=== PATIENT | female | born 1950 | race African-American/Black ===

== ENCOUNTER 2018-04-02 20:18 | Observation (INO) | payer OTHER ==
--- NOTE | 2018-04-02 21:01 | RAD REPORT ---
EXAM DESCRIPTION: CT - Ct Stroke Brain Wo Cont - 04/02/2018 8:52 pm CLINICAL HISTORY: Left-sided numbness COMPARISON: 2012 TECHNIQUE: Computed axial tomography of the head was obtained. IV contrast was not requested. All CT scans are performed using dose optimization technique as appropriate and may include automated exposure control or mA/KV adjustment according to patient size. FINDINGS: An intracranial bleed is not seen . The ventricles are normal in caliber. No extra-axial fluid collection is noted. Fluid within the sinuses/ mastoids is not seen. IMPRESSION: No acute intracranial abnormality is seen. If patient's symptoms persist MRI of the bra in would be recommended. Exam was discussed with Gregg Jesus in the emergency room 8:50 p.m. April 02, 2018
--- NOTE | 2018-04-02 21:04 | RAD REPORT ---
EXAM DESCRIPTION: [facility] Single View04/02/2018 8:56 pm CLINICAL HISTORY: Chest pain COMPARISON: August 2016 FINDINGS: The lungs appear clear of acute infiltrate. The heart is normal size IMPRESSION: No acute abnormalities displayed
[2018-04-02] MEDS ORDERED: ASPIRIN 81 MG CHEWABLE TABLET ONE (22:14)
--- NOTE | 2018-04-02 22:43 | EDPHYS ---
Physician Documentation [facility] Name: Chiquis Hickman Age: 67 yrs Sex: Female : 1950 Arrival Date: 04/02/2018 Time: 20:21 Bed 3 Private MD: ED Physician Jose L Adame HPI: 04/02 21:46 This 67 yrs old Black Female presents to ER via Wheelchair with complaints of LEFT ARM kdr TINGLING. 21:46 The patient presents to the emergency department with weakness of the left upper kdr extremity, that is mild, that is moderate, left lower extremity, that is mild, paresthesias of the left lower extremity, left side of the face, that is mild. Onset: The symptoms/episode began/occurred gradually, at 06:30. Context: occurred at home, The patient awakes every morning at 05:30 and she noted at 06:30 that she had tingling and numbness on her left face. Then some time before lunch, she noted weakness on the left side. Code stroke was not called since the patient was well outside the window for any acute intervention.. Associated signs and symptoms: The patient has no apparent associated signs or symptoms. Severity of symptoms: At their worst the symptoms were mild. Patient's baseline: Neuro: alert and fully oriented, Motor: left-sided weakness, From prior stroke. Current symptoms: paralysis or paresis, of the left arm and left leg, that is mild. The patient has not experienced similar symptoms in the past, Has had a prior CVA with minimal residual s/s. The patient has not recently seen a physician. Historical: - Allergies: 20:38 steroids; fc - Home Meds: 20:38 metformin 500 mg oral Tb24 1 tab once daily [Active]; Jardiance 10 mg oral tab 1 tab fc once daily [Active]; losartan-hydrochlorothiazide 100-25 mg oral tab 1 tab once daily [Active]; diltiazem HCl 360 mg Oral cpER 1 cap once daily [Active]; atorvastatin 40 mg oral tab 1 tab nightly [Active]; aspirin 81 mg Oral chew 1 tab once daily [Active]; multivitamin oral tab daily [Active]; Tresiba FlexTouch U-100 100 unit/mL (3 mL) subcutaneous inpn 20 unit nightly [Active]; Trulicity 1.5 mg/0.5 mL subcutaneous pnij 0.5 mL every [Active]; - PMHx: 20:38 Diabetes - IDDM; Hypertension; Hyperlipidemia; left sided weakness; CVA; TIA; fc - PSHx: 20:38 fibroid tumor removed; Hysterectomy; fc - Immunization history:: Last tetanus immunization: up to date Flu vaccine is up to date. - Social history:: Smoking status: Patient/guardian denies using tobacco. - Ebola Screening: : Patient negative for fever greater than or equal to 101.5 degrees Fahrenheit, and additional compatible Ebola Virus Disease symptoms Patient denies exposure to infectious person Patient denies travel to an Ebola-affected area in the 21 days before illness onset. ROS: 21:46 Constitutional: Negative for fever, chills, and weight loss, Eyes: Negative for injury, kdr pain, redness, and discharge, Neck: Negative for injury, pain, and swelling, Cardiovascular: Negative for chest pain, palpitations, and edema, Respiratory: Negative for shortness of breath, cough, wheezing, and pleuritic chest pain, Abdomen/GI: Negative for abdominal pain, nausea, vomiting, diarrhea, and constipation, Back: Negative for injury and pain, : Negative for injury, bleeding, discharge, and swelling, MS/Extremity: Negative for injury and deformity, Skin: Negative for injury, rash, and discoloration, Psych: Negative for depression, anxiety, suicide ideation, homicidal ideation, and hallucinations, Allergy/Immunology: Negative for hives, rash, and allergies, Endocrine: Negative for neck swelling, polydipsia, polyuria, polyphagia, and marked weight changes, Hematologic/Lymphatic: Negative for swollen nodes, abnormal bleeding, and unusual bruising. 21:46 Neuro: Positive for gait disturbance, numbness, weakness. Exam: 21:46 Constitutional: This is a well developed, well nourished patient who is awake, alert, kdr and in no acute distress. Head/Face: Normocephalic, atraumatic - no facial asymetry noted Eyes: Pupils equal round and reactive to light, extra-ocular motions intact. Lids and lashes normal. Conjunctiva and sclera are non-icteric and not injected. Cornea within normal limits. Periorbital areas with no swelling, redness, or edema. Neck: Trachea midline, no thyromegaly or masses palpated, and no cervical lymphadenopathy. Supple, full range of motion without nuchal rigidity, or vertebral point tenderness. No Meningismus. Chest/axilla: Normal chest wall appearance and motion. Nontender with no deformity. No lesions are appreciated. Cardiovascular: Regular rate and rhythm with a normal S1 and S2. No gallops, murmurs, or rubs. Normal PMI, no JVD. No pulse deficits. Respiratory: Lungs have equal breath sounds bilaterally, clear to auscultation and percussion. No rales, rhonchi or wheezes noted. No increased work of breathing, no retractions or nasal flaring. Abdomen/GI: Soft, non-tender, with normal bowel sounds. No distension or tympany. No guarding or rebound. No evidence of tenderness throughout. Back: No spinal tenderness. No costovertebral tenderness. Full range of motion. Skin: Warm, dry with normal turgor. Normal color with no rashes, no lesions, and no evidence of cellulitis. MS/ Extremity: Pulses equal, no cyanosis. Neurovascular intact. Full, normal range of motion. Psych: Awake, alert, with orientation to person, place and time. Behavior, mood, and affect are within normal limits. 21:46 Neuro: Orientation: is normal, Mentation: is normal, Cerebellar function: dysmetria is noted on the left, the patient is unable to track right heel to left silva, the patient is unable to track left heel to right silva, unable to perform alternating rapid hand movements with left hand, Motor: Weak on left greater than right. Vital Signs: 20:20 BP 178 / 80; Pulse 70; Resp 18; Temp 98.3(O); Pulse Ox 100% on R/A; Weight 102.51 kg fc (R); Height 5 ft. 5 in. (165.10 cm) (R); Pain 0/10; 21:15 BP 143 / 53; Pulse 68; Resp 18; Pulse Ox 99% on R/A; ak1 21:59 BP 134 / 60; Pulse 61; Resp 18; Temp 98.2; Pulse Ox 100% on R/A; ak1 23:08 BP 156 / 66; Pulse 62; Resp 18; Temp 98.10; Pulse Ox 100% on R/A; ak1 04/03 00:54 Pulse 62; Resp 18; Pulse Ox 100% on R/A; ak1 01:14 BP 148 / 75; Pulse 62; Resp 16; Temp 98.1; Pulse Ox 99% on R/A; Pain 0/10; ak1 04/02 20:20 Body Mass Index 37.61 (102.51 kg, 165.10 cm) fc NIH Stroke Scale Scores: 04/02 21:46 NIHSS Score: 9 kdr MDM: 21:46 Data reviewed: vital signs, nurses notes. Counseling: I had a detailed discussion with kdr the patient and/or guardian regarding: the historical points, exam findings, and any diagnostic results supporting the discharge/admit diagnosis, lab results, radiology results. 22:42 Patient medically screened. kdr 04/02 20:32 Order name: Glucose, Ancillary Testing; Complete Time: 21:36 EDMS 04/02 20:33 Order name: Basic Metabolic Panel kdr 04/02 20:33 Order name: CBC with Diff kdr 04/02 20:33 Order name: Protime (+inr) [facility] 04/02 20:33 Order name: Ptt, Activated kdr 04/02 22:56 Order name: Urine Dipstick--Ancillary (enter results) ms 04/02 20:33 Order name: CT Stroke Brain w/o Contrast; Complete Time: 21:36 kdr 04/02 20:33 Order name: Stroke CXR 1 View; Complete Time: 21:36 kdr 04/02 20:33 Order name: EKG; Complete Time: 20:33 kdr 04/02 20:33 Order name: Accucheck; Complete Time: 20:41 kdr 04/02 20:33 Order name: Cardiac monitoring; Complete Time: 20:42 kdr 04/02 20:33 Order name: EKG - Nurse/Tech; Complete Time: 20:42 kdr 04/02 20:33 Order name: IV Saline Lock; Complete Time: 20:42 kdr 04/02 20:33 Order name: Labs collected and sent; Complete Time: 20:42 kdr 04/02 20:33 Order name: NPO; Complete Time: 20:42 kdr 04/02 20:33 Order name: O2 Per Protocol; Complete Time: 20:42 kdr 04/02 20:33 Order name: O2 Sat Monitoring; Complete Time: 20:43 kdr 04/02 20:33 Order name: Stroke Swallow Screen; Complete Time: 20:43 kdr Administered Medications: 22:10 Drug: Aspirin Chewable Tablet 324 mg Route: PO; ak1 22:10 Follow up: Response: No adverse reaction ak1 Point of Care Testing: Blood Glucose: 20:41 Blood Glucose: 120 mg/dL; ak1 Ranges: Critical Glucose Levels:Adult <50 mg/dl or >400 mg/dl <40 mg/dl or >180 mg/dl Disposition: 04/02/18 22:42 Hospitalization ordered by Kirsten Baltazar for Inpatient Admission. Preliminary diagnosis is Ischemic CVA. Left sided weakness. - Bed requested for Telemetry/MedSurg (Inpatient). - Status is Inpatient Admission. ak1 - Condition is Fair. - Problem is new. - Symptoms are unchanged. UTI on Admission? No NIH Stroke Scale - NIH Stroke Score Date: 04/02/2018 Time: 21:46 Total Score = 9 1a. Level of Consciousness (LOC) - 0(Alert) 1b. Level of Consciousness (LOC) (Year \T\ Age) - 0(Both) 1c. LOC Commands (Open \T\ Closes Eyes/Lot Porter) - 0(Both) 2. Best Gaze (Lateral Gaze Paresis) - 0(Normal) 3. Visual Field Loss - 0(No visual loss) 4. Facial Palsy - 0(Normal) 5a. Left Arm: Motor (10-second hold) - 2(Drift, some effort against gravity) 5b. Right Arm: Motor (10-second hold) - 0(No drift) 6a. Left Leg: Motor (5-second hold - always test supine) - 3(No effort against gravity) 6b. Right Leg: Motor (5-second hold - always test supine) - 2(Drift, some effort against gravity) 7. Limb Ataxia (finger/nose \T\ heel/silva - test with eyes open) - 2(Present in two limbs) 8. Sensory Loss (pinprick arms/legs/face) - 0(Normal) 9. Best Language: Aphasia (description/naming/reading) - 0(No aphasia) 10. Dysarthria (speech clarity - read or repeat words) - 0(Normal) 11. Extinction and Inattention (visual/tactile/auditory/spatial/personal) - 0(No abnormality) Initials: kdr Signatures: Dispatcher [employer] EDMS Radha Nevarez RN RN Jose L Adame MD MD kdr Chretien, Felicia, RN RN Jennifer Smith RN RN ak1 Corrections: (The following items were deleted from the chart) 23:25 22:42 Hospitalization Ordered by Kirsten Baltazar MD for Inpatient Admission. mw Preliminary diagnosis is Ischemic CVA. Left sided weakness. Bed requested for Telemetry/MedSurg (Inpatient). Status is Inpatient Admission. Condition is Fair. Problem is new. Symptoms are unchanged. UTI on Admission? No. kdr 04/03 01:38 04/02 23:25 04/02/2018 22:42 Hospitalization Ordered by Kirsten Baltazar MD for ak1 Inpatient Admission. Preliminary diagnosis is Ischemic CVA. Left sided weakness. Bed requested for Telemetry/MedSurg (Inpatient). Status is Inpatient Admission. Condition is Fair. Problem is new. Symptoms are unchanged. UTI on Admission? No. mw
--- NOTE | 2018-04-02 22:43 | ER ---
Nurse's Notes [facility] Name: Chiquis Hickman Age: 67 yrs Sex: Female : 1950 Arrival Date: 04/02/2018 Time: 20:21 Bed 3 Private MD: Diagnosis: Ischemic CVA. Left sided weakness Presentation: 04/02 20:20 Presenting complaint: Patient states: that she is having left sided (face, arm and leg) fc tingling. Also having tightness to left neck. All started at 0630 this am. Denies any shortness of breath, nausea or vomiting. Transition of care: patient was not received from another setting of care. Onset of symptoms was April 02, 2018 at 06:30. Risk Assessment: Do you want to hurt yourself or someone else? Patient reports no desire to harm self or others. Initial Sepsis Screen: Does the patient meet any 2 criteria? No. Patient's initial sepsis screen is negative. Does the patient have a suspected source of infection? No. Patient's initial sepsis screen is negative. Care prior to arrival: None. 20:20 Method Of Arrival: Wheelchair fc 20:20 Acuity: ROSALBA 2 fc Triage Assessment: 20:40 General: Appears in no apparent distress. Behavior is calm, cooperative. ak1 Historical: - Allergies: 20:38 steroids; fc - Home Meds: 20:38 metformin 500 mg oral Tb24 1 tab once daily [Active]; Jardiance 10 mg oral tab 1 tab fc once daily [Active]; losartan-hydrochlorothiazide 100-25 mg oral tab 1 tab once daily [Active]; diltiazem HCl 360 mg Oral cpER 1 cap once daily [Active]; atorvastatin 40 mg oral tab 1 tab nightly [Active]; aspirin 81 mg Oral chew 1 tab once daily [Active]; multivitamin oral tab daily [Active]; Tresiba FlexTouch U-100 100 unit/mL (3 mL) subcutaneous inpn 20 unit nightly [Active]; Trulicity 1.5 mg/0.5 mL subcutaneous pnij 0.5 mL every [Active]; - PMHx: 20:38 Diabetes - IDDM; Hypertension; Hyperlipidemia; left sided weakness; CVA; TIA; fc - PSHx: 20:38 fibroid tumor removed; Hysterectomy; fc - Immunization history:: Last tetanus immunization: up to date Flu vaccine is up to date. - Social history:: Smoking status: Patient/guardian denies using tobacco. - Ebola Screening: : Patient negative for fever greater than or equal to 101.5 degrees Fahrenheit, and additional compatible Ebola Virus Disease symptoms Patient denies exposure to infectious person Patient denies travel to an Ebola-affected area in the 21 days before illness onset. Screenin:20 Abuse screen: Denies threats or abuse. Nutritional screening: No deficits noted. fc Tuberculosis screening: No symptoms or risk factors identified. Fall Risk No fall in past 12 months (0 pts). Secondary diagnosis (15 points) TIA, CVA, No IV (0 pts). Ambulatory Aid- Crutches/Cane/Walker (15 pts). Gait- Impaired (20 pts.). Mental Status- Overestimates/Forgets Limitations (15 pts.). Total Carlos Fall Scale indicates High Risk Score (45 or more points). Fall prevention measures have been instituted. Side Rails Up X 2 Placed Close to Nursing Station Frequent Obs/Assessments Occuring Family Present and informed to notify staff if the need to leave the bedside As available patient and family educated on Fall Prevention Program and Strategies. Assessment: 20:37 General: Appears in no apparent distress. Pain: Complains of pain in NECK PAIN. ak1 20:38 Neuro: Level of Consciousness is awake, alert, obeys commands, Oriented to person, ak1 place, time, situation, Director Of Strategic [employer]iances are weak on left pt with hx previous stroke. Moves all extremities. weakness on left side from previous stroke. Speech is normal, Facial symmetry appears normal, Facial symmetry: tongue is midline, pt chewing gum in ER3. . Reports numbness left arm that is intermittent. Cardiovascular: No deficits noted. Respiratory: No deficits noted. GI: No signs and/or symptoms were reported involving the gastrointestinal system. : No signs and/or symptoms were reported regarding the genitourinary system. EENT: No signs and/or symptoms were reported regarding the EENT system. Derm: No signs and/or symptoms reported regarding the dermatologic system. Musculoskeletal: No signs and/or symptoms reported regarding the musculoskeletal system. 20:44 Reassessment: swallow screen completed, pt tolerated water well. ak1 21:15 Reassessment: Patient appears in no apparent distress at this time. No changes from ak1 previously documented assessment. Patient is alert, oriented x 3, equal unlabored respirations, skin warm/dry/pink. Patient states symptoms have improved. 21:57 Reassessment: Patient appears in no apparent distress at this time. No changes from ak1 previously documented assessment. Patient is alert, oriented x 3, equal unlabored respirations, skin warm/dry/pink. 23:08 Reassessment: Patient appears in no apparent distress at this time. No changes from ak1 previously documented assessment. Patient and/or family updated on plan of care and expected duration. Pain level reassessed. Patient is alert, oriented x 3, equal unlabored respirations, skin warm/dry/pink. Patient states symptoms have improved. 04/03 00:53 Reassessment: Patient appears in no apparent distress at this time. Patient is alert, ak1 oriented x 3, equal unlabored respirations, skin warm/dry/pink. pt and family informed of wait for CT before admission or transfer status can be determined. will continue to monitor. Vital Signs: 04/02 20:20 BP 178 / 80; Pulse 70; Resp 18; Temp 98.3(O); Pulse Ox 100% on R/A; Weight 102.51 kg fc (R); Height 5 ft. 5 in. (165.10 cm) (R); Pain 0/10; 21:15 BP 143 / 53; Pulse 68; Resp 18; Pulse Ox 99% on R/A; ak1 21:59 BP 134 / 60; Pulse 61; Resp 18; Temp 98.2; Pulse Ox 100% on R/A; ak1 23:08 BP 156 / 66; Pulse 62; Resp 18; Temp 98.10; Pulse Ox 100% on R/A; ak1 04/03 00:54 Pulse 62; Resp 18; Pulse Ox 100% on R/A; ak1 01:14 BP 148 / 75; Pulse 62; Resp 16; Temp 98.1; Pulse Ox 99% on R/A; Pain 0/10; ak1 04/02 20:20 Body Mass Index 37.61 (102.51 kg, 165.10 cm) fc NIH Stroke Scale Scores: 04/02 21:46 NIHSS Score: 9 kdr ED Course: 20:20 Arm band placed on Patient placed in an exam room, on a stretcher. 20:20 Patient has correct armband on for positive identification. Placed in gown. Bed in low fc position. Call light in reach. Side rails up X 1. appliance technician on. Pulse ox on. NIBP on. 20:20 No provider procedures requiring assistance completed. fc 20:21 Patient arrived in ED. ag3 20:24 Jose L Adame MD is Attending Physician. kdr 20:32 Triage completed. fc 20:37 Jennifer Smith, RN is Primary Nurse. ak1 20:[address] via stretcher. vm2 20:40 Initial lab(s) drawn, by me, sent to lab. EKG done, by ED staff, reviewed by Jose L Adame MD X-ray(s) taken. Inserted saline lock: 20 gauge in right antecubital area, using aseptic technique. Blood collected. 20:52 CT Stroke Brain w/o Contrast In Process Unspecified. EDMS 20:56 Stroke CXR 1 View In Process Unspecified. EDMS 21:57 Warm blanket given. jd3 22:40 Kirsten Baltazar MD is Hospitalizing Provider. kdr 04/03 00:[address] via stretcher. kw1 00:36 CT completed. Patient tolerated procedure well. Patient moved back from CT. kw1 01:15 Patient admitted, IV remains in place. ak1 Administered Medications: 04/02 22:10 Drug: Aspirin Chewable Tablet 324 mg Route: PO; ak1 22:10 Follow up: Response: No adverse reaction ak1 Point of Care Testing: Blood Glucose: 20:41 Blood Glucose: 120 mg/dL; ak1 Ranges: Outcome: 22:42 Decision to Hospitalize by Provider. kdr 04/03 00:53 Condition: stable ak1 01:15 Instructed on the need for admit. ak1 01:28 Admitted to Med/surg accompanied by tech, family with patient, via stretcher, room 408, ak1 with chart. 01:38 Patient left the ED. ak1 NIH Stroke Scale - NIH Stroke Score Date: 04/02/2018 Time: 21:46 Total Score = 9 1a. Level of Consciousness (LOC) - 0(Alert) 1b. Level of Consciousness (LOC) (Year \T\ Age) - 0(Both) 1c. LOC Commands (Open \T\ Closes Eyes/Transfer And Line Up Worker) - 0(Both) 2. Best Gaze (Lateral Gaze Paresis) - 0(Normal) 3. Visual Field Loss - 0(No visual loss) 4. Facial Palsy - 0(Normal) 5a. Left Arm: Motor (10-second hold) - 2(Drift, some effort against gravity) 5b. Right Arm: Motor (10-second hold) - 0(No drift) 6a. Left Leg: Motor (5-second hold - always test supine) - 3(No effort against gravity) 6b. Right Leg: Motor (5-second hold - always test supine) - 2(Drift, some effort against gravity) 7. Limb Ataxia (finger/nose \T\ heel/silva - test with eyes open) - 2(Present in two limbs) 8. Sensory Loss (pinprick arms/legs/face) - 0(Normal) 9. Best Language: Aphasia (description/naming/reading) - 0(No aphasia) 10. Dysarthria (speech clarity - read or repeat words) - 0(Normal) 11. Extinction and Inattention (visual/tactile/auditory/spatial/personal) - 0(No abnormality) Initials: kdr Signatures: Dispatcher [employer] EDJose L Wooten MD MD kdr Chretien, Felicia RN RN fc Jennifer Smith RN RN Nika Zapata2 Santana Barnett RN RN Anitra Bosch1 Glenny Desouza ag3 Corrections: (The following items were deleted from the chart) 04/02 20:33 20:20 Fall Risk None identified. fc fc
[2018-04-02 23:08] LABS: Urine Blood NEGATIVE (NEG); Urine Glucose 1+ (NEG); Urine Protein NEGATIVE (NEG)
[2018-04-02 23:23] LABS: Absolute Lymphocytes (CBC) 3.5 K/uL (0.7-4.9); Absolute Monocytes 0.6 K/uL (0.1-1.3); Absolute Neutrophil 4.5 K/uL (1.8-8.0); Basophils % 0.8 % (0-1.3); Eosinophils % 2.4 % (0-4.4); Hematocrit 39.7 % (36.0-45.0); Lymphocytes % 39.2 % (15.3-44.8); MCH 30.8 pg (27.0-35.0); MCV 90.7 fL (80-100); MPV 8.2 fL (7.6-11.3); RBC Red Blood Cell Count 4.37 M/uL (3.86-4.86)
[2018-04-02 23:38] LABS: Potassium 3.7 mmol/L (3.5-5.1)
[2018-04-02 23:47] LABS: Protime INR 0.92
[2018-04-03] MEDS ORDERED: MAGNESIUM HYDROXIDE 8% 30 ML PO PRN (00:51)
[2018-04-03] MEDS ORDERED: ONDANSETRON 4 MG/2 ML VIAL IV PRN (00:51)
[2018-04-03] MEDS ORDERED: ACETAMINOPHEN 500 MG TAB PO PRN (00:51)
[2018-04-03] MEDS ORDERED: NA CHLORIDE 0.9% 1,000 ML IV SCH (01:00)
[2018-04-03] MEDS: D5 0.9 NS 1,000 ML IV SCH ×2 (02:32→17:03)
--- NOTE | 2018-04-03 07:59 | RAD REPORT ---
EXAM DESCRIPTION: CT - Head angio - 04/03/2018 6:38 am CLINICAL HISTORY: CVA A preliminary report was provided at the time of the study and reviewed prior to final report. TECHNIQUE: Axial noncontrast 5 mm imaging of the head performed. During dynamic enhancement using no nionic IV contrast, axial 1 millimeter thick images of the head were obtained. Sagittal and axial rec onstruction images were generated and reviewed. All CT scans are performed using dose optimization technique as appropriate and may include automated exposure control or mA/KV adjustment according to patient size. COMPARISON: CT head April 02 FINDINGS: No aneurysm or vascular malformation identified. Major venous sinuses are patent. No stenosis, named branch occlusion, vasculitis or other significant vascular finding identifiable. IMPRESSION: Negative CT angio head examination.
[2018-04-03] MEDS: CLOPIDOGREL 75 MG TABLET PO SCH (09:00)
[2018-04-03] MEDS: ENOXAPARIN 40 MG/0.4 ML SQ SCH (09:00)
[2018-04-03] MEDS ORDERED: POTASSIUM CL SA 10 MEQ TAB PO ONE (09:00)
[2018-04-03] MEDS ORDERED: ASPIRIN EC 81 MG TAB PO SCH (09:00)
--- NOTE | 2018-04-03 12:26 | EKG ---
Test Date: 2018-04-02 Test Time: 20:42:41 Hide Worker: TONI MEASUREMENT RESULTS: Intervals: Rate: 64 CA: 180 QRSD: 88 QT: 420 QTc: 433 [place]: P: 41 CA: 180 QRS: -7 T: 19 INTERPRETIVE STATEMENTS: Normal sinus rhythm Moderate voltage criteria for LVH, may be normal variant Borderline ECG Compared to ECG 08/23/2016 07:32:29 No significant changes Electronically Signed On 04-03-18 12:25:39 CDT by Rebel Smyth
[2018-04-03] MEDS ORDERED: ENOXAPARIN 40 MG/0.4 ML SQ SCH (17:00)
--- NOTE | 2018-04-03 18:56 | P.HP ---
Certification for Inpatient Patient admitted to: Inpatient With expected LOS: >2 Midnights Patient will require the following post-hospital care: Rehabilitation Practitioner: I am a practitioner with admitting privileges, knowledge of patient current condition, hospital course, and medical plan of care. Services: Services provided to patient in accordance with Admission requirements found in Title 42 Section 412.3 of the Code of Federal Regulations Patient History Date of Service: 04/02/18 Reason for admission: left-sided weakness History of Present Illness: Patient is a 67-year-old female who came into the hospital with left-sided weakness. Her symptoms started 24 hr prior to arrival. Her symptoms were not improving so she came to the emergency room for further evaluation. Patient has had a prior stroke about 10 years ago. Her symptoms have pretty much resolved since that time. She has not been taking good care of herself however. Her blood pressure has been elevated. In the emergency room she had a CT scan and labs performed. CT scan was negative for an acute infarct. We will schedule her for an MRI along with an echocardiogram and carotid Doppler. Neurologic consult as well. We did speak to the ER physician and they were arranging for tele Neuro. Since patient was outside the window of tPA we decided that she would be able to be managed care with medical management and Neurology input as needed. Allergies Steroids Allergy (Mild, Uncoded 04/03/18 02:32) Unknown Home Medications: Aspirin [Mk Chewable Aspirin] 1 tab PO DAILY 08/23/16 Empagliflozin [Jardiance] 10 mg PO DAILY 08/23/16 Insulin Degludec [Tresiba Flextouch U-100] 20 unit SQ BEDTIME 08/23/16 Metformin HCl [Glucophage*] 500 mg PO DAILY 08/23/16 Multivit-Min/FA/Lycopen/Lutein [Centrum Silver Tablet] 1 tab PO DAILY 08/23/16 Simvastatin 40 mg PO DAILY 08/23/16 dilTIAZem HCl [Diltiazem 24Hr Cd] 360 mg PO DAILY 08/23/16 Dulaglutide [Trulicity] 0.75 mg SQ EVERY 7TH DAY 04/03/18 Losartan/Hydrochlorothiazide [Losartan-Hctz 100-25 mg Tab] 1 tab PO DAILY - Past Medical/Surgical History Has patient received pneumonia vaccine in the past: Yes Diabetic: Yes -: HTN -: IDDM -: high cholesterol -: CVA (10 years ago) -: fibroid tumor removed -: hysterectomy -: hernia repair - Family History Father Medical History: Hypertension, Diabetes Mother Medical History: Hypertension, Diabetes - Social History Smoking Status: Never smoker Alcohol use: No CD- Drugs: No Caffeine use: Yes Place of Residence: Home Review of Systems 10-point ROS is otherwise unremarkable Physical Examination - Vital Signs Temperature: 98.0 F Blood Pressure: 139/66 Pulse: 76 Respirations: 18 Pulse Ox (%): 97 - Physical Exam General: Alert, In no apparent distress, Oriented x3 HEENT: Atraumatic, PERRLA, Mucous membr. moist/pink, EOMI, Sclerae nonicteric Neck: Supple, 2+ carotid pulse no bruit, No LAD, Without JVD or thyroid abnormality Respiratory: Clear to auscultation bilaterally, Normal air movement Cardiovascular: Regular rate/rhythm, Normal S1 S2 Gastrointestinal: Normal bowel sounds, Soft and benign, Non-distended, No tenderness Musculoskeletal: No clubbing, No swelling, No tenderness Integumentary: No rashes Neurological: Normal gait, Normal speech, Normal tone, Sensation intact, Cranial nerves 3-12 intact, Normal affect, Other (no pronator drift), Abnormal strength (left sided weakness 4/5) Lymphatics: No axilla or inguinal lymphadenopathy - Studies Laboratory Data (last 24 hrs) 04/02/18 23:11: PT 10.9, INR 0.92, APTT 29.8 04/02/18 23:11: WBC 8.9, Hgb 13.5, Hct 39.7, Plt Count 228 04/02/18 23:11: Sodium 140, Potassium 3.7, BUN 22 H, Creatinine 1.00, Glucose 89 Assessment & Plan - Problems (Diagnosis) (1) Acute CVA (cerebrovascular accident) Current Visit: Yes Status: Acute (2) Weakness of left side of body Current Visit: Yes Status: Acute (3) Diabetes mellitus Onset Date: 08/25/16 Current Visit: No Status: Chronic Qualifiers: Diabetes mellitus type: type 2 (4) HTN (hypertension) Onset Date: 08/25/16 Current Visit: No Status: Chronic Qualifiers: - Plan 1. MRI of the brain 2. Echocardiogram and carotid Doppler 3. Anti-platelet therapy and statin therapy 4. Neurology consultation as needed 5. Physical therapy/occupational therapy/speech therapy evaluation 6. Modified barium swallow study 7. DVT prophylaxis Discharge Plan: Home Plan to discharge in: Greater than 2 days - Advance Directives Does patient have a Living Will: No Does patient have a Durable POA for Healthcare: No - Code Status/Comfort Care Code Status Assessed: Yes Code Status: Full Code Critical Care: No Time Spent Managing PTS Care (In Minutes): 50
[2018-04-03] MEDS: ATORVASTATIN 20 MG TAB PO SCH (20:44)
[2018-04-04 06:29] LABS: Absolute Lymphocytes (CBC) 2.6 K/uL (0.7-4.9); Absolute Monocytes 0.5 K/uL (0.1-1.3); Absolute Neutrophil 2.7 K/uL (1.8-8.0); Basophils % 0.4 % (0-1.3); Eosinophils % 2.7 % (0-4.4); Hematocrit 37.9 % (36.0-45.0); Lymphocytes % 43.3 % (15.3-44.8); MCH 31.3 pg (27.0-35.0); MCV 90.5 fL (80-100); Monocytes % 8.7 % (3.3-12.3); RBC Red Blood Cell Count 4.19 M/uL (3.86-4.86)
[2018-04-04 07:26] LABS: Albumin 2.8 g/dL (3.4-5.0); Bilirubin Total 0.4 mg/dL (0.2-1.0); Magnesium 1.9 mg/dL (1.8-2.4); Phosphorus 2.8 mg/dL (2.5-4.9); Potassium 3.8 mmol/L (3.5-5.1); Protein, Total 7.4 g/dL (6.4-8.2)
[2018-04-04] MEDS ORDERED: HOME MED 1 EA UNK (Losartan/Hydrochlorothiazide [Losartan-Hctz 100-25 Mg Tab] 1 TAB) PO SCH (09:00)
[2018-04-04] MEDS: ENOXAPARIN 40 MG/0.4 ML SQ SCH (09:00)
[2018-04-04] MEDS ORDERED: HOME MED 1 EA UNK (Simvastatin [Simvastatin] 40 MG) PO SCH (09:00)
[2018-04-04] MEDS ORDERED: DILTIAZEM HCL 360 MG PO SCH (09:00)
[2018-04-04] MEDS: CLOPIDOGREL 75 MG TABLET PO SCH (09:00)
[2018-04-04] MEDS: HOME MED 1 EA UNK (Empagliflozin [Jardiance] 10 MG) PO SCH (09:00)
[2018-04-04] MEDS: ASPIRIN 81 MG CHEWABLE TABLET PO SCH (09:03)
[2018-04-04] MEDS: DILTIAZEM HCL 180 MG SR CAP PO SCH (09:03)
[2018-04-04] MEDS: LOSARTAN/HCTZ 50-12.5 PO SCH (09:04)
[2018-04-04] MEDS ORDERED: POTASSIUM CL SA 10 MEQ TAB PO ONE (11:28)
--- NOTE | 2018-04-04 14:29 | P.PN ---
Subjective Date of Service: 04/04/18 Chief Complaint: left-sided weakness Subjective: Tolerating diet, Ambulating, Improving, Working w/ PT, Doing well Review of Systems 10-point ROS is otherwise unremarkable Physical Examination - Vital Signs Temperature: 97.8 F Blood Pressure: 144/79 Pulse: 78 Respirations: 16 Pulse Ox (%): 99 - Physical Exam General: Alert, In no apparent distress HEENT: Atraumatic, PERRLA, EOMI Neck: Supple, JVD not distended Respiratory: Clear to auscultation bilaterally, Normal air movement Cardiovascular: Regular rate/rhythm, Normal S1 S2 Gastrointestinal: Normal bowel sounds, No tenderness Musculoskeletal: No tenderness Integumentary: No rashes Neurological: Normal speech, Normal tone, Normal affect Lymphatics: No axilla or inguinal lymphadenopathy - Studies Medications List Reviewed: Yes Assessment And Plan - Current Problems (Diagnosis) (1) Weakness of left side of body Current Visit: Yes Status: Acute Plan: Weakness of left side of body. Improving today -Head CT negative -MRI pending today -ECHO pending -Carotid Doppler negative for now -neurology Consulted. 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
[2018-04-04] MEDS: ATORVASTATIN 20 MG TAB PO SCH (20:30)
[2018-04-04] MEDS ORDERED: INSULIN DEGLUDEC SQ SCH (21:00)
[2018-04-05 06:31] VITALS: BMI 25.4
[2018-04-05 06:37] LABS: Potassium 3.9 mmol/L (3.5-5.1)
[2018-04-05 06:43] LABS: Absolute Lymphocytes (CBC) 2.1 K/uL (0.7-4.9); Absolute Monocytes 0.5 K/uL (0.1-1.3); Absolute Neutrophil 3.2 K/uL (1.8-8.0); Basophils % 0.7 % (0-1.3); Eosinophils % 3.4 % (0-4.4); Hematocrit 39.3 % (36.0-45.0); Lymphocytes % 35.3 % (15.3-44.8); MCH 30.8 pg (27.0-35.0); MCV 92.1 fL (80-100); MPV 7.8 fL (7.6-11.3); Monocytes % 8.3 % (3.3-12.3); RBC Red Blood Cell Count 4.27 M/uL (3.86-4.86)
[2018-04-05] MEDS ORDERED: POTASSIUM CL SA 10 MEQ TAB PO ONE (06:54)
[2018-04-05] MEDS ORDERED: LORazepam 2 MG/ML VIAL IV ONE (07:14)
[2018-04-05] MEDS: HOME MED 1 EA UNK (Empagliflozin [Jardiance] 10 MG) PO SCH (09:00)
[2018-04-05] MEDS ORDERED: POTASSIUM CL SA 10 MEQ TAB PO SCH (09:00)
[2018-04-05] MEDS: ENOXAPARIN 40 MG/0.4 ML SQ SCH (09:00)
[2018-04-05] MEDS: CLOPIDOGREL 75 MG TABLET PO SCH ×2 (09:00→09:04)
[2018-04-05] MEDS: LOSARTAN/HCTZ 50-12.5 PO SCH (09:03)
[2018-04-05] MEDS: ASPIRIN 81 MG CHEWABLE TABLET PO SCH (09:04)
[2018-04-05] MEDS: DILTIAZEM HCL 180 MG SR CAP PO SCH (09:05)
--- NOTE | 2018-04-05 09:54 | RAD REPORT ---
EXAM DESCRIPTION: MRI - Brain W/Wo Cont - 04/05/2018 9:13 am CLINICAL HISTORY: CVA/CONFUSION Drowsiness COMPARISON: MRA Head Wo Cont dated 04/05/2018; MRA Neck W/Wo Cont dated 04/05/2018; Head angio dated 04/02/2018; Ct Stroke Brain Wo Cont dated 04/02/2018 TECHNIQUE: Multi-sequence, multiplanar MR imaging of the brain was performed with contrast. FINDINGS: No intracranial hemorrhage, hydrocephalus, extra-axial fluid collection or acute infarctio n.Mild small area of T2 and FLAIR hyperintensity in the periventricular region is present compatible chronic microvascular ischemic changes. No edema or shift of midline structures. No intracranial mass . DWI is negative for acute CVA. The midline structures are normally formed. Partially empty sella configuration noted.Mastoid air tim ls and paranasal sinuses are clear. Post-contrast images show no abnormal enhancement to suggest tumor or infection. IMPRESSION: Negative for acute CVA or other acute intracranial abnormality. No pathologic post-contrast enhancement suspected.
--- NOTE | 2018-04-05 09:57 | RAD REPORT ---
EXAM DESCRIPTION: MRI - MRA Head Wo Cont - 04/05/2018 9:22 am CLINICAL HISTORY: CVA/confusion CVA COMPARISON: Head angio dated 04/02/2018 FINDINGS: 3D noncontrast [id number] MR angiography of the [place] was performed. No aneurysm, flow-limiting stenosis or vascular malformation is seen. Forward flow seen in codominant vertebral arteries. Normal variant origin of left posterior communicating artery noted. The visualized dural venous sinuses appear patent. IMPRESSION: No significant flow abnormality of the [place] is identified.
--- NOTE | 2018-04-05 10:02 | RAD REPORT ---
EXAM DESCRIPTION: MRI - MRA Neck W/Wo Cont - 04/05/2018 9:18 am CLINICAL HISTORY: CVA/CONFUSION Drowsiness COMPARISON: No comparisons FINDINGS: Contrast enhance 2D [id number] MR angiography of the neck vessels was performed. No significant carotid stenosis is seen involving either carotid system. Antegrade flow seen in both vertebral arteries. IMPRESSION: No significant carotid stenosis is identified.
[2018-04-05 11:28] VITALS: O2SAT 97
--- NOTE | 2018-04-05 11:55 | P.DS ---
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 Her symptoms started 24 hr prior to arrival. Her symptoms were not improving so she came to the emergency room for further evaluation. Patient has had a prior stroke about 10 years ago. Her symptoms have pretty much resolved since that time. She has not been taking good care of herself however. Her blood pressure has been elevated. In the emergency room she had a CT scan and labs performed. CT scan was negative for an acute infarct. We will schedule her for an MRI along with an echocardiogram and carotid Doppler. Neurologic consult as well. We did speak to the ER physician and they were arranging for tele Neuro. Since patient was outside the window of tPA we decided that she would be able to be managed care with medical management and Neurology input as needed. Hospital Course: Overall during the hospital stay patient remained stable Patient was initially admitted to the hospital for left-sided weakness along with other neurological deficits. Which resolved by the time patient was brought to the ER. Acute CVA versus TIA of was of concern and thus patient was admitted to the hospital for 24 hr observation and to get MRI of the head. Patient was started on aspirin Plavix statin here in the hospital along with Lovenox. Patient had complete resolution of her weakness and had no further complaints to offer in 48 hr of admission. Patient had an MRI of the head done here in the hospital along with MRA as well. Both of which were within normal limits with no signs of acute ischemia. Patient most likely had TIA and thus was discharged home and was asked to continue taking her aspirin and statin for stroke prevention in the future. Patient demonstrated understanding and thus was discharged home under stable condition. Vital Signs/Physical Exam: Temp Pulse Resp BP Pulse Ox 97.6 F 70 18 141/73 H 97 04/05/18 08:00 04/05/18 09:05 04/05/18 04:00 04/05/18 09:05 04/05/18 08:00 General: Alert, In no apparent distress HEENT: Atraumatic, PERRLA, EOMI Neck: Supple, JVD not distended Respiratory: Clear to auscultation bilaterally, Normal air movement Cardiovascular: Regular rate/rhythm, Normal S1 S2 Gastrointestinal: Normal bowel sounds, No tenderness Musculoskeletal: No tenderness Integumentary: No rashes Neurological: Normal speech, Normal tone, Normal affect Lymphatics: No axilla or inguinal lymphadenopathy Laboratory Data at Discharge: WBC 6.1 K/uL (4.3-10.9) 04/05/18 06:10 Hgb 13.2 g/dL (12.0-15.0) 04/05/18 06:10 Hct 39.3 % (36.0-45.0) 04/05/18 06:10 Plt Count 214 K/uL (152-406) 04/05/18 06:10 PT 10.9 SECONDS (9.5-12.5) 04/02/18 23:11 INR 0.92 04/02/18 23:11 APTT 29.8 SECONDS (24.3-36.9) 04/02/18 23:11 Sodium 141 mmol/L (136-145) 04/05/18 06:10 Potassium 3.9 mmol/L (3.5-5.1) 04/05/18 06:10 BUN 15 mg/dL (7-18) 04/05/18 06:10 Creatinine 0.80 mg/dL (0.55-1.3) 04/05/18 06:10 Glucose 106 mg/dL (74-106) 04/05/18 06:10 Phosphorus 2.8 mg/dL (2.5-4.9) 04/04/18 06:08 Magnesium 1.9 mg/dL (1.8-2.4) 04/04/18 06:08 Total Bilirubin 0.4 mg/dL (0.2-1.0) 04/04/18 06:08 AST 38 U/L (15-37) H 04/04/18 06:08 ALT 44 U/L (12-78) 04/04/18 06:08 Alkaline Phosphatase 96 U/L (45-117) 04/04/18 06:08 Triglycerides 75 mg/dL (<150) 04/04/18 06:08 Cholesterol 118 mg/dL (<200) 04/04/18 06:08 HDL Cholesterol 65 mg/dL (40-60) H 04/04/18 06:08 Cholesterol/HDL Ratio 1.82 04/04/18 06:08 Home Medications: Aspirin [Mk Chewable Aspirin] 1 tab PO DAILY 08/23/16 Empagliflozin [Jardiance] 10 mg PO DAILY 08/23/16 Insulin Degludec [Tresiba Flextouch U-100] 20 unit SQ BEDTIME 08/23/16 Metformin HCl [Glucophage*] 500 mg PO DAILY 08/23/16 Multivit-Min/FA/Lycopen/Lutein [Centrum Silver Tablet] 1 tab PO DAILY 08/23/16 Simvastatin 40 mg PO DAILY 08/23/16 dilTIAZem HCl [Diltiazem 24Hr Cd] 360 mg PO DAILY 08/23/16 Dulaglutide [Trulicity] 0.75 mg SQ EVERY 7TH DAY 04/03/18 Losartan/Hydrochlorothiazide [Losartan-Hctz 100-25 mg Tab] 1 tab PO DAILY Patient Discharge Instructions: Please f.u with PCP and Neurology in 1 to 2 week post discharge. No new medication. Your MRI, MRA and Neck MRA were negative Diet: Regular Activity: Ad nabil Followup: Toñito De La Rosa MD [ASSOCIATE-ACTIVE - CAN ADMIT] - 1 Week
[2018-04-05 13:05] VITALS: BP 121/67; TEMP 98.3
[2018-04-10] MEDS ORDERED: HOME MED 1 EA UNK (Dulaglutide [Trulicity] 0.75 MG) SQ SCH (09:00)
== END 2018-04-05 13:00 | disposition home or self-care (01) ==
LOC: ER 20:18 → ERHOLD 23:16 → INTOOBSV 23:16 → 4TH 04-03 01:29
PROVIDERS: ADMIT Hospitalist; ATTEND Hospitalist
DX: R53.1 Weakness (principal); E11.9 Type 2 diabetes mellitus without complications; I10 Essential (primary) hypertension; Z79.82 Long term (current) use of aspirin; Z86.73 Personal history of transient ischemic attack (TIA), and cerebral infarction without residual deficits
CPT/HCPCS: 36415 ×3; 70450; 70496; 70544; 70549; 70553; 71045; 80048 ×2; 80053; 80061; 81003; 82962 ×11; 83735; 84100; 85025 ×3; 85610; 85730; 93005; 97163; 99285; A9577; G0378 ×2; Q9967; J1650; J7030

== ENCOUNTER 2018-11-12 10:53 | Emergency (ER) | payer OTHER ==
--- OUTSIDE RECORDS SUMMARY | 2018-11-12 10:57 | XMS REPORT | Continuity of Care Document ---
:1950 Author Organization Interface Problems Problem Status Onset Classification Date Comments Source Date Reported CVA Active 01/05/[address] LF #[id number](CVA) Active 01/05/[address] APHASIA,ACUTE Active 01/05/[address] TIA Resolved 06/08/19 Problem 01/08/[address] TIA Resolved 06/08/19 Problem 07/15/[address] Stroke Resolved Problem 01/08/2017 [facility] HTN - Resolved Problem 01/08/2017 [facility] Hyperlipidemia Resolved Problem 01/08/2017 [facility] IDDM - Resolved Problem 01/08/2017 [facility] diabetes [facility]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 Fibroids Resolved Problem 01/08/2017 [facility] HTN - Resolved Problem 07/15/2012 [facility] IDDM - Resolved Problem 07/15/2012 [facility]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 APHASIA Active [facility] CVA Active [facility] Medications Medication Details Route Status Patient Ordering Order Source Instructions Provider Date Ativan 1 mg, 0.5 mL, Inactive 01/05[facility] Route: IVP, 2017 Medical Drug form: Center INJ, ONCE, Dosing Weight 105.17, kg, PRN Anxiety, Start date: 01/05/17 11:31:00 CDTNotes: (Same as: Ativan) Ativan 2 mg, Route: Inactive 01/05[facility] IVP, Drug 2017 Medical form: INJ, Center ONCE, Dosing Weight 105.17, kg, PRN Anxiety, Start date: 01/05/17 11:30:00 CDT Insulin Glargine 10 unit, 0.1 Inactive 01/05[facility] mL, Route: 2017 Medical SUB-Q, Drug Center form: SOLN, Daily, Dosing Weight 122.33, kg, Start date: 01/05/17 9:00:00 CDT, Duration: 30 day, Stop date: 02/03/17 9:00:00 CDTNotes: Same as: Lantus) Do not hold insulin without contacting prescriber WASTE: F/P - Black; E - [facility] Trash [facility] Cardizem CD 180 mg, 1 Inactive [place] cap, Route: 2017 Medical PO, Drug Center form: ERCAP, Daily, Dosing Weight 122.33, kg, Start date: 01/05/17 9:00:00 CDT, Duration: 30 day, Stop date: 02/03/17 9:00:00 CDTNotes: (Same as:Cardizem CD) Before meals. DO NOT CRUSH. aspirin 81 mg 81 mg, 1 tab, Inactive [facility] tablet, enteric Route: PO, 2017 Medical coated Drug form: [place] ECTAB, Daily, Dosing Weight 122.33, kg, Start date: 01/05/17 9:00:00 CDT, Duration: 30 day, Stop date: 02/03/17 9:00:00 CDTNotes: Do not crush or chew. (Same As: Ecotrin) Plavix 75 mg, 1 tab, Inactive [facility] Route: PO, 2016 Medical Drug form: Center TAB, Daily, Dosing Weight 122.33, kg, Start date: 01/05/17 9:00:00 CDT, Duration: 30 day, Stop date: 02/03/17 9:00:00 CDTNotes: (Same As: Plavix) Tresiba 20 unit, Active [place] FlexTouch SUB-Q, 2017 Medical Bedtime, 0 Center Refill(s) Hydrochlorothiaz 1 tab, PO, Active [facility] carlos 25 MG / Daily, 0 2017 Medical valsartan 320 MG Refill(s) Center Oral Tablet [Diovan HCT 320/25] 0.5 ML 50 mg, SUB-Q, Active [facility] albiglutide 100 QThu, 0 2017 Medical MG/ML Prefilled Refill(s) Center Syringe [Tanzeum] simvastatin 40 40 mg=1 tab, Active [facility] mg oral tablet PO, Bedtime, 2017 Medical # 30 tab, 5 Center Refill(s) atorvastatin 40 mg, 1 tab, No Longer [place] Route: PO, Active 2016 Medical Drug form: Center TAB, Bedtime, Dosing Weight 122.33, kg, Start date: 01/04/17 21:00:00 CDT, Duration: 30 day, Stop date: 02/02/17 21:00:00 CDTNotes: (Same as: Lipitor) Docusate 100 mg, 1 No Longer [place] cap, Route: Active 2016 [facility] PO, Drug Center form: CAP, BID, Dosing Weight 122.33, kg, Start date: 01/04/17 17:00:00 CDT, Duration: 30 day, Stop date: 02/03/17 9:00:00 CDTNotes: (Same as: Colace) (Do Not Crush) Insulin regular 10 unit, 0.1 No Longer [place] mL, Route: Active 2016 Medical SUB-Q, Drug Center form: SOLN, TID-Before Meals, Dosing Weight 122.33, kg, PRN Blood Glucose Results, Start date: 01/04/17 16:07:00 CDT, Duration: 30 day, Stop date: 02/03/17 16:06:00 CDTNotes: (Same as: Humulin R) Roll in palms of hands gently; Do not shake vigorously. "single patient use only" (Restricted to patients requiring a dose > 60 units) WASTE: F/P - Black; E - [facility] Trash [facility] Stable for 28 days at room temperature Expires in days from _Date Glucagon 1 mg, Route: No Longer [place] IM, Drug Active 2016 Medical form: [place] PDR/INJ, PRN, Dosing Weight 122.33, kg, PRN Blood Glucose Results, Start date: 01/04/17 16:07:00 CDT, Duration: 30 day, Stop date: 02/03/17 16:06:00 CDT Dextrose 50% 25 gm, 50 mL, No Longer [place] Syringe Route: IVP, Active 2016 Medical Drug Form: [place] INJ, Dosing Weight 122.33, kg, PRN, PRN Blood Glucose Results, Start date: 01/04/17 16:07:00 CDT, Duration: 30 day, Stop date: 02/03/17 16:06:00 CDT Acetaminophen 650 mg, 2 No Longer [place] tab, Route: Active 2016 Medical PO, Drug Center form: TAB, Q4H, Dosing Weight 122.33, kg, PRN Pain 1-3/Temp > 100.4 F, Start date: 01/04/17 16:02:00 CDT, Duration: 30 day, Stop date: 02/03/17 16:01:00 CDTNotes: Do not exceed 4 gm/day. (Same as: Tylenol) Ondansetron 4 mg, 2 mL, No Longer [place] Route: IVP, Active 2016 Medical Drug form: Center INJ, Q6H, Dosing Weight 122.33, kg, PRN Nausea & Vomiting, Start date: 01/04/17 16:02:00 CDT, Duration: 30 day, Stop date: 02/03/17 16:01:00 CDTNotes: (Same as: Zofran) MEDICATION WASTE Product Size: 4 mg Product Wasted: 0 mg Aspirin 325 mg, 1 Inactive [place] tab, Route: 2016 Medical PO, Drug Center form: TAB, ONCE, Dosing Weight 122.33, kg, Priority: STAT, Start date: 01/04/17 15:15:00 CDT, Stop date: 01/04/17 15:15:00 CDTNotes: Take with food. iodixanol 100 mL, Inactive [place] Route: IVP, 2016 Medical Drug Form: Center SOLN, kg, ONCALL, STAT, Start date: 01/04/17 13:34:00 CDT, Duration: 1 doses or times, Dose=2.2ml/kg , Max dimg=280sf -- "To be infused by Radiology Staff ONLY" Saline Flush 10 mL, Route: No Longer [place] 0.9% IVP, Drug Active 2016 Medical Form: INJ, Center kg, PRN, PRN Line Flush, Start date: 06/08/16 13:21:00 UNARMED SECURITY OFFICER, Duration: 30 day, Stop date: 07/08/16 13:20:00 CSTNotes: Same as: BD Posiflush Sterile Lantus 40 unit, 0.4 SUB-Q No Longer [facility] mL, Route: Active 2012 Medical SUB-Q, Drug Center form: INJ, QAM, Dosing Weight 122.33, kg, Start date: 07/13/12 9:00:00, Duration: 30 day, Stop date: 08/11/12 9:00:00 atorvastatin 80 80 mg, 1 tab, PO Active [facility] mg oral tablet PO, QPM, 2012 Medical tab, 1, 1, Center Substitution Allowed, TAB Lantus 38 unit, 0.38 SUB-Q No Longer [place] [facility] mL, Route: Active 2012 Medical SUB-Q, Drug Center form: INJ, QPM, Dosing Weight 122.33, kg, Start date: 07/12/12 18:00:00, Duration: 30 day, Stop date: 08/11/12 17:00:00 atorvastatin 80 mg, 1 tab, PO No Longer [facility] Route: PO, Active 2012 Medical Drug form: Center TAB, QPM, Dosing Weight 122.33, kg, Start date: 07/12/12 17:00:00, Duration: 30 day, Stop date: 08/10/12 17:00:00 heparin 5000 7,500 unit, SUB-Q No Longer [facility] units/mL 1.5 mL, Active 2012 Medical injectable Route: SUB-Q, Center solution Drug form: INJ, Q8H, Dosing Weight 122.33, kg, Start date: 07/12/12 16:00:00, Duration: 30 day, Stop date: 08/11/12 8:00:00 valsartan 160 mg, 1 PO No Longer [place] [facility] tab, Route: Active 2012 Medical PO, Drug Center form: TAB, Daily, Dosing Weight 122.33, kg, Start date: 07/12/12 13:00:00, Duration: 30 day, Stop date: 08/11/12 9:00:00 diltiazem 180 mg, 1 PO No Longer [place] [facility] cap, Route: Active 2012 Medical PO, Drug Center form: ERCAP, Daily, Dosing Weight 122.33, kg, Start date: 07/12/12 13:00:00, Duration: 30 day, Stop date: 08/11/12 9:00:00 hydrochlorothiaz 12.5 mg, 1 PO No Longer [place] [facility] carlos cap, Route: Active 2012 Medical PO, Drug Center form: CAP, Daily, Dosing Weight 122.33, kg, Start date: 07/12/12 13:00:00, Duration: 30 day, Stop date: 08/11/12 9:00:00 aspirin 325 mg, 1 PO No Longer [place] [facility] tab, Route: Active 2012 Medical PO, Drug Center form: ECTAB, Daily, Dosing Weight 122.33, kg, Priority: NOW, Start date: 07/12/12 10:13:00, Duration: 30 day, Stop date: 08/11/12 9:00:00 pneumococcal 0.5 ml, IM No Longer SYSTEM [facility] 23-valent Route: IM, Active 2012 Medical vaccine Drug Form: Center INJ, Daily, Start date: 07/12/12 9:00:00, Duration: 1 doses or times, Stop date: 07/12/12 9:00:00 pantoprazole 40 mg, Route: IVP No Longer [facility] IVP, Drug Active 2012 Medical form: INJ, Center Daily, Dosing Weight 113.636, kg, Start date: 07/12/12 9:00:00, Duration: 30 day, Stop date: 08/10/12 9:00:00 Saline Flush 5 ml, Route: IVP No Longer [facility] 0.9% IVP, Drug Active 2012 Medical Form: INJ, Center Dosing Weight 113.636, kg, Q12H, Start date: 07/11/12 21:00:00, Duration: 30 day, Stop date: 08/10/12 9:00:00 docusate 100 mg, 1 PO No Longer [facility] cap, Route: Active 2012 Medical PO, Drug Center form: CAP, Q12H, Dosing Weight 113.636, kg, Start date: 07/11/12 21:00:00, Duration: 30 day, Stop date: 08/10/12 9:00:00 insulin regular 7 unit, 0.07 SUB-Q No Longer [facility] human mL, Route: Active 2012 Medical recombinant 100 SUB-Q, Drug Center units/mL form: SOLN, injectable PRN, Dosing solution Weight 122.33, kg, PRN Abnormal Lab Result, Start date: 07/11/12 20:51:00, Duration: 30 day, Stop date: 08/10/12 20:50:00 Dextrose 50% 12.5 gm, 25 IVP No Longer [facility] Syringe mL, Route: Active 2012 Medical IVP, Drug Center Form: INJ, Dosing Weight 122.33, kg, PRN, PRN Abnormal Lab Result, Start date: 07/11/12 20:51:00, Duration: 30 day, Stop date: 08/10/12 20:50:00 Ativan 2 mg, 1 mL, IVP No Longer [facility] Route: IVP, Active 2012 Medical Drug form: Center INJ, ONCE, Dosing Weight 122.33, kg, PRN Anxiety, Priority: STAT, Start date: 07/11/12 19:59:00 Lantus Solostar 38 unit, SUB-Q Active [facility] Pen 100 units/mL SUB-Q, 2012 Medical subcutaneous Bedtime, 10 Center solution ml, Substitution Allowed, SOLN Diovan HCT 12.5 1 tab, PO, PO Active [facility] mg-320 mg oral Daily, 2012 Medical tablet tab, Center Substitution Allowed, Maintenance, TAB glipiZIDE 10 mg 10 mg, 1 tab, PO Active [facility] oral tablet PO, Daily, 30 2012 Medical tab, Center Substitution Allowed Plavix 75 mg 75 mg, 1 tab, PO Active [facility] oral tablet PO, Daily, 30 2012 Medical tab, Center Substitution Allowed, TAB simvastatin 40 40 mg, 1 tab, PO No Longer [facility] mg oral tablet PO, Bedtime, Active 2012 Medical 30 tab, Center Substitution Allowed, Maintenance aspirin 81 mg 81 mg, 1 tab, PO Active [facility] tablet, enteric PO, Daily, 0 2012 Medical coated tab, Center Substitution Allowed, ECTAB Cardizem CD 180 180 mg, 1 PO Active [facility] mg/24 hours oral cap, PO, 2012 Medical capsule, Daily, 30 Center extended release cap, Substitution Allowed Lantus Solostar 40 unit, SUB-Q Active [facility] Pen 100 units/mL SUB-Q, Before 2012 Medical subcutaneous Breakfast, 10 Center solution ml, Substitution Allowed, SOLN niCARdipine 40 40 mg, 200 IV No Longer [facility] mg in NS 200 ml mL, Rate: Active 2012 Medical IV 40 mg Start at [place] 5mg/hr., Dosing Weight 113.636, kg, Route: IV, Total Volume: 200, Titrate to maintain SBP 140-180mmHg., Duration: 30 day, Stop date: 08/10/12 16:15:00, Replace Every: 24 hr Saline Flush 5 ml, Route: IVP No Longer [facility] 0.9% IVP, Drug Active 2012 Medical Form: INJ, [place] Dosing Weight 113.636, kg, PRN, PRN Line Flush, Start date: 07/11/12 16:11:00, Duration: 30 day, Stop date: 08/10/12 16:10:00 acetaminophen 650 mg, 2 PO No Longer [facility] tab, Route: Active 2012 Medical PO, Drug Center form: TAB, Q4H, Dosing Weight 113.636, kg, PRN Pain/Fever, Start date: 07/11/12 16:11:00, Duration: 30 day, Stop date: 08/10/12 16:10:00 labetalol 10 mg, 2 mL, IVP No Longer [facility] Route: IVP, Active 2012 Medical Drug form: [place] INJ, Q10Min, Dosing Weight 113.636, kg, PRN Hypertension, Start date: 07/11/12 16:11:00, Duration: 30 day, Stop date: 08/10/12 16:10:00, For SBP > 180mmHg and/or DBP > 105mmHg Omnipaque 125 mL, IVP No Longer [facility] 350mg/ml Route: IVP, Active 2012 Medical Drug Form: [place] SOLN, Dosing Weight 113.636, kg, ONCALL, STAT, Start date: 07/11/12 13:41:00, Duration: 1 doses or times, Stop date: 07/11/12 20:00:00, Dose=2.2ml/kg , Max [id number] -- "To be infused by Radiology Staff ONLY"Dose=2.2 ml/kg, Max [id number] -- "To be infused by Radiology Staff ONLY" labetalol 20 mg, Route: IVP No Longer [facility] 07/11/ [facility] IVP, Drug Active 2012 Medical form: INJ, Center ONCE, Dosing Weight 113.636, kg, Priority: STAT, Start date: 07/11/12 12:35:00, Stop date: 07/11/12 12:35:00 Allergies, Adverse Reactions, Alerts Substance Category Reaction Severity Reaction Status Date Comments Source type Reported NKFA drug Allergy Active [facility]<spears Assertion Propensity Active Pt states [facility] p>1</sup> to adverse that Medical reactions steroids Center to drug make her blood sugar go out of control Immunizations Immunization Date Site Status Last Updated Comments Source Given pneumococcal Right completed [facility] 23-valent vaccine 3 deltoid [facility] pneumococcal completed [facility] 23-valent vaccine 3 Medical Center Results Order Name Results Value Reference Date Interpretation Comments Source Range Brain w/wo Brain w/wo EXAM: MRI BRAIN WITH AND WITHOUT CONTRAST 01/05 - [facility] contrast contrast MRI /2016 - [facility] MRI This report was dictated by a Geriatric Social Worker/Fellow. I have personally reviewed the images as Center well as the Resident's interpretation and agree with the findings. DATE: 01/05/2017 at 1547 Read by: Denilson [facility] MD Resident: Denilson [facility] MD Dictated Date/time: 01/05/17 16:55 Electronically Signed by: Aruna Forde MD 01/05/17 18:27 FINAL REPORT INDICATION: 66-year-old female with left-sided weakness, rule out acute infarct. ADDITIONAL INFORMATION: None COMPARISON: CT brain, CTA brain and neck/perfusion dated 01/04/2017 TECHNIQUE: Multiplanar, multisequence MRI of the brain with and without intravenous contrast. IV contrast: 20 mL [facility] FINDINGS: No restricted diffusion. Global volume loss with few scattered nonspecific subcortical/periventricular white matter T2/FLAIR hyperintensities, presumably secondary to small vessel disease. No intracrani al hemorrhage, mass effect or midline shift. No extra-axial fluid collections. Major intracranial flow voids are preserved. Ventricles and basilar cisterns are patent. Empty sella. No abnormal intracra nial or leptomeningeal enhancement. Intraocular lens replacement is noted bilaterally. Opacification of some mastoid are cells IMPRESSION: 1. No acute intracranial abnormality. 2. Global volume loss and chronic microvascular ischemic changes. HEMATOLOGY RBC 4.23 M/CMM 4.20 - 01/05 5.40 /2016 [facility] HEMATOLOGY Hgb 12.5 g/dL 12.0 - 01/05 16.0 [facility] HEMATOLOGY Hct 36.9 % 36.0 - 01/05 48.0 [facility] HEMATOLOGY MCHC 34.0 g/dL 32.0 - 01/05 [place] 36.0 [facility] HEMATOLOGY WBC 7.9 K/CMM 3.7 - 10.4 01/05 [facility] HEMATOLOGY MPV 7.9 fL 7.4 - 10.4 01/05 [facility] HEMATOLOGY RDW 15.4 % 11.5 - 01/05 14. [facility] HEMATOLOGY MCV 87.3 fL 80.0 - 01/05 98.0 [facility] HEMATOLOGY MCH 29.7 pg 27.0 - 01/05 31.0 [facility] HEMATOLOGY Platelet 194 K/CMM 133 - 450 01/05 [facility] HEMATOLOGY Monocytes # 0.6 K/CMM 0.0 - 0.8 01/05 [facility] HEMATOLOGY Eosinophils # 0.3 K/CMM 0.0 - 0.5 01/05 [facility] HEMATOLOGY Basophils 0.5 % 0.0 - 1.0 01/05 [facility] HEMATOLOGY Lymphocytes # 2.8 K/CMM 1.0 - 5.5 01/05 [facility] HEMATOLOGY Segs-Bands # 4.2 K/CMM 1.5 - 8.1 01/05 [facility] HEMATOLOGY Eosinophils 3.5 % 0.0 - 4.0 01/05 [facility] HEMATOLOGY Segs 53.3 % 45.0 - 01/05 75.0 [facility] HEMATOLOGY Monocytes 7.7 % 2.0 - 12.0 01/05 [facility] HEMATOLOGY Lymphocytes 35.0 % 20.0 - 01/05 [place] 40.0 [facility] LIPIDS LDL 30 mg/dL <=99 mg/dL 01/05 [facility] (Calculated) [facility] LIPIDS HDL 76 mg/dL >=61 mg/dL 01/05 [facility] LIPIDS Chol 125 mg/dL <=199 01/05 [facility] mg/dL [facility] LIPIDS Trig 93 mg/dL <=149 01/05 [facility] mg/dL [facility] LIPIDS VLDL 19 01/05 [facility] LIPIDS CHD Risk 1.64 3.90 - 01/05 [facility] 5.80 [facility] URINE AND UA WBC 0-2 /HPF None Seen 01/04 [facility] /HPF /2016 [facility] URINE AND UA Sq Epi Occasional Few /LPF 01/04 [facility] STOOL /LPF /2016 [facility] URINE AND UA Ketones Negative Negative 01/04 [facility] *NA* [place] (01/04/17 2:36 PM) URINE AND UA Bili Negative Negative 01/04 [facility] Medical *NA* [place] (01/04/17 2:36 PM) URINE AND UA Glucose >=1000 Negative 01/04 [facility] mg/dL mg/dL [facility] URINE AND UA 0.2 EU/dL 0.1 - 1.0 01/04 [facility] Urobilinogen /2016 [facility] URINE AND UA Blood Negative Negative 01/04 [facility] (01/04/17 2:36 PM) [place] URINE AND UA Bacteria None Seen None Seen 01/04 [facility] (01/04/17 2:36 PM) [place] URINE AND UA RBC None Seen 0 - 2 01/04 [facility] (01/04/17 2:36 PM) [place] URINE AND UA Mucus None Seen None Seen 01/04 [facility] STOOL [facility] (01/04/17 2:36 PM) [place] URINE AND UA Leuk Est Negative Negative 01/04 [facility] (01/04/17 2:36 PM) [place] URINE AND UA Nitrite Negative Negative 01/04 [facility] (01/04/17 2:36 PM) [place] URINE AND UA pH 6.5 5.0 - 8.0 01/04 [facility] URINE AND UA Protein Negative Negative 01/04 [facility] STOOL [facility] (01/04/17 2:36 PM) [place] URINE AND UA Color Yellow Yellow 01/04 [facility] Medical *NA* [place] (01/04/17 2:36 PM) URINE AND UA Turbidity Clear Clear 01/04 [facility] (01/04/17 2:36 PM) [place] URINE AND UA Spec Grav 1.018 <=1.030 01/04 [facility] CARDIAC CK MB Index 0.4 0.0 - 2.5 01/04 [facility] CARDIAC Total CK 140 unit/L 12 - 191 01/04 [facility] CARDIAC Troponin-I null 0.00 - 01/04 [facility] ENZYMES 0.40 [facility] CARDIAC CK MB 0.6 ng/mL 0.5 - 3.6 01/04 [facility] CHEM PANEL eGFR 67 01/04 Result Comment: The eGFR is calculated using the CKD-EPI formula. In most young, healthy individuals the eGFR will be >90 mL/ min/1.73m2. The eGFR declines with age. An eGFR of 60-89 may be normal in [facility] mL/min/1.7 some populations, particularly the elderly, for whom the CKD-EPI formula has not been extensively validated. Use of the eGFR is not recommended in the following populations: [address] Individuals with unstable creatinine concentrations, including patients and those with serious co-morbid conditions. Patients with extremes in muscle mass or diet. The data above are obtained from the National Kidney Disease Education Program (NKDEP) which additionally recommends that when the eGFR is used in patients with extremes of body mass index for purposes of drug dosing, the eGFR should be multiplied by the estimated BMI. CHEM PANEL Potassium Lvl 3.8 meq/L 3.5 - 5.1 01/04 [facility] CHEM PANEL CO2 27 meq/L 24 - 32 01/04 [facility] CHEM PANEL Chloride Lvl 103 meq/L 95 - 109 01/04 [facility] CHEM PANEL Sodium Lvl 138 meq/L 135 - 145 01/04 [facility] CHEM PANEL Creatinine 1.01 mg/dL 0.50 - 01/04 [facility] Lvl 1.40 [facility] CHEM PANEL Calcium Lvl 9.4 mg/dL 8.5 - 10.5 01/04 [facility] CHEM PANEL AGAP 11.8 meq/L 10.0 - 01/04 20.0 [facility] CHEM PANEL Glucose Lvl 93 mg/dL 70 - 99 01/04 [facility] CHEM PANEL BUN 20 mg/dL 7 - 22 01/04 [facility] HEMATOLOGY Lymphocytes 36.2 % 20.0 - 01/04 40.0 [facility] HEMATOLOGY Segs 54.9 % 45.0 - 01/04 [place] 75.0 [facility] HEMATOLOGY Monocytes 6.6 % 2.0 - 12.0 01/04 [facility] HEMATOLOGY Lymphocytes # 4.5 K/CMM 1.0 - 5.5 01/04 [facility] HEMATOLOGY Monocytes # 0.8 K/CMM 0.0 - 0.8 01/04 [facility] HEMATOLOGY Eosinophils # 0.2 K/CMM 0.0 - 0.5 01/04 [facility] HEMATOLOGY Basophils # 0.1 K/CMM 0.0 - 0.2 01/04 [facility] HEMATOLOGY Eosinophils 1.7 % 0.0 - 4.0 01/04 [facility] HEMATOLOGY Segs-Bands # 6.8 K/CMM 1.5 - 8.1 01/04 [facility] HEMATOLOGY Basophils 0.6 % 0.0 - 1.0 01/04 [facility] HEMATOLOGY WBC 12.4 K/CMM 3.7 - 10.4 01/04 [facility] HEMATOLOGY RBC 4.76 M/CMM 4.20 - 01/04 5.40 [facility] HEMATOLOGY RDW 15.8 % 11.5 - 01/04 14.5 [facility] HEMATOLOGY MCH 28.2 pg 27.0 - 01/04 31.0 [facility] HEMATOLOGY Hgb 13.4 g/dL 12.0 - 01/04 16.0 [facility] HEMATOLOGY MCV 86.5 fL 80.0 - 01/04 98.0 [facility] HEMATOLOGY Hct 41.2 % 36.0 - 01/04 48.0 [facility] HEMATOLOGY MCHC 32.6 g/dL 32.0 - 01/04 [place] 36.0 [facility] HEMATOLOGY MPV 7.8 fL 7.4 - 10.4 01/04 [facility] HEMATOLOGY Platelet 227 K/CMM 133 - 450 01/04 [place] [facility] HEMATOLOGY INR 0.88 0.85 - 01/04 [facility] 1.17 [facility] HEMATOLOGY PT 12.1 s 12.0 - 01/04 [facility] 14.7 [facility] HEMATOLOGY PTT 25.9 s 22.9 - 01/04 [facility] 35.8 [facility] CHEM PANEL POC 1.0 mg/dL 0.5 - 1.4 01/04 [facility] Creatinine [facility] CHEM PANEL eGFR 67 01/04 Result Comment: The eGFR is calculated using the CKD-EPI formula. In most young, healthy individuals the eGFR will be >90 mL/ min/1.73m2. The eGFR declines with age. An eGFR of 60-89 may be normal in [facility] mL/min/1. some populations, particularly the elderly, for whom the CKD-EPI formula has not been extensively validated. Use of the eGFR is not recommended in the following populations: [address] Individuals with unstable creatinine concentrations, including patients and those with serious co-morbid conditions. Patients with extremes in muscle mass or diet. The data above are obtained from the National Kidney Disease Education Program (NKDEP) which additionally recommends that when the eGFR is used in patients with extremes of body mass index for purposes of drug dosing, the eGFR should be multiplied by the estimated BMI. Chest 1view Chest 1view EXAM: XR CHEST 1 VIEW 01/04 - [facility] DX DX - [facility] DATE: 01/04/2017 2:44 PM CDT Read by: Pedro Ledesma MD Dictated Date/time: 01/04/17 14:56 Electronically Signed by: Pedro Ledesma MD 01/04/17 14:56 FINAL REPORT INDICATION: - weakness COMPARISON: None TECHNIQUE: AP chest FINDINGS: Lines and tubes: None. Lungs and pleura: No pulmonary or pleural based abnormality is identified. Heart and mediastinum: The heart size is normal for technique. The mediastinal contours are normal. There is tortuous aorta. Bones: No acute bony abnormality is identified. Chronic healed posterior right 6th rib fracture is present. IMPRESSION: No acute radiographic abnormality. Brain/Neck Brain/Neck EXAM: CTA BRAIN 01/04 - [facility] Stroke Stroke - Medical perfusion perfusion CTA EXAM: CTA NECK Center CTA EXAM: CT PERFUSION BRAIN Read by: Bryan Gupta MD Dictated Date/time: 01/04/17 14:00 Electronically Signed by: Bryan Gupta MD 01/04/17 14:09 FINAL REPORT DATE: 01/04/2017 1:35 PM CDT INDICATION: 66 years old Female patient with history of WEAKNESS. COMPARISON: CT Scan of the head performed at the same time. TECHNIQUE: - Dynamic CT perfusion images on a limited area of the brain parenchyma are performed during bolus injection of iodinated contrast material. Color maps of relative cerebral blood flow, relative cerebral blood volume, time to peak, and mean transit time are created on an independent workstation and are submitted along with the source image data. -Rapid acquisition spiral CT images of the brain and neck were obtained between the aortic arch and the cranial vertex during intravenous infusion of iodinated contrast for the purposes of CT angiograph y. 3-D CT angiographic images are created using MIP technique at the acquisition workstation. The source images are also presented for interpretation. FINDINGS: CT ANGIOGRAM OF THE NECK: AORTIC ARCH: Left sided aortic arch. Great vessels originate from the aortic arch in the standard configuration. Origins of the great vessels appear patent without hemodynamically significant stenosis. CERVICAL CAROTID ARTERIES: RIGHT: Common carotid artery has a normal course without hemodynamically significant stenosis. Common carotid artery bifurcates at level of C2-C3. There are minimal atherosclerotic plaques without hemodynamically significant stenosis at the carotid bifurcation/carotid bulb. Remaining cervical internal carotid artery has a normal course and contour without hemodynamically significant stenosis. There is no definite evidence of vascular injury or aneurysm. LEFT: Common carotid artery has a normal course without hemodynamically significant stenosis. Common carotid artery bifurcates at level of C2-C3. There are minimal atherosclerotic plaques without hemodynamically significant stenosis at the carotid bifurcation/carotid bulb. Remaining cervical internal carotid artery has a normal course and contour without hemodynamically significant stenosis. There is no definite evidence of vascular injury or aneurysm. CERVICAL VERTEBRAL ARTERIES: Codominant vertebral arteries. RIGHT: Originates from right subclavian artery.. No hemodynamically significant stenosis at origin. It enters the vertebral foramina at level of C6. It has a normal caliber without hemodynamically significant stenosis. LEFT: Originates from left subclavian artery.. No hemodynamically significant stenosis at origin. It enters the vertebral foramina at level of C6. It has a normal caliber without hemodynamically significant stenosis. CT ANGIOGRAM OF THE HEAD: ANTERIOR CIRCULATION: Right Internal Carotid Artery: There are mild calcified atherosclerotic plaques within cavernous and supraclinoid segments of internal carotid artery. No hemodynamically significant stenosis is present. Left Internal Carotid Artery: There are mild calcified atherosclerotic plaques within cavernous and supraclinoid segments of internal carotid artery. No hemodynamically significant stenosis is present. Anterior Cerebral Arteries: Anterior cerebral arteries appear widely patent without hemodynamically significant stenosis. Middle Cerebral Arteries: Middle cerebral arteries appear widely patent without hemodynamically significant stenosis. POSTERIOR CIRCULATION/VERTEBROBASILAR SYSTEM: Codominant vertebral arteries. Intracranial vertebral arteries (V4 segments ) appear widely patent without hemodynamically significant stenosis. Questionable fenestration in the proximal segment otherwise Basilar artery appears widely patent without hemodynamically significant stenosis. 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 Visualized posterior cerebral arteries appear widely patent without hemodynamically significant stenosis. VENOUS SYSTEM: Visualized dural venous sinuses are patent. CT PERFUSION: There is no regional abnormality in cerebral blood flow, cerebral blood volume, or transit time in the imaged areas of the brain to suggest active oligemia or infarction. EXTRAVASCULAR FINDINGS: Visualized lung apices are clear. Thyroid gland appears unremarkable. No definite mass lesion is seen within neck. Airway is widely patent. Vertebral alignment of the cervical spine is anatomic. Multilevel mild to moderate degenerative changes within cervical spine, most pronounced at C5-C6. Please refer to detailed report of the CT scan of the head for non- vascular intracranial findings IMPRESSION: 1. No definite evidence of flow-limiting stenosis, major branch occlusion, vascular injury or aneurysm is identified. 2. No definite perfusion abnormality to suggest acute ischemia/infarct. All quantitative and qualitative assessments of carotid bifurcation and proximal internal carotid artery stenosis in the neck are are made referencing the distal internal carotid artery as per standard NASCET criteria. Brain wo Brain wo EXAM: CT HEAD WITHOUT CONTRAST 01/04 [facility] contrast CT contrast CT /2017 - Medical This report was dictated by a Geriatric Social Worker/Fellow. I have personally reviewed the images as Center well as the Resident's interpretation and agree with the findings. DATE: 01/04/2017 1:24 PM CDT Read by: Marli Chung MD Resident: Marli Chung MD Dictated Date/time: 01/04/17 13:35 Electronically Signed by: Bryan Gupta MD 01/04/17 13:43 FINAL REPORT INDICATION: 66 years old Female patient with history of Weakness. TECHNIQUE: Multiple axial images were obtained through the head from vertex to the skull base. Axial bone algorithm reconstruction images are provided. COMPARISON: None. FINDINGS: No definite evidence of cerebral edema, mass effect, midline shift is seen. There is no intracranial hemorrhage. Ventricles are normal in size and configuration. No pathological extra- axial fluid collection is seen. Basal cisterns are well preserved. There is no evidence of downward herniation. Calvarium is intact. Visualized paranasal sinuses are clear. Mastoid air cells are well aerated. Visualized orbits appear grossly unremarkable. IMPRESSION: 1. No acute cortical infarct or intracranial hemorrhage. 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 BEDSIDE Comment1 Notify 07/13 NA [facility] GLUCOSE RN/ /2012 [facility] TESTING [place] BEDSIDE Gluc POC 260 mg/dL 70 - 99 07/13 CA 1Interpretive [facility] GLUCOSE [facility] Data: [facility] Center Upper Reportable Limit: 200 mg/dL. BEDSIDE Gluc POC 103 mg/dL 70 - 99 07/13 CA 2Interpretive [facility] GLUCOSE [facility] Data: [facility] Center Upper Reportable Limit: 200 mg/dL. BEDSIDE Comment1 Notify 07/13 NA [facility] GLUCOSE RN/ /2012 [facility] Center BEDSIDE Comment1 Notify 07/13 [facility] GLUCOSE RN/ /2012 [facility] Center BEDSIDE Gluc POC 331 mg/dL 70 - 99 07/13 HI 3Interpretive [facility] GLUCOSE [facility] Data: [facility] Center Upper Reportable Limit: 200 mg/dL. CHEMISTRY AGAP 13.0 meq/L 10.0 - 07/12 Normal [facility] 20.0 [facility] CHEMISTRY B/C Ratio 17 6 - 25 07/12 Normal [facility] CHEMISTRY Globulin 4.5 g/dL 2.0 - 4.0 07/12 HI [facility] CHEMISTRY A/G Ratio 0.6 0.7 - 1.6 07/12 LOW [facility] CHEMISTRY eGFR 79 02/ NA 4Result Comment: The eGFR is calculated using the CKD-EPI formula. In most young, healthy individuals the eGFR will be > 90 mL/min/1.73m2. The eGFR declines with age. An eGFR of 60-89 may be normal in [facility] mL/min/1.7 /2012 some populations, particularly the elderly, for whom the CKD-EPI formula has not been extensively validated. Use of the eGFR is not recommended in the following populations: [place] [address] [facility] Individuals with unstable creatinine concentrations, including patients and those with serious co-morbid conditions. Patients with extremes in muscle mass or diet. The data above are obtained from the National Kidney Disease Education Program (NKDEP) which additionally recommends that when the eGFR is used in patients with extremes of body mass index for purposes of drug dosing, the eGFR should be multiplied by the estimated BMI. CHEMISTRY Albumin Lvl 2.8 g/dL 3.5 - 5.0 02/ LOW [facility] CHEMISTRY ALT 71 unit/L 0 - 65 07/12 HI [facility] CHEMISTRY Glucose Lvl 197 mg/dL 70 - 99 07/12 HI 5Interpretive Data: Adult reference range values reflect the clinical guidelines of the [place] [employer]. [facility] CHEMISTRY Alk Phos 111 unit/L 39 - 136 07/12 Normal [facility] CHEMISTRY Sodium Lvl 142 meq/L 135 - 145 07/12 Normal [facility] CHEMISTRY BUN 15 mg/dL 7 - 22 07/12 Normal [facility] CHEMISTRY Creatinine 0.9 mg/dL 0.5 - 1.4 07/[address] [facility] CHEMISTRY Potassium Lvl 4.0 meq/L 3.5 - 5.1 07/12 Normal [facility]2012 [facility] CHEMISTRY Chloride Lvl 106 meq/L 95 - 109 07/12 Normal [facility]2012 [facility] CHEMISTRY Calcium Lvl 8.5 mg/dL 8.5 - 10.5 07/12 Normal [facility] CHEMISTRY Bili Total 0.4 mg/dL 0.2 - 1.3 07/12 Normal [facility] CHEMISTRY CO2 27 meq/L 24 - 32 07/12 Normal [facility]2012 [facility] CHEMISTRY AST 54 unit/L 0 - 37 07/12 HI [facility] CHEMISTRY Total Protein 7.3 g/dL 6.4 - 8.4 07/12 Normal [facility]2012 [facility] CHEMISTRY Hgb A1C 10.5 % / NA 6Interpretive Data: HbA1C% eAG( mg/dL) Interpretation 6.0 126 Very good control [facility] 6.5 140 Very good control Center 7.0 154 Good Control 7.5 169 Good Control 8.0 183 Marginal Control, take action to lower 8.5 197 Marginal Control, take action to lower 9.0 212 Poor Control, take action to lower 9.5 226 Poor Control, take action to lower 10.0 240 Poor Control, take action to lower CHEMISTRY LDL 95 mg/dL 0 - 129 07/12 Normal [facility] CHEMISTRY Chol 180 mg/dL 120 - 200 07/12 Normal [facility] CHEMISTRY Trig 128 mg/dL 0 - 200 07/12 Normal [facility] CHEMISTRY HDL 59 mg/dL >=35 07/12 Normal [facility] CHEMISTRY CHD Risk 3.05 3.90 - 02 LOW [facility] 5.80 /2012 [facility] CHEMISTRY Bili Direct 0.1 mg/dL 0.0 - 0.3 07/12 Normal [facility] HEMATOLOGY WBC 7.6 K/CMM 3.7 - 10.4 07/12 Normal [facility] HEMATOLOGY MCH 31.2 pg 27.0 - 07/12 HI [facility] 31.0 [facility] HEMATOLOGY MCV 93.2 fL 81.0 - 02 [facility] 99.0 /2012 [facility] HEMATOLOGY RBC 3.97 M/CMM 4.20 - 02 LOW [facility] 5.40 /2012 [facility] HEMATOLOGY RDW 13.7 % 11.5 - 02/ [facility] 14.5 /2012 [facility] HEMATOLOGY MPV 8.2 fL 7.4 - 10.4 07/12 [facility] HEMATOLOGY Hct 37.0 % 36.0 - 02 Normal [facility] 48.0 [facility] HEMATOLOGY Hgb 12.4 g/dL 12.0 - 02 Normal [facility] 16.0 [facility] HEMATOLOGY Platelet 203 K/CMM 133 - 450 07/12 Normal [facility] HEMATOLOGY MCHC 33.4 g/dL 32.0 - 02 Normal [facility] 36.0 [facility] HEMATOLOGY Basophils 0.6 % 0.0 - 1.0 07/12 [facility] HEMATOLOGY Monocytes # 0.6 K/CMM 0.0 - 0.8 07/12 Normal [facility] HEMATOLOGY Lymphocytes # 2.9 K/CMM 1.0 - 5.5 02/04 Normal [facility] HEMATOLOGY Eosinophils # 0.2 K/CMM 0.0 - 0.5 07/12 Normal [facility] HEMATOLOGY Segs-Bands # 3.9 K/CMM 1.5 - 8.1 07/12 Normal [facility] HEMATOLOGY Lymphocytes 37.7 % 20.0 - 02/ Normal [facility] 40.0 /2012 [facility] HEMATOLOGY Segs 51.1 % 45.0 - 02/ Normal [facility] 75.0 /2012 [facility] HEMATOLOGY Eosinophils 2.8 % 0.0 - 4.0 07/12 Normal [facility] HEMATOLOGY Monocytes 7.8 % 2.0 - 12.0 07/12 Normal [facility] HEMATOLOGY PTT 30.1 s 22.9 - 07/12 Normal 9Interpretive [facility] 35.8 Data: Heparin [facility] Range: 57 - 92 Seconds HEMATOLOGY PT 13.4 s 12.0 - 07/12 Normal [facility] 14.7 [facility] HEMATOLOGY INR 1.00 0.85 - 07/12 Normal 8Interpretive Data: RECOMMENDED RANGES FOR PROTIME INR: [facility] 06.24 2.0-3.0 for most medical and surgical thromboembolic states. Medical 2.5-3.5 for artificial heart valves and recurrent embolism. [place] INR SHOULD BE USED ONLY FOR PATIENTS ON STABLE ANTICOAGULANT THERAPY. CHEMISTRY UDS Note See Note 7 07/11 NA 7Interpretive Data: Drugs reported as positive have not been confirmed by a second method and should be used for medical purposes only. To order Medical *NA* confirmation, contact laboratory. [place] (07/11/2012 15:14:00) note: Below are cut-off concentrations for all urine drugs of abuse performed in the laboratory. Some drugs listed in the table may not be included in this panel. Description Cut-off concentration Amphetamine 1000 ng/mL Barbiturates 200 ng/mL Benzodiazepines 300 ng/mL Cocaine metabolites 300 ng/mL Opiates 300 ng/mL Phencyclidine 25 ng/mL Propoxyphene 300 ng/mL Marijuana metabolites 50 ng/mL Methadone 300 ng/mL Urine alcohol 20 mg/dL CHEMISTRY U Benzodia Negative Negative 07/11 [facility] Medical *NA* Center (07/11/2012 15:14:00) CHEMISTRY U Cannab Scr Negative Negative 07/11 NA Medical *NA* Center (07/11/2012 15:14:00) CHEMISTRY U Cocaine Scr Negative Negative 07/11 [facility] *NA* Center (07/11/2012 15:14:00) CHEMISTRY U Phencyc Scr Negative Negative 07/11 [facility] *NA* Center (07/11/2012 15:14:00) CHEMISTRY U Opiate Scr Negative Negative 07/11 [facility] *NA* Center (07/11/2012 15:14:00) CHEMISTRY U Mary Scr Negative Negative 07/11 [facility] *NA* Center (07/11/2012 15:14:00) CHEMISTRY U Amph Scr Negative Negative 07/11 [facility] *NA* Center (07/11/2012 15:14:00) URINALYSIS UA Protein 30 mg/dL Negative 07/11 [facility] (07/11/2012 15:14:00) URINALYSIS UA Glucose Negative mg/dL Negative 07/11 [facility] *NA* Center (07/11/2012 15:14:00) URINALYSIS UA Ketones Negative mg/dL Negative 07/11 [facility] *NA* [place] (07/11/2012 15:14:00) URINALYSIS UA Bili Negative Negative 07/11 [facility] *NA* Center (07/11/2012 15:14:00) URINALYSIS UA pH 7.5 5.0 - 8.0 07/11 Normal [facility] URINALYSIS UA Spec Grav 1.040 <=1.030 07/11 HI [facility] URINALYSIS UA Color Yellow Yellow 07/11 NA [facility] *NA* Center (07/11/2012 15:14:00) URINALYSIS UA Turbidity Clear Clear 07/11 Normal [facility] (07/11/2012 15:14:00) Center URINALYSIS UA WBC 1 /HPF 0 - 5 07/11 Normal [facility] URINALYSIS UA RBC 4 /HPF 0 - 2 07/11 HI [facility] URINALYSIS UA Mucus Few /LPF None Seen 07/11 NA Medical *NA* Center (07/11/2012 15:14:00) URINALYSIS UA Leuk Est Negative Negative 07/11 Normal [facility] (07/11/2012 15:14:00) Center URINALYSIS UA Sq Epi Moderate /LPF Few 07/11 ABN [facility] *ABN* Center (07/11/2012 15:14:00) URINALYSIS UA Blood Small Negative 07/11 ABN [facility] *ABN* Center (07/11/2012 15:14:00) URINALYSIS UA Nitrite Negative Negative 07/11 Normal [facility] (07/11/2012 15:14:00) Center URINALYSIS UA <=1.0 0.1 - 1.0 07/11 NA [facility] Urobilinogen mg/dL [facility]
*NA*< Center br/>(07/11 15:14:00) <sup> </sup> Vital Signs Vital Sign Value Date Comments Source Heart Rate 56 01/05/2017 [facility] Temperature Oral (F) 97.1 F 01/05/2017 [facility] Respitory Rate 18 01/05/2017 [facility] Systolic (mm Hg) 140 01/05/2017 [facility] Diastolic (mm Hg) 72 01/05/2017 [facility] Systolic (mm Hg) 136 01/05/2017 [facility] Diastolic (mm Hg) 76 01/05/2017 [facility] Respitory Rate 18 01/05/2017 [facility] Heart Rate 75 01/05/2017 [facility] Temperature Oral (F) 98.0 F 01/05/2017 [facility] Systolic (mm Hg) 135 01/05/2017 [facility] Diastolic (mm Hg) 79 01/05/2017 [facility] Heart Rate 52 01/05/2017 [facility] Respitory Rate 18 01/05/2017 [facility] Temperature Oral (F) 96.8 F 01/05/2017 [facility] BMI Calculated 38.58 01/04/2017 [facility] Height 165.1 cm 01/04/2017 [facility] Weight 105.17 01/04/2017 [facility] Respitory Rate 18 07/13/2012 [facility] Diastolic (mm Hg) 56 07/13/2012 [facility] Systolic (mm Hg) 129 07/13/2012 [facility] Temperature Oral (F) 98.6 F 07/13/2012 [facility] Heart Rate 62 07/13/2012 [facility] Diastolic (mm Hg) 68 07/13/2012 [facility] Systolic (mm Hg) 132 07/13/2012 [facility] Respitory Rate 18 07/13/2012 [facility] Temperature Oral (F) 98.5 F 07/13/2012 [facility] Heart Rate 67 07/13/2012 [facility] Respitory Rate 20 07/13/2012 [facility] Systolic (mm Hg) 121 07/13/2012 [facility] Diastolic (mm Hg) 63 07/13/2012 [facility] Temperature Oral (F) 97.8 F 07/13/2012 [facility] Heart Rate 55 07/13/2012 [facility] Height 165.10 cm 07/11/2012 [facility] Weight 122.330 07/11/2012 [facility] Weight 113.636 07/11/2012 [facility] Height 165.10 cm 07/11/2012 [facility] Encounters Location Location Encounter Encounter Reason Attending ADM DC Status Source Details Type Number For Provider Date Date Visit [facility] Inpatient [id number] KAYLA NEVILLE 07/11 07/13 Active [facility] /2012 [facility] Observation [id number] Pierre 01/04 01/06 [facility] Jorge Wright /2016 [facility] Procedures Procedure Code Date Perfomer Comments Source Cataract surgery [id number] [facility] Hernia repair [id number] [facility] Hysterectomy<sup>1< [id number] d/t fibroid [facility] /sup> [facility] Hysterectomy [id number] 1d/t fibroid [facility] <sup>1</sup> [facility]
--- OUTSIDE RECORDS SUMMARY | 2018-11-12 10:59 | XMS REPORT ---
:1950 Author Organization [employer] Care Team Providers Name Role Phone Chung, Na Provider Role Unavailable Allergies, Adverse Reactions, Alerts Substance Reaction Event Type N.K.D.A. 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 Assessment Type 2 diabetes mellitus without E11.9 Active complications Assessment Osteopenia of neck of left femur M85.852 Active Assessment History of TIA (transient ischemic Z86.73 Active attack) Assessment High cholesterol E78.00 Active Assessment HTN (hypertension) I10 Active Problem Stroke I63.9 Active Problem HTN (hypertension) I10 Active Problem Diabetes E11.9 Active Problem High cholesterol E78.00 Active Problem Type 2 diabetes mellitus without E11.9 Active complications Problem History of TIA (transient ischemic Z86.73 Active attack) Problem group home current use of insulin Z79.4 Active Medications Medication Code Code Instructions Start End Status Dosage System Date Date Metformin HCl [facility] 25564674393 500 MG Orally Active 1 tablet Once a day with a meal Jardiance [facility] 35630013296 10 MG Orally Active 1 tablet Once a day Diltiazem HCl [facility] 79370001509 180 MG Orally Active 1 capsule on ER Twice a day an empty stomach in the morning Aspir-81 [facility] [id number] 81 MG Orally Active 1 tablet Once a day Trulicity [facility] [id number] 1.5mg/0.5ml SQ Active 1 injection once a week Tresiba [facility] 31270314329 100 UNIT/ML Active 12 units as FlexTouch Subcutaneous directed Atorvastatin ND 48346132503 40 MG Orally Active 1 tablet Calcium Once a day Losartan [facility] 24986082592 100-25 MG Active 1 tablet Potassium-HCTZ Orally Once a day Results No Known Results Summary Purpose [employer] Submission
--- OUTSIDE RECORDS SUMMARY | 2018-11-12 10:59 | XMS REPORT ---
:1950 Author Organization [employer] Care Team Providers Name Role Phone Chung, Na Provider Role Unavailable Allergies, Adverse Reactions, Alerts Substance Reaction Event Type N.K.D.A. Info Not Available Non Drug Allergy Problems Problem Type Condition Code Onset Dates Condition Status Assessment residential current use of insulin Z79.4 Active Assessment Type 2 diabetes mellitus without E11.9 Active complications Problem Stroke I63.9 Active Problem HTN (hypertension) I10 Active Problem Diabetes E11.9 Active Problem High cholesterol E78.00 Active Problem Type 2 diabetes mellitus without E11.9 Active complications Problem History of TIA (transient ischemic Z86.73 Active attack) Problem residential current use of insulin Z79.4 Active Assessment Screening for colon cancer Z12.11 Active Assessment Blood tests for routine general Z00.00 Active physical examination Assessment Screening for malignant neoplasm of Z12.31 Active breast Assessment History of TIA (transient ischemic Z86.73 Active attack) Assessment Encounter for hepatitis C screening Z11.59 Active test for low risk patient Assessment High cholesterol E78.00 Active Assessment Screening for osteoporosis Z13.820 Active Assessment HTN (hypertension) I10 Active Medications Medication Code Code Instructions Start End Status Dosage System Date Date [facility] 12504743577 100 UNIT/ML Active 12 units as FlexTouch Subcutaneous directed Atorvastatin [facility] 06925562268 40 MG Orally Active 1 tablet Calcium Once a day Losartan [facility] 36514188251 100-25 MG Active 1 tablet Potassium-HCTZ Orally Once a day Jardiance [facility] 10695301456 10 MG Orally Active 1 tablet Once a day Trulicity [facility] 91383696015 1.5mg/0.5ml SQ Active 1 injection once a week Aspir-81 [facility] 91364624498 81 MG Orally Active 1 tablet Once a day Diltiazem HCl [facility] 69988233857 180 MG Orally Active 1 capsule on ER Twice a day an empty stomach in the morning Metformin HCl [facility] 81515670397 500 MG Orally Active 1 tablet Once a day with a meal Results No Known Results Summary Purpose [employer] Submission
--- OUTSIDE RECORDS SUMMARY | 2018-11-12 10:59 | XMS REPORT | CCD ---
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 TIA 06/08/2002 Resolved Medications Medication Instructions Start Date End Date Status labetalol 20 mg, Route: IVP, 07/11/2012 07/11/2012 Completed Drug form: INJ, ONCE, Dosing Weight 113.636, kg, Priority: STAT, Start date: 07/11/12 12:35:00, Stop date: 07/11/12 12:35:00 aspirin 325 mg, 1 tab, Route: 07/12/2012 07/13/2012 Discontinued PO, Drug form: ECTAB, Daily, Dosing Weight 122.33, kg, Priority: NOW, Start date: 07/12/12 10:13:00, Duration: 30 day, Stop date: 08/11/12 9:00:00 valsartan 160 mg, 1 tab, Route: 07/12/2012 07/13/2012 Discontinued PO, Drug form: TAB, Daily, Dosing Weight 122.33, kg, Start date: 07/12/12 13:00:00, Duration: 30 day, Stop date: 08/11/12 9:00:00 Lantus 38 unit, 0.38 mL, 07/12/2012 07/13/2012 Discontinued Route: SUB-Q, Drug form: INJ, QPM, Dosing Weight 122.33, kg, Start date: 07/12/12 18:00:00, Duration: 30 day, Stop date: 08/11/12 17:00:00 insulin regular human 7 unit, 0.07 mL, 07/11/2012 07/13/2012 Discontinued recombinant 100 units/mL Route: SUB-Q, Drug injectable solution form: SOLN, PRN, Dosing Weight 122.33, kg, PRN Abnormal Lab Result, Start date: 07/11/12 20:51:00, Duration: 30 day, Stop date: 08/10/12 20:50:00 insulin regular human 5 unit, 0.05 mL, 07/11/2012 07/13/2012 Discontinued recombinant 100 units/mL Route: SUB-Q, Drug injectable solution form: SOLN, PRN, Dosing Weight 122.33, kg, PRN Abnormal Lab Result, Start date: 07/11/12 20:51:00, Duration: 30 day, Stop date: 08/10/12 20:50:00 Dextrose 50% Syringe 12.5 gm, 25 mL, 07/11/2012 07/13/2012 Discontinued Route: IVP, Drug Form: INJ, Dosing Weight 122.33, kg, PRN, PRN Abnormal Lab Result, Start date: 07/11/12 20:51:00, Duration: 30 day, Stop date: 08/10/12 20:50:00 insulin regular human 3 unit, 0.03 mL, 07/11/2012 07/13/2012 Discontinued recombinant 100 units/mL Route: SUB-Q, Drug injectable solution form: SOLN, PRN, Dosing Weight 122.33, kg, PRN Abnormal Lab Result, Start date: 07/11/12 20:51:00, Duration: 30 day, Stop date: 08/10/12 20:50:00 Dextrose 50% Syringe 6.25 gm, 12.5 mL, 07/11/2012 07/13/2012 Discontinued Route: IVP, Drug Form: INJ, Dosing Weight 122.33, kg, PRN, PRN Abnormal Lab Result, Start date: 07/11/12 20:51:00, Duration: 30 day, Stop date: 08/10/12 20:50:00 Dextrose 50% Syringe 25 gm, 50 mL, Route: 07/11/2012 07/13/2012 Discontinued IVP, Drug Form: INJ, Dosing Weight 122.33, kg, PRN, PRN Abnormal Lab Result, Start date: 07/11/12 20:51:00, Duration: 30 day, Stop date: 08/10/12 20:50:00 pneumococcal 23-valent 0.5 ml, Route: IM, 07/12/2012 07/12/2012 Completed vaccine Drug Form: INJ, Daily, Start date: 07/12/12 9:00:00, Duration: 1 doses or times, Stop date: 07/12/12 9:00:00 diltiazem 180 mg, 1 cap, Route: 07/12/2012 07/13/2012 Discontinued PO, Drug form: ERCAP, Daily, Dosing Weight 122.33, kg, Start date: 07/12/12 13:00:00, Duration: 30 day, Stop date: 08/11/12 9:00:00 Omnipaque 350mg/ml 125 mL, Route: IVP, Drug Form: SOLN, Dosing Weight 113.636 , kg, ONCALL, STAT, Start date: 07/11/12 13:41:00, Duration: 1 doses or times, Stop date: 07/11/12 20:00:00, Dose=2.2ml/kg, Max [id number] -- "To be infused by Radiology Staff ONLY" 07/11/2012 07/11/2012 Completed Dose=2.2ml/kg, Max [id number] -- "To be infused by Radiology Staff ONLY" atorvastatin 80 mg, 1 tab, Route: 07/12/2012 07/13/2012 Discontinued PO, Drug form: TAB, QPM, Dosing Weight 122.33, kg, Start date: 07/12/12 17:00:00, Duration: 30 day, Stop date: 08/10/12 17:00:00 Lantus 40 unit, 0.4 mL, 07/13/2012 07/13/2012 Discontinued Route: SUB-Q, Drug form: INJ, QAM, Dosing Weight 122.33, kg, Start date: 07/13/12 9:00:00, Duration: 30 day, Stop date: 08/11/12 9:00:00 pneumococcal 23-valent 0.5 ml, Route: IM, 07/12/2012 07/12/2012 Completed vaccine Drug Form: INJ, Start date: 07/12/12 9:00:00, Stop date: 07/12/12 9:00:00 Ativan 2 mg, 1 mL, Route: 07/11/2012 07/13/2012 Discontinued IVP, Drug form: INJ, ONCE, Dosing Weight 122.33, kg, PRN Anxiety, Priority: STAT, Start date: 07/11/12 19:59:00 hydrochlorothiazide 12.5 mg, 1 cap, 07/12/2012 07/13/2012 Discontinued Route: PO, Drug form: CAP, Daily, Dosing Weight 122.33, kg, Start date: 07/12/12 13:00:00, Duration: 30 day, Stop date: 08/11/12 9:00:00 Lantus Solostar Pen 100 38 unit, SUB-Q, 07/11/2012 Ordered units/mL subcutaneous Bedtime, 10 ml, solution Substitution Allowed, SOLN Diovan HCT 12.5 mg-320 mg 1 tab, PO, Daily, 30 07/11/2012 Ordered oral tablet tab, Substitution Allowed, Maintenance, TAB glipiZIDE 10 mg oral tablet 10 mg, 1 tab, PO, 07/11/2012 Ordered Daily, 30 tab, Substitution Allowed Plavix 75 mg oral tablet 75 mg, 1 tab, PO, 07/11/2012 Ordered Daily, 30 tab, Substitution Allowed, TAB atorvastatin 80 mg oral 80 mg, 1 tab, PO, 07/13/2012 Ordered tablet QPM, 30 tab, 1, 1, Substitution Allowed, TAB simvastatin 40 mg oral tablet 40 mg, 1 tab, PO, 07/11/2012 07/13/2012 Discontinued Bedtime, 30 tab, Substitution Allowed, Maintenance aspirin 81 mg tablet, enteric 81 mg, 1 tab, PO, 07/11/2012 Ordered coated Daily, 0 tab, Substitution Allowed, ECTAB Cardizem CD 180 mg/24 hours 180 mg, 1 cap, PO, 07/11/2012 Ordered oral capsule, extended Daily, 30 cap, release Substitution Allowed Lantus Solostar Pen 100 40 unit, SUB-Q, 07/11/2012 Ordered units/mL subcutaneous Before Breakfast, 10 solution ml, Substitution Allowed, SOLN Saline Flush 0.9% 5 ml, Route: IVP, 07/11/2012 07/13/2012 Discontinued Drug Form: INJ, Dosing Weight 113.636, kg, PRN, PRN Line Flush, Start date: 07/11/12 16:11:00, Duration: 30 day, Stop date: 08/10/12 16:10:00 Saline Flush 0.9% 5 ml, Route: IVP, 07/11/2012 07/13/2012 Discontinued Drug Form: INJ, Dosing Weight 113.636, kg, Q12H, Start date: 07/11/12 21:00:00, Duration: 30 day, Stop date: 08/10/12 9:00:00 docusate 100 mg, 1 cap, Route: 07/11/2012 07/13/2012 Discontinued PO, Drug form: CAP, Q12H, Dosing Weight 113.636, kg, Start date: 07/11/12 21:00:00, Duration: 30 day, Stop date: 08/10/12 9:00:00 pantoprazole 40 mg, Route: IVP, 07/12/2012 07/13/2012 Discontinued Drug form: INJ, Daily, Dosing Weight 113.636, kg, Start date: 07/12/12 9:00:00, Duration: 30 day, Stop date: 08/10/12 9:00:00 acetaminophen 650 mg, 2 tab, Route: 07/11/2012 07/13/2012 Discontinued PO, Drug form: TAB, Q4H, Dosing Weight 113.636, kg, PRN Pain/Fever, Start date: 07/11/12 16:11:00, Duration: 30 day, Stop date: 08/10/12 16:10:00 labetalol 10 mg, 2 mL, Route: 07/11/2012 07/13/2012 Discontinued IVP, Drug form: INJ, Q10Min, Dosing Weight 113.636, kg, PRN Hypertension, Start date: 07/11/12 16:11:00, Duration: 30 day, Stop date: 08/10/12 16:10:00, For SBP > 180mmHg and/or DBP > 105mmHg niCARdipine 40 mg in NS 200 40 mg, 200 mL, Rate: 07/11/2012 07/11/2012 Discontinued ml IV 40 mg Start at 5mg/hr., Dosing Weight 113.636, kg, Route: IV, Total Volume: 200, Titrate to maintain SBP 140-180mmHg., Duration: 30 day, Stop date: 08/10/12 16:15:00, Replace Every: 24 hr heparin 5000 units/mL 7,500 unit, 1.5 mL, 07/12/2012 07/13/2012 Discontinued injectable solution Route: SUB-Q, Drug form: INJ, Q8H, Dosing Weight 122.33, kg, Start date: 07/12/12 16:00:00, Duration: 30 day, Stop date: 08/11/12 8:00:00 Immunizations Vaccine Date Status pneumococcal 23-valent vaccine 07/12/2012 Auth (Verified) Vital Signs Most recent to oldest 1 2 3 [Reference Range]: Height 165.10 cm 165.10 cm (07/11/2012 14:15:00) (07/11/2012 12:13:00) Temperature Oral 98.6 DegF 98.5 DegF 97.8 DegF [96.4-99.1 DegF] (07/13/2012 11:43:00) (07/13/2012 07:48:00) (07/13/2012 04: 33:00) Systolic Blood Pressure 129 mmHg 132 mmHg 121 mmHg [90-140 mmHg] (07/13/2012 11:43:00) (07/13/2012 07:48:00) (07/13/2012 04:33: 00) Diastolic Blood Pressure 56 mmHg 68 mmHg 63 mmHg [60-90 mmHg] *LOW* (07/13/2012 07:48:00) (07/13/2012 04:33:00) (07/13/2012 11:43:00) Respiratory Rate [14-20 18 BRMIN 18 BRMIN 20 BRMIN BRMIN] (07/13/2012 11:43:00) (07/13/2012 07:48:00) (07/13/2012 04:33:00) Peripheral Pulse Rate 62 bpm 67 bpm 55 bpm [60-100 bpm] (07/13/2012 11:43:00) (07/13/2012 07:48:00) *LOW* (07/13/2012 04:33:00) Weight 122.330 kg 113.636 kg (07/11/2012 14:15:00) (07/11/2012 12:13:00) Results BEDSIDE GLUCOSE TESTING Most recent to oldest 1 2 3 [Reference Range]: Gluc POC Lifscn [70-99 260 mg/dL 1 103 mg/dL 2 331 mg/dL 3 mg/dL] *HI* *HI* *HI* (07/13/2012 11:55:00) (07/13/2012 06:03:00) (07/12/2012 21:24:00) Comment1 Notify RN/MD Notify RN/MD Notify RN/MD *NA* *NA* *NA* (07/13/2012 11:55:00) (07/13/2012 06:03:00) (07/12/2012 21:24:00) 1Interpretive Data: Upper Reportable Limit: 200 mg/dL.2Interpretive Data: Upper Reportable Limit: 200 mg/dL.3Interpretive Data: Upper Reportable Limit: 200 mg/dL.URINALYSIS Most recent to oldest [Reference Range]: 1 2 3 UA Turbidity [Clear] Clear (07/11/2012 15:14:00) UA Color [Yellow] Yellow *NA* (07/11/2012 15:14:00) UA pH [5.0-8.0] 7.5 (07/11/2012 15:14:00) UA Spec Grav [<=1.030] 1.040 *HI* (07/11/2012 15:14:00) UA Glucose [Negative mg/dL] Negative mg/dL *NA* (07/11/2012 15:14:00) UA Blood [Negative] Small *ABN* (07/11/2012 15:14:00) UA Ketones [Negative mg/dL] Negative mg/dL *NA* (07/11/2012 15:14:00) UA Protein [Negative mg/dL] 30 mg/dL *ABN* (07/11/2012 15:14:00) UA Urobilinogen [0.1-1.0 mg/dL] <=1.0 mg/dL *NA* (07/11/2012 15:14:00) UA Bili [Negative] Negative *NA* (07/11/2012 15:14:00) UA Leuk Est [Negative] Negative (07/11/2012 15:14:00) UA Nitrite [Negative] Negative (07/11/2012 15:14:00) UA WBC [0-5 /HPF] 1 /HPF (07/11/2012 15:14:00) UA RBC [0-2 /HPF] 4 /HPF *HI* (07/11/2012 15:14:00) UA Sq Epi [Few /LPF] Moderate /LPF *ABN* (07/11/2012 15:14:00) UA Mucus [None Seen /LPF] Few /LPF *NA* (07/11/2012 15:14:00) CHEMISTRY Most recent to oldest [Reference Range]: 1 2 3 Sodium Lvl [135-145 mEq/L] 142 mEq/L (07/12/2012:19:00) Potassium Lvl [3.5-5.1 mEq/L] 4.0 mEq/L (07/12/2012:19:00) Chloride Lvl [95-109 mEq/L] 106 mEq/L (07/12/2012:19:00) CO2 [24-32 mEq/L] 27 mEq/L (07/12/2012:19:00) AGAP [10.0-20.0 mEq/L] 13.0 mEq/L (07/12/2012:19:00) Creatinine Lvl [0.5-1.4 mg/dL] 0.9 mg/dL (07/12/2012:19:00) eGFR 79 mL/min/1.73m2 4 *NA* (07/12/2012:19:00) BUN [7-22 mg/dL] 15 mg/dL (07/12/2012:19:00) B/C Ratio [6-25] 17 (07/12/2012:19:00) Glucose Lvl [70-99 mg/dL] 197 mg/dL 5 *HI* (07/12/2012:19:00) Total Protein [6.4-8.4 g/dL] 7.3 g/dL (07/12/2012:19:00) Albumin Lvl [3.5-5.0 g/dL] 2.8 g/dL *LOW* (07/12/2012:19:00) Globulin [2.0-4.0 g/dL] 4.5 g/dL *HI* (07/12/2012:19:00) A/G Ratio [0.7-1.6] 0.6 *LOW* (07/12/2012:19:00) Calcium Lvl [8.5-10.5 mg/dL] 8.5 mg/dL (07/12/2012:19:00) ALT [0-65 unit/L] 71 unit/L *HI* (07/12/2012:19:00) AST [0-37 unit/L] 54 unit/L *HI* (07/12/2012:19:00) Alk Phos [39-136 unit/L] 111 unit/L (07/12/2012:19:00) Bili Total [0.2-1.3 mg/dL] 0.4 mg/dL (07/12/2012:19:00) Bili Direct [0.0-0.3 mg/dL] 0.1 mg/dL (07/12/2012:19:00) CHD Risk [3.90-5.80] 3.05 *LOW* (07/12/2012:19:00) Chol [120-200 mg/dL] 180 mg/dL (07/12/2012:19:00) Trig [0-200 mg/dL] 128 mg/dL (07/12/2012:19:00) HDL [>=35 mg/dL] 59 mg/dL (07/12/2012:19:00) LDL [0-129 mg/dL] 95 mg/dL (07/12/2012:19:00) Hgb A1C 10.5 % 6 *NA* (07/12/2012:19:00) U Amph Scr [Negative] Negative *NA* (07/11/2012 15:14:00) U Mary Scr [Negative] Negative *NA* (07/11/2012 15:14:00) U Benzodia Scr [Negative] Negative *NA* (07/11/2012 15:14:00) U Cocaine Scr [Negative] Negative *NA* (07/11/2012 15:14:00) U Opiate Scr [Negative] Negative *NA* (07/11/2012 15:14:00) U Phencyc Scr [Negative] Negative *NA* (07/11/2012 15:14:00) U Cannab Scr [Negative] Negative *NA* (07/11/2012 15:14:00) UDS Note See Note 7 *NA* (07/11/2012 15:14:00) 4Result Comment: The eGFR is calculated using the CKD-EPI formula. In most young , healthy individualsthe eGFR will be >90 mL/min/1.73m2. The eGFR declines with age. An eGFR of 60-89 may be normal in some populations, particularly the elderly, for whom the CKD-EPI formula has not been extensively validated. Use of the eGFR is not recommended in the following populations: Individuals with unstable creatinine concentrations, including patients and those with serious co-morbid conditions. Patients with extremes in muscle mass or diet. The data above are obtained from the National Kidney Disease Education Program ( NKDEP) which additionally recommends that when the eGFR is used in patients with extremes of body mass index for purposesof drug dosing, the eGFR should be multiplied by the estimated BMI.5Interpretive Data: Adult reference range values reflect the clinical guidelines of the [place] [employer].6Interpretive Data: HbA1C% eAG(mg/dL ) Interpretation 6.0 126 Very good control 6.5 140 Very good control 7.0 154 Good Control 7.5 169 Good Control 8.0 183 Marginal Control, take action to lower 8.5 197 Marginal Control, take action to lower 9.0 212 Poor Control, take action to lower 9.5 226 Poor Control, take action to lower 10.0 240 Poor Control, take action to pygus4Ujaihizxabbj Data: Drugs reported as positive have not been confirmed by a second method and should be used for medical purposes only. To order confirmation, contact laboratory. note: Below are cut-off concentrations for all urine drugs of abuse performed in the laboratory. Some drugs listed in the table may not be included in this panel. Description Cut-off concentration Amphetamine 1000 ng/mL Barbiturates 200 ng/mL Benzodiazepines 300 ng/mL Cocaine metabolites 300 ng/mL Opiates 300 ng/mL Phencyclidine 25 ng/mL Propoxyphene 300 ng/mL Marijuana metabolites 50 ng/mL Methadone 300 ng/mL Urine alcohol 20 mg/dLHEMATOLOGY Most recent to oldest [Reference Range]: 1 2 3 WBC [3.7-10.4 K/CMM] 7.6 K/CMM (07/12/2012 01:19:00) RBC [4.20-5.40 M/CMM] 3.97 M/CMM *LOW* (07/12/2012:19:00) Hgb [12.0-16.0 g/dL] 12.4 g/dL (07/12/2012:19:00) Hct [36.0-48.0 %] 37.0 % (07/12/2012:19:) MCV [81.0-99.0 fL] 93.2 fL (07/12/2012:19:00) MCH [27.0-31.0 pg] 31.2 pg *HI* (07/12/2012::) MCHC [32.0-36.0 g/dL] 33.4 g/dL (07/12/2012:19:00) RDW [11.5-14.5 %] 13.7 % (07/12/2012:19:) Platelet [133-450 K/CMM] 203 K/CMM (07/12/2012:19:) MPV [7.4-10.4 fL] 8.2 fL (07/12/2012:19:00) Segs [45.0-75.0 %] 51.1 % (07/12/2012:19:) Lymphocytes [20.0-40.0 %] 37.7 % (07/12/2012:19:00) Monocytes [2.0-12.0 %] 7.8 % (07/12/2012:19:) Eosinophils [0.0-4.0 %] 2.8 % (07/12/2012:19:00) Basophils [0.0-1.0 %] 0.6 % (07/12/2012:19:00) Segs-Bands # [1.5-8.1 K/CMM] 3.9 K/CMM (07/12/2012:19:00) Lymphocytes # [1.0-5.5 K/CMM] 2.9 K/CMM (07/12/2012:19:00) Monocytes # [0.0-0.8 K/CMM] 0.6 K/CMM (07/12/2012:19:00) Eosinophils # [0.0-0.5 K/CMM] 0.2 K/CMM (07/12/2012:19:00) PT [12.0-14.7 seconds] 13.4 seconds (07/12/2012:19:00) INR [0.85-1.17] 1.00 8 (07/12/2012:19:00) PTT [22.9-35.8 seconds] 30.1 seconds 9 (07/12/2012:19:00) 8Interpretive Data: RECOMMENDED RANGES FOR PROTIME INR: 2.0-3.0 for most medical and surgical thromboembolic states. 2.5-3.5 for artificial heart valves and recurrent embolism. INR SHOULD BE USED ONLY FOR PATIENTS ON STABLE ANTICOAGULANT THERAPY.9Interpretive Data: Heparin Therapeutic Range: 57 - 92 Seconds Procedures Procedures Date Related Diagnosis Hysterectomy 1 1d/t fibroid tumor
[2018-11-12] MEDS ORDERED: LORazepam 2 MG/ML VIAL ONE (12:19)
[2018-11-12 12:20] LABS: Absolute Lymphocytes (CBC) 4.2 K/uL (0.7-4.9); Absolute Monocytes 0.8 K/uL (0.1-1.3); Absolute Neutrophil 4.2 K/uL (1.8-8.0); Basophils % 0.5 % (0-1.3); Hematocrit 44.9 % (36.0-45.0); Lymphocytes % 44.6 % (15.3-44.8); MPV 8.3 fL (7.6-11.3); Monocytes % 8.5 % (3.3-12.3); RBC Red Blood Cell Count 4.87 M/uL (3.86-4.86)
--- NOTE | 2018-11-12 12:21 | RAD REPORT ---
EXAM DESCRIPTION: CT - Ct Stroke Brain Wo Cont - 11/12/2018 12:11 pm CLINICAL HISTORY: WEAKNESS Headache, CVA symptomology COMPARISON: Head angio dated 04/02/2018; Ct Stroke Brain Wo Cont dated 04/02/2018 TECHNIQUE: All CT scans are performed using dose optimization technique as appropriate and may inclu de automated exposure control or mA/KV adjustment according to patient size. FINDINGS: No intracranial hemorrhage, hydrocephalus or extra-axial fluid collection.No areas of brai n edema or evidence of midline shift. The paranasal sinuses and mastoids are clear. The calvarium is intact. IMPRESSION: No acute intracranial abnormality. The findings were discussed with Dr. Ramos on 11/12/2018 at 12:15 p.m. by telephone.
--- NOTE | 2018-11-12 12:25 | RAD REPORT ---
EXAM DESCRIPTION: [facility] Single View11/12/2018 12:16 pm CLINICAL HISTORY: Hypertension and weakness COMPARISON: March 2018 FINDINGS: The lungs appear clear of acute infiltrate. The heart is normal size IMPRESSION: No acute abnormalities displayed
[2018-11-12 12:40] LABS: Potassium 3.6 mmol/L (3.5-5.1)
--- NOTE | 2018-11-12 12:51 | RAD REPORT ---
EXAM DESCRIPTION: MRI - Brain Wo Cont - 11/12/2018 12:36 pm CLINICAL HISTORY: Headache COMPARISON: March 2018 TECHNIQUE: Axial, sagittal, and coronal magnetic images of the brain were obtained. Contrast was not requested FINDINGS: Mild signal within periventricular and deep white matter probably secondary to ischemic ch anges secondary to small vessel disease Diffusion-weighted/ADC mapping does not reveal evidence of acute infarction. The ventricles are normal caliber. An extra-axial fluid collection is not present The sinuses and mastoids are clear. Empty sella turcica is again demonstrated IMPRESSION: No acute abnormality is displayed
[2018-11-12 13:13] LABS: Protime INR 0.97
[2018-11-12 13:36] LABS: Urine Blood TRACE (NEG); Urine Glucose 2+ (NEG); Urine Protein NEGATIVE (NEG); Urine Specific Gravity 1.015 (1.005-1.030)
[2018-11-12 14:39] LABS: Urine Bacteria <20 /HPF (<20); Urine Culture Reflex Order REFLEXED; Urine Mucus 1+ /HPF (NONE SEEN); Urine RBC <5 /HPF (NONE SEEN)
--- NOTE | 2018-11-12 14:48 | ER ---
Nurse's Notes [facility] Name: Chiquis Hickman Age: 67 yrs Sex: Female : 1950 Arrival Date: 11/12/2018 Time: 10:55 Bed 8 Private MD: Diagnosis: Headache;Weakness Presentation: 11/12 11:13 Presenting complaint: Patient states: Pt reports when she woke up this morning at 0500 ss she had a L sided headache and generalized weakness. Transition of care: patient was not received from another setting of care. Onset of symptoms is unknown. Risk Assessment: Do you want to hurt yourself or someone else? Patient reports no desire to harm self or others. Initial Sepsis Screen: Does the patient meet any 2 criteria? No. Patient's initial sepsis screen is negative. Does the patient have a suspected source of infection? No. Patient's initial sepsis screen is negative. Care prior to arrival: None. 11:13 Method Of Arrival: Wheelchair ss 11:13 Acuity: ROSALBA 3 ss Triage Assessment: 11:32 Pain: Pain Pain began this morning Also complains of no other associated symptoms. tw2 11:52 Headache History: The patient has had previous headaches and this one is similar to tw2 previous episodes. General: Appears in no apparent distress. Behavior is calm, cooperative, appropriate for age. Neuro: Level of Consciousness is awake, alert, obeys commands, Oriented to person, place, time, situation. Historical: - Allergies: 11:16 steroids; ss - Home Meds: 11:32 aspirin 81 mg Oral chew 1 tab once daily [Active]; diltiazem HCl 360 mg Oral cpER 1 cap tw2 once daily [Active]; metformin 500 mg Oral Tb24 1 tab once daily [Active]; losartan-hydrochlorothiazide 100-25 mg Oral tab 1 tab once daily [Active]; Jardiance 10 mg Oral tab 1 tab once daily [Active]; Tresiba FlexTouch U-100 100 unit/mL (3 mL) subcutaneous inpn 20 unit nightly [Active]; atorvastatin 40 mg Oral tab 1 tab nightly [Active]; multivitamin Oral tab daily [Active]; Trulicity 1.5 mg/0.5 mL subcutaneous pnij 0.5 mL Every [Active]; - PMHx: 11:16 CVA; Diabetes - IDDM; Hypertension; Hyperlipidemia; LEFT SIDED WEAKNESS; TIA; ss - PSHx: 11:16 fibroid tumor removed; Hysterectomy; ss - Immunization history:: Adult Immunizations unknown. - Social history:: Smoking status: Patient/guardian denies using tobacco. - Ebola Screening: : Patient denies exposure to infectious person Patient denies travel to an Ebola-affected area in the 21 days before illness onset. Screenin:31 Abuse screen: Denies threats or abuse. Nutritional screening: No deficits noted. tw2 Tuberculosis screening: No symptoms or risk factors identified. Fall Risk Secondary diagnosis (15 points) impaired mobility. 11:45 Patient has been NPO before screening. The patient is alert, able to follow commands. tw2 The patient does not exhibit slurred or garbled speech The patient is not exhibiting difficulty speaking. The patient does not exhibit difficulty understanding words. The patient is able to swallow own secretions with no drooling or need for suction. Patient tolerated one teaspoon of water. No drooling, immediate coughing, gurgling, or clearing of the throat was noted. The patient tolerated 90mL of water. No drooling, immediate coughing, gurgling, or clearing of the throat was noted. The patient passed the bedside swallow screening. Oral medications may be given as ordered. Contact Physician for further diet orders. Provider notified of bedside swallow screening results: Adam Gaytan NP. Assessment: 11:52 Pain: Complains of pain in Headache. Neuro: Reports headache. Cardiovascular: Heart tw2 tones S1 S2 Patient's skin is warm and dry. Respiratory: Airway is patent Respiratory effort is even, unlabored, Respiratory pattern is regular, symmetrical, Breath sounds are clear bilaterally. GI: No signs and/or symptoms were reported involving the gastrointestinal system. Abdomen is round non-distended, obese, Bowel sounds present X 4 quads. : No signs and/or symptoms were reported regarding the genitourinary system. EENT: No signs and/or symptoms were reported regarding the EENT system. Derm: No signs and/or symptoms reported regarding the dermatologic system. Musculoskeletal: Range of motion: intact in all extremities, Reports weakness in left arm family reports this is not new. 13:32 Reassessment: Patient appears in no apparent distress at this time. No changes from tw2 previously documented assessment. Patient and/or family updated on plan of care and expected duration. Pain level reassessed. Patient is alert, oriented x 3, equal unlabored respirations, skin warm/dry/pink. 15:15 Reassessment: PT D/C HOME VIA W/C WITH FAMILY, DX WITH HEADACHE. bp Vital Signs: 11:12 BP 127 / 66; Pulse 67; Resp 16; Temp 98.3(O); Pulse Ox 98% ; Weight 97.07 kg; Height 5 ss ft. 3 in. (160.02 cm); Pain 5/10; 13:32 BP 113 / 54; Pulse 76; Resp 17; Pulse Ox 99% on R/A; tw2 14:30 BP 108 / 54; Pulse 60; Resp 14; Pulse Ox 100% ; bp 15:14 BP 119 / 54; Pulse 62; Resp 17; Temp 98.5; Pulse Ox 100% ; bp 11:12 Body Mass Index 37.91 (97.07 kg, 160.02 cm) ED Course: 10:55 Patient arrived in ED. mr 11:12 Arm band placed on right wrist. ss 11:16 Triage completed. ss 11:20 Bed in low position. Call light in reach. Adult w/ patient. athletic monitor on. Pulse tw2 ox on. NIBP on. 11:24 Adam Gaytan NP is PHCP. pm1 11:24 Jb Ramos MD is Attending Physician. pm1 11:31 Marah Cavazos RN is Primary Nurse. tw2 11:35 EKG done, by biometrics technician. reviewed by Adam Gaytan NP. at1 11:52 Missed attempt(s): 22 gauge in right antecubital area. Bleeding controlled, band aid tw2 applied, catheter tip intact. 12:07 Initial lab(s) drawn, by nv, sent to lab. Inserted saline lock: 22 gauge in left jb1 antecubital area, using aseptic technique. Blood collected. 12:12 CT Stroke Brain w/o Contrast In Process Unspecified. EDMS 12:13 X-ray completed. Portable x-ray completed in exam room. Patient tolerated procedure ml well. 12:15 Stroke CXR 1 View In Process Unspecified. EDMS 12:15 MRI completed. Patient tolerated well. Patient moved to MRI via stretcher. ka 12:35 Patient moved back from MRI. ka 12:36 MRI - Brain Wo Cont In Process Unspecified. EDMS 13:29 Urine collected: clean catch specimen, cloudy, terrell colored. jb1 15:15 No provider procedures requiring assistance completed. IV discontinued, intact, bp bleeding controlled, No redness/swelling at site. Pressure dressing applied. Administered Medications: 12:07 Drug: Ativan 0.5 mg Route: IVP; Site: left antecubital; tw2 13:45 Follow up: Response: No adverse reaction tw2 Point of Care Testing: Blood Glucose: 12:07 Blood Glucose: 77 mg/dL; jb1 Ranges: Outcome: 14:45 Discharge ordered by MD. pm1 15:16 Discharged to home via wheelchair, with family. bp 15:16 Condition: stable 15:16 Discharge instructions given to patient, Instructed on discharge instructions, follow up and referral plans. Demonstrated understanding of instructions, follow-up care. 15:19 Patient left the ED. tw2 Signatures: Dispatcher [employer] EDMS HensonChino lee jb1 Sim, Chiquis mr Sebastian, Ana Tessa Ornelas, RN RN Jennifer Evans, survey field technician EKG Tat1 Tatiana Ariza Patrick, [employer] T[employer]CH [employer] PAINTER pm1 Marah Cavazos RN RN tw2 Sonny Rodriguez RN RN bp
--- NOTE | 2018-11-12 14:49 | EDPHYS ---
Physician Documentation [facility] Name: Chiquis Hickman Age: 67 yrs Sex: Female : 1950 Arrival Date: 11/12/2018 Time: 10:55 Bed 8 Private MD: ED Physician Jb Ramos HPI: 11/12 11:52 This 67 yrs old Black Female presents to ER via Wheelchair with complaints of Headache, pm1 bilateral leg weakness. 11:52 The patient complains of pain to the forehead. The patient describes the headache as pm1 aching. Onset: The symptoms/episode began/occurred this morning, at 05:00. Associated signs and symptoms: Pertinent positives: weakness to both legs, Pertinent negatives: fever, nausea, neck stiffness, rash, sinus congestion, sinus tenderness, vomiting. Severity of symptoms: in the emergency department the pain has resolved. Headache History: The patient has had previous headaches and this one is similar to previous episodes. The symptoms are alleviated by nothing. the symptoms are aggravated by nothing. The patient has not experienced similar symptoms in the past. The patient has not recently seen a physician. patient woke up this AM with a headache and bilateral leg weakness. Patient with a history of CVA with residual left sided weakness. Patient's headache resolved prior to arrival. Historical: - Allergies: 11:16 steroids; ss - Home Meds: 11:32 aspirin 81 mg Oral chew 1 tab once daily [Active]; diltiazem HCl 360 mg Oral cpER 1 cap tw2 once daily [Active]; metformin 500 mg Oral Tb24 1 tab once daily [Active]; losartan-hydrochlorothiazide 100-25 mg Oral tab 1 tab once daily [Active]; Jardiance 10 mg Oral tab 1 tab once daily [Active]; Tresiba FlexTouch U-100 100 unit/mL (3 mL) subcutaneous inpn 20 unit nightly [Active]; atorvastatin 40 mg Oral tab 1 tab nightly [Active]; multivitamin Oral tab daily [Active]; Trulicity 1.5 mg/0.5 mL subcutaneous pnij 0.5 mL Every [Active]; - PMHx: 11:16 CVA; Diabetes - IDDM; Hypertension; Hyperlipidemia; LEFT SIDED WEAKNESS; TIA; ss - PSHx: 11:16 fibroid tumor removed; Hysterectomy; ss - Immunization history:: Adult Immunizations unknown. - Social history:: Smoking status: Patient/guardian denies using tobacco. - Ebola Screening: : Patient denies exposure to infectious person Patient denies travel to an Ebola-affected area in the 21 days before illness onset. ROS: 11:52 Constitutional: Negative for fever, chills, and weight loss, Eyes: Negative for injury, pm1 pain, redness, and discharge, ENT: Negative for injury, pain, and discharge, Neck: Negative for injury, pain, and swelling, Cardiovascular: Negative for chest pain, palpitations, and edema, Respiratory: Negative for shortness of breath, cough, wheezing, and pleuritic chest pain, Abdomen/GI: Negative for abdominal pain, nausea, vomiting, diarrhea, and constipation, Back: Negative for injury and pain, : Negative for injury, bleeding, discharge, and swelling, MS/Extremity: Negative for injury and deformity, Skin: Negative for injury, rash, and discoloration. 11:52 Neuro: Positive for headache, weakness, of the right leg and left leg, Negative for altered mental status, dizziness, numbness, tingling. Exam: 11:52 Constitutional: This is a well developed, well nourished patient who is awake, alert, pm1 and in no acute distress. Head/Face: Normocephalic, atraumatic. Eyes: Pupils equal round and reactive to light, extra-ocular motions intact. Lids and lashes normal. Conjunctiva and sclera are non-icteric and not injected. Cornea within normal limits. Periorbital areas with no swelling, redness, or edema. ENT: Nares patent. No nasal discharge, no septal abnormalities noted. Tympanic membranes are normal and external auditory canals are clear. Oropharynx with no redness, swelling, or masses, exudates, or evidence of obstruction, uvula midline. Mucous membranes moist. Neck: Trachea midline, no thyromegaly or masses palpated, and no cervical lymphadenopathy. Supple, full range of motion without nuchal rigidity, or vertebral point tenderness. No Meningismus. Chest/axilla: Normal chest wall appearance and motion. Nontender with no deformity. No lesions are appreciated. Cardiovascular: Regular rate and rhythm with a normal S1 and S2. No gallops, murmurs, or rubs. Normal PMI, no JVD. No pulse deficits. Respiratory: Lungs have equal breath sounds bilaterally, clear to auscultation and percussion. No rales, rhonchi or wheezes noted. No increased work of breathing, no retractions or nasal flaring. Abdomen/GI: Soft, non-tender, with normal bowel sounds. No distension or tympany. No guarding or rebound. No evidence of tenderness throughout. Back: No spinal tenderness. No costovertebral tenderness. Full range of motion. Skin: Warm, dry with normal turgor. Normal color with no rashes, no lesions, and no evidence of cellulitis. MS/ Extremity: Pulses equal, no cyanosis. Neurovascular intact. Full, normal range of motion. 11:52 Neuro: Orientation: is normal, Mentation: is normal, Cranial nerves: CN II- XII are normal as tested, Cerebellar function: right side normal. Patient unable to move left arm which is her baseline per patient and family in the room, Motor: Patient baseline 5/5 to right side. Patient's with left sided arm and leg weakness that is baseline per family in the room , Sensation: is normal, no obvious gross deficits. Vital Signs: 11:12 BP 127 / 66; Pulse 67; Resp 16; Temp 98.3(O); Pulse Ox 98% ; Weight 97.07 kg; Height 5 ss ft. 3 in. (160.02 cm); Pain 5/10; 13:32 BP 113 / 54; Pulse 76; Resp 17; Pulse Ox 99% on R/A; tw2 14:30 BP 108 / 54; Pulse 60; Resp 14; Pulse Ox 100% ; bp 15:14 BP 119 / 54; Pulse 62; Resp 17; Temp 98.5; Pulse Ox 100% ; bp 11:12 Body Mass Index 37.91 (97.07 kg, 160.02 cm) ss MDM: 11:26 Patient medically screened. pm1 13:52 Data reviewed: vital signs. Data interpreted: Pulse oximetry: on room air is 99 %. pm1 Interpretation: normal. 14:44 Counseling: I had a detailed discussion with the patient and/or guardian regarding: the pm1 historical points, exam findings, and any diagnostic results supporting the discharge/admit diagnosis, lab results, radiology results, the need for outpatient follow up, to return to the emergency department if symptoms worsen or persist or if there are any questions or concerns that arise at home. 14:55 ED course: Patient with negative CT head and MRI. Patient without any new focal pm1 deficits. Patient with mild dehydration on labs which likely explains the patient's symptoms. Offered IV fluids and patient said that she is hungry and would like to go home to eat. Encouraged rehydration by mouth. 11/12 11:42 Order name: Basic Metabolic Panel; Complete Time: 12:50 pm1 11/12 11:42 Order name: CBC with Diff; Complete Time: 12:50 pm11/12 11:42 Order name: Protime (+inr); Complete Time: 13:43 pm11/12 11:42 Order name: Ptt, Activated; Complete Time: 13:43 pm11/12 12:15 Order name: Urine Microscopic Only; Complete Time: 14:51 pm11/12 12:59 Order name: Troponin (emerg Dept Use Only); Complete Time: 13:43 pm11/12 11:42 Order name: CT Stroke Brain w/o Contrast; Complete Time: 12:50 pm11/12 11:42 Order name: Stroke CXR 1 View; Complete Time: 12:50 pm11/12 11:42 Order name: EKG; Complete Time: 11:45 pm11/12 11:42 Order name: Accucheck; Complete Time: 12:07 pm11/12 11:44 Order name: MRI - Brain Wo Cont; Complete Time: 12:53 pm11/12 13:25 Order name: Urine Dipstick--Ancillary (enter results); Complete Time: 13:43 11/12 14:59 Order name: Urine Culture [facility] 11/12 11:42 Order name: Cardiac monitoring; Complete Time: 11:43 pm11/12 11:42 Order name: EKG - Nurse/Tech; Complete Time: 11:44 pm11/12 11:42 Order name: IV Saline Lock; Complete Time: 12:07 pm11/12 11:42 Order name: Labs collected and sent; Complete Time: 12:07 pm11/12 11:42 Order name: NPO; Complete Time: 11:44 pm11/12 11:42 Order name: O2 Per Protocol; Complete Time: 11:44 pm11/12 11:42 Order name: O2 Sat Monitoring; Complete Time: 11:44 pm1 11/12 11:42 Order name: Stroke Swallow Screen; Complete Time: 11:44 pm1 11/12 12:15 Order name: Urine Dipstick-Ancillary (obtain specimen); Complete Time: 13:29 pm1 Administered Medications: 12:07 Drug: Ativan 0.5 mg Route: IVP; Site: left antecubital; tw2 13:45 Follow up: Response: No adverse reaction tw2 Point of Care Testing: Blood Glucose: 12: Blood Glucose: 77 mg/dL; jb1 Ranges: Critical Glucose Levels:Adult <50 mg/dl or >400 mg/dl <40 mg/dl or >180 mg/dl Disposition: 11/13 07:25 Co-signature as Attending Physician, Jb Ramos MD. rn Disposition: 11/12/18 14:45 Discharged to Home. Impression: Headache, Weakness. - Condition is Stable. - Discharge Instructions: General Headache Without Cause, Weakness. - Medication Reconciliation Form, Thank You Letter, Antibiotic Education, Prescription Opioid Use form. - Follow up: Emergency Department; When: As needed; Reason: Worsening of condition. Follow up: Private Physician; When: 2 - 3 days; Reason: Recheck today's complaints, Continuance of care, Re-evaluation by your physician. - Problem is new. - Symptoms have improved. Signatures: Dispatcher [employer] EDMS Jb Ramos MD MD rn Smirch, Shelby, RN RN ss Marinas, Patrick, [employer] GENERAL LABORER pm1 Marah Cavazos RN RN tw2 Corrections: (The following items were deleted from the chart) 11/12 14:46 14:45 11/12/2018 14:45 Discharged to Home. Impression: Headache. Condition is Stable. pm1 Forms are Medication Reconciliation Form, Thank You Letter, Antibiotic Education, Prescription Opioid Use. Follow up: Emergency Department; When: As needed; Reason: Worsening of condition. Follow up: Private Physician; When: 2 - 3 days; Reason: Recheck today's complaints, Continuance of care, Re-evaluation by your physician. Problem is new. Symptoms have improved. pm1 15:19 14:46 11/12/2018 14:45 Discharged to Home. Impression: Headache; Weakness. Condition is tw2 Stable. Discharge Instructions: General Headache Without Cause. Forms are Medication Reconciliation Form, Thank You Letter, Antibiotic Education, Prescription Opioid Use. Follow up: Emergency Department; When: As needed; Reason: Worsening of condition. Follow up: Private Physician; When: 2 - 3 days; Reason: Recheck today's complaints, Continuance of care, Re-evaluation by your physician. Problem is new. Symptoms have improved. pm1
[2018-11-12 16:00] VITALS: O2SAT 100
[2018-11-12 16:02] VITALS: BP 119/54; TEMP 98.5
--- NOTE | 2018-11-13 09:05 | EKG ---
Test Date: 2018-11-12 Test Time: 11:25:18 Mortgage Protection Specialist: NICOLE MEASUREMENT RESULTS: Intervals: Rate: 67 PA: 182 QRSD: 90 QT: 418 QTc: 441 [place]: P: 55 PA: 182 QRS: 17 T: 16 INTERPRETIVE STATEMENTS: Normal sinus rhythm ST abnormality, possible digitalis effect Abnormal ECG Compared to ECG 04/02/2018 20:42:41 ST (T wave) deviation now present Left ventricular hypertrophy no longer present Electronically Signed On 11-13-18 09:01:10 CDT by Rebel Smyth
== END 2018-11-12 15:19 | disposition home or self-care (01) ==
LOC: ER 10:53
DX: R51 Headache (principal); R53.1 Weakness; E11.9 Type 2 diabetes mellitus without complications; E78.5 Hyperlipidemia, unspecified; I10 Essential (primary) hypertension; Z79.82 Long term (current) use of aspirin; Z86.73 Personal history of transient ischemic attack (TIA), and cerebral infarction without residual deficits; Z79.4 Long term (current) use of insulin
CPT/HCPCS: 36415; 70450; 70551; 71045; 80048; 81003; 81015; 82962; 84484; 85025; 85610; 85730; 87086; 87088; 93005; 96374; 99285

== ENCOUNTER 2019-03-24 09:29 | Emergency (ER) | payer OTHER ==
--- NOTE | 2019-03-24 10:24 | RAD REPORT ---
EXAM DESCRIPTION: Rowena Martinez (2 Views)03/24/2019 10:10 am CLINICAL HISTORY: Cough COMPARISON: November 2018 FINDINGS: The lungs appear clear of acute infiltrate. The heart is normal size IMPRESSION: No acute abnormalities displayed
--- NOTE | 2019-03-24 10:56 | ER ---
Nurse's Notes [facility] Name: Chiquis Hickman Age: 68 yrs Sex: Female : 1950 Arrival Date: 03/24/2019 Time: 09:31 Bed 8 Private MD: Doris Chung Diagnosis: Acute upper respiratory infection, unspecified Presentation: 03/24 09:41 Presenting complaint: Patient states: Thursday started with body aches, stuffy nose, iw runny nose, chest congestion, headache, chills, dry cough. Transition of care: patient was not received from another setting of care. Onset of symptoms was March 20, 2019. Risk Assessment: Do you want to hurt yourself or someone else? Patient reports no desire to harm self or others. Initial Sepsis Screen: Does the patient meet any 2 criteria? No. Patient's initial sepsis screen is negative. Does the patient have a suspected source of infection? No. Patient's initial sepsis screen is negative. Care prior to arrival: None. 09:41 Method Of Arrival: Ambulatory iw 09:41 Acuity: ROSALBA 3 iw Historical: - Allergies: 09:44 steroids; iw - Home Meds: 09:44 aspirin 81 mg Oral chew 1 tab once daily [Active]; atorvastatin 40 mg Oral tab 1 tab iw nightly [Active]; diltiazem HCl 360 mg Oral cpER 1 cap once daily [Active]; Jardiance 10 mg Oral tab 1 tab once daily [Active]; losartan-hydrochlorothiazide 100-25 mg Oral tab 1 tab once daily [Active]; metformin 500 mg Oral Tb24 1 tab once daily [Active]; multivitamin Oral tab daily [Active]; Trulicity 1.5 mg/0.5 mL subcutaneous pnij 0.5 mL Every [Active]; - PMHx: 09:44 CVA; Diabetes - IDDM; Hyperlipidemia; Hypertension; LEFT SIDED WEAKNESS; TIA; iw - PSHx: :44 fibroid tumor removed; Hysterectomy; iw - Immunization history:: Adult Immunizations up to date. - Social history:: Smoking status: Patient/guardian denies using tobacco. - Ebola Screening: : Patient negative for fever greater than or equal to 101.5 degrees Fahrenheit, and additional compatible Ebola Virus Disease symptoms Patient denies exposure to infectious person Patient denies travel to an Ebola-affected area in the 21 days before illness onset No symptoms or risks identified at this time. Screenin:50 Abuse screen: Denies threats or abuse. Nutritional screening: No deficits noted. aa5 Tuberculosis screening: No symptoms or risk factors identified. Fall Risk None identified. Assessment: 09:50 General: Appears comfortable, Behavior is calm, cooperative. Pain: Denies pain. Neuro: aa5 Level of Consciousness is awake, alert, obeys commands, Oriented to person, place, time, situation. Cardiovascular: Heart tones S1 S2 present Rhythm is regular. Respiratory: Reports cough that is dry, and chest congestion Airway is patent Respiratory effort is even, unlabored, Respiratory pattern is regular, symmetrical, Breath sounds are clear bilaterally. GI: Reports decreased appetite, reports last meal was yesterday at 1700. Patient currently denies nausea, vomiting. : No signs and/or symptoms were reported regarding the genitourinary system. EENT: Reports nasal discharge that is watery. Derm: Skin is dry, Skin is normal, Skin temperature is warm. Musculoskeletal: Range of motion: intact in all extremities. 11:15 Neuro: Level of Consciousness is awake, alert, obeys commands, Oriented to person, aa5 place, time, situation. Respiratory: Airway is patent Respiratory effort is even, unlabored, Respiratory pattern is regular, symmetrical. Derm: Skin is dry, Skin is normal, Skin temperature is warm. Vital Signs: 09:44 BP 129 / 85; Pulse 95; Resp 18; Temp 99.6; Pulse Ox 98% on R/A; Weight 92.99 kg; Height iw 5 ft. 3 in. (160.02 cm); Pain 0/10; 10:55 BP 136 / 84; Pulse 88; Resp 16 S; Temp 99.5(O); Pulse Ox 100% ; aa5 09:44 Body Mass Index 36.31 (92.99 kg, 160.02 cm) iw ED Course: 09:31 Patient arrived in ED. rg4 09:31 Doris Chung MD is Private Physician. rg4 09:42 Triage completed. iw 09:43 Elina Story, CARIE is Primary Nurse. aa5 09:44 Arm band placed on. iw 09:47 [facility]C [facility]. kb 09:47 Sal Cristobal MD is Attending Physician. kb 09:50 Patient has correct armband on for positive identification. Placed in gown. Bed in low aa5 position. Call light in reach. Side rails up X2. Pulse ox on. NIBP on. 10:00 Flu and/or RSV swab sent to lab. 3 10:05 Flu Sent. 3 10:09 Chest Pa And Lat (2 Views) XRAY In Process Unspecified. EDMS 11:15 No provider procedures requiring assistance completed. Patient did not have IV access aa5 during this emergency room visit. Administered Medications: No medications were administered Outcome: 10:56 Discharge ordered by . kb 11:15 Discharged to home ambulatory, with family. aa5 11:15 Condition: stable 11:15 Discharge instructions given to patient, Instructed on discharge instructions, follow up and referral plans. Demonstrated understanding of instructions, follow-up care. 11:17 Patient left the ED. aa5 Signatures: Dispatcher [employer] EDCT Mikala Trejo, [employer] MEMBERSHIP CORRESPONDENT-Chloe Ang RN RN iw Calderon, Audri, RN RN [email or web address] Lia Chinchilla 4 Jayashree Escamilla [facility]
--- NOTE | 2019-03-24 10:57 | EDPHYS ---
Physician Documentation [facility] Name: Chiquis Hickman Age: 68 yrs Sex: Female : 1950 Arrival Date: 03/24/2019 Time: 09:31 Bed 8 Private MD: Doris Chung ED Physician Sal Cristobal HPI: 03/24 10:55 This 68 yrs old Black Female presents to ER via Ambulatory with complaints of Runny kb Nose, Chest Congestion, Body Aches. 10:55 The patient or guardian reports cough, that is intermittent, described as mild, with no kb sputum, flu symptoms, myalgias. Onset: The symptoms/episode began/occurred 4 day(s) ago. Severity of symptoms: At their worst the symptoms were mild, moderate, in the emergency department the symptoms are unchanged. Modifying factors: The symptoms are alleviated by nothing, the symptoms are aggravated by nothing. Associated signs and symptoms: Pertinent positives: fever, sore throat, Pertinent negatives: chest pain, diarrhea, ear ache, nausea, sore throat, vomiting. The patient has not experienced similar symptoms in the past. The patient has not recently seen a physician. Pt reports she has had cold symptoms for 4 days and just wanted to make sure it was just a cold and not something more serious. Historical: - Allergies: :44 steroids; iw - Home Meds: :44 aspirin 81 mg Oral chew 1 tab once daily [Active]; atorvastatin 40 mg Oral tab 1 tab iw nightly [Active]; diltiazem HCl 360 mg Oral cpER 1 cap once daily [Active]; Jardiance 10 mg Oral tab 1 tab once daily [Active]; losartan-hydrochlorothiazide 100-25 mg Oral tab 1 tab once daily [Active]; metformin 500 mg Oral Tb24 1 tab once daily [Active]; multivitamin Oral tab daily [Active]; Trulicity 1.5 mg/0.5 mL subcutaneous pnij 0.5 mL Every [Active]; - PMHx: :44 CVA; Diabetes - IDDM; Hyperlipidemia; Hypertension; LEFT SIDED WEAKNESS; TIA; iw - PSHx: 09:44 fibroid tumor removed; Hysterectomy; iw - Immunization history:: Adult Immunizations up to date. - Social history:: Smoking status: Patient/guardian denies using tobacco. - Ebola Screening: : Patient negative for fever greater than or equal to 101.5 degrees Fahrenheit, and additional compatible Ebola Virus Disease symptoms Patient denies exposure to infectious person Patient denies travel to an Ebola-affected area in the 21 days before illness onset No symptoms or risks identified at this time. ROS: 10:53 Neck: Negative for injury, pain, and swelling, Cardiovascular: Negative for chest pain, kb palpitations, and edema, Abdomen/GI: Negative for abdominal pain, nausea, vomiting, diarrhea, and constipation, Back: Negative for injury and pain, MS/Extremity: Negative for injury and deformity, Skin: Negative for injury, rash, and discoloration, Neuro: Negative for headache, weakness, numbness, tingling, and seizure. 10:53 Constitutional: Positive for body aches, chills, malaise. 10:53 ENT: Positive for rhinorrhea, sinus congestion. 10:53 Respiratory: Positive for cough, Negative for dyspnea on exertion, hemoptysis, orthopnea, pleurisy, shortness of breath, sputum production, wheezing. Exam: 10:54 Constitutional: This is a well developed, well nourished patient who is awake, alert, kb and in no acute distress. Head/Face: Normocephalic, atraumatic. ENT: Nares patent. No nasal discharge, no septal abnormalities noted. Tympanic membranes are normal and external auditory canals are clear. Oropharynx with no redness, swelling, or masses, exudates, or evidence of obstruction, uvula midline. Mucous membranes moist. Neck: Trachea midline, no thyromegaly or masses palpated, and no cervical lymphadenopathy. Supple, full range of motion without nuchal rigidity, or vertebral point tenderness. No Meningismus. Chest/axilla: Normal chest wall appearance and motion. Nontender with no deformity. No lesions are appreciated. Cardiovascular: Regular rate and rhythm with a normal S1 and S2. No gallops, murmurs, or rubs. Normal PMI, no JVD. No pulse deficits. Respiratory: Lungs have equal breath sounds bilaterally, clear to auscultation and percussion. No rales, rhonchi or wheezes noted. No increased work of breathing, no retractions or nasal flaring. Abdomen/GI: Soft, non-tender, with normal bowel sounds. No distension or tympany. No guarding or rebound. No evidence of tenderness throughout. Skin: Warm, dry with normal turgor. Normal color with no rashes, no lesions, and no evidence of cellulitis. MS/ Extremity: Pulses equal, no cyanosis. Neurovascular intact. Full, normal range of motion. Neuro: Awake and alert, GCS 15, oriented to person, place, time, and situation. Cranial nerves II-XII grossly intact. Motor strength 5/5 in all extremities. Sensory grossly intact. Cerebellar exam normal. Normal gait. Vital Signs: 09:44 BP 129 / 85; Pulse 95; Resp 18; Temp 99.6; Pulse Ox 98% on R/A; Weight 92.99 kg; Height iw 5 ft. 3 in. (160.02 cm); Pain 0/10; 10:55 BP 136 / 84; Pulse 88; Resp 16 S; Temp 99.5(O); Pulse Ox 100% ; aa5 09:44 Body Mass Index 36.31 (92.99 kg, 160.02 cm) iw MDM: 09:47 Patient medically screened. kb 10:52 Data reviewed: vital signs, nurses notes. Data interpreted: Pulse oximetry: on room air kb is 98 %. Interpretation: normal. Counseling: I had a detailed discussion with the patient and/or guardian regarding: the historical points, exam findings, and any diagnostic results supporting the discharge/admit diagnosis, lab results, radiology results, the need for outpatient follow up, a family practitioner, to return to the emergency department if symptoms worsen or persist or if there are any questions or concerns that arise at home. 03/24 09:47 Order name: Flu; Complete Time: 10:25 kb 03/24 09:47 Order name: Chest Pa And Lat (2 Views) XRAY; Complete Time: 10:29 kb Administered Medications: No medications were administered Disposition: 03/24/19 10:56 Discharged to Home. Impression: Acute upper respiratory infection, unspecified. - Condition is Stable. - Discharge Instructions: Upper Respiratory Infection, Adult, [id number], Viral Respiratory Infection, Qqzr-[id number]. - Medication Reconciliation Form, Thank You Letter, Antibiotic Education, Prescription Opioid Use form. - Follow up: Emergency Department; When: As needed; Reason: Worsening of condition. Follow up: Private Physician; When: 2 - 3 days; Reason: Recheck today's complaints, Continuance of care, Re-evaluation by your physician. Addendum: 03/25/2019 15:29 Co-signature as Attending Physician, Sal Cristobal MD. g s Signatures: Dispatcher [employer] Mikala Stephen, PASCUAL-C [employer] OFFICER-Chloe Ang, RN RN iw Elina Story RN RN aa5 Sal Cristobal MD MD Corrections: (The following items were deleted from the chart) 03/24 11:17 10:56 03/24/2019 10:56 Discharged to Home. Impression: Acute upper respiratory aa5 infection, unspecified. Condition is Stable. Forms are Medication Reconciliation Form, Thank You Letter, Antibiotic Education, Prescription Opioid Use. Follow up: Emergency Department; When: As needed; Reason: Worsening of condition. Follow up: Private Physician; When: 2 - 3 days; Reason: Recheck today's complaints, Continuance of care, Re-evaluation by your physician. kb
[2019-03-24 11:24] VITALS: BP 136/84; TEMP 99.5; O2SAT 100
== END 2019-03-24 11:17 | disposition home or self-care (01) ==
LOC: ER 09:29
DX: J06.9 Acute upper respiratory infection, unspecified (principal); I10 Essential (primary) hypertension; E11.9 Type 2 diabetes mellitus without complications; E78.5 Hyperlipidemia, unspecified; Z79.4 Long term (current) use of insulin; Z79.82 Long term (current) use of aspirin; Z88.8 Allergy status to other drugs, medicaments and biological substances
CPT/HCPCS: 71046; 87804; 99283

== ENCOUNTER 2019-05-17 08:20 | Day surgery (SDC) | payer OTHER ==
[2019-05-16 12:07] LABS: Absolute Lymphocytes (CBC) 2.9 K/uL (0.7-4.9); Basophils % 0.6 % (0-1.3); Hematocrit 38.6 % (36.0-45.0); Lymphocytes % 38.1 % (15.3-44.8); MPV 8.6 fL (7.6-11.3); RBC Red Blood Cell Count 4.23 M/uL (3.86-4.86)
[2019-05-16 12:34] LABS: Protime INR 0.97
[~2019-05-17 08:20] MED LIST: FENTANYL CITR 100 MCG/2 ML ONE; LIDOCAINE 2% MPF 5 ML VIAL ONE; MIDAZOLAM HCL 2 MG/2 ML INJ ONE; propofoL 200 MG/20 ML VIAL IV ONE
--- OUTSIDE RECORDS SUMMARY | 2019-05-17 08:29 | XMS REPORT ---
:1950 Author Organization [employer] Care Team Providers Name Role Phone Chung, Na Provider Role Unavailable Allergies, Adverse Reactions, Alerts Substance Reaction Event Type N.K.D.A. 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 Assessment [...] TIA (transient ischemic Z86.73 Active attack) Problem care home current use of insulin Z79.4 Active Medications Medication Code Code Instructions Start End Status Dosage System Date Date Metformin HCl [facility] 99895812068 500 MG Orally Active 1 tablet Once a day with a meal Jardiance [facility] 73979734667 10 MG Orally Active 1 tablet Once a day Diltiazem HCl [facility] 85510774831 180 MG Orally Active 1 capsule on ER Twice a day an empty stomach in the morning Aspir-81 [facility] 00751973837 81 MG Orally Active 1 tablet Once a day Trulicity [facility] 47042140606 1.5mg/0.5ml SQ Active 1 injection once a week Tresiba [facility] 76836057336 100 UNIT/ML Active 12 units as FlexTouch Subcutaneous directed Atorvastatin ND 63114513755 40 MG Orally Active 1 tablet Calcium Once a day Losartan [facility] 07134936754 100-25 MG Active 1 tablet Potassium-HCTZ Orally Once a day Results No Known Results Summary Purpose [employer]ClinicalWorks Submission
--- OUTSIDE RECORDS SUMMARY | 2019-05-17 08:29 | XMS REPORT ---
:1950 Author Organization [employer] Care Team Providers Name Role Phone Chung, Na Provider Role Unavailable Allergies, Adverse Reactions, Alerts Substance Reaction Event Type N.K.D.A. 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 Medications Medication Code Code Instructions Start End Status Dosage System Date Date Metformin HCl [facility] 14617678308 500 MG Orally Active 1 tablet Once a day with a meal Aspir-81 [facility] 79457893250 81 MG Orally Active 1 tablet Once a day Diltiazem HCl [facility] 51104515919 180 MG Orally Active 1 capsule on ER Twice a day an empty stomach in the morning Jardiance [facility] 64848537472 10 MG Orally Active 1 tablet Once a day Atorvastatin [facility] 75960110283 40 MG Orally Active 1 tablet Calcium Once a day Trulicity [facility] 98166361326 1.5mg/0.5ml SQ Active 1 injection once a week Losartan [facility] 92328625825 100-25 MG Active 1 tablet Potassium-HCTZ Orally Once a day Results No Known Results Summary Purpose eClinicalWorks Submission
--- OUTSIDE RECORDS SUMMARY | 2019-05-17 08:29 | XMS REPORT ---
:1950 Author Organization [employer] Care Team Providers Name Role Phone Chung, Na Provider Role Unavailable Allergies, Adverse Reactions, Alerts Substance Reaction Event Type N.K.D.A. 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.9 Active complications Problem History of TIA (transient ischemic Z86.73 Active attack) Problem [facility] current use of insulin Z79.4 Active Assessment Onychomycosis of right great toe B35.1 Active Assessment Callus of foot L84 Active Assessment History of TIA (transient ischemic Z86.73 Active attack) Assessment High cholesterol E78.00 Active Assessment Osteopenia of neck of left femur M85.852 Active Assessment HTN (hypertension) I10 Active Medications Medication Code Code Instructions Start End Status Dosage System Date Date Atorvastatin [facility] 87740115551 40 MG Orally Active 1 tablet Calcium Once a day Losartan [facility] 69801493918 100-25 MG Active 1 tablet Potassium-HCTZ Orally Once a day Tresiba [facility] 88781980654 100 UNIT/ML Inactive 12 units as FlexTouch Subcutaneous directed Jardiance [facility] 52780676401 10 MG Orally Active 1 tablet Once a day Diltiazem HCl ND 22322900595 180 MG Orally Active 1 capsule ER Twice a day on an empty stomach in the morning Trulicity [facility] 77452000820 1.5mg/0.5ml SQ Active 1 injection once a week Aspir-81 [facility] 01445050191 81 MG Orally Active 1 tablet Once a day Metformin HCl ND 62561424242 500 MG Orally Active 1 tablet Once a day with a meal Results No Known Results Summary Purpose eClinicalWorks Submission
--- OUTSIDE RECORDS SUMMARY | 2019-05-17 08:29 | XMS REPORT ---
:1950 Author Organization [employer] Care Team Providers Name Role Phone Chung, Na Provider Role Unavailable Allergies, Adverse Reactions, Alerts Substance Reaction Event Type N.K.D.A. 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 Problem History of TIA (transient ischemic Z86.73 Active attack) Problem detention current use of insulin Z79.4 Active Assessment [...] Start End Status Dosage System Date Date [facility] 63450260718 100 UNIT/ML Active 12 units as FlexTouch Subcutaneous directed Atorvastatin [facility] 74734282952 40 MG Orally Active 1 tablet Calcium Once a day Losartan [facility] 96977381314 100-25 MG Active 1 tablet Potassium-HCTZ Orally Once a day Jardiance [facility] 13316051780 10 MG Orally Active 1 tablet Once a day Trulicity [facility] 32961203970 1.5mg/0.5ml SQ Active 1 injection once a week Aspir-81 [facility] 75066951302 81 MG Orally Active 1 tablet Once a day Diltiazem HCl [facility] 31545140410 180 MG Orally Active 1 capsule on ER Twice a day an empty stomach in the morning Metformin HCl [facility] 78054955811 500 MG Orally Active 1 tablet Once a day with a meal Results No Known Results Summary Purpose eClinicalWorks Submission
--- OUTSIDE RECORDS SUMMARY | 2019-05-17 08:29 | XMS REPORT ---
:1950 Author Organization [employer] Care Team Providers Name Role Phone Chung, Na Provider Role Unavailable Allergies, Adverse Reactions, Alerts Substance Reaction Event Type N.K.D.A. 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 Problem History of TIA (transient ischemic Z86.73 Active attack) 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 Medications Medication Code Code Instructions Start End Status Dosage System Date Date Diltiazem HCl [facility] 35480689863 180 MG Orally Active 1 capsule ER Twice a day on an empty stomach in the morning Atorvastatin [facility] 26529497031 40 MG Orally Active 1 tablet Calcium Once a day Trulicity [facility] 17103117546 1.5mg/0.5ml SQ Active 1 injection once a week Jardiance [facility] 62151564502 10 MG Orally Active 1 tablet Once a day Aspir-81 [facility] 78344406375 81 MG Orally Active 1 tablet Once a day Losartan [facility] 16609601572 100-25 MG Active 1 tablet Potassium-HCTZ Orally Once a day Metformin HCl ND 08718416045 500 MG Orally Active 1 tablet Once a day with a meal Tresiba [facility] 86587753383 100 UNIT/ML Inactive 12 units as FlexTouch Subcutaneous directed Results No Known Results Summary Purpose eClinicalWorks Submission
[2019-05-17] MEDS ORDERED: NA CHLORIDE 0.9% 1,000 ML ONE (09:00)
[2019-05-17] MEDS ORDERED: CEFAZOLIN/SWI 1gm 1 GM/10 ML SYR ONE (09:00)
[2019-05-17] MEDS ORDERED: dexAMETHasone 4 MG/ML VIAL ONE (09:01)
[2019-05-17] MEDS ORDERED: LIDOCAINE 1% 20 ML MDV ONE (09:02)
[2019-05-17] MEDS ORDERED: BUPIVACAINE 0.5% PF 10 ML VIAL ONE (09:02)
[2019-05-17 11:12] VITALS: BP 138/64; TEMP 97.9; O2SAT 99
== END 2019-05-17 11:55 | disposition home or self-care (01) ==
LOC: OR 08:20
PROVIDERS: ATTEND Podiatrist Foot Surgery
PROC: 0QBR0ZZ Excision of Left Toe Phalanx, Open Approach (ICD-10-PCS; 2019-05-17)
PROC: 0SRQ0JZ Replacement of Left Toe Phalangeal Joint with Synthetic Substitute, Open Approach (ICD-10-PCS; principal; 2019-05-17 09:30)
DX: M20.42 Other hammer toe(s) (acquired), left foot (principal); I10 Essential (primary) hypertension; E11.9 Type 2 diabetes mellitus without complications; Z88.8 Allergy status to other drugs, medicaments and biological substances
CPT/HCPCS: 28285; 85025; 36415; 85610; 82947; 85730; 28153; J2704; J2250; J3010; J0690; J7030

== ENCOUNTER 2020-06-27 08:27 | Emergency (ER) | payer OTHER ==
--- OUTSIDE RECORDS SUMMARY | 2020-06-27 08:51 | XMS REPORT | Continuity of Care Document ---
:1950 Author Organization [facility] [employer] Care Team Providers Name Role Phone [facility] Information [employer] Unavailable Un available Problems Problem Status Onset Classification Date Comments Sourc e Date Reported CVA Active 01/05/[address] Center LF #[id number](CVA) Active 01/05/20 [place]on as [address] [place] [id number] APHASIA,ACUTE LEFT Active 01/05/20 [facility] SIDED WEAKNESS [address] [place] [id number] al Center TIA Resolved 06/08/19 Problem 07/15/[address] Transient ischemic Resolved 06/08/19 Problem 01/08/2017 [facility] attack (disorder) 03 Nd dical Center HTN - Hypertension Resolved Problem 07/15/2012 [facility] IDDM - Resolved Problem 07/15/2012 [facility] 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 CVA Active [facility] APHASIA Active [facility] Medications Medication Details Route Status Patient Ordering Order Source Instructions Provider Date Ativan Notes: (Same Inactive 01/05[facility] as: Ativan) 2017 [facility] Ativan 2 mg, Route: Inactive 01/05[facility] IVP, Drug 2017 Medical form: INJ, Center ONCE, Dosing Weight 105.17, kg, PRN Anxiety, Start date: 01/05/17 11:30:00 CDT Insulin Glargine Notes: Same Inactive 01/05[facility] as: Lantus) 2017 Medical Do not hold Center insulin without contacting prescriber WASTE: F/P - Black; E - Municipal Trash Bin Cardizem CD Notes: (Same Inactive [place]on as as:Cardizem 2017 Medical CD) Before Center meals. DO NOT CRUSH. aspirin 81 mg Notes: Do not Inactive [place] tablet, enteric crush or 2017 Medical coated chew. (Same Center As: Ecotrin) Plavix Notes: (Same Inactive [place] As: Plavix) 2017 [facility] Tresiba 20 unit, Active [place] FlexTouch SUB-Q, 2017 Medical Bedtime, 0 Center Refill(s) Hydrochlorothiaz 1 tab, PO, Active [place] carlos 25 MG / Daily, 0 2016 Medical valsartan 320 MG Refill(s) Cente r Oral Tablet [Diovan HCT 320/25] 0.5 ML 50 mg, SUB-Q, Active [place] albiglutide 100 QThu, 0 2016 Medical MG/ML Prefilled Refill(s) [place] Syringe [Tanzeu] simvastatin 40 40 mg = 1 [place] mg oral tablet tab, PO, 2016 Medical Bedtime, # 30 Center tab, 5 Refill(s) atorvastatin Notes: (Same No Longer [place] as: Lipitor) Active 2016 [facility] Docusate Notes: (Same No Longer [facility] as: Colace) Active 2016 Medical (Do Not Center Crush) Insulin regular 60 units) No Longer [facility] WASTE: F/P - Active 2016 [facility] Black; E - Center Municipal Trash Bin Stable for 28 days at room temperature Expires in days from _Date Glucagon 1 mg, Route: No Longer [place] IM, Drug Active 2016 Medical form: [place] PDR/INJ, PRN, Dosing Weight 122.33, kg, PRN Blood Glucose Results, Start date: 01/04/17 16:07:00 CDT, Duration: 30 day, Stop date: 02/03/17 16:06:00 CDT Dextrose 50% 25 gm, 50 mL, No Longer [place] Syringe Route: IVP, Active 2016 Medical Drug Form: [place] INJ, Dosing Weight 122.33, kg, PRN, PRN Blood Glucose Results, Start date: 01/04/17 16:07:00 CDT, Duration: 30 day, Stop date: 02/03/17 16:06:00 CDT Acetaminophen Notes: Do not No Longer [facility] exceed 4 Active 2016 Medical gm/day. Center (Same as: Tylenol) Ondansetron Notes: (Same [place] Longer [place] as: Zofran) Active 2016 Medical Center MEDICATION WASTE Product Size: 4 mg Product Wasted: 0 mg Aspirin Notes: Take Inactive [facility] with food. 2017 [facility] iodixanol 100 mL, Inactive [facility] Route: IVP, 2016 Medical Drug Form: Center SOLN, kg, ONCALL, STAT, Start date: 01/04/17 13:34:00 CDT, Duration: 1 doses or times, Dose = 2.2ml/kg, Max dose = 100ml -- "To be infused by Radiology Staff ONLY" Saline Flush Notes: Same No Longer [place] 0.9% as: BD Active 2016 [facility] Posiflush [place] Sterile Lantus 40 unit, 0.4 SUB-Q No Longer [place] [facility] mL, Route: Active 2012 Medical SUB-Q, Drug Center form: INJ, QAM, Dosing Weight 122.33, kg, Start date: 07/13/12 9:00:00, Duration: 30 day, Stop date: 08/11/12 9:00:00 atorvastatin 80 80 mg, 1 tab, PO Active [place] [facility] mg oral tablet PO, QPM, 2012 Medic al tab, 1, 1, Center Substitution Allowed, TAB Lantus 38 unit, 0.38 SUB-Q No Longer [place] [facility] mL, Route: Active 2012 Medical SUB-Q, Drug Center form: INJ, QPM, Dosing Weight 122.33, kg, Start date: 07/12/12 18:00:00, Duration: 30 day, Stop date: 08/11/12 17:00:00 atorvastatin 80 mg, 1 tab, PO No Longer [place] [facility] Route: PO, Active 2012 Medical Drug form: Center TAB, QPM, Dosing Weight 122.33, kg, Start date: 07/12/12 17:00:00, Duration: 30 day, Stop date: 08/10/12 17:00:00 heparin 5000 7,500 unit, SUB-Q No Longer [place] units/mL 1.5 mL, Active 2012 Medical injectable Route: SUB-Q, Center solution Drug form: INJ, Q8H, Dosing Weight 122.33, kg, Start date: 07/12/12 16:00:00, Duration: 30 day, Stop date: 08/11/12 8:00:00 valsartan 160 mg, 1 PO No Longer [place] tab, Route: Active 2012 Medical PO, Drug Center form: TAB, Daily, Dosing Weight 122.33, kg, Start date: 07/12/12 13:00:00, Duration: 30 day, Stop date: 08/11/12 9:00:00 diltiazem 180 mg, 1 PO No Longer [place] cap, Route: Active 2012 Medical PO, Drug Center form: ERCAP, Daily, Dosing Weight 122.33, kg, Start date: 07/12/12 13:00:00, Duration: 30 day, Stop date: 08/11/12 9:00:00 hydrochlorothiaz 12.5 mg, 1 PO No Longer [place] [facility] carlos cap, Route: Active 2012 Medical PO, Drug Center form: CAP, Daily, Dosing Weight 122.33, kg, Start date: 07/12/12 13:00:00, Duration: 30 day, Stop date: 08/11/12 9:00:00 aspirin 325 mg, 1 PO No Longer [place] tab, Route: Active 2012 Medical PO, Drug Center form: ECTAB, Daily, Dosing Weight 122.33, kg, Priority: NOW, Start date: 07/12/12 10:13:00, Duration: 30 day, Stop date: 08/11/12 9:00:00 pneumococcal 0.5 ml, IM No Longer SYSTEM [place] 23-valent Route: IM, Active 2012 Medical vaccine Drug Form: Center INJ, Daily, Start date: 07/12/12 9:00:00, Duration: 1 doses or times, Stop date: 07/12/12 9:00:00 pantoprazole 40 mg, Route: IVP No Longer Arthur [facility] IVP, Drug Active 2012 Medical form: INJ, Center Daily, Dosing Weight 113.636, kg, Start date: 07/12/12 9:00:00, Duration: 30 day, Stop date: 08/10/12 9:00:00 Saline Flush 5 ml, Route: IVP No Longer [place] 0.9% IVP, Drug Active 2012 Medical Form: INJ, Center Dosing Weight 113.636, kg, Q12H, Start date: 07/11/12 21:00:00, Duration: 30 day, Stop date: 08/10/12 9:00:00 docusate 100 mg, 1 PO No Longer Arthur [facility] cap, Route: Active 2012 Medical PO, Drug Center form: CAP, Q12H, Dosing Weight 113.636, kg, Start date: 07/11/12 21:00:00, Duration: 30 day, Stop date: 08/10/12 9:00:00 insulin regular 7 unit, 0.07 SUB-Q No Longer Arthur 07/12/ [facility] human mL, Route: Active 2012 Medical recombinant 100 SUB-Q, Drug Cent er units/mL form: SOLN, injectable PRN, Dosing solution Weight 122.33, kg, PRN Abnormal Lab Result, Start date: 07/11/12 20:51:00, Duration: 30 day, Stop date: 08/10/12 20:50:00 Dextrose 50% 12.5 gm, 25 IVP No Longer [place] Syringe mL, Route: Active 2012 Medical IVP, Drug Center Form: INJ, Dosing Weight 122.33, kg, PRN, PRN Abnormal Lab Result, Start date: 07/11/12 20:51:00, Duration: 30 day, Stop date: 08/10/12 20:50:00 Ativan 2 mg, 1 mL, IVP No Longer Arthur [facility] Route: IVP, Active 2012 Medical Drug form: Center INJ, ONCE, Dosing Weight 122.33, kg, PRN Anxiety, Priority: STAT, Start date: 07/11/12 19:59:00 Lantus Solostar 38 unit, SUB-Q Active [place] Pen 100 units/mL SUB-Q, 2013 Medical subcutaneous Bedtime, 10 Center solution ml, Substitution Allowed, TIN [place] HCT 12.5 1 tab, PO, PO Active [place] mg-320 mg oral Daily, 30 2012 Medical tablet tab, Center Substitution Allowed, Maintenance, TAB glipiZIDE 10 mg 10 mg, 1 tab, PO Active [place] oral tablet PO, Daily, 30 2012 Medica l tab, Center Substitution Allowed Plavix 75 mg 75 mg, 1 tab, PO Active [place] oral tablet PO, Daily, 30 2012 Medica l tab, Center Substitution Allowed, TAB simvastatin 40 40 mg, 1 tab, PO No Longer 07/11/ H [place] mg oral tablet PO, Bedtime, Active 2012 Medi adrian 30 tab, Center Substitution Allowed, Maintenance aspirin 81 mg 81 mg, 1 tab, PO Active [place] tablet, enteric PO, Daily, 0 2012 Med ical coated tab, Center Substitution Allowed, ECTAB Cardizem CD 180 180 mg, 1 PO Active [place]on as mg/24 hours oral cap, PO, 2012 Medica l capsule, Daily, 30 Center extended release cap, Substitution Allowed Lantus Solostar 40 unit, SUB-Q [place] Pen 100 units/mL SUB-Q, Before 2012 M edical subcutaneous Breakfast, 10 Cente r solution ml, Substitution Allowed, SOLN niCARdipine 40 40 mg, 200 IV No Longer [place] mg in NS 200 ml mL, Rate: Active 2012 Medica l IV 40 mg Start at [place] 5mg/hr., Dosing Weight 113.636, kg, Route: IV, Total Volume: 200, Titrate to maintain SBP 140-180mmHg., Duration: 30 day, Stop date: 08/10/12 16:15:00, Replace Every: 24 hr Saline Flush 5 ml, Route: IVP No Longer [place] 0.9% IVP, Drug Active 2012 Medical Form: INJ, Center Dosing Weight 113.636, kg, PRN, PRN Line Flush, Start date: 07/11/12 16:11:00, Duration: 30 day, Stop date: 08/10/12 16:10:00 acetaminophen 650 mg, 2 PO No Longer Arthur [place] as tab, Route: Active 2012 Medical PO, Drug Center form: TAB, Q4H, Dosing Weight 113.636, kg, PRN Pain/Fever, Start date: 07/11/12 16:11:00, Duration: 30 day, Stop date: 08/10/12 16:10:00 labetalol 10 mg, 2 mL, IVP No Longer Arthur Kirk s Route: IVP, Active 2012 Medical Drug form: Center INJ, Q10Min, Dosing Weight 113.636, kg, PRN Hypertension, Start date: 07/11/12 16:11:00, Duration: 30 day, Stop date: 08/10/12 16:10:00, For SBP > 180mmHg and/or DBP > 105mmHg Omnipaque 125 mL, IVP No Longer Homar [place] 350mg/ml Route: IVP, Active 2012 Medical Drug Form: Center SOLN, Dosing Weight 113.636, kg, ONCALL, STAT, Start date: 07/11/12 13:41:00, Duration: 1 doses or times, Stop date: 07/11/12 20:00:00, Dose = 2.2ml/kg, Max dose = 150ml -- "To be infused by Radiology Staff ONLY"Dose = 2.2ml/kg, Max dose = 150ml -- "To be infused by Radiology Staff ONLY" labetalol 20 mg, Route: IVP No Longer Karamchandani [place] IVP, Drug Active 2012 Medical form: INJ, Center ONCE, Dosing Weight 113.636, kg, Priority: STAT, Start date: 07/11/12 12:35:00, Stop date: 07/11/12 12:35:00 Allergies, Adverse Reactions, Alerts Substance Category Reaction Severity Reaction Status Date Comments S ource type Reported NKFA Assertion Drug Active [facility] as allergy Medical Center Steroids<spears Assertion Propensity Active Pt stat es Elizabeth p>1</sup> to adverse that Med ical reactions steroids Cente r to drug make her blood sugar go out of control Immunizations Immunization Date Site Status Last Updated Comments Sour ce Given pneumococcal completed [facility] Kirk [facility] 23-valent vaccine 3 Me dical Center pneumococcal Right completed [place] a s 23-valent vaccine 3 deltoid [facility] Results Order Name Results Value Reference Date Interpretation Comments Marija rce Range HEMATOLOGY RBC 4.23 4.20 - 01/05 [place] 5.40 /2016 [facility] HEMATOLOGY Hgb 12.5 12.0 - 01/[address] [place] [address] [facility] HEMATOLOGY Hct 36.9 36.0 - 01/[address] [facility] HEMATOLOGY MCHC 34.0 32.0 - 01/[address] [place] [address] [facility] HEMATOLOGY WBC 7.9 3.7 - 10.4 01/05 [facility] HEMATOLOGY MPV 7.9 7.4 - 10.4 01/05 [facility] HEMATOLOGY RDW 15.4 11.5 - 01/[address] [facility] HEMATOLOGY MCV 87.3 80.0 - 01/[address] [facility] HEMATOLOGY MCH 29.7 27.0 - 01/[address] [facility] HEMATOLOGY Platelet 194 133 - 450 01/05 [facility] HEMATOLOGY Monocytes # 0.6 0.0 - 0.8 01/05 [facility] HEMATOLOGY Eosinophils # 0.3 0.0 - 0.5 01/05 [facility] HEMATOLOGY Basophils 0.5 0.0 - 1.0 01/05 [facility] HEMATOLOGY Lymphocytes # 2.8 1.0 - 5.5 01/05 [facility] HEMATOLOGY Segs-Bands # 4.2 1.5 - 8.1 01/05 [facility] HEMATOLOGY Eosinophils 3.5 0.0 - 4.0 01/05 [facility] HEMATOLOGY Segs 53.3 45.0 - 01/[address] [place] [address] [facility] HEMATOLOGY Monocytes 7.7 2.0 - 12.0 01/05 [facility] HEMATOLOGY Lymphocytes 35.0 20.0 - 01/[address] [place] [address] [facility] LIPIDS LDL 30 <=99 mg/dL 01/05 [facility] (Calculated) [facility] LIPIDS HDL 76 >=61 mg/dL 01/05 [facility] LIPIDS Chol 125 <=199 01/05 [facility] mg/dL /2016 [facility] LIPIDS Trig 93 <=149 01/05 [facility] mg/dL /2016 [facility] LIPIDS VLDL 19 01/05 [place] /2016 [facility] LIPIDS CHD Risk 1.64 3.90 - 01/05 [facility] [address] [facility] URINE AND UA WBC 0-2 /HPF None Seen 01/04 [place] STOOL /HPF /2016 [facility] URINE AND UA Sq Epi Occasional Few /LPF 01/04 [facility] STOOL /LPF /2016 [facility] URINE AND UA Ketones Negative Negative 01/04 [facility] STOOL *NA* /2016 [facility] (01/04/17 2:36 PM) [place] URINE AND UA Bili Negative Negative 01/04 [facility] *NA* /2016 [facility] (01/04/17 2:36 PM) [place] URINE AND UA Glucose >=1000 Negative 01/04 [facility] STOOL mg/dL mg/dL [facility] URINE AND UA 0.2 0.1 - 1.0 01/04 [facility] Urobilinogen /2016 [facility] URINE AND UA Blood Negative Negative 01/04 [facility] STOOL (01/04/17 2:36 PM) /2016 Medica l [place] URINE AND UA Bacteria None Seen None Seen 01/04 [place] as STOOL (01/04/17 2:36 PM) /2016 Medica [facility] URINE AND UA RBC None Seen 0 - 2 01/04 [facility] STOOL (01/04/17 2:36 PM) Medica [facility] URINE AND UA Mucus None Seen None Seen 01/04 [facility] STOOL (01/04/17 2:36 PM) Medica l [place] URINE AND UA Leuk Est Negative Negative 01/04 [facility] STOOL (01/04/17 2:36 PM) Medica l [place] URINE AND UA Nitrite Negative Negative 01/04 [facility] STOOL (01/04/17 2:36 PM) /2016 Medica l [place] URINE AND UA pH 6.5 5.0 - 8.0 01/04 [facility] STOOL /2016 Medical [place] URINE AND UA Protein Negative Negative 01/04 [facility] STOOL (01/04/17 2:36 PM) /2016 Medica l [place] URINE AND UA Color Yellow Yellow 01/04 [facility] STOOL *NA* /2016 Medical (01/04/17 2:36 PM) Center URINE AND UA Turbidity Clear Clear 01/04 [facility] STOOL (01/04/17 2:36 PM) /2016 [facility] URINE AND UA Spec Grav 1.018 <=1.030 01/04 [facility] STOOL /2016 [facility] CARDIAC CK MB Index 0.4 0.0 - 2.5 01/04 [facility] [address] [facility] CARDIAC Total CK 140 12 - 191 01/04 [facility] [address] [facility] CARDIAC Troponin-I <0.02 0.00 - 01/04 [facility] [address] [facility] CARDIAC CK MB 0.6 0.5 - 3.6 01/04 [facility] [address] [facility] CHEM PANEL eGFR 67 01/04 [facility] Comment: The Medical eGFR is Center calculated using the CKD-EPI formula. In most young, healthy individuals the eGFR will be >90 mL/min/1.73m2 . The eGFR declines with age. An eGFR of 60-89 may be normal in some populations, particularly the elderly, for whom the CKD-EPI formula has not been extensively validated. Use of the eGFR is not recommended in the following populations:< br/>
[place] viduals with unstable creatinine concentration s, including patients and those with serious co-morbid conditions.<b r/>
Patie nts with extremes in muscle mass or diet.

The data above are obtained from the National Kidney Disease Education Program (NKDEP) which additionally recommends that when the eGFR is used in patients with extremes of body mass index for purposes of drug dosing, the eGFR should be multiplied by the estimated BMI. CHEM PANEL Potassium Lvl 3.8 3.5 - 5.1 01/[address] [place] [facility] CHEM PANEL CO2 27 24 - 32 01/04 [facility] CHEM PANEL Chloride Lvl 103 95 - 109 01/[address] [facility] CHEM PANEL Sodium Lvl 138 135 - 145 01/04 [facility] CHEM PANEL Creatinine 1.01 0.50 - 01/04 [place] [address] [facility] CHEM PANEL Calcium Lvl 9.4 8.5 - 10.5 01/[address] [facility] CHEM PANEL AGAP 11.8 10.0 - 01/[address] [place] [address] [facility] CHEM PANEL Glucose Lvl 93 70 - 99 01/04 [facility] CHEM PANEL BUN 20 7 - 22 01/04 [facility] HEMATOLOGY Lymphocytes 36.2 20.0 - 01/[address] [facility] HEMATOLOGY Segs 54.9 45.0 - 01/[address] [facility] HEMATOLOGY Monocytes 6.6 2.0 - 12.0 01/04 [facility] HEMATOLOGY Lymphocytes # 4.5 1.0 - 5.5 01/04 [facility] HEMATOLOGY Monocytes # 0.8 0.0 - 0.8 01/04 [facility] HEMATOLOGY Eosinophils # 0.2 0.0 - 0.5 01/04 [facility] HEMATOLOGY Basophils # 0.1 0.0 - 0.2 01/04 [facility] HEMATOLOGY Eosinophils 1.7 0.0 - 4.0 01/04 [facility] HEMATOLOGY Segs-Bands # 6.8 1.5 - 8.1 01/04 [facility] HEMATOLOGY Basophils 0.6 0.0 - 1.0 01/04 [facility] HEMATOLOGY WBC 12.4 3.7 - 10.4 01/04 [facility] HEMATOLOGY RBC 4.76 4.20 - 01/[address] [facility] HEMATOLOGY RDW 15.8 11.5 - 01/[address] [facility] HEMATOLOGY MCH 28.2 27.0 - 01/[address] [facility] HEMATOLOGY Hgb 13.4 12.0 - 01/[address] [facility] HEMATOLOGY MCV 86.5 80.0 - 01/[address] [facility] HEMATOLOGY Hct 41.2 36.0 - 01/[address] [facility] HEMATOLOGY MCHC 32.6 32.0 - 01/[address] [facility] HEMATOLOGY MPV 7.8 7.4 - 10.4 01/04 [facility] HEMATOLOGY Platelet 227 133 - 450 01/04 [facility] HEMATOLOGY INR 0.88 0.85 - 01/[address] [place] [address] [facility] HEMATOLOGY PT 12.1 12.0 - 01/[address] [facility] HEMATOLOGY PTT 25.9 22.9 - 01/04 [facility] 35.8 /2017 [facility] CHEM PANEL POC 1.0 0.5 - 1.4 01/04 [facility] Creatinine /2017 [facility] CHEM PANEL eGFR 67 01/04 Result Comment: The Medical eGFR is Center calculated using the CKD-EPI formula. In most young, healthy individuals the eGFR will be >90 mL/min/1.73m2 . The eGFR declines with age. An eGFR of 60-89 may be normal in some populations, particularly the elderly, for whom the CKD-EPI formula has not been extensively validated. Use of the eGFR is not recommended in the following populations:< br/>
[place] viduals with unstable creatinine concentration s, including patients and those with serious co-morbid conditions.<b r/>
Patie nts with extremes in muscle mass or diet.

The data above are obtained from the National Kidney Disease Education Program (NKDEP) which additionally recommends that when the eGFR is used in patients with extremes of body mass index for purposes of drug dosing, the eGFR should be multiplied by the estimated BMI. BEDSIDE Comment1 Notify 02 NA [facility] GLUCOSE RN/ /2012 [facility] TESTING [place] BEDSIDE Gluc POC 260 70 - 99 07/13 [place] <sup>1</sup>I [facility]COSE [facility] TESTING Data: [place] Upper Reportable Limit: 200 mg/dL. BEDSIDE Gluc POC 103 70 - 99 07/13 [place] <sup>2</sup>I [facility] TEST[facility] Data: [place] Upper Reportable Limit: 200 mg/dL. BEDSIDE Comment1 Notify 02 NA [facility] GLUCOSE RN/ /2012 [facility] TESTING [place] BEDSIDE Comment1 Notify 07/13 NA [facility] GLUCOSE RN/ /2012 [facility] TESTING [place] BEDSIDE Gluc POC 331 70 - 99 07/13 [place] <sup>3</sup>I [facility] TEST[facility] Data: [place] Upper Reportable Limit: 200 mg/dL. CHEMISTRY AGAP 13.0 10.0 - 02/04 Normal [facility] 20.0 [facility] CHEMISTRY B/C Ratio 17 6 - 25 07/[address] [facility] CHEMISTRY Globulin 4.5 2.0 - 4.0 02/[address] [facility] CHEMISTRY A/G Ratio 0.6 0.7 - 1.6 07/[address] [facility] CHEMISTRY eGFR 79 07/12 NA <sup>4</sup>R esult Medical Comment: The Center eGFR is calculated using the CKD-EPI formula. In most young, healthy individuals the eGFR will be >90 mL/min/1.73m2 . The eGFR declines with age. An eGFR of 60-89 may be normal in some populations, particularly the elderly, for whom the CKD-EPI formula has not been extensively validated. Use of the eGFR is not recommended in the following populations:& lt;br/>
I ndividuals with unstable creatinine concentration s, including patients and those with serious co-morbid conditions.<b r/>
Patie nts with extremes in muscle mass or diet.

The data above are obtained from the National Kidney Disease Education Program (NKDEP) which additionally recommends that when the eGFR is used in patients with extremes of body mass index for purposes of drug dosing, the eGFR should be multiplied by the estimated BMI. CHEMISTRY Albumin Lvl 2.8 3.5 - 5.0 07/[address] [facility] CHEMISTRY ALT 71 0 - 65 07/12 [facility] CHEMISTRY Glucose Lvl 197 70 - 99 07/12 [place] <sup>5</sup>I T ex nterpretive Medical Data: [facility] Center reference range values reflect the clinical guidelines
of the [place] [employer]. CHEMISTRY Alk Phos 111 39 - 136 07/[address] [facility] CHEMISTRY Sodium Lvl 142 135 - 145 07/[address] [facility] CHEMISTRY BUN 15 7 - 22 07/[address] [facility] CHEMISTRY Creatinine 0.9 0.5 - 1.4 07/12 Normal [facility] CHEMISTRY Potassium Lvl 4.0 3.5 - 5.1 07/12 Normal [facility] CHEMISTRY Chloride Lvl 106 95 - 109 07/[address] [facility] CHEMISTRY Calcium Lvl 8.5 8.5 - 10.5 07/12 [address] [facility] CHEMISTRY Bili Total 0.4 0.2 - 1.[address] [facility] CHEMISTRY CO2 27 24 - [address] [facility] CHEMISTRY AST 54 0 - 37 [address] [facility] CHEMISTRY Total Protein 7.3 6.4 - 8.4 07/[address] [facility] CHEMISTRY Hgb A1C 10.5 07/12 NA <sup>6</sup>I nterpretive Medical Data: HbA1C% Center eAG(mg/dL) Interpretatio n
6.0 126 Very good control
6.5 140 Very good control
7.0 154 Good Control
7.5 169 Good Control
8.0 183 Marginal Control, take action to lower
8.5 197 Marginal Control, take action to lower
9.0 212 Poor Control, take action to lower
9.5 226 Poor Control, take action to lower
10. 0 240 Poor Control, take action to lower CHEMISTRY LDL 95 0 - [address] [facility] CHEMISTRY Chol 180 120 - 200 07/[address] [facility] CHEMISTRY Trig 128 0 - 200 07/[address] [facility] CHEMISTRY HDL 59 >=35 07/[address] [facility] CHEMISTRY CHD Risk 3.05 3.90 - 02 LOW [facility] 5.80 /2012 [facility] CHEMISTRY Bili Direct 0.1 0.0 - 0.3 07/[address] [facility] HEMATOLOGY WBC 7.6 3.7 - 10.4 07/[address] [facility] HEMATOLOGY MCH 31.2 27.0 - 02 [facility] [place] 31.0 /2012 [facility] HEMATOLOGY MCV 93.2 81.0 - 02 Normal [facility] 99.0 /2012 [facility] HEMATOLOGY RBC 3.97 4.20 - 02 LOW [facility] 5.40 /2012 [facility] HEMATOLOGY RDW 13.7 11.5 - 02 Normal [place] 14.5 /2012 [facility] HEMATOLOGY MPV 8.2 7.4 - 10.4 07/[address] [facility] HEMATOLOGY Hct 37.0 36.0 - 02 Normal [place] 48.0 /2012 [facility] HEMATOLOGY Hgb 12.4 12.0 - 02/04 Normal [place] 16.0 /2012 [facility] HEMATOLOGY Platelet 203 133 - [address] [facility] HEMATOLOGY MCHC 33.4 32.0 - 02/ Normal [place] 36.0 /2012 [facility] HEMATOLOGY Basophils 0.6 0.0 - 1.0 02/ Normal [facility] HEMATOLOGY Monocytes # 0.6 0.0 - 0.[address] [place] [facility] HEMATOLOGY Lymphocytes # 2.9 1.0 - 5.5 02 Normal [place]2012 [facility] HEMATOLOGY Eosinophils # 0.2 0.0 - 0.5 07/[address] [place] [facility] HEMATOLOGY Segs-Bands # 3.9 1.5 - 8.1 07/[address] [facility] HEMATOLOGY Lymphocytes 37.7 20.0 - 02/ Normal [place] 40.0 /2012 [facility] HEMATOLOGY Segs 51.1 45.0 - 02 Normal [place] 75.0 /2012 [facility] HEMATOLOGY Eosinophils 2.8 0.0 - 4.0 / [place] [facility] HEMATOLOGY Monocytes 7.8 2.0 - 12.0 / Normal [facility] HEMATOLOGY PTT 30.1 22.9 - 02 Normal <sup>9</sup>I [facility] s 35.8 /2012 nterpretive Medical Data: Heparin Center Therapeutic Range: 57 - 92 Seconds HEMATOLOGY PT 13.4 12.0 - 02 Normal [place] 14.7 /2012 [facility] HEMATOLOGY INR 1.00 0.85 - 02 Normal <sup>8</sup>I [facility] s 1.17 /2012 nterpretive Medical Data: Center RECOMMENDED RANGES FOR PROTIME INR:
2.0-3.0 for most medical and surgical thromboemboli c states.
2.5-3.5 for artificial heart valves and recurrent embolism.<br/ >
INR SHOULD BE USED ONLY FOR PATIENTS ON STABLE ANTICOAGULANT THERAPY. CHEMISTRY UDS Note See Note 7 07/11 NA <sup>7</sup>[place] *NA* /2012 nterpretive Medical (07/11/2012 15:14:00) Data: Drug s Center reported as positive have not been confirmed by a second
method and should be used for medical purposes only. To order
con firmation, contact laboratory.

n ote: Below are cut-off concentration s for all urine drugs of
abuse performed in the laboratory. Some drugs listed in the table
may not be included in this panel.
<b r/>Descriptio n Cut-off concentration
-------- ---
Amphe tamine 1000 ng/mL
Bar biturates 200 ng/mL
Jose F zodiazepines 300 ng/mL
Akilah jayda metabolites 300 ng/mL
Opi ates 300 ng/mL
Phe ncyclidine 25 ng/mL
Pro poxyphene 300 ng/mL
Mar ijuana metabolites 50 ng/mL
Met hadone 300 ng/mL
Uri ne alcohol 20 mg/dL CHEMISTRY U Benzodia Negative Negative 07/11 NA [place] Sc[facility] *NA Medical (07/11/2012 15:14:00) Ce nter CHEMISTRY U Cannab [place] Negative Negative 07[place] (07/11/2012 15:14:00) Ce nter CHEMISTRY U Cocaine Scr Negative Negative 07/11 NA [place] *NA* Medical (07/11/2012 15:14:00) Ce nter CHEMISTRY U Phencyc Scr Negative Negative 07/11 NA [place] *NA* Medical (07/11/2012 15:14:00) Ce nter CHEMISTRY U Opiate [place] Negative Negative 07[place] (07/11/2012 15:14:00) Ce nter CHEMISTRY U Mary Scr Negative Negative 07/11 NA [place] *NA Medical (07/11/2012 15:14:00) Ce nter CHEMISTRY U Amph Scr Negative Negative 07/11 NA Medical (07/11/2012 15:14:00) Ce nter URINALYSIS UA Protein 30 mg/dL Negative 07/11 ABN Medical (07/11/2012 15:14:00) Ce nter URINALYSIS UA Glucose Negative mg/dL Negative 07/11 NA Medical (07/11/2012 15:14:00) Ce nter URINALYSIS UA Ketones Negative mg/dL Negative 07/11 NA Medical (07/11/2012 15:14:00) Ce nter URINALYSIS UA Bili Negative Negative 07/11 NA Medical (07/11/2012 15:14:00) Ce nter URINALYSIS UA pH 7.5 5.0 - 8.0 07/[address] [facility] URINALYSIS UA Spec Grav 1.040 <=1.030 07/11 HI [facility] Center URINALYSIS UA Color Yellow Yellow 07/11 NA Medical (07/11/2012 15:14:00) Ce nter URINALYSIS UA Turbidity Clear Clear 07/11 Normal [facility] (07/11/2012 15:14:00) Nd dical Center URINALYSIS UA WBC 1 0 - 5 07/11 Normal [facility] Center URINALYSIS UA RBC 4 0 - 2 07/11 HI [facility] Center URINALYSIS UA Mucus Few /LPF None Seen 07/11 NA Medical (07/11/2012 15:14:00) Ce nter URINALYSIS UA Leuk Est Negative Negative 07[place]07/11/2012 15:14:00) Nd dical Center URINALYSIS UA Sq Epi Moderate /LPF Few 07/11 [place] * Medical (07/11/2012 15:14:00) Ce nter URINALYSIS UA Blood Small Negative 07/11 [facility]N Medical (07/11/2012 15:14:00) Ce nter URINALYSIS UA Nitrite Negative Negative 07/11 Normal [facility] (07/11/2012 15:14:00) Nd dical Center URINALYSIS UA 0.1 - 1.0 07/11 NA [facility] Urobilinogen /2013 Medical Center Pathology Reports No Data Provided for This Section Diagnostic Reports Report Value Date Source Brain w/wo contrast EXAM: MRI BRAIN WITH AND WITHOUT CONTRAST [facility] MRI DATE: 01/05/2017 at 1547 Center INDICATION: 66-year-old fema le with left-sided weakness, rule out acute infarct. ADDITIONAL INFORMATION: None COMPARISON: CT brain, CTA brain and neck/perfusi on dated 01/04/2017 TECHNIQUE: Multiplanar, mult isequence MRI of the brain with and without intravenous contrast. IV contrast: 20 mL Dotarem FINDINGS: No restricted diffusion. Cadence bal volume loss with few scattered nonspecific subcortical/periventricular white matter T2/FLAIR hyperintensities, presumably secondary to small vessel disease. No intracrani al hemorrhage, mass effect o r midline shift. No extra-axial fluid collections. Major intracranial flow voids are preserved. Ventricles and basilar cisterns are patent. Empty sella. No abnormal intracra nial or leptomeningeal enhan cement. Intraocular lens replacement is noted bilaterally. Opacification of some mastoid are cells IMPRESSION: 1. No acute intracranial abnormality. 2. Global volume loss and chronic microvascular ischemic changes. Chest 1view DX EXAM: XR CHEST 1 VIEW 01/04/2017 [facility] edical DATE: 01/04/2017 2:44 PM CDT Cent er INDICATION: - weakness COMPARISON: None TECHNIQUE: AP chest FINDINGS: Lines and tubes: None. Lungs and pleura: No pulmonary or pleural based abnormality is identified. Heart and mediastinum: The h eart size is normal for technique. The mediastinal contours are normal. There is tortuous aorta. Bones: No acute bony abnorma lity is identified. Chronic healed posterior right 6th rib fracture is present. IMPRESSION: No acute radiographic abnormality. Brain wo contrast CT EXAM: CT HEAD WITHOUT CONTRAST 01/04/2017 [facility] DATE: 01/04/2017 1:24 PM CDT Cent er INDICATION: 66 years old Female patient with his tory of Weakness. TECHNIQUE: Multiple axial im ages were obtained through the head from vertex to the skull base. Axial bone algorithm reconstruction images are provided. COMPARISON: None. FINDINGS: No definite evidence of cere bral edema, mass effect, midline shift is seen. There is no intracranial hemorrhage. Ventricles are normal in siz e and configuration. No pathological extra-axial fluid collection is seen. Basal cisterns are well pres erved. There is no evidence of downward herniation. Calvarium is intact. Visualized paranasal sinuses are clear. Mastoid air cells are well aerated. Visualized orbits appear grossly unremarkable. IMPRESSION: 1. No acute cortical infarct or intracranial he morrhage. ASPECTS 10 These findings are in agreem ent with previous preliminary report made by supervisor communications and signals resident advisor. Brain/Neck Stroke EXAM: CTA BRAIN 01/04/2017 [facility] perfusion CTA EXAM: CTA NECK Center EXAM: CT PERFUSION BRAIN DATE: 01/04/2017 1:35 PM CDT INDICATION: 66 years old Female patient with his tory of WEAKNESS. COMPARISON: CT Scan of the head performed at the same time. TECHNIQUE: - Dynamic CT perfusion image s on a limited area of the brain [...] of CT angiograph y. 3-D CT angiographic image s are created using MIP technique at the acquisition workstation. The source images are also presented for interpretation. FINDINGS: CT ANGIOGRAM OF THE NECK: AORTIC ARCH: Left sided aort ic arch. Great vessels originate from the aortic arch in the standard configuration. Origins of the great vessels appear patent without hemodynamically significant stenosis. CERVICAL CAROTID ARTERIES: RIGHT: Common carotid artery has a normal course without hemodynamically significant stenosis. Common carotid artery bifurcates at level of C2- C3. There are minimal atheroscle rotic plaques without hemodynamically significant stenosis at the carotid bifurcation/carotid bulb. Remaining cervical internal carotid artery has a normal course and contour without hemodynamically significant stenosis. There is no definite evidence of vascular injury or aneurysm. LEFT: Common carotid artery has a normal course without hemodynamically significant stenosis. Common carotid artery bifurcates at level of C2- C3. There are minimal atheroscle rotic plaques without hemodynamically significant stenosis at the carotid bifurcation/carotid bulb. Remaining cervical internal carotid artery has a normal course and contour without hemodynamically significant stenosis. There is no definite evidence of vascular injury or aneurysm. CERVICAL VERTEBRAL ARTERIES: Codominant vertebra l arteries. RIGHT: Originates from right subclavian artery.. No hemodynamically significant stenosis at origin. It enters the vertebral foramina at level of C6. It has a normal caliber without hemodynamically significant stenosis. LEFT: Originates from left s ubclavian artery.. No hemodynamically significant stenosis at origin. It enters the vertebral foramina at level of C6. It has a normal caliber without hemodynamically significant stenosis. CT ANGIOGRAM OF THE HEAD: ANTERIOR CIRCULATION: Right Internal Carotid Arter y: There are mild calcified atherosclerotic plaques within cavernous and supraclinoid segments of internal carotid artery. No hemodynamically significant stenosis is present. Left Internal Carotid Artery : There are mild calcified atherosclerotic plaques within cavernous and supraclinoid segments of internal carotid artery. No hemodynamically significant stenosis is present. Anterior Cerebral Arteries: Anterior cerebral arteries appear widely patent without hemodynamically significant stenosis. Middle Cerebral Arteries: Mi ddle cerebral arteries appear widely patent without hemodynamically significant stenosis. POSTERIOR CIRCULATION/VERTEBROBASILAR SYSTEM: Codominant vertebral arterie s. Intracranial vertebral arteries (V4 segments) appear widely patent without hemodynamically significant stenosis. Questionable fenestration in the proximal segment otherwise Basilar artery appears widely patent without hemodynamically significant stenosis. -type CLINICAL DOCUMENTATION CONSULTANT on the left. Visualized posterior cerebral arteries appear widely patent without hemodynamically significant stenosis. VENOUS SYSTEM: Visualized dural venous sinuses a re patent. CT PERFUSION: There is no regional abnorma lity in cerebral blood flow, cerebral blood volume, or transit time in the imaged areas of the brain to suggest active oligemia or infarction. EXTRAVASCULAR FINDINGS: Visualized lung apices are c lear. Thyroid gland appears unremarkable. No definite mass lesion is seen within neck. Airway is widely patent. Vertebral alignment of the c ervical spine is anatomic. Multilevel mild to moderate degenerative changes within cervical spine, most pronounced at C5-C6. Please refer to detailed rep ort of the CT scan of the head for non-vascular intracranial findings IMPRESSION: 1. No definite evidence of f low-limiting stenosis, major branch occlusion, vascular injury or aneurysm is identified. 2. No definite perfusion abnormality to suggest acute ischemia/infarct. All quantitative and qualita tive assessments of carotid bifurcation and proximal internal carotid artery stenosis in the neck are are made referencing the distal internal carotid artery as per standard NASCET criteria. Consultation Notes No Data Provided for This Section Discharge Summaries No Data Provided for This Section History and Physicals No Data Provided for This Section Vital Signs Vital Sign Value Date Comments Source [facility] 56 [facility] Temperature Oral (F) 97.1 F 01/05/2017 [facility] Respitory Rate 18 01/05/2017 [facility] adrian Center Systolic (mm Hg) 140 01/05/[address] [facility] dical Center Diastolic (mm Hg) 72 01/05/2017 [facility] edical Center Systolic (mm Hg) 136 01/05/[address] [facility] dical Center Diastolic (mm Hg) 76 01/05/2017 [facility] edical Center Respitory Rate 18 01/05/2017 [facility] Center Heart Rate 75 01/05/2017 [facility] Temperature Oral (F) 98.0 F 01/05/2017 [facility] Systolic (mm Hg) 135 01/05/[address] [facility] dical Center Diastolic (mm Hg) 79 01/05/2017 [facility] Heart Rate 52 01/05/2017 [facility] Respitory Rate 18 01/05/[address] [facility] [place] Center Temperature Oral (F) 96.8 F 01/05/2017 [facility] BMI Calculated 38.58 01/04/2017 [facility]rian Center Height 165.1 cm 01/04/2017 [facility] Weight 105.17 01/04/2017 [facility] Respitory Rate 18 07/13/2012 [facility]rian Center Diastolic (mm Hg) 56 07/13/2012 [facility] edical Center Systolic (mm Hg) 129 07/13/[address] [facility] dical Center Temperature Oral (F) 98.6 F 07/13/2012 [facility] Heart Rate 62 07/13/2012 [facility] Diastolic (mm Hg) 68 07/13/2012 [facility] edical Center Systolic (mm Hg) 132 07/13/[address] [facility] dical Center Respitory Rate 18 07/13/2012 [facility]rian Center Temperature Oral (F) 98.5 F 07/13/2012 [facility] Center Heart Rate 67 07/13/2012 [facility] Center Respitory Rate 20 07/13/2012 [facility] Medi adrian Center Systolic (mm Hg) 121 07/13/[address] [facility] dical [place] Diastolic (mm Hg) 63 [facility] [place] Temperature Oral (F) 97.8 F 07/13/2012 [facility] Heart Rate 55 07/13/2012 [facility] Height 165.10 cm 07/11/2012 [facility] Weight 122.330 07/11/2012 [facility] Weight 113.636 07/11/2012 [facility] Height 165.10 cm 07/11/2012 [facility] Encounters Location Location Encounter Encounter Reason Attending ADM DC Stat us Source Details Type Number For Provider Date Date Visit [facility] Inpatient [id number] [facility] [place] [facility] [id number] Pierre 01/04 01/06 [facility] Jorge Wright /2016 [facility] Procedures Procedure Code Date Perfomer Comments Source Hysterectomy [id number] 1d/t fibroid [facility] <sup>1</sup> [facility] Cataract surgery [id number] [facility] Hernia repair [id number] [facility] Hysterectomy<sup>1< [id number] d/t fibroid [facility] exas /sup> [facility] Assessment and Plan Assessment and Plan Date Source Extracted from:Title: History and Physical 01/06/2017 [facility] Author: Danii Johnson MD Date: 01/04/17 Assessment/Plan 66yo F with a PMH of HTN, HLD, T2DM, and hx of TIA several years ago who presented to the ED after being found unresponsive at [facility] earlier today with subsequent L sided weakness. Symptoms have considerable improved, but not completely resolved. Acute left-sided weakness - Stroke alert called in ED. Neuro fo cindy, no note yet, appreciate recommendations - Continue to monitor and perform neurochecks as unit permit s - Cont to ambulate with assistance Aphasia - Resolved, pt able to communicate throughout interview Diabetes - Pt on large doses of glargine bid a t home. She may have been hypoglycemic during unresponsive episode. No glucose check until EMS arrival. Reports taking all her medications this morning - Will hold off on basal insulin tonight . Start diabetic diet this evening with SSI and decrease dose of AM glargine to 10U Essential hypertension - BP controlled - Allow some permissive HTN in the setti ng of TIA. Will hold antihypertensives as pt already took AM meds - Resume in AM Hyperlipidemia - Pt not on statin per chart, will start atorva 40mg - Check AM lipid profile Leukocytosis - Likely reactive. Monitor - UA ok - No reported infectious symptoms TIA (transient ischemic attack) - Her symptoms are likely 2/2 TIA as her weakness is improving and she feels almost back to normal - CTA head/neck without signs of arteria l stenosis so will hold off on carotid U/S - Obtain TTE and monitor on tele - Continue ASA, Plavix at home doses and start statin for st roke prevention - Ambulate with assistance [facility] Hospitalist is primary. Please page [phone] with concerns. Prophylaxis Ambulate Disposition likely home once condition improves Extracted from:Title: Clinical Document Author: Gutierrez Bansal MD Date: 01/04/17 ACUTE ISCHEMIC STROKE TEMPLATE Stroke History and Physical Patient Name: [facility] Female (Chiquis Hickman) Chief Complaint: Left-sided weakness/numbness History of Present Illness: This is a 66 yr old female with PMH of H TN, DM2, HLD, TIA admitted to ED for code stroke after episode of non-reposnsiveness in [employer] late this AM. Per patient symptoms began 4 days ago with intermiitn et episodes of left sided sensory loss/n umbness (including face). Earlier this AM (approx 8am) she noted left sided weakness as well with porgoresion of sensory symptoms. At [facility] she fell to floor and was non-responsive. EMS called - on sce ne BP was in 130s and Glu 96. Per [facility] pt was non-responsive until she was transferd [facility] when she suddenly bagan to speak and move all 4 extremi ties as she didn't want to get on. In ED pt was initially averbal but began to speak fluently when explianed about tpa risks. NIHSS 6 for left sided weakness and sensory loss. Pt underwent CTH/CTA/ CTP which was negative for bleeding, com pleted ischemia, large vessel occlusion, of perfussion mismatch. On subsequnet re-eval in ED pt with markedly improved NIHSS - 0. Given unclear LKN time and impro ving exam - tpa differed. Pt denies seiz ure hx and is reportedly medically compliant on ASA/Plavix. Not on AC in spite of hx of BL DVT. Not on statin. Review of Systems: GEN: no fever, chills, weight loss, fatigue EYES: no blurred vision, double vision CARDIO: no chest pain, palpitations PULM: no shortness of breath, cough GI: no nausea, vomiting, diarrhea, no abd pain : no frequency, dysuria, hematuria NEURO: see HPI SKIN: no rash or lesion MSK: no pain, swelling, redness, heat in muscles, no limited ROM, weakness, or atrophy, no cramps LYMPH/IMMUNO: No lymph node enlargement/tenderness, no heat/ cold intolerance Past Medical History: TIA, HTN, DM2, BL DVT (not on AC) Past Surgical History: Henria repair Hysterectomy Family Medical History: F - HTN, DM M - HTN, DM Social History: Denies X3. Independent at baseline. Medications: aspirin 81 mg tablet, enteric coated, 81 mg, 1 tab, PO Daily Cardizem CD 180 mg/24 hours oral capsule , extended release, 180 mg, 1 cap, PO, Daily Diovan HCT 12.5 mg-320 mg oral tablet, 1 tab, PO, Daily glipiZIDE 10 mg oral tablet, 10 mg, 1 tab, PO, Daily Lantus Solostar Pen 100 units/mL s ubcutaneous solution, 38 unit, SUB-Q, Bedtime Lantus Solostar Pen 100 units/mL subcuta neous solution, 40 unit, SUB-Q, Before Breakfast Plavix 75 mg oral tablet, 75 mg, 1 tab, PO, Daily Allergies: NKDA Physical Exam: Vitals Tmp(F) Tmp(C) Ttype B P MAP Pulse RR SpO2 FIO2 ETCO2 01/04 15:45 98.4 36.89 oral 70 88 62 10 100 --- --- 01/04 15:30 ---- ---- ---- 1 88 70 16 100 --- --- 01/04 15:00 ---- ---- ---- 1 87 68 20 100 --- --- 01/04 14:30 ---- ---- ---- 1 87 72 17 100 --- --- 01/04 14:00 ---- ---- ---- 1 46/69 99 79 18 100 --- --- 24 Hr Tmax: 98.4F (36.89c) at 01/04 15:4 5 24 Hr Tmin: 98.0F (36.67c) at 01/04 13:28 36 Hr Tmax: 98.4F (36.89c) at 01/04 15:4 5 36 Hr Tmin: 98.0F (36.67c) at 01/04 13:28 Vital Signs are the last 5 in the past 4 8 hours. Weights are the last 5 in 60 days, plus initial. GENERAL: Awake, alert in NAD HEENT: - Normocephalic and atraumatic, dry mm, no LN++, no T hyromegally LUNGS - Clear to auscultation bilaterally with no wheezes CV - S1S2 RRR, no m/r/g, equal pulses bilaterally. ABDOMEN - Soft, nontender, nondistended with normoactive BS NEURO: Mental Status: AA&Ox3 Language: speech is . Naming, repe tition, fluency, and comprehension intact. Cranial Nerves: PERRL____mm/brisk. EOMI, visual barron full, no facial asymmetry, facial sensation intact, hearing intact, tongue/uvula/soft palate midline, normal sternocleidomastoid and trapezius musc le strength. No evidence of tongue atrophy or fibrillations Motor: Tone: is normal and bulk is normal Sensation- Intact to light touch bilaterally Coordination: FTN intact bilaterally, no ataxia in BLE. Gait- deferred MRS 0-Completely asymptomatic and back to baseline post-stroke 1-No significant post stroke disability and can perform usual duties with stroke symptoms 2-Slight disability-UNABLE to perform al l activities but does not need assistance 3-Moderate disability-requires help but walks WITHOUT assist ance 4-Needs assistance to walk and tend to bodily needs 5-Severe disability-bedridden, incontinent, needs constant a ttention 6- NIH Stroke Scale (NIHSS) 0 1a. Level of Consciousness; 0-alert 1-drowsy 2-stupor 3-co ma 0 1b. LOC Questions month and age; 0-both 1-one 2-neithe r 0 1c. LOC Commands open/close eyes, doctor chiropractic /release non-paretic hand; 0-both 1-one 2-neither 0 2. Best Gaze; 0-nl 1-partial 2-forced gaze 0 3. Visual Barron; 0-No visual loss. 1-Partial hemianop ia 2-Complete 3-Bilateral 0 4. Facial Palsy; 0-none 1-minor 2-partial 3-complete 0 5. Motor - R arm; 0-No drift 1-Drift 2 -Some antigravity 3-No antigravity 4- No movement 0 6. Motor - R leg; 0-No drift 1-Drift 2 -Some antigravity 3-No antigravity 4- No movement 2 7. Motor - L arm; 0-No drift 1-Drift 2 -Some antigravity 3-No antigravity 4- No movement 3 8. Motor - L leg; 0-No drift 1-Drift 2 -Some antigravity 3-No antigravity 4- No movement 0 9. Limb Ataxia; 0 absent 1 - 1limb 2 - 2 limbs 1 10. Sensory; 0-nl 1-partial loss 2-dense loss 0 11. Best Language; 0-nl 1-mild/mod 2-severe 3-mute 0 12. Dysarthria; 0-nl 1-mild/mod 2-severe x-unt estable 0 13. Extinction and Inattention (forme rly Neglect); 0-none 1-partial 2-complete 6 Total Labs: UA Neg Glucose Lvl 93 BUN 20 Creatinine Lvl 1.01 Sodium Lvl 138 Potassium Lvl 3.8 Chloride Lvl 103 CO2 27 AGAP 11.8 Calcium Lvl 9.4 eGFR 67 Total CK 140 Troponin-I <0.02 CK MB 0.6 CK MB Index 0.4 PT 12.1 INR 0.88 PTT 25.9 WBC 12.4 H RBC 4.76 Hgb 13.4 Hct 41.2 Platelet 227 EKG: Sinus on tele Imaging: CT Head: IMPRESSION: 1. No acute cortical infarct or intracranial hemorrhage. PECTS 10 CTA H&N/CTP: IMPRESSION: 1. No definite evidence of flow-limiting stenosis, major branch occlusion, vascular injury or aneurysm is identified. 2. No definite perfusion abnormality to suggest acute ischem ia/infarct. MRI: pending Echo: pending Assessment: This is a 66 yr old female with multiple cardio-vascular/stroke risk factors with TIA hx admited for code stroke to ED. Pt with unclear last known normal time as she has been having having sensory symto ms intermittitently for past 4-5 days an d motor symptoms since this AM around 8am. Symptoms worsenend till 11-12am when episdoe of LOC occured. After arrival to ED noted gradual improvemnt in exam . Cu rrently patient with NIHSS of 0. Given u nclear onset time and exam findings, as well as NL neuro-imaging - TPA was defered. Pt will complete stroke work-up under hospitalist care. Unclear if etiology is organic in nature. I Plan: Acute Ischemic Stroke TIA Acuity: Acute Current Suspected Etiology: TIA vs small vessel vs seizure v s functional Continue Evaluation: -Admit to: Hospitalist -Continue Aspirin/Plavix/Statin -Continue Statin -Blood pressure control, goal of SYS < 180 -MRI/ECHO/A1C/Lipid panel. -EEG routine -Hyperglycemia management per SSI to maintain glucose 140-18 0mg/dL. 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 seen and evaluated with Neurology senior resident Dr. Radha beckett in the ER. Agree with Dr. Bansal's history and exam as above. Upon repeat exam, patient's NIHSS was zero. Unclear time of onset and improving and inconsistent exam did not favor a diagnosis of acute stroke. Also, CTH and CTA/P also not suggestive of any obvious evolving stroke or large vessel occlusion. Hence no IV thrombolysis. Given h/o stroke and risk factors and po ssibility of a TIA can not be excluded, recommend secondary risk factory work up. Also recommend MRI brain to better visualize brain parenchym a. Presenting symptoms could represent recr udescence of old stroke symptoms in the setting of underlying metabolic or infectious processes. Management per medicine team as you are. Case was d/w attending physician Dr. Cervantes, who agrees wit h the plan. -- Armani Dia MD Vascular Neurology Fellow Addendum by Padmaja Ragsdale MD on 01/05/2017 1 6:26 STROKE FACULTY I have seen and examined the patient. Tomasz landers, I have discussed the case with and reviewed the resident's note and agree with the history, exam, assessment and plan. See note below for additi ons and/or exceptions and my findings. I have personally viewed the patient's radiographic studies and laboratory tests. Exam: Grossly intact Imaging: CT: No acute cortical infarct or intracranial hemorrhage CTA: 1. No definite evidence of flow-limiting stenosis, major branch occlusion, vascular injury or aneurysm is identified. 2. No definite perfusion abnormality to suggest acute ischem ia/infarct. MRI: Echo: 1) This study demonstrates normal left ventricular size and overall systolic function, and trace tricuspid regurgitation with no rmal estimated pulmonary artery systolic pressures. 2) When compared to a prior study done on 07/12/2012, there is no significant interval change. Labs: Trops: neg Coags: nl LDL: 30 HgbA1c: ASSESSMENT: 66 y/o AAF hx of DM/HTN/HLD/ TIA who presents with left hemiparesis s/p a syncopal spell. MRI pending to rule out stroke, though its felt less likely at this time RECOMMENDATIONs: - Continue home dose statin and aspirin - Can be discarged if MRI unremarkable Call with questions: [id number]/afterhours [id number] Plan of Care No Data Provided for This Section Social History Social History Date Source Social History TypeResponse 01/04/2017 [facility] Substance Abuse Use: None. Alcohol Never Smoking Status Never smoker; Previous treatment: None; Exposure to Tobacco Smoke None; Cigarette Smoking Last 365 Days No; Reg Smoking Cessation Counseling No Family History No Data Provided for This Section Advance Directives No Data Provided for This Section Functional Status No Data Provided for This Section
--- OUTSIDE RECORDS SUMMARY | 2020-06-27 08:52 | XMS REPORT | Continuity of Care Document ---
:1950 Author Organization [facility] t Address [address] [place] [address] Care Team Providers Name Role Phone Blade Attending Clinician Robin Wright Admitting Clinician Problems Condition Condition Condition Status Onset Resolution Last Treating Co mments Source Name Details Category Date Date Treatment Clinician Date Type 2 Type 2 Problem Active 2019-06 [facility] diabetes Diabetes 0-15 Family mellitus Mellitus 00:00: Practi c 00 e Benign Benign Problem Active 2019-06 [facility] essential Essential 0-15 Fami ly hypertensi Hypertensi 00:00: Pr actic on on e Bilateral Bilateral Problem Active Shayy richard glaucoma Glaucoma 3-04 Family 00:00: Practic 00 e Hypoglycem Hypoglycem Problem Active 2016-06 [facility] ia ia 0-18 Family 00:00: Practic 00 e Hyperlipid Hyperlipid Problem Active 2016-06 [facility] ill[facility] emia emia 0-18 Family 00:00: Practic 00 e Hyperprote Hyperprote Problem Active 2016-06 [facility] inemia inemia 0-18 Family 00:00: Practic 00 e Anxiety Anxiety Problem Active 2016-06 [facility] disorder Disorder 0-18 Family 00:00: Practic 00 e Essential Essential Problem Active 2016-06 Shayy richard hypertensi Hypertensi 0-18 Fa 00:00: Practic 00 e Cerebrovas Cerebrovas Problem Active 2016-06 V illage cular cular 0-18 Family disease Disease 00:00: Practic 00 e Peripheral Peripheral Problem Active 2016-06 [facility] vascular Vascular 0-18 Family disease Disease 00:00: Practic 00 e Body mass Body Mass Problem Active 2016-06 Shayy richard index 40+ Index 40+ 0-18 Fami ly - severely - Severely 00:00: Pr actic obese Obese 00 e Multiple Multiple Problem Active 2016-06 Jose ge complicati Complicati 0-18 Fa gaurang ons due to ons Due to 00:00: Pr actic type 2 Type 2 00 e diabetes Diabetes mellitus Mellitus Retinopath Retinopath Problem Active 2016-06 [facility] ill[facility] y due to y Due to 0-18 Family type 2 Type 2 00:00: Practic diabetes Diabetes 00 e mellitus Mellitus CVA Diagnosis Active 2017-01-04 Mem oria 01-04 15:59:00 l CVA 00:00: Jorge 00 Active 01/04/2017 [facility] LF Diagnosis Active 2017-01-04 Mem oria #[id number](CVA) 01-04 13:40:00 l LF 00:00: Jorge #[id number](CVA) 00 Active 01/04/2017 [facility] APHASIA,AC Diagnosis Active 2017-01-05 Memoria LONE PINE LEFT 01-04 18:52:00 l SIDED 00:00: Jorge WEAKNESS APHASIA,AC 00 LONE PINE LEFT SIDED WEAKNESS Active 01/04/2017 [facility] HTN - Problem Resolve 2012-07-15 Tong dulce Hypertensi d 13:51:43 l on HTN - Bitely Hypertensi on Resolved Problem 07/15/2012 [facility] IDDM - Problem Resolve 2012-07-15 Tong dulce 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 Resolved Problem 07/15/2012 [facility] Cerebrovas Problem Resolve 2017-01-08 Memoria cular d 02:23:28 l accident Bitely (disorder) Cerebrovas cular accident (disorder) Resolved Problem 01/08/2017 [facility] Hypertensi Problem Resolve 2017-01-08 Memoria ve d 02:23:28 l disorder, Jorge systemic Hypertensi arterial ve (disorder) disorder, systemic arterial (disorder) Resolved Problem 01/08/2017 [facility] Insulin-de Problem Resolve 2017-01-08 Memoria pendent d 02:23:28 l diabetes Bitely mellitus 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 (disorder)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 (disorder) Resolved Problem 01/08/2017 [facility] 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em oria leiomyoma d 02:23:28 l (disorder) Uterine Her shahid leiomyoma (disorder) Resolved Problem 01/08/2017 [facility] CVA Diagnosis Active 2012-07-19 Mem oria 21:51:00 l CVA Jorge Active [facility] APHASIA Diagnosis Active 2017-01-05 Me moria 18:52:00 l APHASIA Bitely Active [facility] History of Past Illness Condition Condition Condition Status Onset Resolution Last Treating Co mments Source Name Details Category Date Date Treatment Clinician Date Transient Problem Resolve 2017-01-08 2017-01-08 Memoria ischemic d 1- 02:23:28 02:23:28 l attack 00:00: Jorge (disorder) Transient 00 ischemic attack (disorder) Resolved 06/08/2002 Problem 01/08/2017 [facility] TIA Problem Resolve 2012-07-15 2012-07-15 Memoria d 1 13:51:43 13:51:43 l TIA 00:00: Bitely 00 Resolved 06/08/2002 Problem 07/15/2012 [facility] Allergies, Adverse Reactions, Alerts Allergy Allergy Status Severity Reaction(s) Onset Inactive Treating Comm ents Source Name Type Date Date Clinician NKFA NKFA Active Memarin l Jorge Steroids Steroids Active Memori a <sup>1</ <sup>1</ l sup> sup> Jorge Social History Social Habit Start Date Stop Date Quantity Comments Source Social History 2017-01-04 2017-01-04 Segun Kaela charles 22:04:12 22:04:12 Smoking Status Start Date Stop Date Source Never Smoker [facility] josie Medications Ordered Filled Start Stop Current Ordering Indication Dosage Frequency Signature Comments Components Source Medication Medication Date Date Medication? Clinician (SIG) Name Name Ativan No Notes: Memoria 01-05 (Same as: l 16:31: Ativan) Ativan No 2 mg, Memoria 01-05 Route: l 16:30: IVP, Drug form: INJ, ONCE, Dosing Weight 105.17, kg, PRN Anxiety, Start date: 01/05/17 11:30:00 CDT Insulin No Notes: Memoria Glargine 01-05 Same as: l 14:00: Lantus) Do not hold insulin without contacting prescriber WASTE: F/P - Black; E - Municipal Trash Bin [facility] [place] No Notes: Tong dulce 01-05 (Same l 14:00: as:Cardize 00 m ) Before meals. DO NOT CRUSH. aspirin 81 No Notes: Do Me moria mg tablet, 01-05 not crush l enteric 14:00: or chew. Johnny n coated 00 (Same As: Ecotrin) Plavix No Notes: Memoria 01-05 (Same As: l 14:00: Plavix) Tresiba Yes 20 unit, Memori a FlexTouch 01-05 SUB-Q, l 13:56: Bedtime, 0 Refill(s) Hydrochloro Yes 1 tab, PO, Memoria thiazide 25 01-05 Daily, 0 l MG / 13:56: Refill(s) Jorge valsartan 00 320 MG Oral Tablet [Diovan HCT 320/25] 0.5 ML Yes 50 mg, Memoria albiglutide 01-05 SUB-Q, l 100 MG/ML 13:56: QThu, 0 Radha nn Prefilled 00 Refill(s) Syringe [Tanzeum] simvastatin Yes 40 mg = 1 M emoria 40 mg oral 01-05 tab, PO, l tablet 02:16: Bedtime, # Radha nn 00 30 tab, 5 Refill(s) atorvastati No Notes: Tong dulce n 01-05 (Same as: l 02:00: Lipitor) Docusate No Notes: Memoria 01-04 (Same as: l 22:00: Colace) Jorge 00 (Do Not Crush) Insulin No 60 Memoria regular 7-30 units) l 21:07: WASTE: F/P Jorge 00 - Black; E - Municipal Trash Bin Stable for 28 days at room temperatur e Expires in days from ____Date Glucagon No 1 mg, Memoria 01-04 Route: IM, l 21:07: Drug form: Jorge 00 PDR/INJ, PRN, Dosing Weight 122.33, kg, PRN Blood Glucose Results, Start date: 01/04/17 16:07:00 CDT, Duration: 30 day, Stop date: 02/03/17 16:06:00 CDT Dextrose No 25 gm, 50 Tong dulce 50% Syringe 7-30 mL, Route: l 21:07: IVP, Drug Form: INJ, Dosing Weight 122.33, kg, PRN, PRN Blood Glucose Results, Start date: 01/04/17 16:07:00 CDT, Duration: 30 day, Stop date: 02/03/17 16:06:00 CDT Acetaminoph No Notes: Do M emoria en 01-04 not exceed l 21:02: 4 gm/day. (Same as: Tylenol) Ondansetron No Notes: Tong dulce 30 (Same as: l 21:02: Zofran) MEDICATION WASTE Product Size: 4 mg Product Wasted: 0 mg Aspirin No Notes: Memoria -30 Take with l 20:15: food. iodixanol No 100 mL, Memor ia 01-04 Route: l 18:34: IVP, Drug Form: SOLN, kg, ONCALL, STAT, Start date: 01/04/17 13:34:00 CDT, Duration: 1 doses or times, Dose = 2.2ml/kg, Max dose = 100ml -- "To be infused by Radiology Staff ONLY" Saline No Notes: Memoria Flush 0.9% 06-08 Same as: l 19:21: BD Posiflush Sterile Lantus No Lashay 40 unit, Mem oria 2-05 [place] 0.4 mL, l 15:00: [place] Route: SUB-Q, Drug form: INJ, QAM, Dosing Weight 122.33, kg, Start date: 07/13/12 9:00:00, Duration: 30 day, Stop date: 08/11/12 9:00:00 atorvastati Yes Lashay 80 mg, 1 Memoria n 80 mg 2-05 [place] tab, PO, l oral tablet 14:00: [place] QPM, 30 Bitely 03 tab, 1, 1, Substituti on Allowed, TAB Lantus 2012-0 No Lashay 38 unit, Mem oria 2-05 [place] 0.38 mL, l 00:00: [place] Route: Bitely 00 SUB-Q, Drug form: INJ, QPM, Dosing Weight 122.33, kg, Start date: 07/12/12 18:00:00, Duration: 30 day, Stop date: 08/11/12 17:00:00 atorvastati 2012-0 No Lashay 80 mg, 1 Memoria n 2-04 [place] tab, l 23:00: [place] Route: PO, Herm adolfo 00 Drug form: TAB, QPM, Dosing Weight 122.33, kg, Start date: 07/12/12 17:00:00, Duration: 30 day, Stop date: 08/10/12 17:00:00 heparin 2012-0 No Lashay 7,500 Memor ia 5000 2-04 [place] unit, 1.5 l units/mL 22:00: [place] mL, Route: Jorge injectable 00 SUB-Q, solution Drug form: INJ, Q8H, Dosing Weight 122.33, kg, Start date: 07/12/12 16:00:00, Duration: 30 day, Stop date: 08/11/12 8:00:00 valsartan 2013-0 No Lashay 160 mg, 1 Memoria 2-04 [place] tab, l 19:00: [place] Route: PO, Herm adolfo 00 Drug form: TAB, Daily, Dosing Weight 122.33, kg, Start date: 07/12/12 13:00:00, Duration: 30 day, Stop date: 08/11/12 9:00:00 diltiazem 2013-0 No Lashay 180 mg, 1 Memoria 2-04 [place] cap, l 19:00: [place] Route: PO, Herm adolfo 00 Drug form: ERCAP, Daily, Dosing Weight 122.33, kg, Start date: 07/12/12 13:00:00, Duration: 30 day, Stop date: 08/11/12 9:00:00 hydrochloro 2013-0 No Lashay 12.5 mg, 1 Memoria thiazide 2-04 Madios[place] cap, l 19:00: [place] Route: PO, Herm adolfo 00 Drug form: CAP, Daily, Dosing Weight 122.33, kg, Start date: 07/12/12 13:00:00, Duration: 30 day, Stop date: 08/11/12 9:00:00 aspirin 2012-0 No Lashay 325 mg, 1 M emoria 2-04 [place] tab, l 16:13: [place] Route: PO, Herm adolfo 00 Drug form: ECTAB, Daily, Dosing Weight 122.33, kg, Priority: NOW, Start date: 07/12/12 10:13:00, Duration: 30 day, Stop date: 08/11/12 9:00:00 pneumococca 0 No [facility] Route: IM, l vaccine 15:00: Drug Form: Herm adolfo 00 INJ, Daily, Start date: 07/12/12 9:00:00, Duration: 1 doses or times, Stop date: 07/12/12 9:00:00 pantoprazol No Bo Arthur 40 mg, Memoria e 2-04 Route: l 15:00: IVP, Drug Bitely 00 form: INJ, Daily, Dosing Weight 113.636, kg, Start date: 07/12/12 9:00:00, Duration: 30 day, Stop date: 08/10/12 9:00:00 Saline No Bo Arthur 5 ml, Tong dulce Flush 0.9% 204 Route: l 03:00: IVP, Drug Bitely 00 Form: INJ, Dosing Weight 113.636, kg, Q12H, Start date: 07/11/12 21:00:00, Duration: 30 day, Stop date: 08/10/12 9:00:00 docusate No Bo Arthur 100 mg, 1 Memoria 2-04 cap, l 03:00: Route: PO, Jorge 00 Drug form: CAP, Q12H, Dosing Weight 113.636, kg, Start date: 07/11/12 21:00:00, Duration: 30 day, Stop date: 08/10/12 9:00:00 insulin 2012-0 No Bo Gibson 7 unit, [facility] regular 2-04 0.07 mL, l human 02:51: Route: Bitely recombinant 00 SUB-Q, 100 Drug form: units/mL SOLN, PRN, injectable Dosing solution Weight 122.33, kg, PRN Abnormal Lab Result, Start date: 07/11/12 20:51:00, Duration: 30 day, Stop date: 08/10/12 20:50:00 Dextrose 2012- No Bo Arthur 12.5 gm, Memoria 50% Syringe 2-04 25 mL, l 02:51: Route: Jorge 00 IVP, Drug Form: INJ, Dosing Weight 122.33, kg, PRN, PRN Abnormal Lab Result, Start date: 07/11/12 20:51:00, Duration: 30 day, Stop date: 08/10/12 20:50:00 Ativan No Bo Arthur 2 mg, 1 Me moria 2-04 mL, Route: l 01:59: IVP, Drug form: INJ, ONCE, Dosing Weight 122.33, kg, PRN Anxiety, Priority: STAT, Start date: 07/11/12 19:59:00 Lantus Yes 38 unit, Memoria Solostar 2-03 SUB-Q, l Pen 100 23:21: Bedtime, Johnny sandoval units/mL 29 10 ml, subcutaneou Substituti s solution on Allowed, SOLN Diovan HCT Yes 1 tab, PO, M emoria 12.5 mg-320 2-03 Daily, 30 l mg oral 23:20: tab, Jorge tablet 07 Substituti on Allowed, Maintenanc e, TAB glipiZIDE Yes 10 mg, 1 Tong dulce 10 mg oral 2-03 tab, PO, l tablet 23:19: Daily, 30 Johnny n 54 tab, Substituti on Allowed Plavix 75 Yes 75 mg, 1 Tong dulce mg oral 2-03 tab, PO, l tablet 23:19: Daily, 30 Johnny n 39 tab, Substituti on Allowed, TAB simvastatin No 40 mg, 1 Me moria 40 mg oral 2-03 tab, PO, l tablet 23:19: Bedtime, Jorge 30 30 tab, Substituti on Allowed, Maintenanc e aspirin 81 Yes 81 mg, 1 Mem oria mg tablet, 2-03 tab, PO, l enteric 23:19: Daily, 0 Johnny n coated 10 tab, Substituti on Allowed, ECTAB Cardizem CD Yes 180 mg, 1 M emoria 180 mg/24 2-03 cap, PO, l hours oral 23:18: Daily, 30 He rmann capsule, 58 cap, extended Substituti release on Allowed Lantus Yes 40 unit, Memoria Solostar 2-03 SUB-Q, l Pen 100 23:18: Before Jorge units/mL 22 Breakfast, subcutaneou 10 ml, s solution Substituti on Allowed, SOLN niCARdipine No Bo Arthur 40 mg, 200 Memoria 40 mg in NS 2-03 mL, Rate: l 200 ml IV 22:16: Start at Herm adolfo 40 mg 00 5mg/hr., Dosing Weight 113.636, kg, Route: IV, Total Volume: 200, Titrate to maintain SBP 140-180mmH g., Duration: 30 day, Stop date: 08/10/12 16:15:00, Replace Every: 24 hr Saline No Bo Arthur 5 ml, Tong dulce Flush 0.9% 07-11 Route: l 22:11: IVP, Drug Form: INJ, Dosing Weight 113.636, kg, PRN, PRN Line Flush, Start date: 07/11/12 16:11:00, Duration: 30 day, Stop date: 08/10/12 16:10:00 acetaminoph No Bo Arthur 650 mg, 2 Memoria en -03 tab, l 22:11: Route: PO, Jorge 00 Drug form: TAB, Q4H, Dosing Weight 113.636, kg, PRN Pain/Fever , Start date: 07/11/12 16:11:00, Duration: 30 day, Stop date: 08/10/12 16:10:00 labetalol No Bo Arthur 10 mg, 2 Memoria 2-03 mL, Route: l 22:11: IVP, Drug form: INJ, Q10Min, Dosing Weight 113.636, kg, PRN Hypertensi on, Start date: 07/11/12 16:11:00, Duration: 30 day, Stop date: 08/10/12 16:10:00, For SBP > 180mmHg and/or DBP > 105mmHg Omnipaque No Meagan 125 mL, Mem oria 350mg/ml 07-11 [facility] Route: l 19:41: Homar IVP, Drug Radha nn 00 Form: SOLN, Dosing Weight 113.636, kg, ONCALL, STAT, Start date: 07/11/12 13:41:00, Duration: 1 doses or times, Stop date: 07/11/12 20:00:00, Dose = 2.2ml/kg, Max dose = 150ml -- "To be infused by Radiology Staff ONLY"Dose = 2.2ml/kg, Max dose = 150ml -- "To be infused by Radiology Staff ONLY" labetalol No Talib 20 mg, Memor ia 07-11 [facility] Route: l 18:35: Karamchand IVP, Drug He rm ani form: INJ, ONCE, Dosing Weight 113.636, kg, Priority: STAT, Start date: 07/11/12 12:35:00, Stop date: 07/11/12 12:35:00 Adult Adult No 1 Q1D Adult [facility] Aspirin Aspirin Aspirin Family Regimen 81 Regimen 81 Regimen 81 Practic mg mg mg e tablet,allen tablet,allen tablet,del yed release yed release ayed Take 1 Take 1 release tablet tablet Take 1 every day every day tablet by oral by oral every day route. route. by oral route. atorvastati atorvastati No 1 Q1D atorvastat [facility] n 40 mg n 40 mg in 40 mg Famil y tablet Take tablet Take tablet Practic 1 tablet 1 tablet Take 1 e every day every day tablet by oral by oral every day route. route. by oral route. diltiazem diltiazem No 1capsul Q1D diltiazem [facility] ER 180 mg ER 180 mg e(s) ER 180 mg Family capsule,24 capsule,24 capsule,24 Practic hr,extended hr,extended hr,extende e release release d release Take 1 Take 1 Take 1 capsule capsule capsule every day every day every day by oral by oral by oral route. route. route. Jardiance Jardiance No 1 Q1D Jardiance [facility] 10 mg 10 mg 10 mg Family tablet Take tablet Take tablet Practic 1 tablet 1 tablet Take 1 e every day every day tablet by oral by oral every day route. route. by oral route. metformin metformin No 1 Q1D metformin [facility] ER 500 mg ER 500 mg ER 500 mg Family 24 hr 24 hr 24 hr Practic tablet,exte tablet,exte tablet,ext e nded nded ended release release release Take 1 Take 1 Take 1 tablet tablet tablet every day every day every day by oral by oral by oral route. route. route. Multi Multi No Multi [place] Vitamin Vitamin Vitamin Family Practic e olmesartan olmesartan No 1 Q1D olmesartan [place] 40 40 40 Family mg-hydrochl mg-hydrochl mg-hydroch Practic orothiazide orothiazide lorothiazi e 25 mg 25 mg de 25 mg tablet Take tablet Take tablet 1 tablet 1 tablet Take 1 every day every day tablet by oral by oral every day route as route as by oral directed. directed. route as directed. Simbrinza 1 Simbrinza 1 No Simbrinza [place] %-0.2 % eye %-0.2 % eye 1 %-0.2 % Family drops,suspe drops,suspe eye P ractic nsion nsion drops,susp e INSTILL 1 INSTILL 1 ension DROP INTO DROP INTO INSTILL 1 AFFECTED AFFECTED DROP INTO EYE(S) BY EYE(S) BY AFFECTED OPHTHALMIC OPHTHALMIC EYE(S) BY ROUTE 3 ROUTE 3 OPHTHALMIC TIMES PER TIMES PER ROUTE 3 DAY DAY TIMES PER DAY timolol 0.5 timolol 0.5 No timolol [place] % eye drops % eye drops 0.5 % eye Family INSTILL 1 INSTILL 1 drops Prac tic DROP INTO DROP INTO INSTILL 1 e AFFECTED AFFECTED DROP INTO EYE(S) BY EYE(S) BY AFFECTED OPHTHALMIC OPHTHALMIC EYE(S) BY ROUTE 2 ROUTE 2 OPHTHALMIC TIMES PER TIMES PER ROUTE 2 DAY DAY TIMES PER DAY Trulicity Trulicity No 4.5mg Q1W Trulicity [facility] 4.5 mg/0.5 4.5 mg/0.5 4.5 mg/0.5 Family mL mL mL Practic subcutaneou subcutaneou subcutaneo e s pen s pen us pen injector injector injector Inject 4.5 Inject 4.5 Inject 4.5 mg every mg every mg every week by week by week by subcutaneou subcutaneou subcutaneo s route as s route as us route directed directed as for 90 for 90 directed days. days. for 90 days. Atorvastati Atorvastati Yes Na Chung [address] [facility] n Calcium n Calcium [facility] Losartan Losartan Yes Na Chung [address] [facility] Potassium-H Potassium-H L [facility]kes - [facility] Jardiance Jardiance Yes Na Chung [address] [facility] Trulicity Trulicity Yes Na Chung [address] injection [facility] Aspir-81 Aspir-81 Yes Na Chung [address] [facility] Diltiazem Diltiazem Yes Na Chung [address] [facility] HCl ER HCl ER on an [facility] stomach in l the Out[facility] morning ent Clinics Metformin Metformin Yes Na Chung [address] [facility] HCl HCl with a [facility] Immunizations Ordered Immunization Filled Immunization Date Status Commen ts Source Name Name pneumococcal pneumococcal 2020-03-08 Completed [facility] polysaccharide PPV23 polysaccharide PPV23 00:00:00 Practice influenza, influenza, 2020-03-[address] [facility] injectable, injectable, 00:00:00 Practice quadrivalent quadrivalent Vital Signs Vital Name Observation Time Observation Value Comments Source BP Diastolic 2020-04-05 00:00:00 76 mm[Hg] [facility] Height 2020-04-05 00:00:00 60 [in_i] [facility] BMI (Body Mass Index) 2020-04-05 00:00:00 38.2 kg/m2 [facility] BP Systolic 2020-04-05 00:00:00 138 mm[Hg] [facility] Body Weight 2020-04-05 00:00:00 195.6 [lb_av] [facility] Heart Rate 2017-01-05 20:07:00 Segun Patel Temperature Oral (F) 2017-01-05 20:07:00 97.1 F Segun Patel Respitory Rate 2017-01-05 20:07:00 Sara Gaffney Systolic (mm Hg) 2017-01-05 20:07:00 Tong Patel Diastolic (mm Hg) 2017-01-05 20:07:00 Mem juliane Patel Systolic (mm Hg) 2017-01-05 17:44:00 Tong rial Jorge Diastolic (mm Hg) 2017-01-05 17:44:00 Mem orial Bitely Respitory Rate 2017-01-05 17:44:00 Memori al [place] Heart Rate 2017-01-05 17:44:00 Memorial [place] Temperature Oral (F) 2017-01-05 17:44:00 98.0 F [facility] Jorge Systolic (mm Hg) 2017-01-05 12:03:00 Tong rial Bitely Diastolic (mm Hg) 2017-01-05 12:03:00 Mem orial Jorge Heart Rate 2017-01-05 12:03:00 Memorial [place] Respitory Rate 2017-01-05 12:03:00 Memori al Jorge Temperature Oral (F) 2017-01-05 12:03:00 96.8 F [facility] [place] BMI Calculated 2017-01-04 21:58:00 Memori al [place] Height 2017-01-04 21:58:00 165.1 cm [facility] [place] Weight 2017-01-04 21:58:00 [facility] Jorge Respitory Rate 2012-07-13 17:43:00 Memori al [place] Diastolic (mm Hg) 2012-07-13 17:43:00 Mem orial [place] Systolic (mm Hg) 2012-07-13 17:43:00 Tong rial Jorge Temperature Oral (F) 2012-07-13 17:43:00 98.6 F [facility] [place] Heart Rate 2012-07-13 17:43:00 [facility] Jorge Diastolic (mm Hg) 2012-07-13 13:48:00 Mem orial [place] Systolic (mm Hg) 2012-07-13 13:48:00 Tong rial Bitely Respitory Rate 2012-07-13 13:48:00 Memori al [place] Temperature Oral (F) 2012-07-13 13:48:00 98.5 F Memorial [place] Heart Rate 2012-07-13 13:48:00 Memorial Jorge Respitory Rate 2012-07-13 10:33:00 Memori al Jorge Systolic (mm Hg) 2012-07-13 10:33:00 Tong rial Jorge Diastolic (mm Hg) 2012-07-13 10:33:00 Mem orial Jorge Temperature Oral (F) 2012-07-13 10:33:00 97.8 F [facility] Jorge Heart Rate 2012-07-13 10:33:00 [facility] Jorge Height 2012-07-11 20:15:00 165.10 cm [facility] Jorge Weight 2012-07-11 20:15:00 [facility] Jorge Weight 2012-07-11 18:13:00 [facility] Jorge Height 2012-07-11 18:13:00 165.10 cm [facility] Jorge Procedures Procedure Date / Time Performed Performing Clinician [facility] e Hernia Repair 2016-10-06 00:00:00 [facility] Uterine Myomectomy [facility] Famil y Practice Hysterectomy (Total) [facility] shraddha Practice Hysterectomy [facility] Jorge <sup>1</sup> Cataract surgery [facility] Johnny n Hernia repair [facility] [place] Hysterectomy<sup>1</sup> Memoria l Jorge Plan of Care Planned Activity Planned Date Details Comments Source Diagnostic Test 2020-04-05 glucose, fingerstick, Shayy ramos Family Pending 00:00:00 blood [code = Practice glucose, fingerstick, blood] Diagnostic Test 2020-04-05 hemoglobin A1C, [facility] Tomasz teran Pending 00:00:00 fingerstick [code = Practice hemoglobin A1C, fingerstick] Future Appointment 2020-07-06 Riley Vito, [id number] [facility] 08:30:[address]; , [place] [address] Encounters Start End Encounter Admission Attending Care Care Encounter Source Date/Time Date/Time Type Type Clinicians Facility Department ID 2020-05-08 2020-05-08 Outpatient [facility] [id number] [facility] 2020-05-08 2020-05-08 Outpatient [facility] [id number] [facility] 2020-04-14 2020-04-14 Out[facility] [id number] [facility] 2020-04-11 2020-04-11 Outpatient [facility] [id number] [facility] 2020-04-11 2020-04-11 Outpatient [facility] [id number] [facility] 2020-04-05 2020-04-05 Riley [facility] [place] - [id number] V illage 00:00:00 00:00:00 [facility] Anuel Padron - Pracfroilan baxter MD: [id number] [email or web address] kenzie [facility], [facility] [address], [place] [address] , Ph. 2020-02-10 2020-02-10 [facility] [id number] 10:00:00 10:00:00 [place] [address] [facility] Clin[facility] 2020-02-10 2020-02-10 [facility] [id number] 10:00:00 10:00:00 [place] [employer] [facility] Out[facility] Clin[facility] 2019-12-19 2019-12-19 [facility] [id number] 11:12:00 11:12:00 [place] [employer] - [address] [facility] Out[facility] Clinics 2019-12-07 2019-12-07 [facility] [id number] [address] 09[facility]40:00 09:40:00 [place] [employer] [facility] Out[facility] Clinics 2019-11-02 2019-11-02 [facility] [id number] 19:23:00 19:23:00 [place] [employer] [facility] Out[facility] Clinics 2019-07-01 2019-07-01 [facility] [id number] 08:40:00 08:40:[address] - [address] [facility] Outpat[facility] Clinics 2019-03-31 2019-03-31 [facility] [id number] 11:00:00 11:00:00 [place] [employer]rid[employer] s - Drive [facility] Medicine l Medicine Outpati ent Clinics 2019-02-02 2019-02-02 [facility] [id number] [facility] [address] 09:20:00 09:20:00 t [place] [facility] 2018-12-30 2018-12-30 [facility] [id number] [address] 08:20:00 08:20:[address] [place] s - Drive [facility] 2018-09-29 2018-09-29 [facility] [id number] 08:40:00 08:40:00 t [place] [employer] - Drive [facility] 2018-05-26 2018-05-26 [facility] [id number] 09:30:00 09:30:[address] [facility] ent [facility] 2017-01-04 2017-01-05 Outpatient Jesus Murguia [facility] [id number] 13:23:00 20:55:00 67 Results Test Description Test Time Test Comments Results Result Comments Source HEMATOLOGY 2017-01-05 4.23 [facility] 08:59:00 HEMATOLOGY 2017-01-05 12.5 [facility] 08:59:00 HEMATOLOGY 2017-01-05 36.9 [facility] 08:59:00 HEMATOLOGY 2017-01-05 34.0 [facility] 08:59:00 HEMATOLOGY 2017-01-05 7.9 [facility] 08:59:00 HEMATOLOGY 2017-01-05 7.9 [facility] 08:59:00 HEMATOLOGY 2017-01-05 15.4 [facility] 08:59:00 HEMATOLOGY 2017-01-05 87.3 [facility] 08:59:00 HEMATOLOGY 2017-01-05 08:59:00 Test Item Value Reference Range Interpretation Comme nts MCH (test code = MCH) 29.7 pg 27.0-31.0 [facility] AspfrskZUZBKSIAIT0060-96-83 08:59:90925Jvkqctgd HermannHEMATOLOGY 2017-01-05 08:59:000.6[facility] WizdnwmJQRRUODPWK8141-33-53 08:59:000.3[facility] YebjavrZROVYBPOPG1827-34-54 08:59:000.5[facility] UbhwyxkRXLVOCFYGM0362-76-05 08:59:002.8[facility] XlfitigHMXRHGVLJU7023-59-46 08:59:004.2[facility] Bitely AEYBPSRYFR3374-19-48 08:59:003.5[facility] ZckhdpaKEBIODIRDW6047-32-94 08:59:00 53.3[facility] ZnyscqfYMDYWZYXTU0269-43-36 08:59:007.7[facility] HermannHEMATOLOGY 2017-01-05 08:59:0035.0[facility] PytbixdXVIPZZ0406-20-30 08:59:0030[facility] VwjbuhrHWWJBQ1820-18-01 08:59:0076[facility] OamdcyqMRYLCH8658-78-26 08:59:59486 [facility] QayyhjuCGBBUU2789-91-85 08:59:0093[facility] EatwejySQLAKR4207-64-07 08:59:0019[facility] UslliybXKCURM0923-14-27 08:59:001.64[facility]annURINE AND SRBDZ4689-48-19 19:36:00Negative *NA*(01/04/17 2:36 PM)[facility] AJPOZ2911-89-53 19:36:00Negative *NA*(01/04/17 2:36 PM)[facility] YUKCI8318-62-12 19:36:000.2[facility] RJAMY3631-26-34 19:36:00 Negative (01/04/17 2:36 PM)[facility] EJMIL6892-66-51 19:36:00None Seen (01/04/17 2:36 PM)[facility] KEUQL1326-73-94 19:36:00None Seen (01/04/17 2:36 PM)[facility] TNZAO5952-78-42 19:36:00None Seen (01/04/17 2:36 PM)[facility] XBNBR6157-03-13 19:36:00Negative (01/04/17 2:36 PM)[facility] CGATG3597-98-13 19:36:00Negative (01/04/17 2:36 PM)[facility] MWSAR7529-84-67 19:36:00 Test Item Value Reference Range Interpretation Comments UA pH (test code = UA pH) 6.5 1 5.0-8.0 [facility] NKXNX0636-51-13 19:36:00Negative (01/04/17 2:36 PM) [facility] WNVMO9331-05-65 19:36:00Yellow *NA*(01/04/17 2:36 PM) [facility] ENBAZ8170-22-18 19:36:00Clear (01/04/17 2:36 PM) [facility] VKLXL2003-48-72 19:36:00 Test Item Value Reference Range Interpretation Comments UA Spec Grav (test code = UA Spec 1.018 1 Grav) [facility] HermannCARDIAC RKDXEXR9731-98-38 18:26:000.4[facility] HermannCARDIAC ZTJSECM6184-18-08 18:26:60597Qzrckolb HermannCARDIAC XTDUBUU1061-44-64 18:26:00 <0.02[facility] HermannCARDIAC JIRABCZ1384-97-63 18:26:000.6[facility] Jorge CHEM CHSNO6080-42-38 18:26:0067[facility] HermannCHEM HNRBQ5338-76-81 18:26:003.8 [facility] HermannCHEM NICNP9313-45-90 18:26:0027[facility] HermannCHEM PANEL 2017-01-04 18:26:40965Xkfuhnor HermannCHEM ZQQTE5783-57-66 18:26:37105Vgjyhfou HermannCHEM HNGRK3441-86-68 18:26:001.01[facility] HermannCHEM LYYQZ6461-50-62 18:26:009.4[facility] HermannCHEM RWHKT2218-25-53 18:26:0011.8[facility] HermannCHEM BCBGW2541-32-39 18:26:0093[facility] HermannCHEM LULQO9835-53-56 18:26:0020 [facility] GgpatrcYTKPSDSPBY6193-12-98 18:26:0036.2[facility] HermannHEMATOLOGY 2017-01-04 18:26:0054.9[facility] MusjtpxWKWVRNRGON5088-76-16 18:26:006.6[facility] LpwtwmqLPDZPJPVRA4432-90-23 18:26:004.5[facility] DdfojtuTXJPGEBHUJ7188-71-75 18:26:000.8[facility] EulwgzuAUQAWXOIDV6618-79-18 18:26:000.2[facility] Jorge UNEVWYRVGO9314-70-15 18:26:000.1[facility] LtoesasPVMRDHXUQE7322-14-23 18:26:001.7 [facility] OvltzqwDGSOPQRKJI1248-37-09 18:26:006.8[facility] HermannHEMATOLOGY 2017-01-04 18:26:000.6[facility] RekbpklRUWCDXYOOW6314-03-79 18:26:0012.4[facility] IhnjhlhBWJBMOZCFR4206-16-94 18:26:004.76[facility] NbrlynzMWOMMBQPXD6200-90-37 18:26:0015.8[facility] ZksnnowFZOHMYVUOK3608-77-87 18:26:00 Test Item Value Reference Range Interpretation Comments MCH (test code = MCH) 28.2 pg 27.0-31.0 [facility] FagnrcfKHAMCJSOJI0830-35-09 18:26:0013.4[facility] HermannHEMATOLOGY 2017-01-04 18:26:0086.5[facility] PsufviuIEZFXYZIYD1474-78-31 18:26:0041.2[facility] PhjrjzfXXFZVRFIIN7000-64-26 18:26:0032.6[facility] PezqpsuRZURBKKVAN1444-93-11 18:26:007.8[facility] WowfargRVYSJTERQA0617-48-64 18:26:47211Xvygdaur Jorge YLSBIEAUYK8778-34-24 18:26:000.88[facility] SdylskoKSYCCZWYIY4958-97-86 18:26:00 Test Item Value Reference Range Interpretation Comments PT (test code = PT) 12.1 s 12.0-14.7 [facility] XsqmwdmJKLLFITIUU5561-47-46 18:26:00 Test Item Value Reference Range Interpretation Comments PTT (test code = PTT) 25.9 s 22.9-35.8 [facility] HermannCHEM PSLTG6791-86-43 18:23:001.0[facility] HermannCHEM PANEL 2017-01-04 18:23:0067[facility] HermannBEDSIDE GLUCOSE NXSIVUK9372-08-95 17:55:00 260[facility] HermannBEDSIDE GLUCOSE FUIEYRD8990-73-35 12:03:12945Gepkudni Jorge BEDSIDE GLUCOSE IQIMIGA2886-78-98 03:24:74433Tewupbze TvepwffYNTIUAMRJ1321-26-01 07:19:0013.0[facility] XffshfdOSZZMNNUF9644-69-82 07:19:0017[facility] DHQFTHAZZ9690-51-75 07:19:004.5[facility] AsuupnzOPJFVRQGM9188-96-05 07:19:000.6 [facility] NfxvzyeDNYTRRWCX6759-09-39 07:19:0079[facility] HermannCHEMISTRY 2012-07-12 07:19:002.8[facility] GnpxtneBRQGQPPKY6173-10-73 07:19:0071[facility] TupbfxiUOJFCXUGE5459-76-58 07:19:98927Ioaoadyy JidnwdgBLQGTMDPL2257-35-97 07:19:75868Fmkqmswm ArbmzprSYSKDZMFQ8312-20-08 07:19:28055Zbxdijja Bitely LSCJTTMUB5247-38-02 07:19:0015[facility] TwfekixPLSKACTKV8092-04-22 07:19:000.9 [facility] XdtvjlhUYEELEEVM6911-89-49 07:19:004.0[facility] HermannCHEMISTRY 2012-07-12 07:19:12921Euiynkfl UflopsbGGFWJFSUX9613-08-40 07:19:008.5[facility] TsuolcqGBFVOKYXO0655-84-54 07:19:000.4[facility] XpdpmmbEYDGWKKNC5678-78-80 07:19:0027[facility] JoecnrmDLEFYFEIY7326-20-49 07:19:0054[facility] OPCEZQVAU9171-68-60 07:19:007.3[facility] VsgylptYKNJQCRED4424-57-19 07:19:0010.5 [facility] BqfndttFHGJSVUMM3768-33-39 07:19:0095[facility] HermannCHEMISTRY 2012-07-12 07:19:50881Rimlhils ZaluwoyKNQHDXQAN5930-24-17 07:19:74225Ftjqovyi HezenceJUTUVUYSD2889-21-25 07:19:0059[facility] CbnlmhqKFVPNNPYS1984-66-37 07:19:003.05[facility] XzucjaxPYDAVELLP8743-49-93 07:19:000.1[facility] Jorge RPLOVKJPOP5894-42-07 07:19:007.6[facility] TdwkmilPNCISWIQLL4621-18-04 07:19:00 Test Item Value Reference Range Interpretation Comments MCH (test code = MCH) 31.2 pg 27.0-31.0 H [facility] MwgajntKQVZOMWUCZ6105-32-38 07:19:0093.2[facility] HermannHEMATOLOGY 2012-07-12 07:19:003.97[facility] AqkboqlQMFOSBLJWJ0414-15-58 07:19:0013.7[facility] YegpwbpGLOHUAHDIS7082-45-60 07:19:008.2[facility] KngercxYEADTFQNBC8708-88-36 07:19:0037.0[facility] ZpeyesaGLZCFCSZVS4852-24-85 07:19:0012.4[facility] Jorge BXWPTJKCBH0403-38-51 07:19:27928Yerjaxpm UhfyvtmDQQQSSUIUS6055-55-97 07:19:00 33.4[facility] NzqrsqaAHSWYHEGMO6860-12-81 07:19:000.6[facility] HermannHEMATOLOGY 2012-07-12 07:19:000.6[facility] MbbejfbVCTRRHUUTU8264-80-42 07:19:002.9[facility] NzahvktMWBTSZBAIR5392-99-99 07:19:000.2[facility] FretwvrJWDPUBQIKC0217-29-76 07:19:003.9[facility] EufzdowRRWMXCWAEN7377-87-70 07:19:0037.7[facility] Jorge LGANBSSWJL9013-29-99 07:19:0051.1[facility] SozawkhASHSXMBHRL9119-19-05 07:19:00 2.8[facility] ZdkpjzuKRBVLUIULO5442-20-40 07:19:007.8[facility] HermannHEMATOLOGY 2012-07-12 07:19:00 Test Item Value Reference Range Interpretation Comments PTT (test code = PTT) 30.1 s 22.9-35.8 N [facility] TaqlyvpTLRTWDILGP3108-52-23 07:19:00 Test Item Value Reference Range Interpretation Comments PT (test code = PT) 13.4 s 12.0-14.7 [facility]VNXIHHKV2286-77-50 07:19:001.00[facility] HermannCHEMISTRY 2012-07-11 21:14:00See Note 7*NA*(07/11/2012 15:14:00)[facility] HermannCHEMISTRY 2012-07-11 21:14:00Negative *NA*(07/11/2012 15:14:00)[facility] HermannCHEMISTRY 2012-07-11 21:14:00Negative *NA*(07/11/2012 15:14:00)[facility] HermannCHEMISTRY 2012-07-11 21:14:00Negative *NA*(07/11/2012 15:14:00)[facility] HermannCHEMISTRY 2012-07-11 21:14:00Negative *NA*(07/11/2012 15:14:00)[facility] HermannCHEMISTRY 2012-07-11 21:14:00Negative *NA*(07/11/2012 15:14:00)[facility] HermannCHEMISTRY 2012-07-11 21:14:00Negative *NA*(07/11/2012 15:14:00)[facility] HermannCHEMISTRY 2012-07-11 21:14:00Negative *NA*(07/11/2012 15:14:00)[facility] HermannURINALYSIS 2012-07-11 21:14:0030 mg/dL *ABN*(07/11/2012 15:14:00)[facility] HermannURINALYSIS 2012-07-11 21:14:00Negative mg/dL *NA*(07/11/2012 15:14:00)[facility] YJLSOFFPXB2759-25-63 21:14:00Negative mg/dL *NA*(07/11/2012 15:14:00)[facility] HinkglaZVMVDSYEJI1330-00-70 21:14:00Negative *NA*(07/11/2012 15:14:00)[facility] QtbqvxvCRPYSGMVAP4967-01-85 21:14:007.5[facility] QjxcgkpPHTCHZXQOR2452-16-42 21:14:001.040[facility] YlriaplVDUMSWTZTM4632-48-79 21:14:00Yellow *NA*(07/11/2012 15:14:00)[facility] HjiovlzTYCUMXKSCF8733-11-21 21:14:00Clear (07/11/2012 15:14:00)[facility] OwjtugcMCWMNNRWXM7097-81-52 21:14:001[facility] HGTMILRXTG1018-17-65 21:14:004[facility] SgzaoraKFHISHWJTW5153-86-35 21:14:00Few /LPF *NA*(07/11/2012 15:14:00)[facility] VvugtjqKMKKOWBRGV2029-33-50 21:14:00 Negative (07/11/2012 15:14:00)[facility] UcbvrwaVTCTCAJOWG4206-67-91 21:14:00 Moderate /LPF *ABN*(07/11/2012 15:14:00)[facility] ZusvunfMCYVJBZFHL4222-30-74 21:14:00Small *ABN*(07/11/2012 15:14:00)[facility] NxtsdyoZGNLQYETCT0645-40-87 21:14:00Negative (07/11/2012 15:14:00)[facility] Jorge
--- OUTSIDE RECORDS SUMMARY | 2020-06-27 08:52 | XMS REPORT ---
:1950 Author Organization [facility] Address [address] 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9 ; HTN (hypertensi on) I10 ; High choleste rol E78.00 ; Osteop enia of neck of left fe mur M85.852 ; Const ipation, unspecified constipation ty pe K59.00 ; Long t erm current use of insulin Z79.4 ; History of TIA (transient isch emic attack) Z86.73 ; BMI 32.0-32.9,adult Z68.32 and Screening f or osteoporosis Z1 3.820 IMMUNIZATIONS No Information SOCIAL HISTORY Tobacco Use: Social History Observation Description Date Details (start date - stop date) Never Smoker Sex Assigned At : Social History Observation Description Sex Assigned At Unknown PHQ9 Question Answer Notes Little interest or pleasure in doing things Not at all Feeling down, depressed, or hopeless Not at all Trouble falling or staying asleep or sleeping too much Not a t all Feeling tired or having little energy Not at all Poor appetite or overeating Not at all Feeling bad about yourself, or that you are a failure, or sarmiento ve let Not at all yourself or your family down Trouble concentrating on things, such as reading the newspap er or Not at all watching television Moving or speaking so slowly that other people could have no ticed; Not at all or the opposite, being so fidgety or restless that you have been moving around a lot more than usual Total Score 0 Thoughts that you would be better off or of hurting you rself in Not at all some way Tobacco Use/Smoking Question Answer Notes Are you a never smoker REASON FOR REFERRAL No Information VITAL SIGNS Height 65.00 in May, Weight 194.6 lbs May, Temperature 97.2 degrees Fahrenheit May, BMI 32.38 kg/m2 May, Oximetry 98 % May, Respiratory Rate 18 /min May, Blood pressure systolic 162 mm Hg May, Blood pressure diastolic 79 mm Hg May, MEDICATIONS Medication SIG (Take, Route, Notes Start Date End Date Status Frequency, Duration) Diltiazem HCl ER 180 MG 1 capsule on an empty Active stomach in the morning Orally Twice a day Trulicity 1.5mg/0.5ml 4.5 mg injection SQ once Active a week Jardiance 10 MG 1 tablet Orally Once a Active day Atorvastatin Calcium 40 MG 1 tablet Orally Once a Active day Losartan Potassium-HCTZ 1 tablet Orally Once a Active 100-25 MG day Metformin HCl 500 MG 1 tablet with a meal Active Orally Once a day Aspir-81 81 MG 1 tablet Orally Once a Active day PROCEDURES No Information RESULTS No Results REASON FOR VISIT 6 mth f/u LOBBY, constipation, DM2, neuropathy, htn, hld, need order for bone density and labs MEDICAL (GENERAL) HISTORY Type Description Date Medical History High cholesterol Medical History Stroke Medical History HTN (hypertension) Medical History Diabetes Surgical History hysterectomy Surgical History hernia break in intestine wall 2015 Surgical History bone spur pink left toe 05/2019 Goals Section No Information Health Concerns No Information MEDICAL EQUIPMENT No Information MENTAL STATUS No Information FUNCTIONAL STATUS No Information ASSESSMENTS Encounter Date Diagnosis Assessment Notes Treatment Notes Treatm ent Clinical Notes May, Type 2 diabetes A1C 6.1 well one box of mellitus without controlled will give 1.5 mg pens ( 2 complications samples of trulicity pens ) given (ICD-10 - E11.9) continue f/u with to [facility] sustainable agriculture specialist Dr.Timothy Stanley gibbs low carb 1800 ADA diet. Avoid sodas, juices and remember portion control. Take your medication as prescribed. Monitor your blood sugar at home as directed and keep a log to bring back with you to your next visit for review. Schedule your annual diabetic eye exam with your eye doctor to screen for diabetic retinopathy. Check your feet daily to make sure you have no open wounds. May, HTN (hypertension) -- Maintian a low (ICD-10 - I10) salt DASH diet, exercise, weight loss and decrease stress recommended. Keep BP log and will review next visit. If blood pressure consistently above 140/90 return to clinic for adjustment of meds - avoid phenylephrine and pseudoephedrine in otc sinus/cold meds containing these decongestants which work by vasoconstricting blood vessels to help decrease congestion however may cause your BP to rise. -- If you have a cold may take Coricidin brand of cold medicines safe for high blood pressure patients. May, High cholesterol low fat diet, (ICD-10 - E78.00) decrease fast food and fried foods. Increase fruit and vegetable intake. exercise as tolerated 30minutes per day at least 3 days a week. May take fish oil 1000mg twice daily to help increase good cholesterol (HDL). May, Osteopenia of neck As you age, your of left femur bones weaken and can (ICD-10 - M85.852) lead to injuries and fractures so keep your bones strong by doing weight bearing exercises in your daily routine like walkign , climbing stairs or lighting small weights 1-3 lbs. Also add yogurt, low fat milk, and cheese in moderation to diet as a source of calcium. Eating leafy green veggies are rich in vitamin K miri help stregnthen your bones. = bone density 2018 Osteopenia of neck of left femur due 08/2020May, Constipation, increase fiber rich unspecified foods such as constipation type brocolli, salad, (ICD-10 - K59.00) papaya etc, add sugar free metamucil in AM and consider adding probiotics for to improve healthy gut bacteria. --may try miralax otc as needed. May, senior living current know sx of use of insulin hypoglycemia and (ICD-10 - Z79.4) hyperglycemia May, History of TIA low fat diet (transient ischemic recognize symptoms attack) (ICD-10 - Z86.73) May, BMI 32.0-32.9,adult - lose weight by (ICD-10 - Z68.32) maintaining a low fat/cholesterol diet with increase in vegetables& fruits, avoiding sweets and processed snack foods and eating regular smaller portions rather than skipping meals. - incorporate 30-45 minutes of exercise such as brisk walking as tolerated daily beginning with a 15-20 minutes a day and patient may increase time of exercise as you get stronger. -Try to limit alcohol to no more than one drink a day - Recommend to try juicing/ eating salad for breakfast and lunch and regular meal at dinner. - To lose weight decrease daily caloric intake by 500 calories per day . - Advised to try raw vegetable/ fruit juicing or smoothies to include kale, spinach, celery, cucumber, green apples, carrots, beets, or fruits of choice along with adding sorin to soothe stomach and. May, Screening for due 08/3020 osteoporosis (ICD-10 - Z13.820) May, Other -- Medications reviewed and updated. -- Dietary and Lifestyle modifications discussed with patient regarding low fat low salt diet diet, exercise and weight management. -- Treatment options, risks and benefits, side effects reviewed in detail. Patient accepts risk. -- Advised on signs/symptoms to monitor and when to call clinic and/or visit the nearest ER. Patient verbalized understanding and agreed with plan. - time was spent counseling and coordinating care including but not limited to discussion of test results, diagnostic or treatment recommendations, prognosis, risks and benefits of management options, instructions, education, compliance and or risk reduction. continue to check feet regularly no fevers will -- Medications reviewed and updated. -- Dietary and Lifestyle modifications discussed with patient regarding low fat low salt diet diet, exercise and weight management. -- Treatment options, risks and benefits, side effects reviewed in detail. Patient accepts risk. -- Advised on signs/symptoms to monitor and when to call clinic and/or visit the nearest ER. Patient verbalized understanding and agreed with plan. -- Greater than 20 minutes was spent with patient during this encounter, of which >50% of the time was spent counseling and coordinating care including but not limited to discussion of test results, diagnostic or treatment recommendations, prognosis, risks and benefits of management options, instructions, education, compliance and or risk reduction. continue to check feet regularly no fevers will PLAN OF TREATMENT Medication Medication Name Sig Start Date Stop Date Diltiazem HCl ER 180 MG 1 capsule on an empty stomach in the morning Orally Twice a day Losartan Potassium-HCTZ 100-25 MG 1 tablet Orally Once a day Metformin HCl 500 MG 1 tablet with a meal Orally Once a day Atorvastatin Calcium 40 MG 1 tablet Orally Once a day Trulicity 1.5mg/0.5ml 4.5 mg injection SQ once a week Jardiance 10 MG 1 tablet Orally Once a day Aspir-81 81 MG 1 tablet Orally Once a day Treatment Notes Assessment Notes Clinical Notes Type 2 diabetes mellitus A1C 6.1 well controlled will one carisa x of 1.5mg pens ( without complications give samples of trulicity 2 pens ) giv en to continue f/u with endocrinology patient. sustainable agriculture specialist Dr.Timothy Padron.low carb 1800 ADA diet. Avoid sodas, juices and remember portion control. Take your medication as prescribed. Monitor your blood sugar at home as directed and keep a log to bring back with you to your next visit for review. Schedule your annual diabetic eye exam with your eye doctor to screen for diabetic retinopathy. Check your feet daily to make sure you have no open wounds. HTN (hypertension) -- Maintian a low salt DASH diet, exercise, weight loss and decrease stress recommended. Keep BP log and will review next visit. If blood pressure consistently above 140/90 return to clinic for adjustment of meds - avoid phenylephrine and pseudoephedrine in otc sinus/cold meds containing these decongestants which work by vasoconstricting blood vessels to help decrease congestion however may cause your BP to rise. -- If you have a cold may take Coricidin brand of cold medicines safe for high blood pressure patients. High cholesterol low fat diet, decrease fast food and fried foods. Increase fruit and vegetable intake. exercise as tolerated 30minutes per day at least 3 days a week. May take fish oil 1000mg twice daily to help increase good cholesterol (HDL). Osteopenia of neck of left As you age, your bones weaken femur and can lead to injuries and fractures so keep your bones strong by doing weight bearing exercises in your daily routine like walkign , climbing stairs or lighting small weights 1-3 lbs. Also add yogurt, low fat milk, and cheese in moderation to diet as a source of calcium. Eating leafy green veggies are rich in vitamin K miri help stregnthen your bones.= bone density 2018 Osteopenia of neck of left femur due 08/2020 Constipation, unspecified increase fiber rich foods such constipation type as brocolli, salad, papaya etc, add sugar free metamucil in AM and consider adding probiotics for to improve healthy gut bacteria.--may try miralax otc as needed. 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 sx of hypoglycemia and insulin hyperglycemia History of TIA (transient low fat diet recognize symptoms ischemic attack) BMI 32.0-32.9,adult - lose weight by maintaining a low fat/cholesterol diet with increase in vegetables& fruits, avoiding sweets and processed snack foods and eating regular smaller portions rather than skipping meals.- incorporate 30-45 minutes of exercise such as brisk walking as tolerated daily beginning with a 15-20 minutes a day and patient may increase time of exercise as you get stronger.-Try to limit alcohol to no more than one drink a day- Recommend to try juicing/ eating salad for breakfast and lunch and regular meal at dinner.- To lose weight decrease daily caloric intake by 500 calories per day.- Advised to try raw vegetable/ fruit juicing or smoothies to include kale, spinach, celery, cucumber, green apples, carrots, beets, or fruits of choice along with adding sorin to soothe stomach and. Screening for osteoporosis due 08/3020 Treatment Notes Test Name Order Date Lipid Panel w/ Chol/HDL Ratio 2020-05-09 Comp. Metabolic Panel (14) (CMP) 2020-05-09 Hemoglobin A1c 2020-05-09 Urinalysis, Complete 2020-05-09 CBC With Differential/Platelet 2020-05-09 Microalbumin/Creat Ratio, Random Ur 2020-05-09 DEXA, BONE DENSITY AXIAL SKELE 2020-05-09 Next Appt Details 6 Months Reason: Provider Name:Doris Toscanog, 2020-11-06 08:0 0:00 AM, [address], [place], [address], Insurance Providers Payer Name Payer Address Payer Insured Patient Coverage Cover age Phone Name Relationship to Start Date End Date Insured MEDICARE Attn Part B [id number] Vick,Mar self 2014 [employer] [address] [facility] [id number] FOR [phone] Vick,Mar self 2014 [facility] [address] [phone]
--- OUTSIDE RECORDS SUMMARY | 2020-06-27 08:52 | XMS REPORT ---
:1950 Author Organization [facility] Address [address] 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 Problem BMI Z68.32 Active 772798891 32.0-32.9,adult Problem Constipation, K59.00 Active 22934529 unspecified constipation type Problem History of TIA Z86.73 Active 397327690 (transient ischemic attack) Problem HTN I10 Active 29341343 (hypertension) Problem Stroke I63.9 Active 317638014 Problem Diabetes E11.9 Active 861061730 ALLERGIES No Known Allergies ENCOUNTERS from 1950 to 2020-04-16 Encounter Location Date Provider Diagnosis [facility] Family [address] [facility] [address], [place] [address] IMMUNIZATIONS No Information SOCIAL HISTORY Tobacco Use: [...] REASON FOR REFERRAL No Information VITAL SIGNS No information MEDICATIONS Medication SIG (Take, Route, Frequency, Start Date End Date Status Duration) Jardiance 10 MG 1 tablet Orally Once a day Active Losartan Potassium-HCTZ 100-25 1 tablet Orally Once a day Active MG Diltiazem HCl ER 180 MG 1 capsule on an empty Active stomach in the morning Orally Twice a day Metformin HCl 500 MG 1 tablet with a meal Orally Active Once a day Trulicity 1.5mg/0.5ml 1 injection SQ once a week Active Atorvastatin Calcium 40 MG 1 tablet Orally Once a day Active Aspir-81 81 MG 1 tablet Orally Once a day Active PROCEDURES No Information RESULTS No Results REASON FOR VISIT covid negative MEDICAL (GENERAL) HISTORY Type Description Date Medical History High cholesterol Medical History Stroke Medical History HTN (hypertension) Medical History Diabetes Surgical History hysterectomy Surgical History hernia break in intestine wall 2015 Surgical History bone spur pink left toe 05/2019 Goals Section No Information Health Concerns No Information MEDICAL EQUIPMENT No Information MENTAL STATUS No Information FUNCTIONAL STATUS No Information ASSESSMENTS No Information PLAN OF TREATMENT Next Appt Details Provider Name:Doris Chung, 2020-05-08 08:2 0:00 AM, [address], [address], [place], [address], Insurance Providers Payer Name Payer Address Payer Insured Patient Coverage Cover age Phone Name Relationship to Start Date End Date Insured FOR [phone] Kinga Hickman self 2014 [facility] [address] [address] MEDICARE Attn Part B [id number] VickMar self 2014 [employer] Claims [address] [facility] [address]
--- OUTSIDE RECORDS SUMMARY | 2020-06-27 08:52 | XMS REPORT ---
:1950 Author Organization [facility] Address [address] 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 Family [address] [facility] [address], [place] [address] IMMUNIZATIONS No Information SOCIAL HISTORY Tobacco Use: [...] Information RESULTS No Results REASON FOR VISIT COVID test- Negative (04/14) MEDICAL (GENERAL) HISTORY Type Description Date Medical [...] OF TREATMENT Next Appt Details Provider Name:Doris Toscanog, 2020-05-08 08:2 0:00 AM, [address], [address], [place], [address], Insurance Providers Payer Name Payer Address Payer Insured Patient Coverage Cover age Phone Name Relationship to Start Date End Date Insured MEDICARE Attn Part B [id number] Kinga Hickman self 2014 [employer] Claims [address] [place] [address] FOR [phone] Kinga Hickman self 2014 [facility] [address] [address]
--- OUTSIDE RECORDS SUMMARY | 2020-06-27 08:52 | XMS REPORT ---
:1950 Author Organization [facility] Address [address] 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 280246638 use of insulin Problem BMI Z68.32 Active 386433186 32.0-32.9,adult Problem Constipation, K59.00 Active 04319587 unspecified constipation type Problem History of TIA Z86.73 Active 411383278 (transient ischemic attack) Problem HTN I10 Active 85384952 (hypertension) Problem Stroke I63.9 Active 173137043 Problem Diabetes E11.9 Active 398455897 ALLERGIES No Known Allergies ENCOUNTERS from 1950 to 2020-05-09 Encounter Location Date Provider Diagnosis [facility] Family 208 [facility] [address], [place] [address] IMMUNIZATIONS No Information SOCIAL HISTORY Tobacco Use: [...] No information MEDICATIONS Medication SIG (Take, Route, Notes Start [...] Information RESULTS No Results REASON FOR VISIT Bone density test MEDICAL (GENERAL) HISTORY Type Description Date Medical [...] Information ASSESSMENTS No Information PLAN OF TREATMENT Medication Medication Name Sig [...] MG 1 tablet Orally Once a day Next Appt Details Provider Name:Doris Chung, 2020-11-06 08:0 0:00 AM, [address], [address], [place], [address], Insurance Providers Payer Name Payer Address Payer Insured Patient Coverage Cover age Phone Name Relationship to Start Date End Date Insured MEDICARE Attn Part B [id number] Kinga Hickman self 2014 [employer] Claims [address] [facility] [address] FOR [phone] Vick,Mar self 2014 [facility] [address] [address]
--- OUTSIDE RECORDS SUMMARY | 2020-06-27 08:52 | XMS REPORT | Encounter Summary ---
:1950 Author Care Team Providers Name Role Phone Dr. Riley Chicas Primary Care Provider [phone] Reason for Visit Hyperlipidemia; Multiple complications d ue to type 2 diabetes mellitus; Benign essential hypertension; Bilateral glauco ma; annual depression screening Instructions 1. Multiple complications due to type 2 diabetes mellitus glucose, fingerstick, bloo d hemoglobin A1C, fingerstic k Trulicity 4.5 mg/0.5 mL spears bcutaneous pen injector 2. Benign essential hypertension 3. Bilateral glaucoma 4. Hyperlipidemia high cholesterol: care ins tructions 5. Depression screening learning about depression 6. Morbid obesity learning about healthy nedra ght Discussion Note: None recorded. Plan of Care Reminders Provider Appointments Return to on or around [facility] Office 04/05/2020 MD [facility] Est Patient 07/06/2020 Angelica Us 8:30AM MD [facility] Lab Glucose, 04/05/2020 [facility] Fingerstick, Blood - Vito Hemoglobin 04/05/2020 [facility] a1C, Fingerstick - Vito Referral None recorded. Procedures None recorded. Surgeries None recorded. Imaging None recorded. Medications Name Start Date Adult Aspirin Regimen 81 mg tablet,delayed release Take 1 tablet every day by oral route. atorvastatin 40 mg tablet Take 1 tablet every day by oral route. diltiazem ER 180 mg capsule,24 hr,extended release Take 1 capsule every day by oral route. Jardiance 10 mg tablet Take 1 tablet every day by oral route. metformin ER 500 mg 24 hr tablet,extended release Take 1 tablet every day by oral route. Multi Vitamin olmesartan 40 mg-hydrochlorothiazide 25 mg tablet Take 1 tablet every day by oral route as directed. Simbrinza 1 %-0.2 % eye drops,suspension INSTILL 1 DROP INTO AFFECTED EYE(S) BY OPHTHALMIC ROU TE 3 TIMES PER DAY timolol 0.5 % eye drops INSTILL 1 DROP INTO AFFECTED EYE(S) BY OPHTHALMIC ROU TE 2 TIMES PER DAY Trulicity 4.5 mg/0.5 mL subcutaneous pen injector Inject 4.5 mg every week by subcutaneous route as dir ected for 90 days. Medications Administered None recorded. Vitals Height Weight BMI Blood Pressure 5 ft 195.6 lbs 38.2 kg/m2 138/76 mm[Hg] Results Lab Results Date Name Specimen Result Interpretation Description Value Range Status Address Hemoglobin a1C, Hemoglobin a1C 7.4 [facility] Fingerstick Fingerstick: Medical - Vito: [address] [facility] [address], [place] Glucose, Blood Glucose: 137 [facility] Fingerstick, mg/dl [facility] adrian - Blood [place]: [address] [facility] [address], [place] Allergies Code Code System Name Reaction Severity Status Onset NKDA Problems Name Status Onset Date Source Hypoglycemia Active 03/25/2017 Hyperlipidemia Active 03/25/2017 Hyperproteinemia Active 03/25/2017 Anxiety Disorder Active 03/25/2017 Essential Hypertension Active 03/25/2017 Cerebrovascular Disease Active 03/25/2017 Peripheral Vascular Disease Active 03/25/2017 Body Mass Index 40+ - Severely Obese Active 03/25/2017 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 2 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 Active 03/08 Bilateral Glaucoma Active 08/09/2018 Type 2 Diabetes Mellitus Active 03/22/2020 Benign Essential Hypertension Active 03/22/2020 Procedures Date Name Performed by 10/06/2016 Hernia Repair Information not avai lable Uterine Myomectomy Information not avai lable Hysterectomy (Total) Information not bryn ilable Vaccine List Vaccine Type influenza, injectable, quadrivalent 03/08/2020 pneumococcal polysaccharide PPV23 03/08/2020 Social History Tobacco Smoking Status Never Smoker Past Encounters Encounter Date Diagnosis Provider 04/05/2020 Multiple Complications Due to Riley German MD: Type 2 Diabetes Mellitus; [address] Benign Essential Hypertension; [place], [address], Bilateral Glaucoma; [place] [address], Hyperlipidemia; Depression Ph. [phone] Screening; Morbid Obesity History of Present Illness Diabetes F/U Reported By: Patient HPI: Review finger sticks: monito ring glucose 3 times per day. Labs: last A1C result: 7.4%. Context: seealec g eye doctor regularly. Associated Symptoms: no weight gain, no dizziness , no increased thirst, no increased urination, no blurred vision , no numbness of feet, weight loss (1 lbs) Notes: Diabetes Education: discusse d with pt about her a1c of 7.4. it's the same as december of 7.5. she adm its to being off track with food and exercise choices.<div>-pt is ready to get serious again about her habits. she is going to cut out the junk in her eating.</div><div>-pt will get back to more days o f walking to 3 - 4x/wk.</div><div>-pt had trouble in summer due to hea t with walking and was doing less.</div><div>
</div><d iv>30 minutes of diabetes education performed today</div> Note: The patient is here for follow up of DM2. Review of Systems Comprehensive General Adult ROS Reported By: Patient Constitutional: Constitutional: no fever, no night sweats Eyes: Eyes: no dry eyes, no vision change ENMT: Ears: no difficulty hearing, no ear pain. Mouth/Throat: no sore throat Cardiovascular: Cardiovascular: no chest humphrey n, no shortness of breath when walking, no palpitations Respiratory: Respiratory: no cough, no wh eezing, no shortness of breath Gastrointestinal: Gastrointestinal: no abdomin al pain, no nausea, no vomiting, no constipation, no diarrhea Musculoskeletal: Musculoskeletal: no muscle a ches, no muscle weakness, no arthralgias/joint pain, no b ack pain, swelling in the extremities Integumentary: Skin: no rashes Neurologic: Neurologic: no weakness, no dizziness, no headaches Psychiatric: Psych: no depression, no sle ep disturbances, no anxiety Endocrine: Endocrine: no fatigue Allergic/Immunologic: Allergy/Immunologic: no itch ing Physical Exam General Adult Exam (Female) Reported By: Patient Constitutional: General Appearance: healthy- appearing, well-nourished, well-developed. Level of Dis tress: NAD. Ambulation: ambulating normally Psychiatric: Mental Status: active and al ert Head: Head: normocephalic, atrauma tic Eyes: Pupils: PERRLA. Sclerae: non -icteric Lungs: Auscultation: breath sounds normal, good air movement, no wheezing, no rales/crackles Cardiovascular: Heart Auscultation: RRR, nor mal S1, normal S2; 1/6 Murmur Abdomen: Bowel Sounds: normal. Inspec tion and Palpation: soft, no tenderness Musculoskeletal:: Motor Strength and Tone: nor mal motor strength. Extremities: no cyanosis, no edema Neurologic: Gait and Station: normal gai t Skin: Inspection and palpation: no rash, no lesions
--- OUTSIDE RECORDS SUMMARY | 2020-06-27 08:52 | XMS REPORT ---
:1950 Author Organization [facility] Address [address] 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 753180715 use of insulin Problem BMI Z68.32 Active 694037903 32.0-32.9,adult Problem Constipation, K59.00 Active 59599330 unspecified constipation type Problem History of TIA Z86.73 Active 507795714 (transient ischemic attack) Problem HTN I10 Active 33249397 (hypertension) Problem Stroke I63.9 Active 013823653 Problem Diabetes E11.9 Active 815913721 ALLERGIES No Known Allergies ENCOUNTERS from 1950 to 2020-04-15 Encounter Location Date Provider Diagnosis [facility] [address] [facility] [place] [facility] Apr, Doris Nugent se exposure to 2019 Family Medicine [address] [place] [address] [place] [address] Z20.828 IMMUNIZATIONS No Information SOCIAL HISTORY Tobacco Use: [...] a day Active PROCEDURES No Information RESULTS Component Value Reference Range Novel Coronavirus (COVID-19), SUZANNE Reviewed date:04/14/2020 12:19:34 Interpretation: Negative Performing Lab:, [facility], [address] [place] [address] [address], [place], [place] [id number], Phone - [phone], Director - [facility] SARS-CoV-2, SUZANNE Not Detected Not Detected Inpatient Reviewed date:04/14/2020 12:19:35 Interpretation: Negative Performing Lab:, [facility], [address] [place] [address] [address], [place], [place] [id number], Phone - [phone], Director - [facility] Inpatient REASON FOR VISIT exposed to COVID [phone], Telephone Only Visit, NLV- close covid, diarrhea headache MEDICAL (GENERAL) HISTORY Type Description Date Medical History High cholesterol Medical History Stroke Medical History HTN (hypertension) Medical History Diabetes Surgical History hysterectomy Surgical History hernia break in intestine wall 2015 Surgical History bone spur pink left toe 05/2019 Goals Section No Information Health Concerns No Information MEDICAL EQUIPMENT No Information MENTAL STATUS No Information FUNCTIONAL STATUS No Information ASSESSMENTS Encounter Date Diagnosis Notes Apr, Close exposure to 2019 novel coronavirus (ICD-10 - Z20.828) PLAN OF TREATMENT Next Appt Details prn Reason: Provider Name:Doris Chung, 2020-05-08 08:2 0:00 AM, [address], [place], [address], Insurance Providers Payer Name Payer Address Payer Insured Patient Coverage Cover age Phone Name Relationship to Start Date End Date Insured MEDICARE Attn Part B [id number] Vick,Mar self 2014 [employer] Claims [address] [place] [address] FOR [phone] Vick,Mar self 2014 [facility] [address] [address]
--- NOTE | 2020-06-27 09:03 | RAD REPORT ---
EXAM DESCRIPTION: CT - Head Brain Wo Cont - 06/27/2020 8:56 am CLINICAL HISTORY: Numbness COMPARISON: 2019 TECHNIQUE: Computed axial tomography of the head was obtained. IV contrast was not requested. All CT scans are performed using dose optimization technique as appropriate and may include automated exposure control or mA/KV adjustment according to patient size. FINDINGS: An intracranial bleed is not seen . The ventricles are normal in caliber. No extra-axial fluid collection is noted. Empty sella turcica Fluid within the sinuses/ mastoids is not seen. IMPRESSION: No acute intracranial abnormality is seen. If patient's symptoms persist MRI of the bra in would be recommended.
[2020-06-27 09:43] LABS: Absolute Lymphocytes (CBC) 2.6 K/uL (0.7-4.9); Basophils % 0.5 % (0-1.3); Hematocrit 37.9 % (36.0-45.0); Lymphocytes % 29.1 % (15.3-44.8); MPV 8.5 fL (7.6-11.3); Potassium 3.5 mmol/L (3.5-5.1)
--- NOTE | 2020-06-27 09:55 | RAD REPORT ---
EXAM DESCRIPTION: RAD - Hand Right 3 View - 06/27/2020 9:20 am CLINICAL HISTORY: Right hand pain status post injury FINDINGS: No fracture or dislocation is seen involving the hand. The bones are osteoporotic. No additional significant bone or joint abnormality noted
--- NOTE | 2020-06-27 09:55 | RAD REPORT ---
EXAM DESCRIPTION: RAD - Wrist Right 3 View - 06/27/2020 9:20 am CLINICAL HISTORY: Wrist swelling FINDINGS: Small bony density within the dorsal aspect of the wrist may represent an avulsion fractur e from the triquetrum. Age is indeterminate. Osteoporosis. No additional significant bone or joint abnormality seen
--- NOTE | 2020-06-27 10:34 | EDPHYS ---
Physician Documentation [facility] Name: Chiquis Hickman Age: 69 yrs Sex: Female : 1950 Arrival Date: 06/27/2020 Time: 08:29 Bed Ultrasound Private MD: ED Physician Jb Ramos HPI: 06/27 09:05 This 69 yrs old Black Female presents to ER via Ambulatory with complaints of Hand rn Swelling, Numbness Of Arm. 09:05 The patient or guardian complains of swelling. The complaints affect the right hand. rn Onset: The symptoms/episode began/occurred 2 day(s) ago. Modifying factors: The symptoms are alleviated by nothing. the symptoms are aggravated by nothing. Severity of symptoms: At their worst the symptoms were moderate, in the emergency department the symptoms are unchanged. The patient has not experienced similar symptoms in the past. The patient has not recently seen a physician. Reports 2 days of right hand swelling, no known trauma, reports tends to fall asleep on couch, thinks hand wrist bent wrong, denies pain, reports 1st day was feeling cold, now feels warmer, no fever. NO fall. Reports tingling to left hand, 3rd/4th/5th digits, intermittent, since this AM. Denies weakness of left arm or leg. Hx of CVA with weakness left side, states feels different. Has been using left arm more due to problems with right hand recently. . Historical: - Allergies: 08:47 steroids; ss - PMHx: 08:47 CVA; Diabetes - IDDM; Hyperlipidemia; Hypertension; LEFT SIDED WEAKNESS; TIA; ss - PSHx: 08:47 fibroid tumor removed; Hysterectomy; ss - Immunization history:: Adult Immunizations up to date. - Social history:: Smoking status: Patient denies any tobacco usage or history of. - Family history:: not pertinent. - Hospitalizations: : No recent hospitalization is reported. ROS: 09:05 Constitutional: Negative for fever, chills, and weight loss, Eyes: Negative for injury, rn pain, redness, and discharge, Neck: Negative for injury, pain, and swelling, Cardiovascular: Negative for chest pain, palpitations Respiratory: Negative for shortness of breath, cough, wheezing, and pleuritic chest pain, Abdomen/GI: Negative for abdominal pain, nausea, vomiting, diarrhea, and constipation, MS/Extremity: + swelling right hand Skin: Negative for injury, rash, and discoloration, Neuro: Negative for headache, weakness, and seizure. Exam: 09:05 Constitutional: This is a well developed, well nourished patient who is awake, alert, rn and in no acute distress. Head/Face: Normocephalic, atraumatic. Cardiovascular: Regular rate and rhythm. No pulse deficits. Respiratory: No increased work of breathing, no retractions or nasal flaring. Skin: Warm, dry, no cyanosis. MS/ Extremity: Pulses equal, no cyanosis. Neurovascular intact. + right hand and wrist circumferential swelling without streaking/redness, no open wounds, no signs of trauma. Right hand/wrist held in passive flexion, with inability to dorsiflex right wrist. No focal tenderness or fluctuance. Neuro: Awake and alert, GCS 15, oriented to person, place, time, and situation. Cranial nerves II-XII grossly intact. Motor strength 5/5 in all extremities except right wrist/hand with wrist drop. Sensory grossly intact. Cerebellar exam normal. Normal gait. Vital Signs: 08:44 BP 112 / 78; Pulse 67; Resp 16; Pulse Ox 99% ; Pain 0/10; hb 10:30 BP 126 / 76; Pulse 68; Resp 15; Pulse Ox 99% on R/A; hb MDM: 08:34 Patient medically screened. rn 10:30 Differential diagnosis: wrist drop, DVT, trauma, radiculopathy, cellulitis. Data rn reviewed: vital signs, nurses notes, lab test result(s), radiologic studies, CT scan, plain films, ultrasound, and as a result, I will discharge patient. Counseling: I had a detailed discussion with the patient and/or guardian regarding: the historical points, exam findings, and any diagnostic results supporting the discharge/admit diagnosis, lab results, radiology results, the need for outpatient follow up, to return to the emergency department if symptoms worsen or persist or if there are any questions or concerns that arise at home. Special discussion: I discussed with the patient/guardian in detail that at this point there is no indication for admission to the hospital. It is understood, however, that if the symptoms persist or worsen the patient needs to return immediately for re-evaluation. ED course: CT head neg for acute abnormality, xrays without acute abnormality, most likely wrist drop 2/2 sleeping position a couple of days ago, will put on abx given unclear story and slight elevation in procal, normal WBC. U/S neg for dvt and arterial u/s neg as well. . 06/27 08:45 Order name: CBC with Diff; Complete Time: 10:22 rn 06/27 08:45 Order name: Basic Metabolic Panel; Complete Time: 10:22 rn 06/27 08:45 Order name: XRAY Wrist RIGHT 3 view; Complete Time: 10:22 rn 06/27 08:47 Order name: Procalcitonin; Complete Time: 10:29 rn 06/27 08:45 Order name: IV Start; Complete Time: 09:16 rn 06/27 08:46 Order name: XRAY Hand RIGHT 3 View; Complete Time: 10:22 rn 06/27 08:46 Order name: CT Head Brain wo Cont; Complete Time: 09:05 rn 06/27 09:15 Order name: Upper Ext Artery Uni Danny EDKY 06/27 09:16 Order name: UPPER EXTREMITY VENOUS UNILATE EDKY 06/27 10:30 Order name: Splint - Volar Wrist Splint; Complete Time: 10:46 rn Administered Medications: No medications were administered Disposition: 06/27/20 10:34 Discharged to Home. Impression: Wrist drop, right wrist, Paresthesia of skin. - Condition is Stable. - Discharge Instructions: Paresthesia, Radial Nerve Palsy, Wrist Splint. - Prescriptions for Clindamycin HCl 300 mg Oral Capsule - take 1 capsule by ORAL route every 6 hours for 10 days; 40 capsule. - Medication Reconciliation Form, Thank You Letter, Antibiotic Education, Prescription Opioid Use form. - Follow up: Private Physician; When: 2 - 3 days; Reason: Recheck today's complaints, Re-evaluation by your physician. - Problem is new. - Symptoms have improved. Signatures: Dispatcher [employer] EDKY Jb Ramos MD MD rn Smirch, Shelby, RN RN Doreen Mojica RN RN Corrections: (The following items were deleted from the chart) 08:52 08:46 Ankle Left 2 View+RAD.RAD.BRZ ordered. EDMS EDMS 09:15 08:46 Lower Extremity Artery Uni Ltd+US.RAD.BRZ ordered. EDMS EDMS 09:17 08:46 Extremity Venous Uni Ltd+US.RAD.BRZ ordered. EDMS EDMS 11:06 10:34 06/27/2020 10:34 Discharged to Home. Impression: Wrist drop, right wrist; hb Paresthesia of skin. Condition is Stable. Forms are Medication Reconciliation Form, Thank You Letter, Antibiotic Education, Prescription Opioid Use. Follow up: Private Physician; When: 2 - 3 days; Reason: Recheck today's complaints, Re-evaluation by your physician. Problem is new. Symptoms have improved. rn
--- NOTE | 2020-06-27 10:34 | ER ---
Nurse's Notes [facility] Name: Chiquis Hickman Age: 69 yrs Sex: Female : 1950 Arrival Date: 06/27/2020 Time: 08:29 Bed Ultrasound Private MD: Diagnosis: Wrist drop, right wrist;Paresthesia of skin Presentation: 06/27 08:43 Chief complaint: Patient states: R hand/ wrist swelling that began 2 days ago. No known ss injury and tingling to L third, fourth and fifth fingers that she noticed when she woke up this morning. Coronavirus screen: Client denies travel out of the [place] in the last 14 days. Ebola Screen: Patient denies exposure to infectious person. Patient denies travel to an Ebola-affected area in the 21 days before illness onset. Initial Sepsis Screen: Does the patient meet any 2 criteria? No. Patient's initial sepsis screen is negative. Does the patient have a suspected source of infection? No. Patient's initial sepsis screen is negative. Risk Assessment: Do you want to hurt yourself or someone else? Patient reports no desire to harm self or others. Onset of symptoms was June 25, 2020. 08:43 Method Of Arrival: Ambulatory ss 08:43 Acuity: ROSALBA 3 ss Historical: - Allergies: 08:47 steroids; ss - PMHx: 08:47 CVA; Diabetes - IDDM; Hyperlipidemia; Hypertension; LEFT SIDED WEAKNESS; TIA; ss - PSHx: 08:47 fibroid tumor removed; Hysterectomy; ss - Immunization history:: Adult Immunizations up to date. - Social history:: Smoking status: Patient denies any tobacco usage or history of. - Family history:: not pertinent. - Hospitalizations: : No recent hospitalization is reported. Screenin:32 Abuse screen: Denies threats or abuse. Denies injuries from another. Nutritional hb screening: No deficits noted. Tuberculosis screening: No symptoms or risk factors identified. Fall Risk None identified. Assessment: 08:32 General: Appears in no apparent distress. Behavior is calm, cooperative. Pain: Denies hb pain. Neuro: Level of Consciousness is awake, alert, obeys commands, Oriented to person, place, time, situation. Cardiovascular: Capillary refill < 3 seconds Patient's skin is warm and dry. Respiratory: Airway is patent Respiratory effort is even, unlabored, Respiratory pattern is regular, symmetrical. GI: No signs and/or symptoms were reported involving the gastrointestinal system. : No signs and/or symptoms were reported regarding the genitourinary system. EENT: No signs and/or symptoms were reported regarding the EENT system. Derm: Skin is pink, warm \T\ dry. Musculoskeletal: Reports right hand and wrist swelling, tingling in left hand. 09:30 Reassessment: Patient appears in no apparent distress at this time. No changes from hb previously documented assessment. Patient and/or family updated on plan of care and expected duration. Pain level reassessed. 10:30 Reassessment: Patient appears in no apparent distress at this time. No changes from hb previously documented assessment. Patient and/or family updated on plan of care and expected duration. Pain level reassessed. Vital Signs: 08:44 BP 112 / 78; Pulse 67; Resp 16; Pulse Ox 99% ; Pain 0/10; hb 10:30 BP 126 / 76; Pulse 68; Resp 15; Pulse Ox 99% on R/A; hb ED Course: 08:29 Patient arrived in ED. ds1 08:32 Patient has correct armband on for positive identification. Bed in low position. Call hb light in reach. Side rails up X 1. 08:34 Jb Ramos MD is Attending Physician. rn 08:46 Triage completed. ss 08:47 Arm band placed on right wrist. ss 08:53 Doreen Mojica, CARIE is Primary Nurse. hb 08:57 CT Head Brain wo Cont In Process Unspecified. EDMS 09:06 X-ray(s) taken. sv 09:12 Inserted saline lock: 20 gauge in right antecubital area, using aseptic technique. hb Blood collected. 09:20 XRAY Wrist RIGHT 3 view In Process Unspecified. EDMS 09:20 XRAY Hand RIGHT 3 View In Process Unspecified. EDMS 09:53 Upper Ext Artery Uni Danny In Process Unspecified. EDMS 09:53 UPPER EXTREMITY VENOUS UNILATE In Process Unspecified. EDMS 10:47 Velcro wrist splint applied to right wrist. dh3 10:53 No provider procedures requiring assistance completed. IV discontinued, intact, hb bleeding controlled, No redness/swelling at site. Administered Medications: No medications were administered Outcome: 10:34 Discharge ordered by . rn 10:53 Discharged to home ambulatory. hb 10:53 Condition: stable 10:53 Discharge instructions given to patient, Instructed on discharge instructions, follow up and referral plans. medication usage, Demonstrated understanding of instructions, follow-up care, medications, Prescriptions given X 1. 11:06 Patient left the ED. Signatures: Dispatcher [employer] EDMS Carmenza Olivas RN RN sv Sanford, Demi ds1 Jb Ramos MD MD rn Smirch, Shelby, RN RN ss Baxter, Heather, RN RN Andi, Jayashree 3
[2020-06-27 11:10] VITALS: O2SAT 99
[2020-06-27 11:11] VITALS: BP 126/76
--- NOTE | 2020-06-27 12:08 | RAD REPORT ---
EXAM DESCRIPTION: US - UPPER EXTREMITY VENOUS UNILATE - 06/27/2020 9:53 am CLINICAL HISTORY: Right upper extremity swelling COMPARISON: None. FINDINGS: The right internal jugular, subclavian, brachial, axillary, cephalic, basilic, radial and ulnar veins demonstrate phasic signal. The veins are generally compressible. Doppler demonstrates good flow IMPRESSION: No evidence of thrombus involving the right upper extremity
--- NOTE | 2020-06-27 12:08 | RAD REPORT ---
EXAM DESCRIPTION: US - Upper Ext Artery Uni Danny - 06/27/2020 9:53 am CLINICAL HISTORY: Right right arm swelling COMPARISON: None FINDINGS: The right common carotid, subclavian, axillary, brachial, radial and ulnar arteries are pa tent without significant stenosis. Waveforms are generally biphasic. IMPRESSION: No significant stenosis/occlusion arteries right upper extremity
== END 2020-06-27 11:06 | disposition home or self-care (01) ==
LOC: ER 08:27
DX: M21.331 Wrist drop, right wrist (principal)
CPT/HCPCS: 36415; 70450; 80048; 84145; 85025; 93931; 93971; 99284

== ENCOUNTER 2020-10-19 03:14 | Observation (INO) | payer OTHER ==
--- OUTSIDE RECORDS SUMMARY | 2020-10-19 03:19 | XMS REPORT | Continuity of Care Document ---
:1950 Author Organization [facility] t Address [address] [place] [address] Care Team Providers Name Role Phone Blade Attending Clinician Robin Wright Admitting Clinician Problems Condition Condition Condition Status Onset Resolution Last Treating Co mments Source Name Details Category Date Date Treatment Clinician Date Obesity Obesity Problem Active [place] 1-29 Family 00:00: Practic 00 e Foot Foot Problem Active [facility] callus Callus 1-29 Family 00:00: Practic 00 e Abnormal Abnormal Problem Active Garcia ge foot pulse Foot Pulse -29 Fa gaurang 00:00: Practic 00 e Type 2 Type 2 Problem Active 2019-06 [facility] diabetes Diabetes 0-15 Family mellitus Mellitus 00:00: Practi c 00 e Benign Benign Problem Active 2019-06 Village essential Essential 0-15 Fami ly hypertensi Hypertensi 00:00: Pr actic on e Bilateral Bilateral Problem Active Shayy richard glaucoma Glaucoma 3-04 Family 00:00: Practic 00 e Glaucoma Glaucoma Problem Active Garcia ge 3-04 Family 00:00: Practic 00 e Hypoglycem Hypoglycem Problem Active 2016-06 V illage ia ia 0-18 Family 00:00: Practic 00 e Hyperlipid Hyperlipid Problem Active 2016-06 [facility] emia emia 0-18 Family 00:00: Practic 00 e Hyperprote Hyperprote Problem Active 2016-06 [facility] inemia inemia 0-18 Family 00:00: Practic 00 e Anxiety Anxiety Problem Active 2016-06 [place] disorder Disorder 0-18 Family 00:00: Practic 00 e Essential Essential Problem Active 2016-06 Shayy richard hypertensi Hypertensi 0-18 Fa gaurang on on 00:00: Practic 00 e Cerebrovas Cerebrovas Problem [...] Practic diabetes Diabetes 00 e mellitus Mellitus Bisalbumin Bisalbumin Problem Active 2016-06 [facility] ill[facility] emia emia 0-18 Family 00:00: Practic 00 e Syncope Syncope Problem Active 2016-06 Village and and 0-18 Family collapse Collapse 00:00: Practi c 00 e Retinopath Retinopath Problem Active 2016-06 [facility] ill[facility] y due to y Due to 0-18 Family diabetes Diabetes 00:00: Practi c mellitus Mellitus 00 e General General Problem Active 2016-06 Village finding of Finding of 0-18 Priscila merlos observatio Observatio 00:00: Pr actic n of n of 00 e patient Patient SNOMED CT SNOMED CT Problem Active 2016-06 Shayy ramos Concept Concept 0-18 Family 00:00: Practic 00 e Finding by Finding by Problem Active 2016-06 [facility] illage site Site 0-18 Family 00:00: Practic 00 e Venous Venous Problem Active 2016-06 [facility] finding Finding 0-18 Family 00:00: Practic 00 e Finding of Finding of Problem Active 2016-06 [facility] ill[facility] urine Urine 0-18 Family substance Substance 00:00: Prac tic level Level 00 e Under Under Problem Active 2016-06 [place] immunized Immunized 0-18 Fami ly 00:00: Practic 00 e CVA Diagnosis Active 2017-01-04 Mem oria 01-04 15:59:00 l CVA 00:00: [place] 00 Active 01/04/2017 [facility] LF Diagnosis Active 2017-01-04 Mem oria #[id number](CVA) 01-04 13:40:00 l LF 00:00: Jorge #[id number](CVA) 00 Active 01/04/2017 [facility] APHASIA,AC Diagnosis Active 2017-01-05 Memoria BUSTER LEFT 01-04 18:52:00 l SIDED 00:00: Jorge WEAKNESS APHASIA,AC 00 BUSTER LEFT SIDED WEAKNESS Active 01/04/2017 [facility] Onychomyco Onychomyco Problem Active V illage sis sis Family Practic e Disorder 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 Due Fa gaurang to type 2 to Type 2 Prac tic diabetes Diabetes e mellitus Mellitus Hypertensi Hypertensi Problem Active V illage ve ve Family disorder Disorder Practi c e Eruption Eruption Problem Active Garcia ge Family Practic e Localized Localized Problem Active Shayy richard edema Edema Family Practic e Elevated Elevated Problem Active Garcia ge levels of Levels of Fami ly transamina Transamina Pr actic se & se & e lactic Lactic acid Acid dehydrogen Dehydrogen ase ase Finding of Finding of Problem Active V illage body mass Body Mass Fami ly index Index Practic e IDDM - Problem Resolve 2012-07-15 Tong dulce 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 - [place] 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 Resolved Problem 07/15/2012 [facility] Cerebrovas Problem Resolve 2017-01-08 Memoria cular d 02:23:28 l accident Jorge (disorder) Cerebrovas cular accident (disorder) Resolved Problem 01/08/2017 [facility] Insulin-de Problem Resolve 2017-01-08 Memoria pendent d 02:23:28 l diabetes Jorge mellitus 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 (disorder)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 (disorder) Resolved Problem 01/08/2017 [facility] 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em oria leiomyoma d 02:23:28 l (disorder) Uterine Her shahid leiomyoma (disorder) Resolved Problem 01/08/2017 [facility] CVA Diagnosis Active 2012-07-19 Mem oria 21:51:00 l CVA Jorge Active [facility] APHASIA Diagnosis Active 2017-01-05 Me moria 18:52:00 l APHASIA [place] Active [facility] HTN - Problem Resolve 2012-07-15 Tong dulce Hypertensi d 13:51:43 l on HTN - [place] Hypertensi on Resolved Problem 07/15/2012 [facility] Transient Problem Resolve 2017-01-08 2017-01-08 Memoria ischemic d 06-08 02:23:28 02:23:28 l attack 00:00: Jorge (disorder) Transient 00 ischemic attack (disorder) Resolved 06/08/2002 Problem 01/08/2017 [facility] TIA Problem Resolve 2012-07-15 2012-07-15 Memoria d 06-08 13:51:43 13:51:43 l TIA 00:00: [place] 00 Resolved 06/08/2002 Problem 07/15/2012 [facility] Allergies, Adverse Reactions, Alerts Allergy Allergy Status Severity Reaction(s) Onset Inactive Treating Comm ents Source Name Type Date Date Clinician NKFA NKFA Active Memoria l [place] Steroids Steroids Active Memori a <sup>1</ <sup>1</ l sup> sup> [place] Social History Social Habit Start Date Stop Date Quantity Comments Source Social History 2017-01-04 2017-01-04 [facility] Kaela siuadolfo 22:04:12 22:04:12 Smoking Status Start Date Stop Date Source Never Smoker [facility] Family [facility] Medications Ordered Filled Start Stop Current Ordering Indication Dosage Frequency Signature Comments Components Source Medication Medication Date Date Medication? Clinician (SIG) Name Name Ativan No Notes: Memoria 01-05 (Same as: l 16:31: Ativan) [place] 00 Ativan No 2 mg, Memoria 01-05 Route: l 16:30: IVP, Drug form: INJ, ONCE, Dosing Weight 105.17, kg, PRN Anxiety, Start date: 01/05/17 11:30:00 CDT Insulin No Notes: Memoria Glargine 01-05 Same as: l 14:00: Lantus) Do not hold insulin without contacting prescriber WASTE: F/P - Black; E - Municipal Trash [facility] No Notes: Tong dulce 01-05 (Same l 14:00: as:Cardize [place] 00 m CD) Before meals. DO NOT CRUSH. aspirin 81 No Notes: Do Me moria mg tablet, 01-05 not crush l enteric 14:00: or chew. Johnny n coated 00 (Same As: Ecotrin) Plavix No Notes: Memoria 7-31 (Same As: l 14:00: Plavix) [place] 00 Tresiba Yes 20 unit, Memori a FlexTouch - SUB-Q, l 13:56: Bedtime, 0 [place] 00 Refill(s) Hydrochloro Yes 1 tab, PO, Memoria thiazide 25 -31 Daily, 0 l MG / 13:56: Refill(s) [place] valsartan 00 320 MG Oral Tablet [Diovan [...] l 02:00: Lipitor) Docusate No Notes: Memoria 30 (Same as: l 22:00: Colace) (Do Not Crush) Insulin No 60 Memoria regular 7-30 units) l 21:07: WASTE: F/P - Black; E - Municipal Trash Bin Stable for 28 days at room temperatur e Expires in days from ____Date Glucagon No 1 mg, Memoria 730 Route: IM, l 21:07: Drug form: PDR/INJ, PRN, Dosing Weight 122.33, kg, PRN [...] 02/03/17 16:06:00 CDT Acetaminoph No Notes: Do Leslie milian en 01-04 not exceed l 21:02: 4 gm/day. (Same as: Tylenol) Ondansetron No Notes: Tong dulce 01-04 (Same as: l 21:02: Zofran) MEDICATION WASTE Product Size: 4 mg Product Wasted: 0 mg Aspirin No Notes: Memoria 01-04 Take with l 20:15: food. iodixanol No [...] l oral tablet 14:00: [place] QPM, 30 tab, 1, 1, Substituti on Allowed, TAB Lantus No Lashay 38 unit, Mem oria 2-05 [place] 0.38 mL, l 00:00: [place] Route: SUB-Q, Drug form: INJ, QPM, Dosing [...] 30 day, Stop date: 08/11/12 8:00:00 valsartan 2012-0 No Lashay 160 mg, 1 Memoria 2-04 [place] tab, l 19:00: [place] Route: PO, Herm adolfo 00 Drug form: TAB, Daily, Dosing Weight 122.33, kg, Start date: 07/12/12 13:00:00, Duration: 30 day, Stop date: 08/11/12 9:00:00 diltiazem 2012-0 No Lashay 180 mg, 1 Memoria 2-04 [place] cap, l 19:00: [place] Route: PO, Herm adolfo 00 Drug form: ERCAP, Daily, Dosing Weight 122.33, kg, Start date: 07/12/12 13:00:00, Duration: 30 day, Stop date: 08/11/12 9:00:00 hydrochloro 2012-0 No Lashay 12.5 mg, 1 Memoria thiazide 2-04 [place] cap, l 19:00: [place] Route: [...] 30 day, Stop date: 08/11/12 9:00:00 pneumococca 2012- No SYSTEM 0.5 ml, M emoria l 23-valent 2-04 SYSTEM Route: IM, l vaccine 15:00: Drug Form: Herm adolfo 00 INJ, Daily, Start date: 07/12/12 9:00:00, Duration: 1 doses or times, Stop date: 07/12/12 9:00:00 pantoprazol No Bo Arthur 40 mg, Memoria e 2-04 Route: l 15:00: IVP, Drug Jorge 00 form: INJ, Daily, Dosing Weight 113.636, kg, Start date: 07/12/12 9:00:00, Duration: 30 day, Stop date: 08/10/12 9:00:00 Saline No Bo Atrhur 5 ml, Tong dulce Flush 0.9% 204 Route: l 03:00: IVP, Drug [place] 00 Form: INJ, Dosing Weight 113.636, kg, Q12H, Start date: 07/11/12 21:00:00, Duration: 30 day, Stop date: 08/10/12 9:00:00 docusate No Bo Arthur 100 mg, 1 Memoria 2-04 cap, l 03:00: Route: PO, [place] 00 Drug form: CAP, Q12H, Dosing Weight 113.636, kg, Start date: 07/11/12 21:00:00, Duration: 30 day, Stop date: 08/10/12 9:00:00 insulin No Bo Arthur 7 [facility], [facility] 2-04 0.07 mL, l human 02:51: Route: [place] recombinant 00 SUB-Q, 100 Drug form: units/mL SOLN, PRN, injectable Dosing solution Weight 122.33, kg, PRN Abnormal Lab Result, Start date: 07/11/12 20:51:00, Duration: 30 day, Stop date: 08/10/12 20:50:00 Dextrose No Bo Arthur 12.5 gm, Memoria 50% Syringe 2-04 25 mL, l 02:51: Route: Jorge 00 IVP, Drug Form: INJ, Dosing Weight 122.33, kg, PRN, PRN Abnormal Lab Result, Start date: 07/11/12 20:51:00, Duration: 30 day, Stop date: 08/10/12 20:50:00 Ativan 2012- No Bo Arthur 2 mg, 1 Me moria 2-04 mL, Route: l 01:59: IVP, Drug form: INJ, ONCE, Dosing Weight 122.33, kg, PRN Anxiety, Priority: STAT, Start date: 07/11/12 19:59:00 Lantus 2012- Yes 38 unit, Memoria Solostar 03 SUB-Q, l Pen 100 23:21: Bedtime, Johnny [...] 2-03 tab, PO, l tablet 23:19: Bedtime, [place] 30 30 tab, Substituti on Allowed, Maintenanc [...] 2-03 SUB-Q, l Pen 100 23:18: Before [place] units/mL 22 Breakfast, subcutaneou 10 ml, s [...] 0.9% 07-11 Route: l 22:11: IVP, Drug Jorge 00 Form: INJ, Dosing Weight 113.636, kg, PRN, PRN Line Flush, Start date: 07/11/12 16:11:00, Duration: 30 day, Stop date: 08/10/12 16:10:00 acetaminoph No Bo Arthur 650 mg, 2 Memoria en -03 tab, l 22:11: Route: PO, [place] 00 Drug form: TAB, Q4H, Dosing Weight 113.636, kg, PRN Pain/Fever , Start date: 07/11/12 16:11:00, Duration: 30 day, Stop date: 08/10/12 16:10:00 labetalol No Bo Arthur 10 mg, 2 Memoria 2-03 mL, Route: l 22:11: IVP, Drug [place] form: INJ, Q10Min, Dosing Weight 113.636, kg, PRN Hypertensi on, Start date: 07/11/12 16:11:00, Duration: 30 day, Stop date: 08/10/12 16:10:00, For SBP > 180mmHg and/or DBP > 105mmHg Omnipaque No Meagan 125 mL, Mem oria 350mg/ml 07-11 No Route: l 19:41: Homar IVP, Drug Radha [...] Memor ia 07-11 Elvin Route: l 18:35: Jax HERMAN, Drug He rm ani form: INJ, ONCE, Dosing Weight 113.636, kg, Priority: STAT, Start date: 07/11/12 12:35:00, Stop date: 07/11/12 12:35:00 Atorvastati Atorvastati Yes Na Chung [address] [facility] Calcium n Calcium [facility] Losartan Losartan Yes Na Chnug [address] [facility] Potassium-H Potassium-H [facility] Jardiance Jardiance Yes Na Chung [address] [facility] Trulicity Trulicity Yes Na Chung [address] [facility] Aspir-81 Aspir-81 Yes Na Chung [address] [facility] Diltiazem Diltiazem Yes Na Chung [address] [facility] HCl ER HCl ER on an [facility] Metformin Metformin Yes Na Chung [address] HCl HCl with a [facility] atorvastati atorvastati No atorvastat [facility] n 40 mg n 40 mg in 40 mg Famil y tablet Take tablet Take tablet Practic 1 tablet 1 tablet Take 1 e every day every day tablet by oral by oral every day route in route in by oral the evening the evening route in for 90 for 90 the days. days. evening for 90 days. diltiazem [facility] ER 180 mg ER 180 mg Family capsule,24 capsule,24 capsule,24 Practic hr,extended hr,extended hr,extende e release release d release Take 1 Take 1 Take 1 capsule capsule capsule every day every day every day by oral by oral by oral route. route. route. Jardiance Jardiance No Jardiance [facility] 10 mg 10 mg 10 mg Family tablet Take tablet Take tablet Practic 1 tablet 1 tablet Take 1 e every day every day tablet by oral by oral every day route for route for by oral 90 days. 90 days. route for 90 days. metformin metformin No 1 BID metformin Village ER 500 mg ER 500 mg ER 500 mg Family 24 hr 24 hr 24 hr Practic tablet,exte tablet,exte tablet,ext e nded nded ended release release release Take 1 Take 1 Take 1 tablet tablet tablet twice a day twice a day twice a by oral by oral day by route for route for oral route 90 days. 90 days. for 90 days. Multi Multi No Multi [place] Vitamin Vitamin Vitamin Family Practic e olmesartan olmesartan No olmesartan [facility] 40 40 40 Family mg-hydrochl mg-hydrochl mg-hydroch Practic orothiazide orothiazide lorothiazi e 25 mg 25 mg de 25 mg tablet Take tablet Take tablet 1 tablet 1 tablet Take 1 every day every day tablet by oral by oral every day route as route as by oral directed. directed. route as directed. [facility] No [facility] 0.02 0.02 0.02 Family %-0.005 % %-0.005 % %-0.005 % Practic eye drops eye drops eye drops e Simbrinza 1 Simbrinza 1 No Simbrinza [place] [...] DAY TIMES PER DAY Trulicity Trulicity No Trulicity [facility] 4.5 mg/0.5 4.5 mg/0.5 4.5 mg/0.5 [...] 90 directed days. days. for 90 days. acetazolami acetazolami No acetazolam [facility] de ER 500 de ER 500 carlos ER 500 Family mg mg mg Practic capsule,ext capsule,ext capsule,ex e ended ended tended release release release TAKE 1 TAKE 1 TAKE 1 CAPSULE BY CAPSULE BY CAPSULE BY MOUTH TWICE MOUTH TWICE MOUTH DAILY DAILY TWICE DAILY Adult Adult No 1 Q1D Adult [facility] Aspirin Aspirin Aspirin Family Regimen 81 Regimen 81 Regimen 81 Practic mg mg mg e tablet,allen tablet,allen tablet,del yed release yed release ayed Take 1 Take 1 release tablet tablet Take 1 every day every day tablet by oral by oral every day route. route. by oral route. Immunizations Ordered Immunization Filled Immunization Date Status Commen ts Source Name Name pneumococcal pneumococcal 2020-03-08 Completed [facility] gaurang polysaccharide PPV23 polysaccharide PPV23 00:00:00 Practice influenza, influenza, 2020-03-08 [facility] injectable, injectable, 00:00:00 Practice quadrivalent quadrivalent Vital Signs Vital Name Observation Time Observation Value Comments Source BP Diastolic 2020-10-04 00:00:00 90 mm[Hg] [facility] Height 2020-10-04 00:00:00 60 [in_i] [facility] BMI (Body Mass Index) 2020-10-04 00:00:00 35.3 kg/m2 [facility] BP Systolic 2020-10-04 00:00:00 150 mm[Hg] [facility] Body Weight 2020-10-04 00:00:00 181 [lb_av] [facility] BP Diastolic 2020-07-06 00:00:00 72 mm[Hg] [facility] Height 2020-07-06 00:00:00 60 [in_i] [facility] BMI (Body Mass Index) 2020-07-06 00:00:00 38.6 kg/m2 [facility] BP Systolic 2020-07-06 00:00:00 151 mm[Hg] [facility] Body Weight 2020-07-06 00:00:00 197.8 [lb_av] [facility] BP Diastolic 2020-04-05 00:00:00 76 mm[Hg] [facility] Height 2020-04-05 00:00:00 60 [in_i] [facility] BMI (Body Mass Index) 2020-04-05 00:00:00 38.2 kg/m2 [facility] BP Systolic 2020-04-05 00:00:00 138 mm[Hg] [facility] Body Weight 2020-04-05 00:00:00 195.6 [lb_av] [facility] Heart Rate 2017-01-05 20:07:00 [facility] [place] Temperature Oral (F) 2017-01-05 20:07:00 97.1 F [facility] Respitory Rate 2017-01-05 20:07:00 Memori al [place] Systolic (mm Hg) 2017-01-05 20:07:00 Tong rial [place] Diastolic (mm Hg) 2017-01-05 20:07:00 Mem orial [place] Systolic (mm Hg) 2017-01-05 17:44:00 Tong rial Jorge Diastolic (mm Hg) 2017-01-05 17:44:00 Mem orial [place] Respitory Rate 2017-01-05 17:44:00 Memori al Jorge Heart Rate 2017-01-05 17:44:00 [facility] [place] Temperature Oral (F) 2017-01-05 17:44:00 98.0 F [facility] [place] Systolic (mm Hg) 2017-01-05 12:03:00 Tong rial [place] Diastolic (mm Hg) 2017-01-05 12:03:00 Mem orial [place] Heart Rate 2017-01-05 12:03:00 [facility] [place] Respitory Rate 2017-01-05 12:03:00 Memori al Jorge Temperature Oral (F) 2017-01-05 12:03:00 96.8 F [facility] [place] BMI Calculated 2017-01-04 21:58:00 Memori al [place] Height 2017-01-04 21:58:00 165.1 cm [facility] Weight 2017-01-04 21:58:00 [facility] [place] Respitory Rate 2012-07-13 17:43:00 Memori al Jorge Diastolic (mm Hg) 2012-07-13 17:43:00 Mem orial [place] Systolic (mm Hg) 2012-07-13 17:43:00 Tong rial Jorge Temperature Oral (F) 2012-07-13 17:43:00 98.6 F [facility] Heart Rate 2012-07-13 17:43:00 [facility] [place] Diastolic (mm Hg) 2012-07-13 13:48:00 Mem orial [place] Systolic (mm Hg) 2012-07-13 13:48:00 Tong rial [place] Respitory Rate 2012-07-13 13:48:00 Memori al Jorge Temperature Oral (F) 2012-07-13 13:48:00 98.5 F [facility] [place] Heart Rate 2012-07-13 13:48:00 [facility] [place] Respitory Rate 2012-07-13 10:33:00 Memori al [place] Systolic (mm Hg) 2012-07-13 10:33:00 Tong rial Jorge Diastolic (mm Hg) 2012-07-13 10:33:00 Mem orial [place] Temperature Oral (F) 2012-07-13 10:33:00 97.8 F [facility] [place] Heart Rate 2012-07-13 10:33:00 [facility] [place] Height 2012-07-11 20:15:00 165.10 cm [facility] Weight 2012-07-11 20:15:00 [facility] Weight 2012-07-11 18:13:00 [facility] [place] Height 2012-07-11 18:13:00 165.10 cm [facility] [place] Procedures Procedure Date / Time Performed Performing Clinician [facility] e Hernia Repair 2016-10-06 [facility] y Practice Hyste[facility] (Total) [facility] Hysterectomy [facility] [place] <sup>1</sup> Cataract surgery [facility] Johnny n Hernia repair [facility] [place] Hysterectomy<sup>1</sup> Dave Patel Plan of Care Planned Activity Planned Date Details Comments Source Diagnostic Test 2020-10-04 TSH, serum or plasma Vill age Family Pending 00:00:00 [code = TSH, serum or Practi ce plasma] Diagnostic Test 2020-10-04 T4, free, serum [code Shayy richard Family Pending 00:00:00 = T4, free, serum] Practice Diagnostic Test 2020-10-04 glucose, fingerstick, Shayy ramos Family Pending 00:00:00 blood [code = Practice glucose, fingerstick, blood] Diagnostic Test 2020-10-04 hemoglobin A1C, Village Tomasz teran Pending 00:00:00 fingerstick [code = Practice hemoglobin A1C, fingerstick] Diagnostic Test 2020-10-04 microalbumin/creatini Shayy richard Family Pending 00:00:00 ne, mass ratio, urine Practi ce [code = microalbumin/creatini ne, mass ratio, urine] Diagnostic Test 2020-10-04 lipid panel, serum Villag e Family Pending 00:00:00 [code = lipid panel, Practic e serum] Diagnostic Test 2020-10-04 CMP, serum or plasma Vill age Family Pending 00:00:00 [code = CMP, serum or Practi ce plasma] Diagnostic Test 2020-10-04 CBC w/ auto diff [facility] Pending 00:00:00 [code = CBC w/ auto Practice diff] Future Appointment 2021-01-03 Riley Padron, Valerie [facility] 00:00:[address]; Practice [address], [place] [address] Future Appointment 2020-12-31 Valerie Lynch [facility] 08:15:[address]; Practice [address], [place] [address] Encounters Start End Encounter Admission Attending Care Care Encounter Source Date/Time Date/Time Type Type Clinicians Facility Department ID 2020-10-04 2020-10-04 Riley [facility] [place] - [id number] V illage 00:00:00 00:00:00 Abeba [facility] Family PadronAnuel - Practi vee MD: [id number] VM_HOU_Shad kenzie [address], [place] [address] , Ph. 2020-09-27 2020-09-[address] [facility] [id number] [facility] 00:00:00 00:00:00 [facility] 2020-08-24 2020-08-[address] [facility] [id number] [facility] St 00[facility]00[facility] 2020-07-18 2020-07-18 Outpatient [facility] [id number] [facility] 2020-07-11 2020-07-11 Outpatient [facility] [id number] [facility] 2020-07-06 2020-07-06 Riley P [place] - [id number] V illage 00:00:00 00:00:00 [facility], [facility] - Practi c : [id number] VM_HOU_Shad e [address] [facility], [address], [place] [address] , Ph. 2020-07-03 2020-07-03 Outpatient [facility] [id number] [facility] 2020-06-26 2020-06-26 Outpatient [facility] [id number] [facility] 2020-05-08 2020-05-08 Outpatient [facility] [id number] [facility] 2020-05-08 2020-05-08 Outpatient [facility] [id number] [facility] 2020-04-14 2020-04-14 Outpatient [facility] [id number] [facility] 2020-04-11 2020-04-11 Outpatient [facility] [id number] [facility] 2020-04-11 2020-04-11 Outpatient [facility] [id number] [facility] 2020-04-05 2020-04-05 Riley VFP [place] - [id number] V illage 00:00:00 00:00:00 [facility] Anuel Padron - Philip baxter MD: [id number] VM_HOU_Dani kenzie [address] [address] , Ph. 2020-02-10 2020-02-10 [facility] [id number] 10:00:00 10:00:00 t [place] [employer] [facility] [facility] - [address] [facility] Medicine Medicine Outpati ent Clinics 2020-02-10 2020-02-10 [facility] [id number] 10:00:00 10:00:00 t [place] [employer] [facility] 2019-12-19 2019-12-19 [facility] [id number] 11:12:00 11:12:00 t [place] [employer] [facility] - Drive [facility] Medicine Medicine Outpati ent Clinics 2019-12-07 2019-12-07 [facility] [id number] 09:40:00 09:40:00 [place] [employer] [facility] - SpecifiedBy [facility] Medicine l Medicine Outpati ent Clinics 2019-11-02 2019-11-02 [facility] [id number] [facility] 19:23:00 19:23:00 t [place] 3Jam s - SpecifiedBy [facility] Medicine l Medicine Outpati ent Clinics 2019-07-01 2019-07-01 [facility] [id number] [facility] 08:40:00 08:40:00 t [place] [employer] LuKaminario s - Drive [facility] Medicine l Medicine Outpati ent Clinics 2019-03-31 2019-03-31 [facility] [id number] 11:00:00 11:00:00 t [place] 3Jam s - [facility]ifiedBy [facility] Clinics 2019-02-02 2019-02-02 [facility] [id number] [facility] 09:20:00 09:20:00 t [place] [employer] LuKaminario s - Drive [facility] l Medicine Outpati ent Clinics 2018-12-30 2018-12-30 [facility] [id number] [facility] 08:20:00 08:20:00 t [place] 3Jam s - Drive [facility] 2018-09-29 2018-09-29 [facility] [id number] [address] 08:40:00 08:40:00 t [place] 3Jam s - Drive [facility] 2018-05-26 2018-05-26 [facility] [id number] 09:30:00 09:30:00 t [place] 3Jam s - Drive [facility] 2017-01-04 2017-01-05 Outpatient Kerry Murguian [facility] [id number] 13:23:00 20:55:00 67 Results Test Description Test [...] code = MCH) 29.7 pg 27.0-31.0 [facility] HhyvsxkYVTJMXQNPE4252-99-66 08:59:30523Dfqijloz HermannHEMATOLOGY 2017-01-05 08:59:000.6[facility] DgmnxgkXUEGWVDGWK3719-83-38 08:59:000.3[facility] JhgphcaZYSMBTPWJV6645-29-62 08:59:000.5[facility] TaozipqUZSLFRTRWN8654-53-04 08:59:002.8[facility] WldzmuoCQMIMNBETQ9750-68-28 08:59:004.2[facility] [place] IQBCPNZPTU2368-65-71 08:59:003.5[facility] FvyzbdcMYLZEQXOMG9726-98-87 08:59:00 53.3[facility] ToqhyzrFXIGSIFXUT2406-97-31 08:59:007.7[facility] HermannHEMATOLOGY 2017-01-05 08:59:0035.0[facility] DummpmxINRRXZ7104-57-50 08:59:0030[facility] RozfemyTNKOIL0096-63-29 08:59:0076[facility] JiduibwTPAFBO5485-63-43 08:59:88105 [facility] MkkanlfLRREIZ8255-63-20 08:59:0093[facility] CzleymuBDTNIA0568-07-19 08:59:0019[facility] EkyxakoJXIWKR3749-74-11 08:59:001.64[facility]ann[facility] AND VRJIB2048-52-56 19:36:000.2[facility] QUVRL4622-24-56 19:36:00 Negative (01/04/17 2:36 PM)[facility] BSRIB8909-85-89 19:36:00None Seen (01/04/17 2:36 PM)[facility] OVKTD5340-78-96 19:36:00None Seen (01/04/17 2:36 PM)[facility] PYMUZ0098-64-03 19:36:00None Seen (01/04/17 2:36 PM)[facility] TGHLX5593-90-46 19:36:00Negative (01/04/17 2:36 PM)[facility] ATPAJ5759-66-57 19:36:00Negative (01/04/17 2:36 PM)[facility] UAPPN2425-18-69 19:36:00 Test Item Value Reference Range Interpretation Comments UA pH (test code = UA pH) 6.5 1 5.0-8.0 [facility] DSSRG1741-14-00 19:36:00Negative (01/04/17 2:36 PM) [facility] RMSBN5128-58-15 19:36:00Yellow *NA*(01/04/17 2:36 PM) [facility] EQGFP4995-60-75 19:36:00Clear (01/04/17 2:36 PM) [facility] XFBYT3029-60-35 19:36:00 Test Item Value Reference Range Interpretation Comments UA Spec Grav (test code = UA Spec 1.018 1 Grav) [facility] KRYXG6299-89-13 19:36:00Negative *NA*(01/04/17 2:36 PM) [facility] DHCCZ5964-37-31 19:36:00Negative *NA*(01/04/17 2:36 PM) [facility]annCARDIAC LHQQFSE7615-21-85 18:26:000.4[facility] HermannCARDIAC QYFMTZB8257-24-74 18:26:19808Xapjrzem HermannCARDIAC UQDTQQQ7807-98-29 18:26:00 <0.02[facility] HermannCARDIAC NPFKLHR2634-07-05 18:26:000.6[facility] CHEM MXOYN1570-18-38 18:26:0067[facility] HermannCHEM VPOIG4484-06-78 18:26:003.8 [facility] HermannCHEM DROQG0950-45-25 18:26:0027[facility] HermannCHEM PANEL 2017-01-04 18:26:89537Gfngkdjb HermannCHEM JFRDQ1777-71-05 18:26:75936Jddbisuf HermannCHEM YVPRN8752-44-69 18:26:001.01[facility] HermannCHEM GKCED1504-17-48 18:26:009.4[facility] HermannCHEM MIFZA9027-42-65 18:26:0011.8[facility] HermannCHEM OZSVZ7216-39-64 18:26:0093[facility] HermannCHEM TDYSJ0140-49-41 18:26:0020 [facility] KnlcgbpODJQMGQNPQ2299-82-41 18:26:0036.2[facility] HermannHEMATOLOGY 2017-01-04 18:26:0054.9[facility] GnlntswOVOXYPMYOZ5126-79-59 18:26:006.6[facility] DlvgdyvAURXAEMDDC1898-00-99 18:26:004.5[facility] VatggzrOOMASDILQH1553-80-47 18:26:000.8[facility] MccdfcqWADKPFSCMJ0913-33-64 18:26:000.2[facility] BKPLQTSWXZ9408-59-77 18:26:000.1[facility] YrueyypVZHTDFUAPY6841-79-03 18:26:001.7 [facility] DwbsatqUMEUVLPHFK5183-36-56 18:26:006.8[facility] HermannHEMATOLOGY 2017-01-04 18:26:000.6[facility] JnolltdDEKYARINGS7668-72-92 18:26:0012.4[facility] OchfvzvMSFQDQQKYI0997-92-61 18:26:004.76[facility] RhfhiorUXYXALAECL3307-75-39 18:26:0015.8[facility] AbqstgfSLERQWMIKD1134-33-12 18:26:00 Test Item Value Reference Range Interpretation Comments MCH (test code = MCH) 28.2 pg 27.0-31.0 [facility] YqdewwrMCTRWEXEKN5875-26-29 18:26:0013.4[facility] HermannHEMATOLOGY 2017-01-04 18:26:0086.5[facility] HojqazuSGSNPGLDAV4756-64-58 18:26:0041.2[facility] QwbwhurGSZBTBJDKG8250-32-80 18:26:0032.6[facility] SehenunOFYOMGLXPJ1064-84-87 18:26:007.8[facility] DwkucrhGKFNMCUGSI7384-46-63 18:26:18372Hnyyozdf Jorge RJKHPTMOSM7926-55-01 18:26:000.88[facility] LuprpizTXSHHPFVPH2329-54-39 18:26:00 Test Item Value Reference Range Interpretation Comments PT (test code = PT) 12.1 s 12.0-14.7 [facility] VjimliqWTIAFRMKUX5443-38-30 18:26:00 Test Item Value Reference Range Interpretation Comments PTT (test code = PTT) 25.9 s 22.9-35.8 [facility] HermannCHEM QTALU8922-71-54 18:23:001.0[facility] HermannCHEM PANEL 2017-01-04 18:23:0067[facility] HermannBEDSIDE GLUCOSE BPVRDAW1083-47-15 17:55:00 260[facility] HermannBEDSIDE GLUCOSE TGPMOTG6485-55-72 12:03:94184Hlffevfc [place] BEDSIDE GLUCOSE DQWPVGE9272-86-74 03:24:21200Fdsrxgni TsnuxuyYBWJCARHU1823-19-09 07:19:0013.0[facility] CyuaddwNDCJZQNQB1829-17-03 07:19:0017[facility] QIICCMRGS8891-32-77 07:19:004.5[facility] VycttviCKKMNXEMZ9288-73-14 07:19:000.6 [facility] XuuyhmmSVXGFTSNQ8834-04-47 07:19:0079[facility] HermannCHEMISTRY 2012-07-12 07:19:002.8[facility] BcfmuucQKULHNAFS0255-49-93 07:19:0071[facility] TkkhulwDXNIZSBYV3894-06-55 07:19:25976Fhmdcayi QuvthtaEHZPCDNAQ5789-52-28 07:19:53275Xcqwszao ZmurlgkXNJFKPIPU5540-80-21 07:19:77290Nytimqzi Jorge NURSUJRHE3539-56-08 07:19:0015[facility] QxtisijOPXWAYJXN5300-82-35 07:19:000.9 [facility] DegndwtUVQKOIDPS7734-50-44 07:19:004.0[facility] HermannCHEMISTRY 2012-07-12 07:19:45023Llmtpmow LognlvyALLXCFJCM8076-38-89 07:19:008.5[facility] HmvcslvSBAHFETTG3514-59-35 07:19:000.4[facility] HfqefqqGGCIHBOER3154-28-74 07:19:0027[facility] HpeybcvWILGPTMPL1556-98-25 07:19:0054[facility] WYRXAOLTF9606-94-05 07:19:007.3[facility] GdurbcwVWISIFGZJ8618-12-29 07:19:0010.5 [facility] XytkqyzUZZEYQCVQ5632-50-10 07:19:0095[facility] HermannCHEMISTRY 2012-07-12 07:19:71620Hzkllsoc DqejntnDQEGFUXSF2202-94-86 07:19:02159Zvpztydh WwxajrlMKHGPSKUU7079-55-18 07:19:0059[facility] ThagaemBSCQDFFYW7645-57-48 07:19:003.05[facility] YjjkrneZUGLNRKTF3793-72-24 07:19:000.1[facility] HEVGLRXJOW3040-16-34 07:19:007.6[facility] HfbnmgeWFQCGECNSU5249-31-96 07:19:00 Test Item Value Reference Range Interpretation Comments MCH (test code = MCH) 31.2 pg 27.0-31.0 H [facility] OnaahpyPULCNYUEJE2725-16-14 07:19:0093.2[facility] HermannHEMATOLOGY 2012-07-12 07:19:003.97[facility] GgobzneCGYFRRXPYE2651-65-66 07:19:0013.7[facility] IygnanuYZRPRKDGFO0055-20-08 07:19:008.2[facility] CrjvylxEKQKNGLHMN8968-88-45 07:19:0037.0[facility] NwxlkztQWNEYAXMQF9779-40-29 07:19:0012.4[facility] DNQTAHOBNS0878-41-05 07:19:12691Qrcdckea ObmffnvTUGLNTKYPL7881-87-48 07:19:00 33.4[facility] MvuaybsRMQZIBBUZY8011-71-82 07:19:000.6[facility] HermannHEMATOLOGY 2012-07-12 07:19:000.6[facility] YigvroaJNAWGDYVOP9059-47-84 07:19:002.9[facility] IcgjkljQUYHSDWDOF6258-11-68 07:19:000.2[facility] CjqfzbiQJRWJWTULY9168-37-87 07:19:003.9[facility] MjwhjbhFNNTJQUEHF7307-27-54 07:19:0037.7[facility] BOMDRLZVBD3975-92-12 07:19:0051.1[facility] ZnnzyyhSVXBHJWWDE6533-55-65 07:19:00 2.8[facility] UaznbvoOQCHMVBCMT0472-27-99 07:19:007.8[facility] HermannHEMATOLOGY 2012-07-12 07:19:00 Test Item Value Reference Range Interpretation Comments PTT (test code = PTT) 30.1 s 22.9-35.8 [facility]lnerkiCKIWCWDURH9026-21-62 07:19:00 Test Item Value Reference Range Interpretation Comments PT (test code = PT) 13.4 s 12.0-14.7 [facility] HospitalNncybnmEZPRHXRAEQ1046-97-42 07:19:001.00[facility] HermannCHEMISTRY 2012-07-11 21:14:00See Note 7*NA*(07/11/2012 15:14:00)[facility] HermannCHEMISTRY 2012-07-11 21:14:00Negative *NA*(07/11/2012 15:14:00)[facility] HermannCHEMISTRY 2012-07-11 21:14:00Negative *NA*(07/11/2012 15:14:00)[facility] HermannCHEMISTRY 2012-07-11 21:14:00Negative *NA*(07/11/2012 15:14:00)[facility] HermannCHEMISTRY 2012-07-11 21:14:00Negative *NA*(07/11/2012 15:14:00)[facility] HermannCHEMISTRY 2012-07-11 21:14:00Negative *NA*(07/11/2012 15:14:00)[facility] HermannCHEMISTRY 2012-07-11 21:14:00Negative *NA*(07/11/2012 15:14:00)[facility] HermannCHEMISTRY 2012-07-11 21:14:00Negative *NA*(07/11/2012 15:14:00)[facility] HermannURINALYSIS 2012-07-11 21:14:0030 mg/dL *ABN*(07/11/2012 15:14:00)[facility] HermannURINALYSIS 2012-07-11 21:14:00Negative mg/dL *NA*(07/11/2012 15:14:00)[facility] LNOCRSKWXY9582-30-39 21:14:00Negative mg/dL *NA*(07/11/2012 15:14:00)[facility] FfdkwtpNCDNUVFCMR6441-41-77 21:14:00Negative *NA*(07/11/2012 15:14:00)[facility] HospitalSuhjkymJSDDBDDVPQ7542-35-11 21:14:007.5[facility] ZhyhbsaXWIZMZEVNS1254-41-22 21:14:001.040[facility] PfutiwjABAGOCPDJL1620-47-57 21:14:00Yellow *NA*(07/11/2012 15:14:00)[facility] VbfyoltKOHVHBLRIE3742-32-70 21:14:00Clear (07/11/2012 15:14:00)[facility] WxioxqdDNYBVQWDUX8066-93-26 21:14:001[facility] NZQGQPOWHW9336-86-71 21:14:004[facility] BqrwxqfDVOUGIUJSA8698-55-05 21:14:00Few /LPF *NA*(07/11/2012 15:14:00)[facility] EqfgleiNOHGBYQRDJ9900-45-87 21:14:00 Negative (07/11/2012 15:14:00)[facility] HkopaxkTSUQGFQLEY3859-91-99 21:14:00 Moderate /LPF *ABN*(07/11/2012 15:14:00)[facility] CbondbzABVRYYYTAT8767-58-62 21:14:00Small *ABN*(07/11/2012 15:14:00)[facility] DqlkgwzYDQVOJSMZY9290-17-42 21:14:00Negative (07/11/2012 15:14:00)[facility] [place]
[2020-10-19 03:57] LABS: Absolute Lymphocytes (CBC) 1.3 K/uL (0.7-4.9); Basophils % 0.6 % (0-1.3); Hematocrit 44.4 % (36.0-45.0); Lymphocytes % 13.7 % (15.3-44.8); MPV 8.2 fL (7.6-11.3); RBC Red Blood Cell Count 4.81 M/uL (3.86-4.86)
[2020-10-19] MEDS ORDERED: ONDANSETRON 4 MG/2 ML VIAL ONE ×2 (03:59→13:05)
[2020-10-19 04:05] LABS: Albumin 3.9 g/dL (3.4-5.0); Bilirubin Direct 0.2 mg/dL (0-0.2); Bilirubin Total 0.7 mg/dL (0.2-1.0); Protein, Total 10.2 g/dL (6.4-8.2)
[2020-10-19 04:06] LABS: Potassium 3.9 mmol/L (3.5-5.1)
--- NOTE | 2020-10-19 05:17 | EDPHYS ---
Physician Documentation [facility] Name: Chiquis Hickman Age: 69 yrs Sex: Female : 1950 Arrival Date: 10/19/2020 Time: 03:17 Bed 7 Private MD: ED Physician Jb Ramos HPI: 10/19 04:01 This 69 yrs old Black Female presents to ER via Wheelchair with complaints of Abdominal rn Pain, nausea, vomiting. 04:01 The patient presents to the emergency department with nausea, vomiting, abdominal pain, rn of the epigastric area. Onset: The symptoms/episode began/occurred just prior to arrival. Possible causes: bad food exposure, frozen strawberries and potstickers. The symptoms are aggravated by nothing. The symptoms are alleviated by nothing. Associated signs and symptoms: Pertinent positives: abdominal pain, nausea, vomiting, Pertinent negatives: diarrhea, fever, GI bleeding. Severity of symptoms: At their worst the symptoms were moderate in the emergency department the symptoms have improved. It is unknown whether or not the patient has had similar symptoms in the past. The patient has not recently seen a physician. Historical: - Allergies: 03:30 steroids; jb4 - Home Meds: 03:30 diltiazem HCl 360 mg Oral cpER 1 cap once daily [Active]; aspirin 81 mg Oral chew 1 tab jb4 once daily [Active]; atorvastatin 40 mg Oral tab 1 tab nightly [Active]; Jardiance 10 mg Oral tab 1 tab once daily [Active]; losartan-hydrochlorothiazide 100-25 mg Oral tab 1 tab once daily [Active]; metformin 500 mg Oral Tb24 1 tab once daily [Active]; multivitamin Oral tab daily [Active]; Tresiba FlexTouch U-100 100 unit/mL (3 mL) subcutaneous inpn 20 unit nightly [Active]; Trulicity 1.5 mg/0.5 mL subcutaneous pnij 0.5 mL Every [Active]; - PMHx: 03:30 CVA; Diabetes - IDDM; Hyperlipidemia; Hypertension; LEFT SIDED WEAKNESS; TIA; jb4 - PSHx: 03:30 fibroid tumor removed; Hysterectomy; jb4 - Immunization history:: Adult Immunizations up to date. - Social history:: Smoking status: Patient/guardian denies using tobacco, Patient/guardian denies using alcohol, street drugs. - Family history:: not pertinent. - Hospitalizations: : No recent hospitalization is reported. ROS: 04:01 Constitutional: Negative for fever, chills, and weight loss, Eyes: Negative for injury, rn pain, redness, and discharge, Neck: Negative for injury, pain, and swelling, Cardiovascular: Negative for chest pain, palpitations, and edema, Respiratory: Negative for shortness of breath, cough, wheezing, and pleuritic chest pain, Abdomen/GI: Negative for diarrhea, and constipation, Back: Negative for injury and pain, : Negative for injury, bleeding, discharge, and swelling, MS/Extremity: Negative for injury and deformity, Skin: Negative for injury, rash, and discoloration, Neuro: Negative for headache, weakness, numbness, tingling, and seizure. Exam: 04:01 Constitutional: This is a well developed, well nourished patient who is awake, alert, rn and in no acute distress. Head/Face: Normocephalic, atraumatic. ENT: MMM Cardiovascular: Regular rate and rhythm. No pulse deficits. Respiratory: No increased work of breathing, no retractions or nasal flaring. Abdomen/GI: Soft, non-tender Skin: Warm, dry MS/ Extremity: Pulses equal, no cyanosis. Neuro: Awake and alert, GCS 15 Vital Signs: 03:26 BP 183 / 90; Pulse 83; Resp 16; Temp 98.3(O); Pulse Ox 98% on R/A; Weight 86.18 kg (R); jb4 Height 5 ft. 3 in. (160.02 cm) (R); Pain 5/10; 05:07 BP 164 / 81; Pulse 78; Resp 18; Pulse Ox 98% on R/A; ak2 06:00 BP 155 / 85; Pulse 88; Resp 16; Pulse Ox 100% on R/A; jb4 06:19 BP 155 / 85; Pulse 87; Resp 18; Temp 98.5; Pulse Ox 100% ; ak2 03:26 Body Mass Index 33.66 (86.18 kg, 160.02 cm) jb4 MDM: 03:19 Patient medically screened. rn 05:14 Differential diagnosis: Nonspecific abd pain, gastritis, cholecystitis, pancreatitis, rn viral gastroenteritis, gastroenteritis. Data reviewed: vital signs, nurses notes, lab test result(s), radiologic studies, CT scan, and as a result, I will admit patient. Counseling: I had a detailed discussion with the patient and/or guardian regarding: the historical points, exam findings, and any diagnostic results supporting the discharge/admit diagnosis, lab results, radiology results, the need for further work-up and treatment in the hospital. Response to treatment: the patient's symptoms have mildly improved after treatment, and as a result, I will admit patient. Admission orders: after a detailed discussion of the patient's condition and case, the admit orders are written by me. ED course: Pt still with RUQ and epigastric tenderness, ct shows cholelithiasis with gallbladder wall thickening, coul dbe early cholecystitis in this patient. Patient reports "stomach acting up" recently with pain while eating, and now vomiting tonight. Will give abx and admit to hospitalist service with Dr. Radha solitario. . 10/19 03:28 Order name: Basic Metabolic Panel 10/19 03:28 Order name: CBC with Diff rn 10/19 03:28 Order name: Hepatic Function 10/19 03:28 Order name: Lipase; Complete Time: 04:49 rn 10/19 03:29 Order name: Basic Metabolic Panel; Complete Time: 04:49 EDRI 10/19 03:29 Order name: CBC with Automated Diff; Complete Time: 04:01 EDRI 10/19 03:28 Order name: CT Abd/Pelvis - IV Contrast Only rn 10/19 03:29 Order name: Liver (Hepatic) Function; Complete Time: 04:49 EDRI 10/19 05:14 Order name: COVID-19 : Document "Date of Symptom Onset" if Symptomatic. mw2 10/19 06:20 Order name: SARS-COV-2 RT PCR EDRI 10/19 06:56 Order name: Glucose, Ancillary Testing EDRI 10/19 07:05 Order name: Urinalysis EDRI 10/19 03:28 Order name: IV Saline Lock; Complete Time: 05:44 rn 10/19 03:28 Order name: Labs collected and sent; Complete Time: 05:44 rn 10/19 05:16 Order name: NPO; Complete Time: 05:44 rn Administered Medications: 03:43 Drug: Zofran (Ondansetron) 4 mg Route: IVP; Site: right antecubital; ak2 04:15 Follow up: Response: No adverse reaction; Marked relief of symptoms jb4 03:43 Drug: NS 0.9% 1000 ml Route: IV; Rate: 1000 ml; Site: right antecubital; ak2 06:30 Follow up: Response: No adverse reaction; IV Status: Infusion converted to 100ml per jb4 hour per [facility] orders.; IV Intake: 700ml 05:24 Drug: Zosyn (piperacillin-tazobactam) 3.375 grams Route: IVPB; Infused Over: 60 mins; ak2 Site: right antecubital; 06:24 Follow up: Response: No adverse reaction; IV Status: Completed infusion jb4 Disposition: 10/19/20 05:16 Hospitalization ordered by Laurent Ramos for Observation. Preliminary diagnosis are Cholelithiasis, Cholecystitis, unspecified. - Bed requested for [facility] ER HOLD. - Status is Observation. jl7 - Condition is Stable. - Problem is new. - Symptoms have improved. Signatures: Dispatcher [employer] EDRI Jb Ramos MD MD rn Attema, Lee, FLOOR COVERING INSTALLER-C FLOOR COVERING INSTALLER-Cla1 Adeola Chinchilla RN RN Eron Marroquin RN RN jb4 John Daugherty RN RN jl7 Rene Escobar il2 Corrections: (The following items were deleted from the chart) 05:29 05:14 CORONAVIRUS ordered. [facility] EDRI 05:58 05:16 Hospitalization Ordered by Laurent Ramos MD for Observation. Preliminary cg diagnosis is Cholelithiasis; Cholecystitis, unspecified. Bed requested for Telemetry/MedSurg (observation). Status is Observation. Condition is Stable. Problem is new. Symptoms have improved. rn 12:48 05:58 10/19/2020 05:16 Hospitalization Ordered by Laurent Ramos MD for Observation. jl7 Preliminary diagnosis is Cholelithiasis; Cholecystitis, unspecified. Bed requested for [facility] ER HOLD. Status is Observation. Condition is Stable. Problem is new. Symptoms have improved.
--- NOTE | 2020-10-19 05:17 | ER ---
Nurse's Notes [facility] Name: Chiquis Hickman Age: 69 yrs Sex: Female : 1950 Arrival Date: 10/19/2020 Time: 03:17 Bed 7 Private MD: Diagnosis: Cholelithiasis;Cholecystitis, unspecified Presentation: 10/19 03:26 Chief complaint: Patient states: I am having abdominal pain and vomiting. I ate some jb4 strawberries that did not taste right and some pot stickers. Coronavirus screen: Client denies travel out of the [place] in the last 14 days. At this time, the client does not indicate any symptoms associated with coronavirus-19. Ebola Screen: No symptoms or risks identified at this time. Initial Sepsis Screen: Does the patient meet any 2 criteria? No. Patient's initial sepsis screen is negative. Does the patient have a suspected source of infection? No. Patient's initial sepsis screen is negative. Risk Assessment: Do you want to hurt yourself or someone else? Patient reports no desire to harm self or others. Onset of symptoms was October 19, 2020. Transition of care: patient was not received from another setting of care. 03:26 Method Of Arrival: Wheelchair jb4 03:26 Acuity: ROSALBA 3 jb4 Historical: - Allergies: 03:30 steroids; jb4 - Home Meds: 03:30 diltiazem HCl 360 mg Oral cpER 1 cap once daily [Active]; aspirin 81 mg Oral chew 1 tab jb4 once daily [Active]; atorvastatin 40 mg Oral tab 1 tab nightly [Active]; Jardiance 10 mg Oral tab 1 tab once daily [Active]; losartan-hydrochlorothiazide 100-25 mg Oral tab 1 tab once daily [Active]; metformin 500 mg Oral Tb24 1 tab once daily [Active]; multivitamin Oral tab daily [Active]; Tresiba FlexTouch U-100 100 unit/mL (3 mL) subcutaneous inpn 20 unit nightly [Active]; Trulicity 1.5 mg/0.5 mL subcutaneous pnij 0.5 mL Every [Active]; - PMHx: 03:30 CVA; Diabetes - IDDM; Hyperlipidemia; Hypertension; LEFT SIDED WEAKNESS; TIA; jb4 - PSHx: 03:30 fibroid tumor removed; Hysterectomy; jb4 - Immunization history:: Adult Immunizations up to date. - Social history:: Smoking status: Patient/guardian denies using tobacco, Patient/guardian denies using alcohol, street drugs. - Family history:: not pertinent. - Hospitalizations: : No recent hospitalization is reported. Screenin:18 Abuse screen: Denies threats or abuse. Denies injuries from another. Nutritional ak2 screening: No deficits noted. Tuberculosis screening: No symptoms or risk factors identified. Fall Risk None identified. Assessment: 03:30 General: Appears in no apparent distress. uncomfortable, Behavior is calm, cooperative, jb4 appropriate for age. Pain: Complains of pain in abdomen Pain does not radiate. Pain currently is 5 out of 10 on a pain scale. Neuro: Level of Consciousness is awake, alert, obeys commands, Oriented to person, place, time, situation. Cardiovascular: Patient's skin is warm and dry. Respiratory: Airway is patent Respiratory effort is even, unlabored, Respiratory pattern is regular, symmetrical. GI: Abdomen is round obese, Abd is soft and non tender X 4 quads. Reports lower abdominal pain, upper abdominal pain, nausea, vomiting. : No signs and/or symptoms were reported regarding the genitourinary system. EENT: No signs and/or symptoms were reported regarding the EENT system. Derm: Skin is intact, Skin is dry, Skin is normal. Musculoskeletal: Circulation, motion, and sensation intact. Range of motion: intact in all extremities. 04:30 Reassessment: Patient appears in no apparent distress at this time. Patient and/or jb4 family updated on plan of care and expected duration. Pain level reassessed. Patient is alert, oriented x 3, equal unlabored respirations, skin warm/dry/pink. 05:30 Reassessment: Patient appears in no apparent distress at this time. Patient and/or jb4 family updated on plan of care and expected duration. Pain level reassessed. Patient is alert, oriented x 3, equal unlabored respirations, skin warm/dry/pink. 06:17 Reassessment: Patient appears in no apparent distress at this time. Patient and/or jb4 family updated on plan of care and expected duration. Pain level reassessed. Patient is alert, oriented x 3, equal unlabored respirations, skin warm/dry/pink. Vital Signs: 03:26 BP 183 / 90; Pulse 83; Resp 16; Temp 98.3(O); Pulse Ox 98% on R/A; Weight 86.18 kg (R); jb4 Height 5 ft. 3 in. (160.02 cm) (R); Pain 5/10; 05:07 BP 164 / 81; Pulse 78; Resp 18; Pulse Ox 98% on R/A; ak2 06:00 BP 155 / 85; Pulse 88; Resp 16; Pulse Ox 100% on R/A; jb4 06:19 BP 155 / 85; Pulse 87; Resp 18; Temp 98.5; Pulse Ox 100% ; ak2 03:26 Body Mass Index 33.66 (86.18 kg, 160.02 cm) jb4 ED Course: 03:17 Patient arrived in ED. bp1 03:19 Jb Ramos MD is Attending Physician. rn 03:28 Triage completed. jb4 03:30 Arm band placed on. jb4 03:39 Rene Escobar is Primary Nurse. ak2 04:35 CT Abd/Pelvis - IV Contrast Only In Process Unspecified. EDMS 05:16 Laurent Ramos MD is Hospitalizing Provider. rn 06:18 No apparent distress. ak2 06:18 Patient has correct armband on for positive identification. ak2 06:18 No provider procedures requiring assistance completed. ak2 06:18 Inserted saline lock: 20 gauge ak2 06:30 Patient admitted, IV remains in place. jb4 Administered Medications: 03:43 Drug: Zofran (Ondansetron) 4 mg Route: IVP; Site: right antecubital; ak2 04:15 Follow up: Response: No adverse reaction; Marked relief of symptoms jb4 03:43 Drug: NS 0.9% 1000 ml Route: IV; Rate: 1000 ml; Site: right antecubital; ak2 06:30 Follow up: Response: No adverse reaction; IV Status: Infusion converted to 100ml per jb4 hour per [employer] orders.; IV Intake: 700ml 05:24 Drug: Zosyn (piperacillin-tazobactam) 3.375 grams Route: IVPB; Infused Over: 60 mins; ak2 Site: right antecubital; 06:24 Follow up: Response: No adverse reaction; IV Status: Completed infusion jb4 Intake: 06:30 IV: 700ml; Total: 700ml. jb4 Outcome: 05:16 Decision to Hospitalize by Provider. rn 06:18 Condition: good ak2 06:29 Admitted to ER Hold. Please see [facility] for further documentation. jb4 06:29 Condition: stable 06:29 Discharge instructions given to patient, Instructed on the need for admit, Demonstrated understanding of instructions. 12:48 Patient left the ED. jl7 Signatures: Dispatcher [employer] EDMS Jb Ramos MD MD rn Bryson, James, RN RN jb4 John Daugherty RN RN jl7 Sheridan Asencio Anthony ak2 Corrections: (The following items were deleted from the chart) 06:19 06:18 Patient did not have IV access during this emergency room visit. ak2 ak2 06:21 06:19 BP 162 / 81; Pulse 75bpm; Resp 18bpm; Pulse Ox 98%; Temp 98.5F; ak2 ak2 06:36 03:26 BP 183 / 90; Pulse 83bpm; Resp 16bpm; Pulse Ox 98% RA; Temp 98.3F Oral; 86.64 kg jb4 Reported; Height 5 ft. 3 in. Reported; BMI: 33.8; Pain 5/10; jb4
--- NOTE | 2020-10-19 05:29 | P.HP ---
Certification for Inpatient Patient admitted to: Observation With expected LOS: <2 Midnights Patient will require the following post-hospital care: None Practitioner: I am a practitioner with admitting privileges, knowledge of patient current condition, hospital course, and medical plan of care. Services: Services provided to patient in accordance with Admission requirements found in Title 42 Section 412.3 of the Code of Federal Regulations Patient History Date of Service: 10/19/20 Primary Care Provider: DR. aceves Reason for admission: Acute cholecystitis History of Present Illness: 69-year-old female with history of hypertension, diabetes mellitus type 2, CVA, hyperlipidemia presents emergency department for abdominal pain. Patient reports abdominal pain, nausea, vomiting over the course of the last evening, also admits to having intermittent right-sided abdominal pain over the course of the last 1 week. Patient was evaluated in the emergency department, labs only significant for mildly elevated glucose 200, CT abdomen pelvis demonstrates cholelithiasis with mild gallbladder wall thickening. On exam patient is tender in the right upper quadrant. ED provider wishes to admit patient under suspicion of acute cholecystitis. Allergies Steroids Allergy (Mild, Uncoded 05/16/19 11:12) Unknown Home Medications: Aspirin [Mk Chewable Aspirin] 1 tab PO DAILY 08/23/16 Empagliflozin [Jardiance] 10 mg PO DAILY 08/23/16 Metformin HCl [Glucophage*] 500 mg PO DAILY 08/23/16 Multivit-Min/FA/Lycopen/Lutein [Centrum Silver Tablet] 1 tab PO DAILY 08/23/16 Simvastatin 40 mg PO DAILY 08/23/16 dilTIAZem HCl [Diltiazem 24Hr ER (Cd)] 360 mg PO [id number] 08/23/16 Dulaglutide [Trulicity] 1.5 ml SQ EVERY 7TH DAY 04/03/18 Losartan/Hydrochlorothiazide [Losartan-Hctz 100-25 mg Tab] 1 tab PO [id number] 04/03/18 - Past Medical/Surgical History Diabetic: Yes -: HTN -: IDDM -: high cholesterol -: CVA (10 years ago) -: fibroid tumor removed -: hysterectomy -: hernia repair Psychosocial/ Personal History: Patient lives at home with her grandson - Family History Father -: Hypertension, Diabetes Mother -: Hypertension, Diabetes - Social History Smoking Status: Never smoker Alcohol use: No CD- Drugs: No Caffeine use: Yes Place of Residence: Home Review of Systems 10-point ROS is otherwise unremarkable Gastrointestinal: Nausea, Vomiting, Abdominal Pain Physical Examination - Physical Exam General: Alert, In no apparent distress HEENT: Atraumatic, PERRLA, Mucous membr. moist/pink, EOMI, Sclerae nonicteric Neck: Supple, 2+ carotid pulse no bruit, No LAD, Without JVD or thyroid abnormality Respiratory: Clear to auscultation bilaterally, Normal air movement Cardiovascular: Regular rate/rhythm, Normal S1 S2 Gastrointestinal: Normal bowel sounds, Tenderness (Mild right upper quadrant abdominal tenderness) Musculoskeletal: No tenderness Integumentary: No rashes Neurological: Normal speech, Normal strength at 5/5 x4 extr, Normal tone, Normal affect - Studies Laboratory Data (last 24 hrs) 10/19/20 03:40: WBC 9.40, Hgb 15.1 H, Hct 44.4, Plt Count 263 10/19/20 03:40: Sodium 138, Potassium 3.9, BUN 17, Creatinine 0.84, Glucose 200 H, Total Bilirubin 0.7, AST 33, ALT 34, Alkaline Phosphatase 111, Lipase 128 Assessment and Plan - Plan Assessment Right upper quadrant pain, nausea, vomiting secondary to suspected acute ch olecystitis Diabetes mellitus type 2 Hypertension, hyperlipidemia, history of CVA Plan Right upper quadrant pain, nausea, vomiting secondary to suspected acute cholecystitis: NPO, patient reports last oral intake was yesterday night. Continue IV antibiotics-Zosyn, general surgery consult in place. P.r.n. pain medications/anti emetics. DVT prophylaxis with SCDs at this time. Appreciate further input from general surgery. Diabetes mellitus type 2: Q.6h Accu-Chek while patient is NPO, sliding scale insulin therapy. Patient reports recently had A1c approximately 1 month ago, A1c was 7. Hypertension, hyperlipidemia, history of CVA: Stable, continue home medications. Discharge Plan: Home Plan to discharge in: 24 Hours - Advance Directives Does patient have a Living Will: No Does patient have a Durable POA for Healthcare: No - Code Status/Comfort Care Code Status Assessed: Yes (Full code) Critical Care: No Time Spent Managing Pts Care (In Minutes): 55
[2020-10-19] MEDS ORDERED: PIPER/TAZO/NS 3.375gm 3.375 GM/100 ML BAG ONE (05:38)
[2020-10-19] MEDS ORDERED: ONDANSETRON 4 MG/2 ML VIAL IV PRN (06:15)
[2020-10-19] MEDS ORDERED: MORPHINE 2 MG/ML SYR IV PRN ×2 (06:15→15:48)
[2020-10-19] MEDS: NA CHLORIDE 0.9% 1,000 ML IV SCH ×2 (06:15→16:15)
[2020-10-19 06:36] VITALS: BMI 33.6
[2020-10-19 07:03] LABS: Urine Appearance CLEAR (Clear); Urine Bilirubin NEGATIVE (Negataive); Urine Blood NEGATIVE (Negative); Urine Color YELLOW (Yellow); Urine Glucose 3+ (Negative); Urine Protein NEGATIVE (Negative); Urine Specific Gravity >=1.030 (1.005-1.030); Urine Urobilinogen 0.2 mg/dL (0.2-1.0)
[2020-10-19 07:05] LABS: Urine Microscopic Reflex NO UMIC
[2020-10-19] MEDS ORDERED: INSULIN -REGULAR HUMAN 50 UNIT/0.5 ML ML SQ SCH (07:30)
--- NOTE | 2020-10-19 09:16 | RAD REPORT ---
EXAM DESCRIPTION: CT Abdomen and Pelvis COMPARISON: None. CLINICAL HISTORY: [facility] MAIN NAUSEA / VOMITING TECHNIQUE: CT of the abdomen and pelvis was acquired with IV contrast material. Coronal and sagitt al reconstructions were obtained. Automated exposure control was utilized on this examination as a dose lowering technique. FINDINGS: Lung bases: Clear. Liver: Normal. Gallbladder and biliary: A few dependent gallstones are noted. Mild gallbladder wall thickening is pr esent. Unremarkable biliary tree. Pancreas: Normal. Spleen: Normal. Adrenal glands: Normal adrenal glands. Kidneys: Duplicated right kidney. There are a few small chronic cortical infarcts of the left kidney. Stomach and Small Bowel: The stomach and small bowel are normal. Urinary bladder: Normal. Prostate/Male Urogenital: Hysterectomy. Colon and Appendix: The colon is unremarkable. No evidence of appendicitis. Retroperitoneum and lymph nodes: Normal. Vascular: Mild atherosclerosis. Peritoneal cavity: No ascites or free air. Musculoskeletal and soft tissues: A ventral hernia mesh is in place. There are degenerative or inflam matory changes of the right sacroiliac joint. No aggressive bone lesions. No compression fracture. IMPRESSION: 1. Cholelithiasis with mild gallbladder wall thickening is nonspecific but may be seen w ith acute cholecystitis in the appropriate setting. 2. Duplicated right collecting system. Chronic cortical infarcts of the left kidney. 3. Degenerative or inflammatory changes of the right sacroiliac joint. Electronically signed by: John Pantoja MD 10/19/2020 5:00 AM CDT Due to temporary technical issues with the PACS/Fluency reporting system, reports are being signed by the in house radiologist without review as a courtesy to ensure prompt reporting. The interpreting r adiologist is fully responsible for the content of the report.
[2020-10-19] MEDS ORDERED: NA CHLORIDE 0.9% 1,000 ML ONE ×2 (10:35→14:08)
[2020-10-19] MEDS: INSULIN -REGULAR HUMAN 50 UNIT/0.5 ML ML SQ SCH ×2 (12:00→18:00)
[2020-10-19 13:04] VITALS: O2SAT 100
[2020-10-19] MEDS ORDERED: LIDOCAINE 1% MPF 5 ML VIAL ONE (13:05)
[2020-10-19] MEDS ORDERED: propofoL 200 MG/20 ML VIAL IV ONE (13:05)
[2020-10-19] MEDS ORDERED: FENTANYL CITR 100 MCG/2 ML ONE (13:05)
[2020-10-19] MEDS ORDERED: ROCURONIUM 50 MG/5 ML VIAL IV ONE (13:06)
[2020-10-19] MEDS: NA CHLORIDE 0.9% 1,000 ML ONE ×2 (13:55→14:05)
[2020-10-19] MEDS ORDERED: PIPER/TAZO/NS 3.375gm 3.375 GM/100 ML BAG IVPB SCH (14:00)
[2020-10-19] MEDS ORDERED: LABETALOL 20 MG/4ML SYRINGE IV ONE (14:12)
--- NOTE | 2020-10-19 14:57 | P.OP ---
Preoperative diagnosis: Acute cholecystitis with cholelithiasis Postoperative diagnosis: Gangrene of the gallbladder with cholelithiasis Primary procedure: Laparoscopic cholecystectomy in Secondary procedure: Attempt a cholangiogram Other procedure(s): Liver biopsy Anesthesia: General Estimated blood loss: Less than 50 cc Specimen: 1 gallbladder, 1 José-Cut liver biopsy Operative Technique: The patient brought the operating room placed supine on the table. After the induction of adequate general endotracheal anesthesia, there the abdomen was prepped with a DuraPrep solution, and she was draped in usual aseptic manner. Because of the patient's prior umbilical hernia repair with mesh , we came 4 fingers above the emboli kiss. An 11 blade is used to make a skin incision. The Visiport was used to enter the peritoneal cavity through the upper midline. A pneumoperitoneum was created to approximately 12 mm of mercury. With the patient placed in reverse Trendelenburg and rolled to the left. We could see the right upper quadrant. Of markedly inflamed and obviously partially gangrenous gallbladder was noted. An S3 needle was used to remove some of the contents. This was done by placing a 5 mm trocar in the upper midline, and 2 other 5s on the right lateral side. The gallbladder, now having wild reduced in size intention, was grasped at the fundus. Another was was placed down by Yecenia's pouch. Gentle dissection allowed us to expose the cystic duct at its junction with Yecenia's pouch. It was noted be short fact pain markedly scarred. Gentle dissection allowed us to come around this. A clip was placed between the gallbladder and the cystic duct. An opening was made into the cystic duct through which we attempted to place a cholangiocath. Due to the valves in that area were not able to do so and this portion of the procedure was abandoned. Clips were now placed on the distal portion of the cystic duct which was fully transected. Gentle dissection allowed us to expose the cystic artery. It was clipped and divided in the usual manner. The gallbladder was now laboriously dissected off of the liver bed. It having been detached was placed in the Endo- Catch and brought out through the end through the lower abdominal trocar site. Attention was now turned towards right lobe of the liver. A José-Cut needle liver biopsy was used to obtain and portion of liver. This was placed on a Telfa and sent for histopathology. At this point the abdomen is inspected to ensure adequate hemostasis. Irrigating fluid was aspirated from the peritoneal cavity. The lower abdominal trocar site was approximated using the Endo Close ran an and we could see the previous thumb the local hernia repair with a marked amount of soft small-bowel adhesions to that. We did not disturb these adhesions. At this point the pneumoperitoneum was collapsed, the suture tied, and geovanny applied to the skin. At the end of the procedure she was stable when sent to the recovery room. Needle sponge instrument count were correct. Complications: None Transferred to: Recovery Room Condition: Good
[2020-10-19] MEDS ORDERED: NEOSTIGMINE 1 MG/ML -5 ML ONE (15:08)
[2020-10-19] MEDS ORDERED: GLYCOPYRROLATE 0.2 MG/ML SYR ONE (15:08)
[2020-10-19] MEDS ORDERED: KETOROLAC 30 MG/ML INJ ONE (15:10)
[2020-10-19] MEDS: PIPER/TAZO/NS 3.375gm 3.375 GM/100 ML BAG IVPB SCH (17:28)
[2020-10-20] MEDS: PIPER/TAZO/NS 3.375gm 3.375 GM/100 ML BAG IVPB SCH ×2 (01:00→08:55)
[2020-10-20 05:27] LABS: Absolute Lymphocytes (CBC) 1.6 K/uL (0.7-4.9); Basophils % 0.6 % (0-1.3); Hematocrit 34.1 % (36.0-45.0); Lymphocytes % 18.8 % (15.3-44.8); RBC Red Blood Cell Count 3.73 M/uL (3.86-4.86)
[2020-10-20 05:56] LABS: Albumin 2.5 g/dL (3.4-5.0); Bilirubin Total 0.8 mg/dL (0.2-1.0); Potassium 3.3 mmol/L (3.5-5.1); Protein, Total 7.2 g/dL (6.4-8.2)
[2020-10-20] MEDS: INSULIN -REGULAR HUMAN 50 UNIT/0.5 ML ML SQ SCH (06:00)
[2020-10-20] MEDS ORDERED: POTASSIUM 25 MEQ EFFERV TAB PO ONE (07:40)
[2020-10-20 09:54] VITALS: TEMP 98.1
--- NOTE | 2020-10-20 10:52 | P.DS ---
Admission Date: 10/19/20 Discharge Date: 10/20/20 Primary Care Provider: DR. aceves Disposition: ROUTINE DISCHARGE Discharge Condition: GOOD Reason for Admission: Acute cholecystitis Consultations: General Surgery - Dr. Garcia Procedures: CT Abd/Pelvis (10/19): 1. Cholelithiasis with mild gallbladder wall thickening is nonspecific but may be seen with acute cholecystitis in the appropriate setting. 2. Duplicated right collecting system. Chronic cortical infarcts of the left kidney. 3. Degenerative or inflammatory changes of the right sacroiliac joint. Lap cholecystectomy (10/19) by Dr. Garcia Problem List RUQ pain, nausea, vomiting secondary to suspected acute cholecystitis Diabetes mellitus type 2 Hypertension, hyperlipidemia, history of CVA Brief History of Present Illness: 69-year-old female with history of hypertension, diabetes mellitus type 2, CVA, hyperlipidemia presents emergency department for abdominal pain. Patient reports abdominal pain, nausea, vomiting over the course of the last evening, also admits to having intermittent right-sided abdominal pain over the course of the last 1 week. Patient was evaluated in the emergency department, labs only significant for mildly elevated glucose 200, CT abdomen pelvis demonstrates cholelithiasis with mild gallbladder wall thickening. On exam patient is tender in the right upper quadrant. ED provider wishes to admit patient under suspicion of acute cholecystitis. Hospital Course: Patient was empirically treated with IV Zosyn. General Surgery was consulted and patient underwent lap cholecystectomy without complication. Postoperative course was uneventful. On day of discharge, she was tolerating a regular diet, ambulating well, voiding and passing flatus. She did not require pain medication post-operatively. She was discharged with 5 days of Augmentin. Follow up with Dr. Garcia this coming Thursday Vital Signs/Physical Exam: Physical Exam General: Alert, In no apparent distress HEENT: Normal conjunctiva, sclerae anicteric Respiratory: Clear to auscultation bilaterally, Normal air movement Cardiovascular: Regular rate/rhythm, Normal S1 S2 Gastrointestinal: Soft, nondistended, mild discomfort on palpation of RUQ, surgical dressings c/d/i Neurological: Normal speech, Normal strength at 5/5 x4 extr, Normal tone, Normal affect Temp Pulse Resp BP Pulse Ox 98.1 F 67 17 125/66 100 10/20/20 08:00 10/20/20 08:00 10/20/20 08:00 10/20/20 08:00 10/20/20 08:00 Laboratory Data at Discharge: WBC 8.80 K/uL (4.3-10.9) 10/20/20 05:02 Hgb 11.8 g/dL (12.0-15.0) L D 10/20/20 05:02 Hct 34.1 % (36.0-45.0) L D 10/20/20 05:02 Plt Count 208 K/uL (152-406) D 10/20/20 05:02 Sodium Cancelled 10/20/20 11:00 Potassium Cancelled 10/20/20 11:00 BUN Cancelled 10/20/20 11:00 Creatinine Cancelled 10/20/20 11:00 Glucose Cancelled 10/20/20 11:00 Total Bilirubin 0.8 mg/dL (0.2-1.0) 10/20/20 05:02 AST 60 U/L (15-37) H 10/20/20 05:02 ALT 50 U/L (12-78) 10/20/20 05:02 Alkaline Phosphatase 73 U/L (45-117) 10/20/20 05:02 Lipase 128 U/L (73-393) 10/19/20 03:40 Home Medications: Aspirin [Mk Chewable Aspirin] 1 tab PO DAILY 08/23/16 Empagliflozin [Jardiance] 10 mg PO DAILY 08/23/16 Metformin HCl [Glucophage*] 500 mg PO BID 08/23/16 Multivit-Min/FA/Lycopen/Lutein [Centrum Silver Tablet] 1 tab PO DAILY 08/23/16 Dulaglutide [Trulicity] 1.5 ml SQ EVERY 7TH DAY 04/03/18 Atorvastatin Calcium [Lipitor] 40 mg PO BEDTIME 10/19/20 Olmesartan/Hydrochlorothiazide [Olmesartan-Hctz 40-12.5 mg Tab] 1 each PO DAILY 10/19/20 Amoxicillin/Potassium Clav [Augmentin 875-125 Tablet] 1 tab PO BID 5 Days #10 ta blet 10/20/20 New Medications: Amoxicillin/Potassium Clav [Augmentin 875-125 Tablet] 1 tab PO BID 5 Days #10 tablet Physician Discharge Instructions: You were found to have acute cholecystitis and underwent laparoscopic cholecystectomy without complication. You are discharged with 5 more days of antibiotics. Follow up with your PCP in 3-5 days. Follow up with Dr. Garcia in ~1-2 weeks. call his office to schedule appointment Diet: ADA (bland/no fatty/fried foods) Activity: Ad nabil Followup: Eron Garcia MD [ACTIVE - CAN ADMIT] - 1-2 Weeks Doris Aceves DO [Primary Care Provider] - 10/24/20 (Call to make appointment for follow up in 3-5 days.) Time spent managing pt's care (in minutes): 35
[2020-10-20 12:38] VITALS: BP 122/68
== END 2020-10-20 13:35 | disposition home or self-care (01) ==
LOC: ER 03:14 → ERHOLD 05:39 → 2ND-WC 15:53
PROVIDERS: ADMIT Hospitalist; ATTEND Hospitalist
PROC: 0FB04ZX Excision of Liver, Percutaneous Endoscopic Approach, Diagnostic (ICD-10-PCS; 2020-10-19)
PROC: 0FT44ZZ Resection of Gallbladder, Percutaneous Endoscopic Approach (ICD-10-PCS; principal; 2020-10-19 11:45)
DX: K80.00 Calculus of gallbladder with acute cholecystitis without obstruction (principal); E11.9 Type 2 diabetes mellitus without complications; I10 Essential (primary) hypertension; E78.5 Hyperlipidemia, unspecified; Z86.73 Personal history of transient ischemic attack (TIA), and cerebral infarction without residual deficits; Z79.84 Long term (current) use of oral hypoglycemic drugs; E78.00 Pure hypercholesterolemia, unspecified; E66.9 Obesity, unspecified; K44.9 Diaphragmatic hernia without obstruction or gangrene; Z20.822 Contact with and (suspected) exposure to COVID-19; Z68.33 Body mass index [BMI] 33.0-33.9, adult
CPT/HCPCS: 96365; 96361; 85025 ×2; 80048; 36415 ×2; 88313; 82947 ×6; 80076; 88304; 88307; 81003; 83690; 80053; 74177; 96375; 99285; 47562; 47001; U0003; Q9967; J2704; J3010; J2543 ×3; J2710; J7030 ×3; J2405 ×2; G0378 ×3

== ENCOUNTER 2020-12-13 06:05 | Day surgery (SDC) | payer OTHER ==
[2020-12-13] MEDS ORDERED: KETOROLAC OPTHALMIC 5 ML BOT OPTH ONE ×3 (06:25→06:55)
[2020-12-13] MEDS ORDERED: MOXIFLOXACIN HCL 0.5% 3ML OPTH OPTH ONE ×4 (06:25→06:55)
[2020-12-13] MEDS ORDERED: KETOROLAC OPTHALMIC 5 ML BOT ONE (06:39)
[2020-12-13] MEDS ORDERED: NA CHLORIDE 0.9% 1,000 ML ONE (06:40)
[2020-12-13] MEDS ORDERED: LIDOCAINE 2% MPF 5 ML VIAL ONE (07:37)
[2020-12-13] MEDS ORDERED: propofoL 200 MG/20 ML VIAL IV ONE (07:37)
[2020-12-13] MEDS ORDERED: FENTANYL CITR 100 MCG/2 ML ONE (07:37)
[2020-12-13] MEDS ORDERED: dexAMETHasone 10 MG/ML VIAL ONE ×2 (07:37→09:05)
[2020-12-13] MEDS ORDERED: MIDAZOLAM HCL 2 MG/2 ML INJ ONE (07:37)
[2020-12-13] MEDS ORDERED: ONDANSETRON 4 MG/2 ML VIAL ONE (07:39)
[2020-12-13] MEDS ORDERED: KETOROLAC 30 MG/ML INJ ONE (09:31)
[2020-12-13 09:56] VITALS: O2SAT 99
[2020-12-13] MEDS ORDERED: LIDOCAINE 1% W/EPI 1:100,000 10 ML VIAL ONE (10:10)
[2020-12-13] MEDS ORDERED: TOBRADEX 0.3-0.1% OPTH OINTMENT ONE (10:10)
[2020-12-13] MEDS ORDERED: POVIDONE-IODINE 5% EYE DROPS ONE (10:10)
[2020-12-13 11:00] VITALS: BP 143/93; TEMP 97
--- NOTE | 2020-12-13 11:47 | OP ---
Date of Procedure: 12/13/2020 Surgeon: Ryder Gonsales MD Bell Staff: None. Preoperative Diagnosis: Neovascular glaucoma, severe stage, left eye. Postoperative Diagnosis: Neovascular glaucoma, severe stage, left eye. Procedure Performed: Insertion of Ahmed valve with scleral patch graft, left eye. Procedure In Detail: After being properly identified in preoperative holding, the patient was taken back to the operating room where a time-out was performed. The patient was then prepped and draped i n normal sterile fashion. Examination of the eye underneath the operating microscope was performed a nd revealed good conjunctiva in the superotemporal quadrant and therefore our preoperative planned pr ocedure of placing the Ahmed valve in this location was performed. A bridle suture of 5-0 silk was p laced in the inferior sclera superiorly and the globe was rotated downwards. The conjunctiva was inf lated with 1% lidocaine with 1% epinephrine in the superior and superotemporal quadrant and then usin g a pair of non-toothed forceps, the conjunctiva was incised at the limbus and the conjunctiva was di ssected. Hemostasis was achieved using light cautery and once an adequate area had been cleared in o rder for placement of the Ahmed valve, the Ahmed valve was opened and placed in this location and con firmed for sizing. A caliper was used to measure back and 8 mm was confirmed that the Ahmed valve co uld be placed as far back and that adequate dissections had been performed. The Ahmed valve was then removed and the pump was primed with BSS through a 30-gauge cannula through the tube. Once this had been done two 10-0 nylon sutures were preplaced through the eyelets at the anterior of the face plat e of the Ahmed valve, model FP7, serial number [id number] and with the sutures pre-placed, the Ahmed felecia ve was reposited in its location in the superotemporal quadrant. Each of these 10-0 nylon sutures wa s then passed through the sclera and then tied and anchored down in interrupted fashion. A caliper w as thereafter used to measure and confirm that the Ahmed valve set posterior enough and this measurem ent measured 7.5 mm from the limbus. The tube was then held over the cornea and trimmed using VeriShow tt scissors to an adequate length and a 1 mm blade was used to make the entry into the anterior chamb er with a noticeable gush of fluid. The tube was then inserted through this incision and a bevel had been created on this tube when cutting and when inserted approximately 2 to 3 mm of the tube was pre sent in the anterior chamber, well above non-dilated pupil. The 10-0 nylon suture was then used to a nchor the tube in place with 2 interrupted sutures and then the 7 x 7 mm scleral patch graft was open ed. This was then beveled and trimmed on the limbal side in order to decrease the chance of dellen a nd then anchored into place with 10-0 nylon sutures, 1 in each quadrant. Once this had been performe d, the conjunctiva was then draped back over the graft and the implant and secured into position with 9-0 Vicryl sutures. A total of 3 interrupted 9-0 Vicryl sutures were used for this purpose. Anteri or chamber was maintained throughout and the globe and the AC were soft on palpation and remained for med throughout. For this reason, my usual testing procedure of making an additional 1 mm incision an d then irrigating with BSS was not carried out, but the procedure was concluded at this point with go od placement and appearance of all parts of the case. The bridle suture was removed as was the lid s peculum and then the patient was patched over TobraDex ointment. She was taken to the postoperative holding area in stable condition having tolerated procedure well. There were no complications. Estimated Blood Loss: Less than 5 mL. Specimens: No specimens were sent. Drains And Implants: As noted above. Plan: She is to follow up with myself, Dr. Ryder Gonsales at the [facility] tomorrow deepak butcher. AURE/MANOLOL Voice ID: [id number] Report ID: [id number]
== END 2020-12-13 10:45 | disposition home or self-care (01) ==
LOC: OR 06:05
PROVIDERS: ATTEND Ophthalmology
PROC: 08133J4 Bypass Left Anterior Chamber to Sclera with Synthetic Substitute, Percutaneous Approach (ICD-10-PCS; principal; 2020-12-13 07:30)
DX: H40.89 Other specified glaucoma (principal)
CPT/HCPCS: 66180; 82947 ×2; J2704; J2250; J3010; J1100; J7030; J2405

== ENCOUNTER 2021-12-15 08:52 | Emergency (ER) | payer OTHER ==
[2021-12-15] MEDS ORDERED: ACETAMINOPHEN 325 MG TABLET ONE (09:29)
[2021-12-15] MEDS ORDERED: NA CHLORIDE 0.9% 500 ML ONE (09:30)
[2021-12-15 09:40] LABS: Absolute Lymphocytes (CBC) 1.7 K/uL (0.7-4.9); Hematocrit 39.1 % (36.0-45.0); Lymphocytes % 26.5 % (15.3-44.8); MCV 91.9 fL (80-100); RBC Red Blood Cell Count 4.26 M/uL (3.86-4.86)
[2021-12-15 10:01] LABS: Albumin 3.1 g/dL (3.4-5.0); Bilirubin Total 0.6 mg/dL (0.2-1.0); Potassium 3.8 mmol/L (3.5-5.1); Protein, Total 8.1 g/dL (6.4-8.2); Troponin High Sensitivity 5.8 pg/mL (<58.9)
--- NOTE | 2021-12-15 11:27 | ER ---
Nurse's Notes [facility] Name: Chiquis Hickman Age: 71 yrs Sex: Female : 1950 Arrival Date: 12/15/2021 Time: 08:55 Bed 14 Private MD: Doris Chung Diagnosis: COVID Presentation: 12/15 09:07 Chief complaint: Patient states: body aches , weakness, fatigue, fever yesterday , iw urinating more frequently, feels tingling sensation from neck down to left hand, symptoms started yesterday, denies vomiting or diarrhea. Coronavirus screen: Client presents with at least one sign or symptom that may indicate coronavirus-19. Ebola Screen: Patient negative for fever greater than or equal to 101.5 degrees Fahrenheit, and additional compatible Ebola Virus Disease symptoms Patient denies exposure to infectious person. Patient denies travel to an Ebola-affected area in the 21 days before illness onset. No symptoms or risks identified at this time. Initial Sepsis Screen: Does the patient meet any 2 criteria? No. Patient's initial sepsis screen is negative. Does the patient have a suspected source of infection? No. Patient's initial sepsis screen is negative. Risk Assessment: Do you want to hurt yourself or someone else? Patient reports no desire to harm self or others. Onset of symptoms was December 14, 2021. 09:07 Method Of Arrival: Wheelchair iw 09:07 Acuity: ROSALBA 3 iw Historical: - Allergies: 09:09 steroids; iw - PMHx: 09:09 CVA; Diabetes - IDDM; Hyperlipidemia; Hypertension; LEFT SIDED WEAKNESS; TIA; iw - Immunization history:: Adult Immunizations unknown. - Social history:: Smoking status: unknown. Screenin:17 Abuse screen: Denies threats or abuse. Nutritional screening: No deficits noted. vg1 Tuberculosis screening: No symptoms or risk factors identified. Fall Risk No fall in past 12 months (0 pts). No secondary diagnosis (0 pts). IV access (20 points). Ambulatory Aid- None/Bed Rest/Nurse Assist (0 pts). Gait- Normal/Bed Rest/Wheelchair (0 pts) Mental Status- Oriented to own ability (0 pts). Total Carlos Fall Scale indicates No Risk (0-24 pts). Assessment: :17 General: Appears in no apparent distress. uncomfortable, Behavior is calm, cooperative. vg1 Pain: Complains of pain in head Pain currently is 5 out of 10 on a pain scale. Pain began 1 day ago. Neuro: Level of Consciousness is awake, alert, obeys commands, Oriented to person, place, time, situation, Reports headache Denies dizziness. Cardiovascular: Patient's skin is warm and dry. Respiratory: Airway is patent Respiratory effort is even, unlabored. GI: Patient currently denies diarrhea, nausea, vomiting. : No signs and/or symptoms were reported regarding the genitourinary system. EENT: No signs and/or symptoms were reported regarding the EENT system. Derm: Skin is intact, Skin is pink, warm \T\ dry. Musculoskeletal: Circulation, motion, and sensation intact. 09:36 Reassessment: refused both tabs of Tylenol, stated only wanted to take 1 325 mg tab PO tp1 at this time. 10:29 Reassessment: Patient appears in no apparent distress at this time. resting with eyes tp1 closed. family member at bedside. 11:31 Reassessment: Patient appears in no apparent distress at this time. Patient and/or tp1 family updated on plan of care and expected duration. Pain level reassessed. stated pain 1/10 Patient states feeling better. Vital Signs: 09:07 BP 103 / 58; Pulse 72; Resp 18; Temp 97.5; Pulse Ox 100% on R/A; iw 11:36 BP 90 / 77; Pulse 61 RA; Resp 16; Pulse Ox 100% on R/A; tp1 ED Course: 08:55 Patient arrived in ED. as 08:55 Doris Chung MD is Private Physician. as 09:01 Edith Castro PA is PHCP. en 09:01 Jb Ramos MD is Attending Physician. en 09:09 Triage completed. iw 09:10 Arm band placed on. iw 09:13 Nika Chinchilla RN is Primary Nurse. vg1 09:17 Patient has correct armband on for positive identification. Bed in low position. Call vg1 light in reach. Side rails up X2. Adult w/ patient. Client placed on continuous cardiac and pulse oximetry monitoring. NIBP monitoring applied. 09:26 COVID swab sent to lab. Flu and/or RSV swab sent to lab. tm3 09:30 Initial lab(s) drawn, by me, sent to lab. Inserted saline lock: 20 gauge in left tp1 antecubital area, using aseptic technique. Blood collected. 11:27 Doris Chung MD is Referral Physician. en 12:12 No provider procedures requiring assistance completed. IV discontinued, intact, tp1 bleeding controlled, No redness/swelling at site. Pressure dressing applied. Administered Medications: : Drug: Tylenol 325 mg Route: PO; tp1 12:14 Follow up: Response: No adverse reaction; refused second half of medication tp1 09:36 Drug: NS 0.9% 500 ml Route: IV; Rate: bolus; Site: left antecubital; tp1 12:14 Follow up: Response: No adverse reaction; IV Status: Completed infusion; IV Intake: tp1 500ml Medication: 09:17 VIS not applicable for this client. vg1 Intake: 12:14 IV: 500ml; Total: 500ml. tp1 Outcome: :27 Discharge ordered by MD. en 12:12 Discharged to home via wheelchair. tp1 12:12 Condition: good 12:12 Discharge instructions given to patient, family, Instructed on discharge instructions, follow up and referral plans. Demonstrated understanding of instructions, follow-up care. 12:15 Patient left the ED. tp1 Signatures: Angel Jay tm3 Marisol Platt Irene, Nika Mahoney RN, RN RN vg1 Arielle Gracia tp1 Edith Castro PA PA en Corrections: (The following items were deleted from the chart) 09:35 09:34 Inserted saline lock: 20 gauge in left antecubital area, using aseptic technique. tp1 Blood collected. tp1 09:35 09:34 Initial lab(s) drawn, by va, sent to lab. tp1 tp1
--- NOTE | 2021-12-15 11:28 | EDPHYS ---
Physician Documentation [facility] Name: Chiquis Hickman Age: 71 yrs Sex: Female : 1950 Arrival Date: 12/15/2021 Time: 08:55 Bed 14 Private MD: Doris Chung ED Physician Jb Ramos HPI: 12/15 09:13 This 71 yrs old Black Female presents to ER via Wheelchair with complaints of Pain All en Over, Fever, Numbness. 09:13 71-year-old female with history of hypertension, remote history of CVA and diabetes en presents to the ED with generalized malaise, fatigue, fever T-max of 101 yesterday. She also reports associated body aches with nausea and decreased p.o. intake. She reports urinary frequency without dysuria or hematuria. Mild polydipsia. Glucose this morning 175. She denies cough, chest pain, shortness of breath, dyspnea on exertion. No diarrhea.. Historical: - Allergies: 09:09 steroids; iw - PMHx: 09:09 CVA; Diabetes - IDDM; Hyperlipidemia; Hypertension; LEFT SIDED WEAKNESS; TIA; iw - Immunization history:: Adult Immunizations unknown. - Social history:: Smoking status: unknown. ROS: 09:13 Constitutional: Fever T-max of 101 yesterday. Chills, body aches, malaise en 09:13 Eyes: Negative for discharge. 09:13 ENT: Negative for sinus congestion, sore throat. 09:13 Neck: Negative for pain with movement, pain at rest. 09:13 Cardiovascular: Negative for chest pain, edema, orthopnea, palpitations. 09:13 Respiratory: Negative for cough, dyspnea on exertion, shortness of breath, wheezing. 09:13 Abdomen/GI: Positive for nausea, Decreased p.o. intake., Negative for abdominal pain, vomiting, diarrhea, constipation. 09:13 Back: Negative for pain at rest. 09:13 : Positive for urinary frequency, Negative for hematuria, burning with urination, foul smelling urine. 09:13 Skin: Negative for rash. 09:13 Neuro: Positive for headache, Negative for altered mental status, dizziness, gait disturbance, numbness, tingling, weakness. 09:13 All other systems are negative. Exam: 09:13 Constitutional: This is a well developed, well nourished patient who is awake, alert, en and in no acute distress. 09:13 Constitutional: The patient appears in no acute distress, alert, awake. 09:13 Eyes: Pupils: equal, round, and reactive to light and accomodation, Extraocular movements: no acute changes, Conjunctiva: normal, no exudate, no injection. 09:13 ENT: TM's: are normal, Nose: is normal, Mouth: Lips: moist, dry, Oral mucosa: pink and intact, moist, Posterior pharynx: is normal, no erythema, no exudate, Airway: patent. 09:13 Cardiovascular: Rate: normal, Rhythm: regular, Pulses: no pulse deficits are appreciated, Heart sounds: normal, no rub, no gallop. 09:13 Respiratory: the patient does not display signs of respiratory distress. 09:13 Abdomen/GI: Inspection: abdomen appears normal, Bowel sounds: normal, Palpation: abdomen is soft and non-tender, in all quadrants. 09:13 Back: ROM is normal. 09:13 Skin: no rash present. 09:13 Neuro: Orientation: is normal, to person, place \\T\\ time. Mentation: appropriate for stated age, no acute changes. 09:13 Psych: Behavior/mood is pleasant, cooperative, Affect is calm. Vital Signs: 09:07 BP 103 / 58; Pulse 72; Resp 18; Temp 97.5; Pulse Ox 100% on R/A; iw 11:36 BP 90 / 77; Pulse 61 RA; Resp 16; Pulse Ox 100% on R/A; tp1 MDM: 09:03 Patient medically screened. en 09:13 Differential diagnosis: viral Infection, bacterial infection, uti, COVID, flu, en dehydration, hyperglycemia. Data reviewed: vital signs, nurses notes, lab test result(s), EKG. 09:52 Data reviewed: EKG at 0951 with NSR at 63bpm, normal axis, normal intervals, no STEMI, en LVH. 11:24 ED course: Pt COVID +. no stress. Does not meet admission criteria. She is not a good en candidate for [facility]. . 12/15 09:12 Order name: CBC with Diff; Complete Time: 09:49 en 12/15 09:12 Order name: CMP; Complete Time: 10:04 en 12/15 09:12 Order name: Troponin High Sensitivity; Complete Time: 10:04 en 12/15 09:12 Order name: COVID-19 SARS RT PCR (Document "Date of Onset" if Symptomatic) en 12/15 09:12 Order name: EKG - Nurse/Tech; Complete Time: 09:50 en 12/15 09:12 Order name: Saline Lock; Complete Time: 09:33 en 12/15 09:12 Order name: Influenza Screen (a \\T\\ B); Complete Time: 10:46 en Administered Medications: 09:27 Drug: Tylenol 325 mg Route: PO; tp1 12:14 Follow up: Response: No adverse reaction; refused second half of medication tp1 09:36 Drug: NS 0.9% 500 ml Route: IV; Rate: bolus; Site: left antecubital; tp1 12:14 Follow up: Response: No adverse reaction; IV Status: Completed infusion; IV Intake: tp1 500ml Disposition: 16:46 Co-signature as Attending Physician, Jb Ramos MD. rn Disposition Summary: 12/15/21 11:27 Discharge Ordered Location: Home en Problem: new en Symptoms: are unchanged en Condition: Stable en Diagnosis - COVID en Followup: en - With: Doris Chung MD - When: As needed - Reason: Discharge Instructions: - Discharge Summary Sheet en - COVID-19 en Forms: - Medication Reconciliation Form en - Thank You Letter en - Antibiotic Education en - Prescription Opioid Use en Signatures: Dispatcher [employer] Chloe Bonilla, Jb Young RN, MD MD rn Parker, Tiffany tp1 Edith Castro PA PA en
[2021-12-15 12:23] VITALS: TEMP 97.5; O2SAT 100
[2021-12-15 12:25] VITALS: BP 90/77
--- NOTE | 2021-12-16 13:48 | EKG ---
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
== END 2021-12-15 12:15 | disposition home or self-care (01) ==
LOC: ER 08:52
DX: U07.1 COVID-19 (principal); I10 Essential (primary) hypertension; E11.9 Type 2 diabetes mellitus without complications; Z86.73 Personal history of transient ischemic attack (TIA), and cerebral infarction without residual deficits; Z88.8 Allergy status to other drugs, medicaments and biological substances
CPT/HCPCS: 93005; 85025; 36415; 84484; 80053; 87804 ×2; U0003; J7040; 96360; 96361; 99283

== ENCOUNTER 2022-11-01 18:15 | Emergency (ER) | payer OTHER ==
--- OUTSIDE RECORDS SUMMARY | 2022-11-01 18:22 | XMS REPORT | Continuity of Care Document ---
:1950 Author Organization [facility] t Address [address] [place] [address] [address] [place] [address] Care Team Providers Name Role Phone Jalen Gupta Attending Clinician Unavailable Marcelle Mandel Attending Clinician Unavailable Doris Chung Attending Clinician Unavailable Vito_Charmaine Attending Clinician Unavailable Jesus Murguia Attending Clinician Vito_T Admitting Clinician Unavailable Pierre Wright Admitting Clinician Payers Payer Name Policy Type Policy Number Effective Date Expiration Date S jack MEDICARE B-[place]: [id number] 2014 NOVITAS 00:00:00 SOLUTIONS WPS - [id number] FOR LIFE (MEDICARE SUPPLEMENT) MEDICARE MB [id number] 2014 [facility] NOVITAS 00:00:00 - [facility] FOR C1 [id number] 2014 [facility] LIFE 00:00:00 - [facility] MEDICARE MB [id number] 2014 [facility] NOVITAS 00:00:00 - [facility] FOR C1 [id number] 2014 [facility] LIFE 00:00:00 - [facility] MEDICARE MB [id number] 2014 [facility] NOVITAS 00:00:00 - [facility] FOR C1 [id number] 2014 [facility] LIFE 00:00:00 - [facility] MEDICARE MB [id number] 2014 [facility] NOVITAS 00:00:00 - [facility] FOR C1 [id number] 2014 [facility] LIFE 00:00:00 - [facility] MEDICARE-PA [id number] 2014 (MEDICARE) 00:00:00 [facility] - [id number] HUMANA () Problems Condition Condition Condition Status Onset Resolution Last Treating Co mments Source Name Details Category Date Date Treatment Clinician Date Senile Senile Problem Active [facility] purpura Purpura 7-29 Family 00:00: Practic 00 e Abnormal Abnormal Problem Active Garcia ge liver Liver 4-25 Family function Function 00:00: Practi c 00 e Serum Serum Problem Active [facility] bicarbonat Bicarbonat 4-25 Fa gaurang e level e Level 00:00: Practic abnormal Abnormal 00 e AST/SGOT AST/SGOT Problem Active Garcia ge level Level 4-25 Family abnormal Abnormal 00:00: Practi c 00 e Morbid Morbid Problem Active [facility] obesity Obesity 4-19 Family 00:00: Practic 00 e Hyperglyce Hyperglyce Problem Active [facility] avni due to avni Due to 6-25 Fa gaurang type 2 Type 2 00:00: Practic diabetes Diabetes 00 e mellitus Mellitus Microalbum Microalbum Problem Active [facility] inuria inuria 4-30 Family 00:00: Practic 00 e Obesity Obesity Problem Active [place] 1-29 Family 00:00: Practic 00 e Foot Foot Problem Active [facility] callus Callus 1-29 Family 00:00: Practic 00 e Abnormal Abnormal Problem Active Garcia ge foot pulse Foot Pulse 1-29 Fa gaurang 00:00: Practic 00 e Type 2 Type 2 Problem Active 2019-06 [facility] diabetes Diabetes 0-15 Family mellitus Mellitus 00:00: Practi c 00 e Benign Benign Problem Active 2019-06 [facility] essential Essential 0-15 Fami ly hypertensi Hypertensi 00:00: Pr actic on on e Bilateral Bilateral Problem Active Shayy richard glaucoma Glaucoma 3-04 Family 00:00: Practic 00 e Glaucoma Glaucoma Problem Active Jose malik 3-04 Family 00:00: Practic 00 e Hypoglycem Hypoglycem Problem Active 2016-06 [facility] illage ia ia 0-18 Family 00:00: Practic 00 e Hyperlipid Hyperlipid Problem Active 2016-06 [facility] ill[facility] emia emia 0-18 Family 00:00: Practic e Hyperprote Hyperprote Problem Active 2016-06 [facility] inemia inemia 0-18 Family 00:00: Practic 00 e Anxiety Anxiety Problem Active 2016-06 [facility] disorder Disorder 0-18 Family 00:00: Practic 00 e Essential Essential Problem Active 2016-06 Shayy ramos hypertensi Hypertensi 0-18 Fa gaurang on on 00:00: Practic 00 e Cerebrovas Cerebrovas Problem Active 2016-06 [facility] ill[facility] cular cular 0-18 Family disease Disease 00:00: Practic 00 e Peripheral Peripheral Problem Active 2016-06 [facility] vascular Vascular 0-18 Family disease Disease 00:00: Practic 00 e Body mass Body Mass Problem Active 2016-06 Shayy ramos index 40+ Index 40+ 0-18 Fami ly - severely - Severely 00:00: Pr actic obese Obese 00 e Multiple Multiple Problem Active 2016-06 Jose malik complicati Complicati 0-18 Fa gaurang ons due [...] collapse Collapse 00:00: Practi c [address] SNOMED CT Problem Active 2016-06 Shayy ramos Concept Concept 0-18 Family 00:00: Practic 00 e Venous Venous Problem Active 2016-06 [place] finding Finding 0-18 Family 00:00: Practic 00 e Finding of Finding of Problem Active 2016-06 [facility] urine Urine 0-18 Family substance Substance 00:00: Prac tic level Level 00 e Under Under Problem Active 2016-06 [place] immunized Immunized 0-18 Fami ly 00:00: Practic 00 e Clinical Clinical Problem Active 2016-06 Garcia ge finding Finding 0-18 Family 00:00: Practic 00 e CVA CVA Diagnosis Active 2017-01-04 Mem oria Active 01-04 15:59:00 l 01/04/2017 00:00: Johnny sandoval [address] LF LF Diagnosis Active 2017-01-04 Mem oria #3667(CVA) #3667(CVA) 01-04 13:40:00 l Active 00:00: Jorge 01/04/2017 00 [facility] APHASIA,AC APHASIA,A Diagnosis Active 2017-01-05 Memoria [place] LEFT CUTE LEFT 01-04 18:52:00 l SIDED SIDED 00:00: Jorge WEAKNESS WEAKNESS 00 Active 01/04/2017 [facility] [id number] Primary Problem Comm on osteoarthr Spirit itis of - [facility] left knee [facility] High High Problem Common cholestero cholestero Sp verna l l - [facility] [id number] custodial Problem Com mon current [facility] use of - [facility] insulin [facility] [id number] History of Problem Co mmon TIA Spirit (transient - [facility] ischemic St attack) [facility] [id number] Constipati Problem Com mon on, [facility]if[id number] Type 2 Problem Common diabetes [id number] BMI Problem Common 32.0-32.9, [facility] adult - [facility] Stroke Stroke Problem [facility] - [facility] Diabetes Diabetes Problem Commo n mellitus DMII Spirit without without - [facility] complicati complicati [facility] on [facility] Onychomyco Onychomyco Problem Active V illage sis [...] e Elevated Elevated Problem Active Garcia ge level of Level of Family transamina Transamina Pr actic se and se and e lactic Lactic acid Acid dehydrogen Dehydrogen ase ase Finding of Finding of Problem Active [facility] ill[facility] body mass Body Mass Fami ly index Index Practic e IDDM - IDDM - Problem Resolve 2012-07-15 Mem oria Insulin-de Insulin-de d 13:51:43 l pendent pendent Jorge diabetes diabetes 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 Resolved Problem 07/15/2012 [facility] Insulin-de Insulin-d Problem Resolve 2017-01-08 Memoria pendent ependent d 02:23:28 l diabetes diabetes Johnny n 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 (disorder) (disorder) Resolved Problem 01/08/2017 [facility] Uterine 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 emoria leiomyoma leiomyoma d 02:23:28 l (disorder) (disorder) He rmann Resolved Problem 01/08/2017 [facility] CVA CVA Diagnosis Active 2012-07-19 Mem oria Active MH 21:51:00 l [facility] APHASIA APHASIA Diagnosis Active 2017-01-05 Memoria Active 18:52:00 l [facility] HTN - HTN - Problem Resolve 2012-07-15 Tong dulce Hypertensi Hypertensi d 13:51:43 l on on Dante Resolved Problem 07/15/2012 [facility] Transient Transient Problem Resolve 2017-01-08 2017-01-08 Memoria ischemic ischemic d 06-08 02:23:28 02:23:28 l attack attack 00:00: Jorge (disorder) (disorder) 00 Resolved 06/08/2002 Problem 01/08/2017 [facility] TIA TIA Problem Resolve 2012-07-15 2012-07-15 Memoria Resolved d - 13:51:43 13:51:43 l 06/08/2002 00:00: Johnny n Problem 00 07/15/2012 [facility] Allergies, Adverse Reactions, Alerts Allergy Allergy Status Severity Reaction(s) Onset Inactive Treating Comm ents Source Name Type Date Date Clinician NKFA NKFA Active Memoria l Jorge Steroids Steroids Active Memori a <sup>1</ <sup>1</ l sup> sup> Dante Social History Social Habit Start Date Stop Date Quantity Comments Source History of Tobacco [facility] - [facility] Sex Assigned At [facility] - [facility] Social History 2017-01-04 2017-01-04 Segun soto 22:04:12 22:04:12 Smoking Status Start Date Stop Date Source Never Smoker [facility] Medications Ordered Filled Start Stop Current Ordering Indication Dosage Frequency Signature Comments Components Source Medication Medication Date Date Medication? Clinician (SIG) Name Name furosemide furosemide No furosemide [place] 20 mg 20 mg 8-25 20 mg Family tablet TAKE tablet TAKE 00:00: tablet Practic 1 TABLET BY 1 TABLET BY 00 TAKE 1 e MOUTH ONCE MOUTH ONCE TABLET BY DAILY FOR 3 DAILY FOR 3 MOUTH ONCE DAYS DAYS DAILY FOR NEEDED FOR NEEDED FOR 3 DAYS SWELLING SWELLING NEEDED FOR SWELLING furosemide furosemide No furosemide [place] 20 mg 20 mg 8-25 20 mg Family tablet TAKE tablet TAKE 00:00: tablet Practic 1 TABLET BY 1 TABLET BY 00 TAKE 1 e MOUTH ONCE MOUTH ONCE TABLET BY DAILY FOR 3 DAILY FOR 3 MOUTH ONCE DAYS DAYS DAILY FOR NEEDED FOR NEEDED FOR 3 DAYS SWELLING SWELLING NEEDED FOR SWELLING furosemide furosemide No furosemide [place] 20 mg 20 mg 8-25 20 mg Family tablet TAKE tablet TAKE 00:00: tablet Practic 1 TABLET BY 1 TABLET BY 00 TAKE 1 e MOUTH ONCE MOUTH ONCE TABLET BY DAILY FOR 3 DAILY FOR 3 MOUTH ONCE DAYS DAYS DAILY FOR NEEDED FOR NEEDED FOR 3 DAYS SWELLING SWELLING NEEDED FOR SWELLING Losartan Losartan No 1{table QD Losartan Potassium Potassium 9-21 t} Potassium 25 MG 25 MG 00:00: 25 MG 00 Losartan Losartan No 1{table QD Losartan Potassium Potassium 9-21 t} Potassium 25 MG 25 MG 00:00: 25 MG 00 Losartan Losartan No 1{table QD Losartan Potassium Potassium 9-21 t} Potassium 25 MG 25 MG 00:00: 25 MG 00 Losartan Losartan No 1{table QD Losartan Potassium Potassium 9-21 t} Potassium 25 MG 25 MG 00:00: 25 MG 00 Olmesartan Olmesartan No 1{table QD Olmesartan Medoxomil 5 Medoxomil 5 9-08 t} Medoxomil MG MG 00:00: 5 MG 00 Olmesartan Olmesartan No 1{table QD Olmesartan Medoxomil 5 Medoxomil 5 9-08 t} Medoxomil MG MG 00:00: 5 MG 00 Furosemide Furosemide No 1{table Furosemide 20 MG 20 MG 12-24 t} 20 MG 00:00: 00 Furosemide Furosemide No 1{table Furosemide 20 MG 20 MG 12-24 t} 20 MG 00:00: 00 Furosemide Furosemide No 1{table Furosemide 20 MG 20 MG - t} 20 MG 00:00: 00 Ativan No Notes: Memoria 01-05 (Same as: l 16:31: Ativan) Ativan No 2 mg, Memoria 01-05 Route: l 16:30: IVP, Drug form: INJ, ONCE, Dosing Weight 105.17, kg, PRN Anxiety, Start date: 01/05/17 11:30:00 CDT Insulin No Notes: Memoria Glargine 01-05 Same as: l 14:00: Lantus) Do not hold insulin without contacting prescriber WASTE: F/P - Black; E - AddMyBest Trash Bin [facility] No Notes: Tong dulce 01-05 (Same l 14:00: as:Cardize Jorge 00 m CD) Before meals. DO NOT CRUSH. aspirin 81 No Notes: Do Me moria mg tablet, 01-05 not crush l enteric 14:00: or chew. Johnny n coated 00 (Same As: Ecotrin) Plavix No Notes: Memoria 01-05 (Same As: l 14:00: Plavix) Tresiba Yes 20 unit, Memori a FlexTouch 01-05 SUB-Q, l 13:56: Bedtime, 0 Jorge 00 Refill(s) Hydrochloro Yes 1 tab, PO, [...] Refill(s) atorvastati No Notes: Tong dulce n -31 (Same as: l 02:00: Lipitor) Docusate No Notes: Memoria 01-04 (Same as: l 22:00: Colace) (Do Not Crush) Insulin No 60 units) Tong dulce regular 01-04 WASTE: F/P l 21:07: - Black; E - AddMyBest Trash Bin Stable for 28 days at [...] 0.9% 06-08 Same as: l 19:21: BD Dante Posiflush Sterile Lantus No Lashay 40 unit, Mem oria 2-05 [place] 0.4 mL, l 15:00: [place] Route: Jorge 00 SUB-Q, Drug form: INJ, QAM, Dosing Weight 122.33, kg, Start date: 07/13/12 9:00:00, Duration: 30 day, Stop date: 08/11/12 9:00:00 atorvastati Yes Lashay 80 mg, 1 Memoria n 80 mg 2-05 [place] tab, PO, l oral tablet 14:00: [place] QPM, 30 tab, 1, 1, Substituti on Allowed, TAB Lantus No Lashay 38 unit, Mem oria 2-05 [place] 0.38 mL, l 00:00: [place] Route: Jorge SUB-Q, Drug form: INJ, QPM, Dosing Weight 122.33, kg, Start date: 07/12/12 18:00:00, Duration: 30 day, Stop date: 08/11/12 17:00:00 atorvastati No Lashay 80 mg, 1 Memoria n 2-04 [place] tab, l 23:00: [place] Route: PO, Herm adolfo Drug form: TAB, QPM, Dosing Weight 122.33, kg, Start date: 07/12/12 17:00:00, Duration: 30 day, Stop date: 08/10/12 17:00:00 heparin No Lashay 7,500 Memor ia 5000 2-04 [place] unit, 1.5 l units/mL 22:00: [place] mL, Route: Jorge injectable 00 SUB-Q, solution Drug form: INJ, Q8H, Dosing Weight 122.33, kg, Start date: 07/12/12 16:00:00, Duration: 30 day, Stop date: 08/11/12 8:00:00 valsartan No Lashay 160 mg, 1 Memoria 2-04 [place] tab, l 19:00: [place] Route: PO, Herm adolfo 00 Drug form: TAB, Daily, Dosing Weight 122.33, kg, Start date: 07/12/12 13:00:00, Duration: 30 day, Stop date: 08/11/12 9:00:00 diltiazem No Lashay 180 mg, 1 Memoria 2-04 [place] cap, l 19:00: [place] Route: PO, Herm adolfo 00 Drug form: ERCAP, Daily, Dosing Weight 122.33, kg, Start date: 07/12/12 13:00:00, Duration: 30 day, Stop date: 08/11/12 9:00:00 hydrochloro No Lashay 12.5 mg, 1 Memoria thiazide 2-04 [place] cap, l 19:00: [place] Route: PO, Herm adolfo 00 Drug form: CAP, Daily, Dosing Weight 122.33, kg, Start date: 07/12/12 13:00:00, Duration: 30 day, Stop date: 08/11/12 9:00:00 aspirin No Lashay 325 mg, 1 M emoria 2-04 [place] tab, l 16:13: [place] Route: PO, Herm adolfo 00 Drug form: ECTAB, Daily, Dosing Weight 122.33, kg, Priority: NOW, Start date: 07/12/12 10:13:00, Duration: 30 day, Stop date: 08/11/12 9:00:00 pneumococca No SYSTEM 0.5 ml, M emoria l 23-valent 04 SYSTEM Route: IM, l vaccine 15:00: Drug Form: Herm adolfo 00 INJ, Daily, Start date: 07/12/12 9:00:00, Duration: 1 doses or times, Stop date: 07/12/12 9:00:00 pantoprazol No Bo Arthur 40 mg, Memoria e 04 Route: l 15:00: IVP, Drug Jorge 00 form: INJ, Daily, Dosing Weight 113.636, kg, Start date: 07/12/12 9:00:00, Duration: 30 day, Stop date: 08/10/12 9:00:00 Saline No Bo Arthur 5 ml, Tong dulec Flush 0.9% 2-04 Route: l 03:00: IVP, Drug Form: INJ, Dosing Weight 113.636, kg, Q12H, Start date: 07/11/12 21:00:00, Duration: 30 day, Stop date: 08/10/12 9:00:00 docusate No Bo Arthur 100 mg, 1 Memoria 2-04 cap, l 03:00: Route: PO, Dante 00 Drug form: CAP, Q12H, Dosing Weight 113.636, kg, Start date: 07/11/12 21:00:00, Duration: 30 day, Stop date: 08/10/12 9:00:00 insulin No Bo Gibson 7 unit, M emoria regular 2-04 0.07 mL, l human 02:51: Route: Jorge recombinant 00 SUB-Q, 100 Drug form: units/mL SOLN, PRN, injectable Dosing solution Weight 122.33, kg, PRN Abnormal Lab Result, Start date: 07/11/12 20:51:00, Duration: 30 day, Stop date: 08/10/12 20:50:00 Dextrose No Ob Arthur 12.5 gm, Memoria 50% Syringe 2-04 [...] SUB-Q, l Pen 100 23:21: Bedtime, Johnny n units/mL 29 10 ml, subcutaneou Substituti s solution on Allowed, SOLN Diovan HCT Yes 1 tab, PO, M emoria 12.5 mg-320 2-03 Daily, 30 l mg oral 23:20: tab, Dante tablet 07 Substituti on Allowed, Maintenanc e, TAB glipiZIDE Yes 10 mg, 1 Tong dulce 10 mg oral 2-03 tab, PO, l tablet 23:19: Daily, 30 Johnny n 54 tab, Substituti on Allowed Plavix 75 Yes 75 mg, 1 Tong dulce mg oral 203 tab, PO, l tablet 23:19: Daily, 30 Johnny n 39 tab, Substituti on Allowed, TAB simvastatin No 40 mg, 1 Me moria 40 mg oral 2-03 tab, PO, l tablet 23:19: Bedtime, Dante 30 30 tab, Substituti on Allowed, Maintenanc [...] 2-03 SUB-Q, l Pen 100 23:18: Before Dante units/mL 22 Breakfast, subcutaneou 10 ml, s [...] Bo Arthur 650 mg, 2 Memoria en 03 tab, l 22:11: Route: PO, Dante 00 Drug form: TAB, Q4H, Dosing Weight 113.636, kg, PRN Pain/Fever , Start date: 07/11/12 16:11:00, Duration: 30 day, Stop date: 08/10/12 16:10:00 labetalol No Bo Arthur 10 mg, 2 Memoria 2-03 mL, Route: l 22:11: IVP, Drug Jorge 00 form: INJ, Q10Min, Dosing Weight 113.636, kg, PRN Hypertensi on, Start date: 07/11/12 16:11:00, Duration: 30 day, Stop date: 08/10/12 16:10:00, For SBP > 180mmHg and/or DBP > 105mmHg Omnipaque No Meagan 125 mL, Mem oria 350mg/ml 07-11 No Route: l 19:41: Homar IVP, Drug Radha nn Form: SOLN, Dosing Weight 113.636, kg, ONCALL, [...] Atorvastati Atorvastati Yes Na Chung 1 tablet Common n Calcium n Calcium Spiri t - [facility] Losartan Losartan Yes Na Chung 1 tablet Common Potassium-H Potassium-H S pirit CTZ CTZ - [facility] Jardiance Jardiance Yes Na Chung 1 tablet [facility] - [facility] Trulicity Trulicity Yes Na Chung 1 Co mmon injection Spirit [facility] Aspir-81 Aspir-81 Yes Na Chung 1 tablet [facility] Diltiazem Diltiazem Yes Na Chung 1 capsule Common HCl ER HCl ER on an Spirit empty - [facility] stomach in [facility] Metformin Metformin Yes Na Cuhng 1 tablet Common HCl HCl with a Spirit meal - [facility] Atorvastati Atorvastati No 1{table QD Atorvastat n Calcium n Calcium t} in Calcium 40 MG 40 MG 40 MG hydroCHLORO hydroCHLORO No 1{table QD hydroCHLOR thiazide 25 thiazide 25 t_in_th Othiazide MG MG e_morni 25 MG ng} Jardiance Jardiance No 1{table QD Jardiance 10 MG 10 MG t} 10 MG Synjardy XR Synjardy XR No 1{table QD Synjardy 25-1000 MG 25-1000 MG t_with_ XR 25-[address]} Centrum Centrum No Centrum Silver - Silver - Silver - Trulicity Trulicity No Trulicity 1.5mg/0.5ml 1.5mg/0.5ml 1.5mg/0.5m l metFORMIN metFORMIN No 1{table BID metFORMIN HCl 500 MG HCl 500 MG t_with_ HCl 500 MG a_meal} Aspir-81 81 Aspir-81 81 No 1{table QD Aspir-81 MG MG t} 81 MG hydroCHLORO hydroCHLORO No 1{table QD hydroCHLOR thiazide 25 thiazide 25 t_in_th Othiazide MG MG e_morni 25 MG ng} Centrum Centrum No Centrum Silver - Silver - Silver - metFORMIN metFORMIN No 1{table BID metFORMIN HCl 500 MG HCl 500 MG t_with_ HCl 500 MG a_meal} Atorvastati Atorvastati No 1{table QD Atorvastat n Calcium n Calcium t} in Calcium 40 MG 40 MG 40 MG Aspir-81 81 Aspir-81 81 No 1{table QD Aspir-81 MG MG t} 81 MG Jardiance Jardiance No 1{table QD Jardiance 10 MG 10 MG t} 10 MG Trulicity Trulicity No Trulicity 1.5mg/0.5ml 1.5mg/0.5ml 1.5mg/0.5m l Synjardy XR Synjardy XR No 1{table QD Synjardy 25-1000 MG 25-1000 MG t_with_ XR 25-[address]} hydroCHLORO hydroCHLORO No 1{table QD hydroCHLOR thiazide 25 thiazide 25 t_in_th Othiazide MG MG e_morni 25 MG ng} Centrum Centrum No Centrum Silver - Silver - Silver - metFORMIN metFORMIN No 1{table BID metFORMIN HCl 500 MG HCl 500 MG t_with_ HCl 500 MG a_meal} Atorvastati Atorvastati No 1{table QD Atorvastat n Calcium n Calcium t} in Calcium 40 MG 40 MG 40 MG Aspir-81 81 Aspir-81 81 No 1{table QD Aspir-81 MG MG t} 81 MG Jardiance Jardiance No 1{table QD Jardiance 10 MG 10 MG t} 10 MG Trulicity Trulicity No Trulicity 1.5mg/0.5ml 1.5mg/0.5ml 1.5mg/0.5m l Synjardy XR Synjardy XR No 1{table QD Synjardy 25-1000 MG 25-1000 MG t_with_ XR 25-[address]} metFORMIN metFORMIN No 1{table BID metFORMIN HCl 500 MG HCl 500 MG t_with_ HCl 500 MG a_meal} Centrum Centrum No Centrum Silver - Silver - Silver - Losartan Losartan No Losartan Potassium Potassium Potassium 25 mg 25 mg 25 mg Trulicity Trulicity No Trulicity 1.5mg/0.5ml 1.5mg/0.5ml 1.5mg/0.5m l Losartan Losartan No 1{table QD Losartan Potassium Potassium t} Potassium 25 MG 25 MG 25 MG Aspir-81 81 Aspir-81 81 No 1{table QD Aspir-81 MG MG t} 81 MG Atorvastati Atorvastati No 1{table QD Atorvastat n Calcium n Calcium t} in Calcium 40 MG 40 MG 40 MG hydroCHLORO hydroCHLORO No 1{table QD hydroCHLOR thiazide 25 thiazide 25 t_in_th Othiazide MG MG e_morni 25 MG ng} Atorvastati Atorvastati No 1{table QD Atorvastat n Calcium n Calcium t} in Calcium 40 MG 40 MG 40 MG Losartan Losartan No 1{table QD Losartan Potassium Potassium t} Potassium 25 MG 25 MG 25 MG hydroCHLORO hydroCHLORO No 1{table QD hydroCHLOR thiazide 25 thiazide 25 t_in_th Othiazide MG MG e_morni 25 MG ng} Trijardy XR Trijardy XR No QD Trijardy 25-5-1000 25-5-1000 XR MG MG 25-5-1000 MG Trulicity Trulicity No Trulicity 1.5mg/0.5ml 1.5mg/0.5ml 1.5mg/0.5m l Aspir-81 81 Aspir-81 81 No 1{table QD Aspir-81 MG MG t} 81 MG metFORMIN metFORMIN No 1{table BID metFORMIN HCl 500 MG HCl 500 MG t_with_ HCl 500 MG a_meal} Centrum Centrum No Centrum Silver - Silver - Silver - Atorvastati Atorvastati No 1{table QD Atorvastat n Calcium n Calcium t} in Calcium 40 MG 40 MG 40 MG Losartan Losartan No 1{table QD Losartan Potassium Potassium t} Potassium 25 MG 25 MG 25 MG hydroCHLORO hydroCHLORO No 1{table QD hydroCHLOR thiazide 25 thiazide 25 t_in_th Othiazide MG MG e_morni 25 MG ng} Trijardy XR Trijardy XR No QD Trijardy 25-5-1000 25-5-1000 XR MG MG 25-5-1000 MG Trulicity Trulicity No Trulicity 1.5mg/0.5ml 1.5mg/0.5ml 1.5mg/0.5m l Aspir-81 81 Aspir-81 81 No 1{table QD Aspir-81 MG MG t} 81 MG metFORMIN metFORMIN No 1{table BID metFORMIN HCl 500 MG HCl 500 MG t_with_ HCl 500 MG a_meal} Centrum Centrum No Centrum Silver - Silver - Silver - Atorvastati Atorvastati No 1{table QD Atorvastat n Calcium n Calcium t} in Calcium 40 MG 40 MG 40 MG Losartan Losartan No 1{table QD Losartan Potassium Potassium t} Potassium 25 MG 25 MG 25 MG hydroCHLORO hydroCHLORO No 1{table QD hydroCHLOR thiazide 25 thiazide 25 t_in_th Othiazide MG MG e_morni 25 MG ng} Trijardy XR Trijardy XR No QD Trijardy 25-5-1000 25-5-1000 XR MG MG 25-5-1000 MG Trulicity Trulicity No Trulicity 1.5mg/0.5ml 1.5mg/0.5ml 1.5mg/0.5m l Aspir-81 81 Aspir-81 81 No 1{table QD Aspir-81 MG MG t} 81 MG metFORMIN metFORMIN No 1{table BID metFORMIN HCl 500 MG HCl 500 MG t_with_ HCl 500 MG a_meal} Centrum Centrum No Centrum Silver - Silver - Silver - Atorvastati Atorvastati No 1{table QD Atorvastat n Calcium n Calcium t} in Calcium 40 MG 40 MG 40 MG Losartan Losartan No 1{table QD Losartan Potassium Potassium t} Potassium 25 MG 25 MG 25 MG hydroCHLORO hydroCHLORO No 1{table QD hydroCHLOR thiazide 25 thiazide 25 t_in_th Othiazide MG MG e_morni 25 MG ng} Trijardy XR Trijardy XR No QD Trijardy 25-5-1000 25-5-1000 XR MG MG 25-5-1000 MG Trulicity Trulicity No Trulicity 1.5mg/0.5ml 1.5mg/0.5ml 1.5mg/0.5m l Aspir-81 81 Aspir-81 81 No 1{table QD Aspir-81 MG MG t} 81 MG atorvastati atorvastati No atorvastat Village n 40 mg n 40 mg in 40 mg Famil y tablet Take tablet Take tablet Practic 1 tablet 1 tablet Take 1 e every day every day tablet by oral by oral every day route in route in by oral the evening the evening route in for 90 for 90 the days. days. evening for 90 days. metFORMIN metFORMIN No 1{table BID metFORMIN HCl 500 MG HCl 500 MG t_with_ HCl 500 MG a_meal} Combigan Combigan No Combigan Shayy richard 0.2 %-0.5 % 0.2 %-0.5 % 0.2 %-0.5 Family eye drops eye drops % eye Prac tic drops e Centrum Centrum No Centrum Silver - Silver - Silver - hydrochloro hydrochloro No hydrochlor [place] thiazide 25 thiazide 25 othiazide Family mg tablet mg tablet 25 mg Prac tic tablet e metFORMIN metFORMIN No 1{table BID metFORMIN HCl 500 MG HCl 500 MG t_with_ HCl 500 MG a_meal} losartan 25 losartan 25 No losartan [place] mg tablet mg tablet 25 mg Fami ly tablet Practic e Ozempic Ozempic No Ozempic Vitamin D3 Vitamin D3 No Vitamin D3 Multi Multi No Multi Village Vitamin Vitamin Vitamin Family Practic e Losartan Losartan No 1{table QD Losartan Potassium Potassium t} Potassium 25 MG 25 MG 25 MG Ozempic Ozempic No .5mg Q1W Ozempic Villag e 0.25 mg or 0.25 mg or 0.25 mg or Family 0.5 mg (2 0.5 mg (2 0.5 mg (2 Practic mg/1.5 mL) mg/1.5 mL) mg/1.5 mL) e subcutaneou subcutaneou subcutaneo s pen s pen us pen injector injector injector Inject 0.5 Inject 0.5 Inject 0.5 mg every mg every mg every week by week by week by subcutaneou subcutaneou subcutaneo s route for s route for us route 90 days. 90 days. for 90 days. hydroCHLORO hydroCHLORO No 1{table QD hydroCHLOR thiazide 25 thiazide 25 t_in_ Othiazide MG MG e_morni 25 MG ng} [facility] No [facility] 0.02 0.02 0.02 Family %-0.005 % %-0.005 % %-0.005 % Practic eye drops eye drops eye drops e Centrum Centrum No Centrum Silver - Silver - Silver - tobramycin tobramycin No tobramycin [facility] 0.3 0.3 0.3 Family %-dexametha %-dexametha %-dexameth Practic sone 0.1 % sone 0.1 % asone 0.1 e eye eye % eye drops,suspe drops,suspe drops,susp nsion nsion ension INSTILL 1 INSTILL 1 INSTILL 1 DROP INTO DROP INTO DROP INTO LEFT EYE LEFT EYE LEFT EYE THREE TIMES THREE TIMES THREE DAILY DAILY TIMES DAILY Aspir-81 81 Aspir-81 81 No 1{table QD Aspir-81 MG MG t} 81 MG Trulicity Trulicity No Trulicity 1.5mg/0.5ml 1.5mg/0.5ml 1.5mg/0.5m l [facility] XR Trijardy XR No 1 Q1D [place] 25 mg-5 25 mg-5 XR 25 mg-5 Fam shraddha mg-1,000 mg mg-1,000 mg mg-1,000 Practic tablet, tablet, mg tablet, e extended extended extended release release release Take 1 Take 1 Take 1 tablet tablet tablet every day every day every day by oral by oral by oral route for route for route for 90 days. 90 days. 90 days. Trijardy XR Trijardy XR No QD [place] 25-5-1000 25-5-1000 XR MG MG 25-5-1000 MG atorvastati atorvastati No [facility] n 40 mg n 40 mg in 40 mg Famil y tablet TAKE tablet TAKE tablet Practic 1 TABLET 1 TABLET TAKE 1 e DAILY IN DAILY IN TABLET THE EVENING THE EVENING DAILY IN THE EVENING Atorvastati Atorvastati No 1{table QD Atorvastat n Calcium n Calcium t} in Calcium 40 MG 40 MG 40 MG cholestyram cholestyram No cholestyra [facility] ine (with ine (with mine (with Family sugar) 4 sugar) 4 sugar) 4 Pra ctic gram powder gram powder gram e for susp in for susp in powder for a packet a packet susp in a packet Ozempic Ozempic No Ozempic (0.25 or (0.25 or (0.25 or 0.5 0.5 0.5 MG/DOSE) 2 MG/DOSE) 2 MG/DOSE) 2 MG/1.5ML MG/1.5ML MG/1.5ML Combigan Combigan No Combigan Shayy richard 0.2 %-0.5 % 0.2 %-0.5 % 0.2 %-0.5 Family eye drops eye drops % eye Prac tic drops e Vitamin D3 Vitamin D3 No Vitamin D3 dorzolamide dorzolamide No dorzolamid [facility] 2 % eye 2 % eye e 2 % eye Fami ly drops drops drops Practic INSTILL 1 INSTILL 1 INSTILL 1 e DROP INTO DROP INTO DROP INTO BOTH EYES BOTH EYES BOTH EYES TWICE TWICE TWICE DAILY. DAILY. DAILY. Aspir-81 81 Aspir-81 81 No 1{table QD Aspir-81 MG MG t} 81 MG hydrochloro hydrochloro No hydrochlor [place] thiazide 25 thiazide 25 othiazide Family mg tablet mg tablet 25 mg Prac tic tablet e Centrum Centrum No Centrum Silver - Silver - Silver - losartan 25 losartan 25 No losartan [place] mg tablet mg tablet 25 mg Fami ly tablet Practic e hydroCHLORO hydroCHLORO No 1{table QD hydroCHLOR thiazide 25 thiazide 25 t_in_th Othiazide MG MG e_morni 25 MG ng} [facility]y XR Trijardy XR No QD [place] 25-5-1000 25-5-1000 XR MG MG 25-5-1000 MG Multi Multi No Multi [facility] Vitamin Vitamin Vitamin Family Practic e Losartan Losartan No 1{table QD Losartan Potassium Potassium t} Potassium 25 MG 25 MG 25 MG Ozempic Ozempic No Ozempic [facility] 0.25 mg or 0.25 mg or 0.25 mg or Family 0.5 mg (2 0.5 mg (2 0.5 mg (2 Practic mg/1.5 mL) mg/1.5 mL) mg/1.5 mL) e subcutaneou subcutaneou subcutaneo s pen s pen us pen injector injector injector Inject 0.5 Inject 0.5 Inject 0.5 mg every mg every mg every week by week by week by subcutaneou subcutaneou subcutaneo s route for s route for us route 90 days. 90 days. for 90 days. Atorvastati Atorvastati No 1{table QD Atorvastat n Calcium n Calcium t} in Calcium 40 MG 40 MG 40 MG [facility] No [facility] 0.02 0.02 0.02 Family %-0.005 % %-0.005 % %-0.005 % Practic eye drops eye drops eye drops e hydroCHLORO hydroCHLORO No 1{table QD hydroCHLOR thiazide 25 thiazide 25 t_in_th Othiazide MG MG e_morni 25 MG ng} [facility] 0.3 0.3 0.3 Family %-dexametha %-dexametha %-dexameth Practic sone 0.1 % sone 0.1 % asone 0.1 e eye eye % eye drops,suspe drops,suspe drops,susp nsion nsion ension INSTILL 1 INSTILL 1 INSTILL 1 DROP INTO DROP INTO DROP INTO LEFT EYE LEFT EYE LEFT EYE THREE TIMES THREE TIMES THREE DAILY DAILY TIMES DAILY Ozempic Ozempic No Ozempic (0.25 or (0.25 or (0.25 or 0.5 0.5 0.5 MG/DOSE) 2 MG/DOSE) 2 MG/DOSE) 2 MG/1.5ML MG/1.5ML MG/1.5ML [place] XR Trijardy XR No 1 Q1D [place] 25 mg-5 25 mg-5 XR 25 mg-5 Fam shraddha mg-1,000 mg mg-1,000 mg mg-1,000 Practic tablet, tablet, mg tablet, e extended extended extended release release release Take 1 Take 1 Take 1 tablet tablet tablet every day every day every day by oral by oral by oral route for route for route for 90 days. 90 days. 90 days. Losartan Losartan No Losartan Potassium Potassium Potassium 25 mg 25 mg 25 mg Vitamin D3 Vitamin D3 No Vitamin D3 Trulicity Trulicity No 1.5mg Q1W Trulicity [place] 1.5 mg/0.5 1.5 mg/0.5 1.5 mg/0.5 Family mL mL mL Practic subcutaneou subcutaneou subcutaneo e s pen s pen us pen injector injector injector Inject 1.5 Inject 1.5 Inject 1.5 mg every mg every mg every week by week by week by subcutaneou subcutaneou subcutaneo s route for s route for us route 90 days. 90 days. for 90 days. Atorvastati Atorvastati No 1{table QD Atorvastat n Calcium n Calcium t} in Calcium 40 MG 40 MG 40 MG atorvastati atorvastati No atorvastat [place] n 40 mg n 40 mg in 40 mg Famil y tablet TAKE tablet TAKE tablet Practic 1 TABLET 1 TABLET TAKE 1 e DAILY IN DAILY IN TABLET THE EVENING THE EVENING DAILY IN THE EVENING Centrum Centrum No Centrum Silver - Silver - Silver - Combigan Combigan No Combigan Shayy richard 0.2 %-0.5 % 0.2 %-0.5 % 0.2 %-0.5 Family eye drops eye drops % eye Prac tic drops e [place]y XR Trijardy XR No QD [place] 25-5-1000 25-5-1000 XR MG MG 25-5-1000 MG dorzolamide dorzolamide No dorzolamid [place] 2 % eye 2 % eye e 2 % eye Fami ly drops drops drops Practic INSTILL 1 INSTILL 1 INSTILL 1 e DROP INTO DROP INTO DROP INTO BOTH EYES BOTH EYES BOTH EYES TWICE TWICE TWICE DAILY. DAILY. DAILY. Aspir-81 81 Aspir-81 81 No 1{table QD Aspir-81 MG MG t} 81 MG hydrochloro hydrochloro No hydrochlor [place] thiazide 25 thiazide 25 othiazide Family mg tablet mg tablet 25 mg Prac tic tablet e hydroCHLORO hydroCHLORO No hydroCHLOR thiazide 25 thiazide 25 Othiazide mg mg 25 mg Losartan Losartan No 1{table QD Losartan Potassium Potassium t} Potassium 25 MG 25 MG 25 MG losartan 25 losartan 25 No losartan [place] mg tablet mg tablet 25 mg Fami ly take one take one tablet Pract ic tablet by tablet by take one e mouth daily mouth daily tablet by mouth daily Multi Multi No Multi Village Vitamin Vitamin Vitamin Family Practic e hydroCHLORO hydroCHLORO No 1{table QD hydroCHLOR thiazide 25 thiazide 25 t_in_ Othiazide MG MG e_morni 25 MG ng} Ozempic Ozempic No Ozempic (0.25 or (0.25 or (0.25 or 0.5 0.5 0.5 MG/DOSE) 2 MG/DOSE) 2 MG/DOSE) 2 MG/1.5ML MG/1.5ML MG/1.5ML Ozempic Ozempic No Ozempic [facility] 0.25 mg or 0.25 mg or 0.25 mg or Family 0.5 mg (2 0.5 mg (2 0.5 mg (2 Practic mg/1.5 mL) mg/1.5 mL) mg/1.5 mL) e subcutaneou subcutaneou subcutaneo s pen s pen us pen injector injector injector Inject 0.5 Inject 0.5 Inject 0.5 mg every mg every mg every week by week by week by subcutaneou subcutaneou subcutaneo s route for s route for us route 90 days. 90 days. for 90 days. Losartan Losartan No Losartan Potassium Potassium Potassium 25 mg 25 mg 25 mg [facility] No [facility] 0.02 0.02 0.02 Family %-0.005 % %-0.005 % %-0.005 % Practic eye drops eye drops eye drops e Vitamin D3 Vitamin D3 No Vitamin D3 tobramycin tobramycin No tobramycin [place] 0.3 0.3 0.3 Family %-dexametha %-dexametha %-dexameth Practic sone 0.1 % sone 0.1 % asone 0.1 e eye eye % eye drops,suspe drops,suspe drops,susp nsion nsion ension INSTILL 1 INSTILL 1 INSTILL 1 DROP INTO DROP INTO DROP INTO LEFT EYE LEFT EYE LEFT EYE THREE TIMES THREE TIMES THREE DAILY DAILY TIMES DAILY Atorvastati Atorvastati No 1{table QD Atorvastat n Calcium n Calcium t} in Calcium 40 MG 40 MG 40 MG [place]y XR Trijardy XR No [place] 25 mg-5 25 mg-5 XR 25 mg-5 Fam shraddha mg-1,000 mg mg-1,000 mg mg-1,000 Practic tablet, tablet, mg tablet, e extended extended extended release release release Take 1 Take 1 Take 1 tablet tablet tablet every day every day every day by oral by oral by oral route for route for route for 90 days. 90 days. 90 days. Centrum Centrum No Centrum Silver - Silver - Silver - Trulicity Trulicity No Trulicity [place] 1.5 mg/0.5 1.5 mg/0.5 1.5 mg/0.5 Family mL mL mL Practic subcutaneou subcutaneou subcutaneo e s pen s pen us pen injector injector injector Inject 1.5 Inject 1.5 Inject 1.5 mg every mg every mg every week by week by week by subcutaneou subcutaneou subcutaneo s route for s route for us route 90 days. 90 days. for 90 days. Trijardy XR Trijardy XR No QD [place] 25-5-1000 25-5-1000 XR MG MG 25-5-1000 MG Aspir-81 81 Aspir-81 81 No 1{table QD Aspir-81 MG MG t} 81 MG hydroCHLORO hydroCHLORO No hydroCHLOR thiazide 25 thiazide 25 Othiazide mg mg 25 mg Losartan Losartan No 1{table QD Losartan Potassium Potassium t} Potassium 25 MG 25 MG 25 MG Trulicity Trulicity No Trulicity 1.5mg/0.5ml 1.5mg/0.5ml 1.5mg/0.5m l hydroCHLORO hydroCHLORO No 1{table QD hydroCHLOR thiazide 25 thiazide 25 t_in_th Othiazide MG MG e_morni 25 MG ng} dilTIAZem dilTIAZem No 1{capsu BID dilTIAZem HCl ER 180 HCl ER 180 le_on_a HCl ER 180 MG MG n_empty MG _stomac h_in_th e_morni ng} Atorvastati Atorvastati No 1{table QD Atorvastat n Calcium n Calcium t} in Calcium 40 MG 40 MG 40 MG Jardiance Jardiance No 1{table QD Jardiance 10 MG 10 MG t} 10 MG metFORMIN metFORMIN No 1{table BID metFORMIN HCl 500 MG HCl 500 MG t_with_ HCl 500 MG a_meal} - 81 Aspir 81 No 1{table QD Aspir-81 MG MG t} 81 MG Trulicity Trulicity No Trulicity 1.5mg/0.5ml 1.5mg/0.5ml 1.5mg/0.5m l hydroCHLORO hydroCHLORO No 1{table QD hydroCHLOR thiazide 25 thiazide 25 t_in_th Othiazide MG MG e_morni 25 MG ng} dilTIAZem dilTIAZem No 1{capsu BID dilTIAZem HCl ER 180 HCl ER 180 le_on_a HCl ER 180 MG MG n_empty MG _stomac h_in_th e_morni ng} Atorvastati Atorvastati No 1{table QD Atorvastat n Calcium n Calcium t} in Calcium 40 MG 40 MG 40 MG Jardiance Jardiance No 1{table QD Jardiance 10 MG 10 MG t} 10 MG metFORMIN metFORMIN No 1{table BID metFORMIN HCl 500 MG HCl 500 MG t_with_ HCl 500 MG a_meal} - 81 Aspir 81 No 1{table QD Aspir-81 MG MG t} 81 MG Trulicity Trulicity No Trulicity 1.5mg/0.5ml 1.5mg/0.5ml 1.5mg/0.5m l hydroCHLORO hydroCHLORO No 1{table QD hydroCHLOR thiazide 25 thiazide 25 t_in_th Othiazide MG MG e_morni 25 MG ng} dilTIAZem dilTIAZem No 1{capsu BID dilTIAZem HCl ER 180 HCl ER 180 le_on_a HCl ER 180 MG MG n_empty MG _stomac h_in_ e_morni ng} Atorvastati Atorvastati No 1{table QD Atorvastat n Calcium n Calcium t} in Calcium 40 MG 40 MG 40 MG Jardiance Jardiance No 1{table QD Jardiance 10 MG 10 MG t} 10 MG metFORMIN metFORMIN No 1{table BID metFORMIN HCl 500 MG HCl 500 MG t_with_ HCl 500 MG a_meal} Aspir-81 81 Aspir-81 81 No 1{table QD Aspir-81 MG MG t} 81 MG Trij[facility]y XR Trijardy XR QD [place] 30-10-999 30-10-99904 XR MG MG 00:00 -1000 :00 MG Immunizations Ordered Immunization Filled Immunization Date Status Commen ts Source Name Name [place] [id number] 2021-05-22 Completed [facility] (Low Dose Vaccine (Low Dose 09:07:00 - [facility] Booster) Booster) [place] [id number] 2021-05-22 Completed [facility] (Low Dose Vaccine (Low Dose 09:07:00 - [facility] Booster) Booster) [place] [id number] 2021-05-22 Completed [facility] (Low Dose Vaccine (Low Dose 09:07:00 - [facility] Booster) Booster) [place] [id number] 2021-05-22 Completed [facility] (Low Dose Vaccine (Low Dose 09:07:00 - [facility] Booster) Booster) [address] [facility] Com[facility] (Low Dose Vaccine (Low Dose 09:07:00 - [facility] Booster) Booster) [address] [facility] (Low Dose Vaccine (Low Dose 09:07:00 - [facility] Booster) Booster) [facility] COVID-19 Omar COVID-19 2021-05-22 Completed [facility] (Low Dose Vaccine (Low Dose 09:07:00 - [facility]) [facility] COVID-[facility] 2021-05-22 Com[facility] (Low Dose Vaccine (Low Dose 09:07:00 - [facility] Booster) Booster) [facility] COVID19 Omar COVID-19 2021-05-22 Completed [facility] Vaccine (Low Dose Vaccine (Low Dose 09:07:00 - [facility] Booster) Booster) [facility] COVID-19 Omar COVID-19 2021-05-22 Completed [facility]ine (Low Dose Vaccine (Low Dose 09:07:00 - [facility] Booster) Booster) [facility] COVID19 [facility] 2021-05-22 Com[facility] (Low Dose Vaccine (Low Dose 09:07:00 - [facility] Booster) Booster) [facility] Non-US Vaccine Non-US Vaccine 2020-10-03 Completed [facility] COVID-19 PS COVID-19 PS 00:00:00 Practice (EpiVacCorona) (EpiVacCorona) Non-US Vaccine Non-US Vaccine 2020-10-03 Completed [facility] COVID-19 PS COVID-19 PS 00:00:00 Practice (EpiVacCorona) (EpiVacCorona) Non-US Vaccine Non-US Vaccine 2020-10-03 Completed [facility] COVID-19 PS COVID-19 PS 00:00:00 Practice (EpiVacCorona) (EpiVacCorona) Non-US Vaccine Non-US Vaccine 2020-09-02 Completed [facility] COVID-19 PS COVID-19 PS 00:00:00 Practice (EpiVacCorona) (EpiVacCorona) Non-US Vaccine Non-US Vaccine 2020-09-02 Completed [facility] COVID-19 PS COVID-19 PS 00:00:00 Practice (EpiVacCorona) (EpiVacCorona) Non-US Vaccine Non-US Vaccine 2020-09-02 Completed [facility] COVID-19 PS COVID-19 PS 00:00:00 Practice (EpiVacCorona) (EpiVacCorona) COVID-19 Vaccine COVID-19 Vaccine 2020-08-24 Completed [facility] (Dc) (Dc) 14:21:00 - [facility] COVID-19 Vaccine COVID-19 Vaccine 2020-08-24 Completed [facility] (Dc) (Dc) 14:21:00 - [facility] COVID-19 Vaccine COVID-19 Vaccine 2020-08-24 Completed [facility] (Dc) (Dc) 14:21:00 - [facility] COVID-19 Vaccine COVID-19 Vaccine 2020-08-24 Completed [facility] (Dc) (Dc) 14:21:00 - [facility] COVID-19 Vaccine COVID-19 Vaccine 2020-08-24 Completed [facility] (Dc) (Dc) 14:21:00 - [facility] COVID-19 Vaccine COVID-19 Vaccine 2020-08-24 Completed [facility] (Dc) (Dc) 14:21:00 - [facility] COVID-19 Vaccine COVID-19 Vaccine 2020-08-24 Completed [facility] (Dc) (Dc) 14:21:00 [facility] COVID-19 Vaccine COVID-19 Vaccine 2020-08-24 Completed [facility] (Dc) (Dc) 14:21:00 [facility] COVID-19 Vaccine COVID-19 Vaccine 2020-08-24 Completed [facility] (Dc) (Dc) 14:21:00 - [facility] COVID-19 Vaccine COVID-19 Vaccine 2020-08-24 Completed [facility] (Dc) (Dc) 14:21:00 [facility] COVID-19 Vaccine COVID-19 Vaccine 2020-08-24 Completed [facility] (Dc) (Cd) 14:21:00 [facility] COVID-19 Vaccine COVID-19 Vaccine 2020-08-24 Completed [facility] (Dc) (Dc) 14:21:00 [facility] COVID-19 Vaccine COVID-19 Vaccine 2020-08-24 Completed [facility] (Dc) (Dc) 14:21:00 - [facility] COVID-19 Vaccine COVID-19 Vaccine 2020-08-24 Completed [facility] (Dc) (Dc) 14:21:00 - [facility] COVID-19 Vaccine COVID-19 Vaccine 2020-08-24 Completed [facility] (Dc) (Dc) 14:21:00 - [facility] pneumococcal pneumococcal 2020-03-08 Completed [facility] Fa gaurang polysaccharide PPV23 polysaccharide PPV23 00:00:00 Practice influenza, influenza, 2020-03-08 Completed [facility] injectable, injectable, 00:00:00 Practice quadrivalent quadrivalent pneumococcal pneumococcal 2020-03-08 Completed [facility] gaurang polysaccharide PPV23 polysaccharide PPV23 00:00:00 Practice influenza, influenza, 2020-03-08 Completed [facility] injectable, injectable, 00:00:00 Practice quadrivalent quadrivalent pneumococcal pneumococcal 2020-03-[address] [facility] polysaccharide PPV23 polysaccharide PPV23 00:00:00 Practice influenza, influenza, 2020-03-08 Completed [facility] injectable, injectable, 00:00:00 Practice quadrivalent quadrivalent pneumococcal 2012-07-12 Completed [facility]-valent [facility] 15:00:00 Jorge pneumococcal 2012-07-12 Completed [facility] 23-valent vaccine 15:00:00 Dante Vital Signs Vital Name Observation Time Observation Value Comments Source Height 2022-08-12 00:00:00 60 [in_i] [facility] BMI (Body Mass Index) 2022-08-12 00:00:00 36.9 kg/m2 [facility] Practice Body Weight 2022-08-12 00:00:00 189 [lb_av] [facility] height 2022-05-16 11:20:00 65.00 [in_i] [facility] weight 2022-05-16 11:20:00 195 [lb_av] [facility] bmi 2022-05-16 11:20:00 32.45 kg/m2 [facility] BP Diastolic 2022-05-09 00:00:00 83 mm[Hg] [facility] Practice Height 2022-05-09 00:00:00 60 [in_i] [facility] BMI (Body Mass Index) 2022-05-09 00:00:00 36.3 kg/m2 [facility] BP Systolic 2022-05-09 00:00:00 149 mm[Hg] [facility] Body Weight 2022-05-09 00:00:00 186 [lb_av] [facility] height 2022-02-14 08:00:00 65.00 [in_i] [facility] - [facility] weight 2022-02-14 08:00:00 190 [lb_av] [facility] bmi 2022-02-14 08:00:00 31.61 kg/m2 [facility] S pirit [facility] BP Diastolic 2022-01-30 00:00:00 77 mm[Hg] [facility] Height 2022-01-30 00:00:00 60 [in_i] [facility] BMI (Body Mass Index) 2022-01-30 00:00:00 37.9 kg/m2 [facility] BP Systolic 2022-01-30 00:00:00 133 mm[Hg] [facility] Body Weight 2022-01-30 00:00:00 194 [lb_av] [facility] BP Diastolic 2022-01-03 00:00:00 79 mm[Hg] [facility] Height 2022-01-03 00:00:00 60 [in_i] [facility] BMI (Body Mass Index) 2022-01-03 00:00:00 37.5 kg/m2 [facility] BP Systolic 2022-01-03 00:00:00 127 mm[Hg] [facility] Body Weight 2022-01-03 00:00:00 192 [lb_av] [facility] height 2021-12-30 08:30:00 65.00 [in_i] [facility] weight 2021-12-30 08:30:00 192.5 [lb_av] [facility] bmi 2021-12-30 08:30:00 32.03 kg/m2 [facility] blood pressure 2021-12-30 08:30:00 132 mm[Hg] [facility] - systolic [facility] blood pressure 2021-12-30 08:30:00 80 mm[Hg] [facility] - diastolic [facility] height 2021-11-14 11:20:00 65.00 [in_i] [facility] weight 2021-11-14 11:20:00 196 [facility]lb_av[facility] temperature 2021-11-14 11:20:00 97.2 [degF] Common [facility] pirit [facility] bmi 2021-11-14 11:20:00 32.61 kg/m2 [facility] oximetry 2021-11-14 11:20:00 99 % [facility] respiratory rate 2021-11-14 11:20:00 15 /min [facility] on [facility] blood pressure 2021-11-14 11:20:00 110 mm[Hg] Common [facility] - systolic [facility] blood pressure 2021-11-14 11:20:00 62 mm[Hg] Common [facility] - diastolic [facility] BP Diastolic 2021-09-24 00:00:00 89 mm[Hg] [facility] Practice Height 2021-09-24 00:00:00 60 [in_i] [facility] Practice BMI (Body Mass Index) 2021-09-24 00:00:00 37.3 kg/m2 [facility] Practice BP Systolic 2021-09-24 00:00:00 132 mm[Hg] [facility] Practice Body Weight 2021-09-24 00:00:00 191 [lb_av] [facility] Practice height 2021-08-13 08:20:00 65.00 [in_i] [facility] weight 2021-08-13 08:20:00 195.2 [lb_av] Common [facility] temperature 2021-08-13 08:20:00 97.2 [degF] [facility] bmi 2021-08-13 08:20:00 32.48 kg/m2 [facility] oximetry 2021-08-13 08:20:00 98 % [facility] 2021-08-13 08:20:00 16 /min Comm on [facility] blood pressure 2021-08-13 08:20:00 135 mm[Hg] Common [facility] - systolic [facility] blood pressure 2021-08-13 08:20:00 64 mm[Hg] Common [facility] - diastolic [facility] BP Diastolic 2021-07-02 00:00:00 77 mm[Hg] [facility] Height 2021-07-02 00:00:00 60 [in_i] [facility] BMI (Body Mass Index) 2021-07-02 00:00:00 37.1 kg/m2 [facility] BP Systolic 2021-07-02 00:00:00 114 mm[Hg] [facility] Body Weight 2021-07-02 00:00:00 190 [lb_av] [facility] height 2021-05-10 08:20:00 65.00 [in_i] Common [facility] weight 2021-05-10 08:20:00 190 [lb_av] Common [facility] temperature 2021-05-10 08:20:00 97.2 [degF] Common [facility] bmi 2021-05-10 08:20:00 31.61 kg/m2 Common [facility] oximetry 2021-05-10 08:20:00 100 % Common [facility] respiratory rate 2021-05-10 08:20:00 20 /min Comm on [facility] blood pressure 2021-05-10 08:20:00 124 mm[Hg] Common [facility] - systolic [facility] blood pressure 2021-05-10 08:20:00 76 mm[Hg] [facility] - diastolic [facility] BP Diastolic 2021-04-01 00:00:00 73 mm[Hg] [facility] Height 2021-04-01 00:00:00 60 [in_i] [facility] BMI (Body Mass Index) 2021-04-01 00:00:00 37 kg/m2 [facility] BP Systolic 2021-04-01 00:00:00 142 mm[Hg] [facility] Body Weight 2021-04-01 00:00:00 189.2 [lb_av] [facility] BP Diastolic 2020-12-31 00:00:00 86 mm[Hg] [facility] Height 2020-12-31 00:00:00 60 [in_i] [facility] BMI (Body Mass Index) 2020-12-31 00:00:00 36.6 kg/m2 [facility] BP Systolic 2020-12-31 00:00:00 160 mm[Hg] [facility] Body Weight 2020-12-31 00:00:00 187.2 [lb_av] [facility] BP Diastolic 2020-10-04 00:00:00 90 mm[Hg] [facility] Height 2020-10-04 00:00:00 60 [in_i] [facility] BMI (Body Mass Index) 2020-10-04 00:00:00 35.3 kg/m2 [facility] BP Systolic 2020-10-04 00:00:00 150 mm[Hg] [facility] Body Weight 2020-10-04 00:00:00 181 [lb_av] [facility] BP Diastolic 2020-07-06 00:00:00 72 mm[Hg] [facility] Height 2020-07-06 00:00:00 60 [in_i] [facility] BMI (Body Mass Index) 2020-07-06 00:00:00 38.6 kg/m2 [facility] BP Systolic 2020-07-06 00:00:00 151 mm[Hg] [facility] Body Weight 2020-07-06 00:00:00 197.8 [lb_av] [facility] BP Diastolic 2020-04-05 00:00:00 76 mm[Hg] [facility] Height 2020-04-05 00:00:00 60 [in_i] [facility] BMI (Body Mass Index) 2020-04-05 00:00:00 38.2 kg/m2 [facility] BP Systolic 2020-04-05 00:00:00 138 mm[Hg] [facility] Body Weight 2020-04-05 00:00:00 195.6 [lb_av] [facility] Heart Rate 2017-01-05 20:07:00 [facility] Temperature Oral (F) 2017-01-05 20:07:00 97.1 F [facility] Respitory Rate 2017-01-05 20:07:00 [facility] Dante Systolic (mm Hg) 2017-01-05 20:07:00 Tong rial Jorge Diastolic (mm Hg) 2017-01-05 20:07:00 Mem orial Dante Systolic (mm Hg) 2017-01-05 17:44:00 Tong rial Jorge Diastolic (mm Hg) 2017-01-05 17:44:00 Mem orial Jorge Respitory Rate 2017-01-05 17:44:00 [facility] Heart Rate 2017-01-05 17:44:00 [facility] Temperature Oral (F) 2017-01-05 17:44:00 98.0 F [facility] Systolic (mm Hg) 2017-01-05 12:03:00 Tong rial Jorge Diastolic (mm Hg) 2017-01-05 12:03:00 Mem orial Jorge Heart Rate 2017-01-05 12:03:00 [facility] Respitory Rate 2017-01-05 12:03:00 [facility] Temperature Oral (F) 2017-01-05 12:03:00 96.8 F [facility] BMI Calculated 2017-01-04 21:58:00 [facility] Height 2017-01-04 21:58:00 165.1 cm [facility] Weight 2017-01-04 21:58:00 [facility] Respitory Rate 2012-07-13 17:43:00 [facility] Diastolic (mm Hg) 2012-07-13 17:43:00 Mem orial Jorge Systolic (mm Hg) 2012-07-13 17:43:00 Tong rial Jorge Temperature Oral (F) 2012-07-13 17:43:00 98.6 F [facility] Heart Rate 2012-07-13 17:43:00 [facility] Diastolic (mm Hg) 2012-07-13 13:48:00 Mem orial Jorge Systolic (mm Hg) 2012-07-13 13:48:00 Tong rial Dante Respitory Rate 2012-07-13 13:48:00 [facility] Temperature Oral (F) 2012-07-13 13:48:00 98.5 F [facility] Heart Rate 2012-07-13 13:48:00 [facility] Respitory Rate 2012-07-13 10:33:00 [facility] Systolic (mm Hg) 2012-07-13 10:33:00 Tong jannie Dante Diastolic (mm Hg) 2012-07-13 10:33:00 Mem orial Jorge Temperature Oral (F) 2012-07-13 10:33:00 97.8 F [facility] Heart Rate 2012-07-13 10:33:00 [facility] Height 2012-07-11 20:15:00 165.10 cm [facility] Weight 2012-07-11 20:15:00 [facility] Weight 2012-07-11 18:13:00 [facility] Height 2012-07-11 18:13:00 165.10 cm [facility] Procedures Procedure Date / Time Performing Clinician Source Performed [facility]olecyst[facility] 2020-10-06 [facility] 2016-10-06 00:00:00 [facility] ly Practice Uterine Myomectomy [facility] y Practice Hysterectomy (Total) [facility] shraddha Practice Hysterectomy <sup>1</sup> [facility] Cataract surgery [facility] Johnny n Hernia repair [facility] Dante Hysterectomy<sup>1</sup> Dave hernández Jorge Plan of Care Planned Activity Planned Date Details Comments Source Diagnostic Test 2022-08-12 glucose, fingerstick, Shayy ramos Family Pending 00:00:00 blood [code = Practice glucose, fingerstick, blood] Diagnostic Test 2022-08-12 hemoglobin A1C, [facility] Tomasz teran Pending 00:00:00 fingerstick [code = Practice hemoglobin A1C, fingerstick] Future Appointment 2022-11-12 Valerie Lynch [facility] Family 09:15:[address] Practice [address], [place] [address] Future Appointment 2022-11-11 Valerie Lynch [facility] Family 00:00:[address] Practice [address], [place] [address] Encounters Start End Encounter Admission Attending Care Care Encounter Source Date/Time Date/Time Type Type Clinicians Facility Department ID 2022-10-29 Outpatient GWEN Gupta [facility] [id number] Common 16:06:00 [facility] [address] [facility] 2022-10-10 Outpatient Tequila, STLMLC STLMLC [id number] Common 14:28:00 [facility] [address]244 [facility] 2022-07-14 Outpatient Tequila, STLMLC STLMLC [id number] Common 14:53:01 [facility] 53105 [facility] 2022-05-14 Outpatient Chung, Na STLMLC STLMLC [id number] Common 08:08:00 [id number] [facility] 2022-02-12 Outpatient Chung, Na STLMLC STLMLC [id number] Common 08:52:01 [facility] 2021-12-31 Outpatient Chung, Na STLMLC STLMLC [id number] 2 Common 08:26:00 [id number] [facility] 2021-12-30 Outpatient Chung, Na STLMLC STLMLC [id number] Common 10:57:01 [facility] 2021-11-22 Outpatient Chung, Na STLMLC STLMLC [id number] 2 Common 11:43:00 [id number] [facility] 2021-11-12 Outpatient Chung, Na STLMLC STLMLC [id number] Common 14:30:00 [facility] 2021-07-03 Outpatient Chung, Na STLMLC STLMLC [id number] 2 Common 14:25:00 [id number] [facility] 2021-07-03 Outpatient Chung, Na STLMLC STLMLC [id number] Common 14:24:33 [id number] [facility] 2021-07-03 Outpatient Chung, Na STLMLC STLMLC [id number] Common 14:19:00 [id number] [facility] 2021-07-03 Outpatient Chung, Na STLMLC STLMLC [id number] 2 Common 13:47:33 [id number] [facility] 2021-07-03 Outpatient Chung, Na STLMLC STLMLC [id number] Common 12:42:22 [id number] [facility] 2021-07-03 Outpatient Chung, Na STLMLC STLMLC [id number] 2 Common 12:42:16 [id number] [facility] 2021-07-03 Outpatient Chung, Na STLMLC STLMLC [id number] 2 Common 11:42:40 [id number] [facility] 2021-07-03 Outpatient Chung, Na STLMLC STLMLC [id number] 2 Common 11:29:05 [id number] [facility] 2021-07-03 Outpatient Chung, Na STLMLC STLMLC [id number] 2 Common 11:28:47 [id number] [facility] 2021-07-03 Outpatient Chung, Na STLMLC STLMLC [id number] 2 Common 11:18:09 [id number] [facility] 2021-07-03 Outpatient Chung, Na STLMLC STLMLC [id number] 2 Common 11:17:57 [id number] [facility] 2022-08-12 2022-08-12 Outpatient Daniel_T VFP VFP [id number] Village 00:00:00 00:00:00 [id number] Family Practic e 2022-08-12 2022-08-12 Outpatient Daniel_T VFP VFP [id number] 20 [facility] 00:00:00 00:00:00 [id number] Family Practic e 2022-08-12 2022-08-12 Outpatient Daniel_T VFP VFP [id number] Village 00:00:00 00:00:00 [id number] Family Practic e 2022-08-12 2022-08-12 Riley VFP [place] - [id number] V illage 00:00:00 00:00:00 [facility] Family PadronAnuel - Philip baxter MD: [id number] [place] - e Shadow VM_HOU_Shad [address] [facility], [address], [place] [address] , Ph. 2022-07-16 2022-07-16 (TEL) [facility] [id number] Co mmon 00:00:00 00:00:00 [facility] 2022-05-16 2022-05-16 OL DIG E/M STLC [facility] [id number] Common 00:00:00 00:00:00 [facility] 11-20 [facility] 2022-05-09 2022-05-09 Riley VFP [place] - [id number] V illage 00:00:00 00:00:00 Abeba [facility] Anuel Padron MD: [id number] [place] - e Shadow CLARISSE_Tanvir [address] [facility], [address], [place] [address] , Ph. 2022-04-30 2022-04-30 Outpatient Daniel_T VFP VFP [id number] 20 [facility] 00:00:00 00:00:00 [id number] Family Practic e 2022-02-14 2022-02-14 [facility] [id number] Common 00:00:00 00:00:00 [facility] 11-20 [facility] 2022-02-12 2022-02-12 Outpatient Daniel_T VFP VFP [id number] 20 [facility] 00:00:00 00:00:00 [id number] Family Practic e 2022-02-03 2022-02-03 Outpatient Daniel_T VFP VFP [id number] 20 [facility] 00:00:00 00:00:00 [id number] Family Practic e 2022-01-30 2022-01-30 Outpatient Daniel_T VFP VFP [id number] 20 [facility] 00:00:00 00:00:00 [id number] Family Practic e 2022-01-30 2022-01-30 Riley VFP [place] - [id number] V illage 00:00:00 00:00:00 Abeba [facility] Family AbrahamAnuel melgar MD: [id number] VM_HOU_Adriangi e [address], [place] [address] , Ph. 2022-01-21 2022-01-21 Outpatient Daniel_T VFP VFP [id number] [facility] 00:00:00 00:00:00 [id number] Family Practic e 2022-01-03 2022-01-03 Outpatient Daniel_T VFP VFP [id number] [facility] 00:00:00 00:00:00 [id number] Family Practic e 2022-01-03 2022-01-03 Riley VFP [place] - [id number] V illage 00:00:00 00:00:00 [facility] Family PadronAnuel - Pracfroilan baxter MD: [id number] VM_HOU_Shagi e [address], [address], [place] [address] , Ph. 2021-12-30 2021-12-30 OFFICE STLMLC STLMLC [id number] Co mmon 00:00:00 00:00:00 VISIT [facility] PT LEVEL 4 [facility] 2021-12-17 2021-12-17 (TEL) STLMLC STLMLC [id number] Co mmon 00:00:00 00:00:00 [facility] 2021-11-18 2021-11-18 (TEL) STLMLC STLMLC [id number] Co mmon 00:00:00 00:00:00 [facility] 2021-11-15 2021-11-15 (TEL) STLMLC STLMLC [id number] Co mmon 00:00:00 00:00:00 [facility] 2021-11-14 2021-11-14 OFFICE STLMLC STLMLC [id number] Co mmon 00:00:00 00:00:00 VISIT [facility] PT - CHI LEVEL 4 [facility] 2021-11-01 2021-11-01 Outpatient Daniel_T VFP VFP [id number] [facility] 00:00:00 00:00:00 [id number] Family Practic e 2021-10-04 2021-10-04 Outpatient Daniel_T VFP VFP [id number] [facility] 11:37:00 11:37:00 [id number] Family Practic e 2021-09-24 2021-09-24 Outpatient Daniel_T VFP VFP [id number] 06-27 [facility] 10:15:00 10:15:00 [id number] Family Practic e 2021-09-24 2021-09-24 Riley VFP [place] - [id number] V illage 00:00:00 [facility]:00:00 [facility] Family Padron Medical - Practi vee MD: [id number] CLARISSE_MARY_Adriangi kenzie [facility], [address], [place] [address] , Ph. 2021-09-23 2021-09-23 Outpatient Daniel_T VFP VFP [id number] 06-27 [facility] 11:46:00 11:46:00 [id number] Family Practic e 2021-08-13 2021-08-13 [facility] [id number] Co mmon 00:00:00 00:00:00 VISIT EST Spir it PT LEVEL 3 - [facility] 2021-07-04 2021-07-04 Outpatient Daniel_T VFP VFP [id number] [facility] 09:18:00 09:18:00 [id number] Family Practic e 2021-07-02 2021-07-02 Outpatient Daniel_T VFP VFP [id number] [facility] 05:27:00 05:27:00 [id number] Family Practic e 2021-07-02 2021-07-02 Riley VFP [place] - [id number] V illage 00:00:00 00:00:00 [facility] Family PadronAnuel - Pracfroilan baxter MD: [id number] CLARISSE_MARYDouggi kenzie [address] [facility], [address], [place] [address] , Ph. 2021-06-06 2021-06-06 (TEL) [facility] [id number] Co mmon 00:00:00 00:00:00 [facility] 2021-05-31 2021-05-31 Outpatient Daniel_T VFP VFP [id number] 06-27 [facility] 03:42:00 03:42:00 [id number] Family Practic e 2021-05-22 2021-05-22 ([facility]OVID [facility] [id number] Co mmon 00:00:00 00:00:00 Inj) COVID Spi rit Injection - [facility] 2021-05-13 2021-05-13 Outpatient Daniel_T VFP VFP [id number] 06-27 Village 05:15:00 05:15:00 [id number] Family Practic e 2021-05-10 2021-05-10 OFFICE STLMLC STLMLC [id number] Co mmon 00:00:00 00:00:00 VISIT EST Spir it PT LEVEL 3 - [facility] 2021-04-01 2021-04-01 Outpatient Daniel_T VFP VFP [id number] 06-27 Village 09:47:00 09:47:00 [id number] Family Practic e 2021-04-01 2021-04-01 Riley VFP [place] - [id number] V illage 00:00:00 00:00:00 [facility] Family Padron, Medical - Pracfroilan baxter MD: [id number] VM_MARY_Justin e [address] [facility], [address], [place] [address] , Ph. 2021-02-25 2021-02-25 (TEL) STLMLC STLMLC [id number] Co mmon 00:00:00 00:00:00 [facility] 2021-02-14 2021-02-14 (TEL) STLMLC STLMLC [id number] Co mmon 00:00:00 00:00:00 [facility] 2021-02-09 2021-02-09 (TEL) STLMLC STLMLC [id number] Co mmon 00:00:00 00:00:00 [facility] 2021-02-07 2021-02-07 Outpatient STLMLC STLMLC [id number] Common 00:00:00 00:00:00 [facility] 2021-01-03 2021-01-03 Outpatient Daniel_T VFP VFP [id number] 06-27 [facility] 03:09:00 03:09:00 [id number] Family Practic e 2020-12-31 2020-12-31 Outpatient Daniel_T VFP VFP [id number] 06-27 [facility] 03:12:00 03:12:00 [id number] Family Practic e 2020-12-31 2020-12-31 Riley VFP [place] - [id number] V illage 00:00:00 00:00:00 [facility] Family PadronAnuel MD: [id number] CLARISSE_MARY_Justin e Shadow [facility], [address], [place] [address] , Ph. 2020-12-24 2020-12-24 [facility] [id number] Common 00:00:00 00:00:00 [facility] 2020-11-15 2020-11-15 Outpatient Daniel_T VFP VFP [id number] [facility] 09:13:00 09:13:00 [id number] Family Practic e 2020-11-06 2020-11-06 Outpatient STLMLC STLC [id number] Common 00:00:00 00:00:00 [facility] 2020-10-05 2020-10-05 Outpatient Daniel_T VFP VFP [id number] [facility] 02:33:00 02:33:00 [id number] Family Practic e 2020-10-04 2020-10-04 Outpatient Daniel_T VFP VFP [id number] [facility] 10:15:00 10:15:00 [id number] Family Practic e 2020-10-04 2020-10-04 Riley VFP [place] - [id number] V illage 00:00:00 00:00:00 [facility] Family PadronAnuel MD: [id number] CLARISSE_MARY_Justin kenzie [facility], [address], [place] [address] , Ph. 2020-09-27 2020-09-27 Outpatient STLC STLC [id number] Common 00:00:00 00:00:00 [facility] 2020-09-02 2020-09-02 Outpatient Daniel_T VFP VFP [id number] [facility] 01:02:00 01:02:00 [id number] Family Practic e 2020-08-24 2020-08-24 Outpatient STLMLC STLMLC [id number] Common 00:00:00 00:00:00 [facility] 2020-07-18 2020-07-18 Outpatient STLMLC STLMLC [id number] Common 00:00:00 00:00:00 [facility] 2020-07-11 2020-07-11 Outpatient Daniel_T VFP VFP [id number] 20 [facility] 08:21:00 08:21:00 [id number] Family Practic e 2020-07-11 2020-07-11 Outpatient STLMLC STLMLC [id number] Common 00:00:00 00:00:00 [facility] 2020-07-06 2020-07-06 Outpatient Daniel_T VFP VFP [id number] [facility] 10:46:00 10:46:00 [id number] Family Practic e 2020-07-06 2020-07-06 Riley VFP [place] - [id number] V illage 00:00:00 00:00:00 [facility] Family PadronAnuel - Pracfroilan baxter MD: [id number] VM_HOU_Shad e [address] [place] [facility], [address], [place] [address] , Ph. 2020-07-03 2020-07-03 Outpatient STLMLC STLMLC [id number] Common 00:00:00 00:00:00 [facility] 2020-06-26 2020-06-26 Outpatient STLMLC STLMLC [id number] Common 00:00:00 00:00:00 [facility] 2020-05-08 2020-05-08 Outpatient STLMLC STLMLC [id number] Common 00:00:00 00:00:00 [facility] 2020-05-08 2020-05-08 Outpatient STLMLC STLMLC [id number] Common 00:00:00 00:00:00 [facility] 2020-05-02 2020-05-02 Outpatient Daniel_T VFP VFP [id number] [facility] 01:50:00 01:50:00 [id number] Family Practic e 2020-04-14 2020-04-14 Outpatient STLMLC STLMLC [id number] Common 00:00:00 00:00:00 [facility] 2020-04-13 2020-04-13 Outpatient Vito_T VFP VFP [id number] 1-20 [facility] 03:53:00 03:53:00 Family Practic e 2020-04-11 2020-04-11 Outpatient STLMLC STLMLC [id number] Common 00:00:00 00:00:00 [facility] 2020-04-11 2020-04-11 Outpatient STLMLC STLMLC [id number] Common 00:00:00 00:00:00 [facility] 2020-04-05 2020-04-05 Outpatient Vito_T VFP VFP [id number] 1-20 [facility] 10:36:00 10:36:00 [id number] Family Practic e 2020-04-05 2020-04-05 Riley VFP [place] - [id number] V illage 00:00:00 00:00:00 [facility] Anuel Wick - Pracfroilan baxter MD: [id number] VM_HOU_Dani e Shadow [facility] [address], [place] [address] , Ph. 2020-03-20 2020-03-20 Outpatient Vito_T VFP VFP [id number] 1-20 [facility] 09:43:00 09:43:00 [id number] Family Practic e 2020-02-10 2020-02-10 [id number] Common 10:00:00 10:00:[address] Sp[address] [facility] 2020-02-10 2020-02-10 [facility] [id number] Common 10:00:00 10:00:[address] Sp[address] [facility] 2019-12-19 2019-12-19 [facility] [id number] Common 11:12:00 11:12:[address] Sp[address] Family [facility] 2019-12-07 2019-12-07 [facility] [id number] Common 09:40:00 09:40:[address] Sp[address] [facility] 2019-11-02 2019-11-02 [facility] [id number] Common 19:23:00 19:23:[address] Sp[address] [facility] 2019-07-01 2019-07-01 [facility] [id number] Common 08:40:00 08:40:[address] Sp[address] [facility] 2019-03-31 2019-03-31 [facility] [id number] Common 11:00:00 11:00:[address] Sp[address] [facility] 2019-02-02 2019-02-02 [facility] [id number] Common 09:20:00 09:20:[address] [facility] 2018-12-30 2018-12-30 [facility] [id number] Common 08:20:00 08:20:[address] Sp[address] [facility] 2018-09-29 2018-09-29 [facility] [id number] Common 08:40:00 08:40:[address] Sp[address] [facility] 2018-05-26 2018-05-26 [facility] [id number] Common 09:30:00 09:30:[address] Sp[address] [facility] 2017-01-04 2017-01-06 [id number] Memoria 18:23:00 01:55:[address] 2017-01-04 2017-01-05 Outpatient Jesus Murguia [facility] [id number] 13:23:00 20:55:00 2012-07-11 2012-07-13 Inpatient nullFlavo [facility] [id number] Memoria 13:21:00 12:26:[address] Results Test Description Test Time Test Comments Results Result Comments Source Hemoglobin A1c measurement device panel 2022-08-12 09:34:31 Test Item Value Reference Range Interpretation Comme nts Hemoglobin A1c/Hemoglobin.total in Blood (test code = 4548-4) 8.2 % 5.7-6.4 [facility] Family PracticeGlucose [Mass/volume] in Capillary [id number] 09:30:30 Test Item Value Reference Range Interpretation Comments Blood Glucose: mg/dl (test code = Blood 118 Glucose: mg/dl) [facility] PracticeHemoglobin A1c measurement device [id number] 10:59:09 Test Item Value Reference Range Interpretation Comments Hemoglobin A1c/Hemoglobin.total in 8.5 % 5.7-6.4 Blood (test code = 4548-4) [facility] Family PracticeGlucose [Mass/volume] in Capillary [id number] 10:48:43 Test Item Value Reference Range Interpretation Comments Blood Glucose: mg/dl (test code = Blood 119 Glucose: mg/dl) [facility] Family PracticeGlucose [Mass/volume] in Capillary [id number] 09:55:37 Test Item Value Reference Range Interpretation Comments Blood Glucose: mg/dl (test code = Blood 140 Glucose: mg/dl) [facility] PracticeHemoglobin A1c measurement device [id number] 09:37:32 Test Item Value Reference Range Interpretation Comments Hemoglobin A1c/Hemoglobin.total in 9.3 % 5.7-6.4 Blood (test code = 4548-4) [facility] PracticeHemoglobin A1c measurement device [id number] 09:37:32 Test Item Value Reference Range Interpretation Comments Hemoglobin A1c/Hemoglobin.total in 9.3 % 5.7-6.4 Blood (test code = 4548-4) [facility] Family PracticeGlucose [Mass/volume] in Capillary [id number] 09:35:45 Test Item Value Reference Range Interpretation Comments Blood Glucose: mg/dl (test code = Blood 199 Glucose: mg/dl) [facility] PracticeGlucose [Mass/volume] in Capillary [id number] 09:35:45 Test Item Value Reference Range Interpretation Comments Blood Glucose: mg/dl (test code = Blood 199 Glucose: mg/dl) [facility] PracticeHemoglobin A1c measurement device [id number] 08:47:52 Test Item Value Reference Range Interpretation Comments Hemoglobin A1C Fingerstick: (test code 7.2 = Hemoglobin A1C Fingerstick:) [facility] Family PracticeGlucose [Mass/volume] in Capillary [id number] 08:44:19 Test Item Value Reference Range Interpretation Comments Blood Glucose: mg/dl (test code = Blood 149 Glucose: mg/dl) [facility] [id number] 08:12:45 Test Item Value Reference Range Interpretation Comments Hemoglobin A1C Fingerstick: (test code 7.6 = Hemoglobin A1C Fingerstick:) [facility]] in Capillary [id number] 08:10:50 Test Item Value Reference Range Interpretation Comments Blood Glucose: mg/dl (test code = Blood 148 Glucose: mg/dl) [facility]] in Capillary [id number] 08:26:11 Test Item Value Reference Range Interpretation Comments Blood Glucose: mg/dl (test code = Blood 111 Glucose: mg/dl) [facility]2017-07-31 08:59:00 Test Item Value Reference Range Interpretation Comments RBC (test code = RBC) 4.23 4.20-5.40 [id number] 08:59:00 Test Item Value Reference Range Interpretation Comments Hgb (test code = Hgb) 12.5 12.0-16.0 [id number] 08:59:00 Test Item Value Reference Range Interpretation Comments Hct (test code = Hct) 36.9 36.0-48.0 [id number] 08:59:00 Test Item Value Reference Range Interpretation Comments MCHC (test code = MCHC) 34.0 32.0-36.0 [id number] 08:59:00 Test Item Value Reference Range Interpretation Comments WBC (test code = WBC) 7.9 3.7-10.4 [facility] H[id number] 08:59:00 Test Item Value Reference Range Interpretation Comments MPV (test code = MPV) 7.9 7.4-10.4 [facility] Hend[id number] 08:59:00 Test Item Value Reference Range Interpretation Comments RDW (test code = RDW) 15.4 11.5-14.5 [facility] He[id number] 08:59:00 Test Item Value Reference Range Interpretation Comments MCV (test code = MCV) 87.3 80.0-98.0 [facility] HendersonMvdnfxoMBHIQVYROA2958-54-66 08:59:00 Test Item Value Reference Range Interpretation Comments MCH (test code = MCH) 29.7 pg 27.0-31.0 [facility] HendersonD[id number] 08:59:00 Test Item Value Reference Range Interpretation Comments Platelet (test code = Platelet) 194 133-450 [facility] Hend[id number] 08:59:00 Test Item Value Reference Range Interpretation Comments Monocytes # (test code 0.6 See_Comment [Aut omated message] The = Monocytes #) system which generated this result tra nsmitted reference range : <=0.8. The reference r chelsie was not used to int erpret this result as normal/abnormal . [facility] HendersonRsaopzmEEEBLWKRJZ5859-07-54 08:59:00 Test Item Value Reference Range Interpretation Comments Eosinophils # (test code 0.3 See_Comment [A utomated message] The = Eosinophils #) system whic h generated this result tra nsmitted reference range : <=0.5. The reference r chelsie was not used to int erpret this result as normal/abnormal . [facility] He[id number] 08:59:00 Test Item Value Reference Range Interpretation Comments Basophils (test code = 0.5 See_Comment [Aut omated message] The Basophils) system which ge nerated this result tra nsmitted reference range : <=1.0. The reference r chelsie was not used to int erpret this result as normal/abnormal . [facility] He[id number] 08:59:00 Test Item Value Reference Range Interpretation Comments Lymphocytes # (test code = Lymphocytes 2.8 1.0-5.5 #) [facility] HendersonNgfhovlGZLRSGGRUY9914-74-62 08:59:00 Test Item Value Reference Range Interpretation Comments Segs-Bands # (test code = Segs-Bands #) 4.2 1.5-8.1 [facility] HendersonRlmicraASMPVBIXAL7299-43-75 08:59:00 Test Item Value Reference Range Interpretation Comments Eosinophils (test code = 3.5 See_Comment [A utomated message] The Eosinophils) system which ge nerated this result tra nsmitted reference range : <=4.0. The reference r chelsie was not used to int erpret this result as normal/abnormal . [facility] HendersonYjlqzkyJZQSHJWVJT0684-32-59 08:59:00 Test Item Value Reference Range Interpretation Comments Segs (test code = Segs) 53.3 45.0-75.0 [facility] HendersonVvotxlnERYLIKCOEA1077-35-24 08:59:00 Test Item Value Reference Range Interpretation Comments Monocytes (test code = Monocytes) 7.7 2.0-12.0 [facility] HendersonFlwfeiqOFIWUEPEEN1301-14-39 08:59:00 Test Item Value Reference Range Interpretation Comments Lymphocytes (test code = Lymphocytes) 35.0 20.0-40.0 [facility]QIENHS8536[facility]82-[facility] 08:59:00 Test Item Value Reference Range Interpretation Comments LDL (Calculated) (test code = LDL 30 (Calculated)) [facility]CiinuudPMRUDP0237-14-16 08:59:00 Test Item Value Reference Range Interpretation Comments HDL (test code = HDL) 76 [facility] HospitalEjqbtcsRSCMCU2644-86-30 08:59:00 Test Item Value Reference Range Interpretation Comments Chol (test code = Chol) 125 [facility] HospitalCmxosslGIUOHK7797-67-91 08:59:00 Test Item Value Reference Range Interpretation Comments Trig (test code = Trig) 93 [facility] HospitalSyndnnyHIFIJY5263-78-42 08:59:00 Test Item Value Reference Range Interpretation Comments VLDL (test code = VLDL) 19 [facility] HospitalVxxoxrvPBEOKZ7262-14-73 08:59:00 Test Item Value Reference Range Interpretation Comments CHD Risk (test code = CHD Risk) 1.64 3.90-5.80 [facility]2017-07-30 19:36:00 Test Item Value Reference Range Interpretation Comments UA Ketones (test code Negative *NA*(01/04/17 = UA Ketones) 2:36 PM) [facility] AND [id number] 19:36:00 Test Item Value Reference Range Interpretation Comments UA Bili (test code = Negative *NA*(01/04/17 UA Bili) 2:36 PM) [facility] AND [id number] 19:36:00 Test Item Value Reference Range Interpretation Comments UA Glucose (test code = UA >=1000 mg/dL Glucose) [facility] AND [id number] 19:36:00 Test Item Value Reference Range Interpretation Comments UA Urobilinogen (test code = UA 0.2 0.1-1.0 Urobilinogen) [facility] AND [id number] 19:36:00 Test Item Value Reference Range Interpretation Comments UA Blood (test code = Negative (01/04/17 2:36 UA Blood) PM) [facility] AND [id number] 19:36:00 Test Item Value Reference Range Interpretation Comments UA Bacteria (test code = None Seen (01/04/17 UA Bacteria) 2:36 PM) [facility] AND [id number] 19:36:00 Test Item Value Reference Range Interpretation Comments UA RBC (test None Seen See_Comment [Automated mes fmei] code = UA RBC) (01/04/17 2:36 The system w hich PM) generated this result transmitted ref erence range: <=2. The reference range was not used to int erpret this result as normal/abnormal . [facility] AND [id number] 19:36:00 Test Item Value Reference Range Interpretation Comments UA Mucus (test code = None Seen (01/04/17 UA Mucus) 2:36 PM) [facility] AND [id number] 19:36:00 Test Item Value Reference Range Interpretation Comments UA Leuk Est (test Negative (01/04/17 2:36 code = UA Leuk Est) PM) [facility] AND [id number] 19:36:00 Test Item Value Reference Range Interpretation Comments UA Nitrite (test code Negative (01/04/17 2:36 = UA Nitrite) PM) [facility] AND [id number] 19:36:00 Test Item Value Reference Range Interpretation Comments UA pH (test code = UA pH) 6.5 1 5.0-8.0 [facility] AND [id number] 19:36:00 Test Item Value Reference Range Interpretation Comments UA Protein (test code Negative (01/04/17 2:36 = UA Protein) PM) [facility] AND [id number] 19:36:00 Test Item Value Reference Range Interpretation Comments UA Color (test code = Yellow *NA*(01/04/17 UA Color) 2:36 PM) [facility] AND [id number] 19:36:00 Test Item Value Reference Range Interpretation Comments UA Turbidity (test code = Clear (7/30/17 2:36 UA Turbidity) PM) [facility] [id number] 19:36:00 Test Item Value Reference Range Interpretation Comments UA Spec Grav (test code = UA Spec 1.018 1 Grav) [facility] [id number] 19:36:00 Test Item Value Reference Range Interpretation Comments UA WBC (test code = UA WBC) 0-2 /HPF [facility] [id number] 19:36:00 Test Item Value Reference Range Interpretation Comments UA Sq Epi (test code = UA Sq Occasional /LPF Epi) [facility]ARD[facility] [id number] 18:26:00 Test Item Value Reference Range Interpretation Comments CK MB Index (test 0.4 See_Comment [Automate d message] The code = CK MB Index) system w [employer] generated this result transmit antonia reference range : <=2.5. The reference range was not used to interpr et this result as alonso l/abnormal. [facility] HealthAC [id number] 18:26:00 Test Item Value Reference Range Interpretation Comments Total CK (test code = Total CK) 140 12-191 [facility] [employer] [facility] OBDPILU8419-02-92 18:26:00 Test Item Value Reference Range Interpretation Comments Troponin-I (test code no gt See_Comment [Auto mated message] The = Troponin-I) system which g enerated this result transmit antonia reference range : <=0.40. The reference r chelsie was not used to interpr et this result as alonso l/abnormal. [facility] [id number] 18:26:00 Test Item Value Reference Range Interpretation Comments CK MB (test code = CK MB) 0.6 0.5-3.6 [facility] [employer] [id number] 18:26:00 Test Item Value Reference Range Interpretation Comments eGFR (test code = eGFR) 67 [facility] [employer] [id number] 18:26:00 Test Item Value Reference Range Interpretation Comments Potassium Lvl (test code = Potassium 3.8 3.5-5.1 Lvl) [facility] [employer] [id number] 18:26:00 Test Item Value Reference Range Interpretation Comments CO2 (test code = CO2) 27 24-[address] [facility] [place] [place]2017-07-30 18:26:00 Test Item Value Reference Range Interpretation Comments Chloride Lvl (test code = Chloride Lvl) 103 95-[address] [facility] [place] [place]2017-07-30 18:26:00 Test Item Value Reference Range Interpretation Comments Sodium Lvl (test code = Sodium Lvl) 138 135-[address] [facility] [place] [place]2017-07-30 18:26:00 Test Item Value Reference Range Interpretation Comments Creatinine Lvl (test code = Creatinine 1.01 0.50-1.40 Lvl) [facility] [place] [place]2017-07-30 18:26:00 Test Item Value Reference Range Interpretation Comments Calcium Lvl (test code = Calcium Lvl) 9.4 8.5-10.[address] [facility] [place] [place]2017-07-30 18:26:00 Test Item Value Reference Range Interpretation Comments AGAP (test code = AGAP) 11.8 10.0-20.[address] [facility] [place] [place]2017-07-30 18:26:00 Test Item Value Reference Range Interpretation Comments Glucose Lvl (test code = Glucose Lvl) 93 70-[address] [facility] [place] [place]2017-07-30 18:26:00 Test Item Value Reference Range Interpretation Comments BUN (test code = BUN) 20 7-22 [facility] HendersonClixiliVULCOFTOMO5680-17-15 18:26:00 Test Item Value Reference Range Interpretation Comments Lymphocytes (test code = Lymphocytes) 36.2 20.0-40.0 [facility] HendersonFaqzcbbPEYNDBDLBV8354-97-97 18:26:00 Test Item Value Reference Range Interpretation Comments Segs (test code = Segs) 54.9 45.0-75.0 [facility] HendersonObfkwufJLJHMYYZDV9236-85-01 18:26:00 Test Item Value Reference Range Interpretation Comments Monocytes (test code = Monocytes) 6.6 2.0-12.0 [facility] HendersonQyrqkdmVJQOQHSAUM9382-17-77 18:26:00 Test Item Value Reference Range Interpretation Comments Lymphocytes # (test code = Lymphocytes 4.5 1.0-5.5 #) [facility] HendersonZvrkecsSHUYOVRCPJ3663-32-03 18:26:00 Test Item Value Reference Range Interpretation Comments Monocytes # (test code 0.8 See_Comment [Aut omated message] The = Monocytes #) system which generated this result tra nsmitted reference range : <=0.8. The reference r chelsie was not used to int erpret this result as normal/abnormal . [facility] HendersonHuvtmieMNYVTHWFAF9750-59-16 18:26:00 Test Item Value Reference Range Interpretation Comments Eosinophils # (test code 0.2 See_Comment [A utomated message] The = Eosinophils #) system whic h generated this result tra nsmitted reference range : <=0.5. The reference r chelsie was not used to int erpret this result as normal/abnormal . [facility] HendersonLiwdbxxOQHXFTYLRA0542-69-61 18:26:00 Test Item Value Reference Range Interpretation Comments Basophils # (test code 0.1 See_Comment [Aut omated message] The = Basophils #) system which generated this result tra nsmitted reference range : <=0.2. The reference r chelsie was not used to int erpret this result as normal/abnormal . [facility] HendersonSnrywfoJUQYFOGHFN3570-16-84 18:26:00 Test Item Value Reference Range Interpretation Comments Eosinophils (test code = 1.7 See_Comment [A utomated message] The Eosinophils) system which ge nerated this result tra nsmitted reference range : <=4.0. The reference r chelsie was not used to int erpret this result as normal/abnormal . [facility] HendersonJmaimyfEYIVMQVSER5587-26-46 18:26:00 Test Item Value Reference Range Interpretation Comments Segs-Bands # (test code = Segs-Bands #) 6.8 1.5-8.1 [facility] HendersonRaqmwmrNFZOEDXQDD3468-34-67 18:26:00 Test Item Value Reference Range Interpretation Comments Basophils (test code = 0.6 See_Comment [Aut omated message] The Basophils) system which ge nerated this result tra nsmitted reference range : <=1.0. The reference r chelsie was not used to int erpret this result as normal/abnormal . [facility] HendersonBlrcoalPDBXZASRPP4310-43-12 18:26:00 Test Item Value Reference Range Interpretation Comments WBC (test code = WBC) 12.4 3.7-10.4 [facility] HendersonVmyytzaUSLYSVFWMF7455-55-98 18:26:00 Test Item Value Reference Range Interpretation Comments RBC (test code = RBC) 4.76 4.20-5.40 [facility] HendersonIsazubaTYGBYMHDYN4913-41-80 18:26:00 Test Item Value Reference Range Interpretation Comments RDW (test code = RDW) 15.8 11.5-14.5 [facility]IrmmduzYAQOOJNBPF9930-75-04 18:26:00 Test Item Value Reference Range Interpretation Comments MCH (test code = MCH) 28.2 pg 27.0-31.0 [facility] HendersonGpszdrqWXOAZRGPRQ6870-75-55 18:26:00 Test Item Value Reference Range Interpretation Comments Hgb (test code = Hgb) 13.4 12.0-16.0 [facility] HendersonPpffcleGRLDFBHEPL0927-02-27 18:26:00 Test Item Value Reference Range Interpretation Comments MCV (test code = MCV) 86.5 80.0-98.0 [facility] HendersonBedcptuFAAXXXNIYZ7670-27-33 18:26:00 Test Item Value Reference Range Interpretation Comments Hct (test code = Hct) 41.2 36.0-48.0 [facility] HendersonZaqslizYUYQPJAWRN0214-96-27 18:26:00 Test Item Value Reference Range Interpretation Comments MCHC (test code = MCHC) 32.6 32.0-36.0 [facility] HendersonWeakbkkQTOQDANINR2688-00-57 18:26:00 Test Item Value Reference Range Interpretation Comments MPV (test code = MPV) 7.8 7.4-10.4 [facility] HendersonWyjrbwrBYZPRTPYCL6246-43-86 18:26:00 Test Item Value Reference Range Interpretation Comments Platelet (test code = Platelet) 227 133-450 [facility] HendersonGcvjavqSOFQRXCOVH7926-56-54 18:26:00 Test Item Value Reference Range Interpretation Comments INR (test code = INR) 0.88 0.85-1.17 [facility] HendersonFadlfcuOTSNODXYIB8964-75-98 18:26:00 Test Item Value Reference Range Interpretation Comments PT (test code = PT) 12.1 s 12.0-14.7 [facility] HendersonXqfntttGOYOHRPEVF6574-34-74 18:26:00 Test Item Value Reference Range Interpretation Comments PTT (test code = PTT) 25.9 s [facility].9-35.8 [id number] 18:23:00 Test Item Value Reference Range Interpretation Comments POC Creatinine (test code = POC 1.0 0.5-1.4 Creatinine) [facility] [id number] 18:23:00 Test Item Value Reference Range Interpretation Comments eGFR (test code = eGFR) 67 [facility] GLUCOSE AKXOTVS7219-24-85 17:55:00 Test Item Value Reference Range Interpretation Comments Comment1 (test code = Comment1) Notify RN/ [facility] GLUCOSE JWUJQMG0509-53-64 17:55:00 Test Item Value Reference Range Interpretation Comments Gluc POC Lifscn (test code = Gluc POC 260 70-99 H Lifscn) [facility] GLUCOSE RZKFIWR6894-64-40 12:03:00 Test Item Value Reference Range Interpretation Comments Gluc POC Lifscn (test code = Gluc POC 103 70-99 H Lifscn) [facility] GLUCOSE [id number] 12:03:00 Test Item Value Reference Range Interpretation Comments Comment1 (test code = Comment1) Notify RN/ [facility] GLUCOSE AYAWNMQ4512-40-02 03:24:00 Test Item Value Reference Range Interpretation Comments Comment1 (test code = Comment1) Notify RN/ [facility] GLUCOSE ZOSQZGG3619-68-32 03:24:00 Test Item Value Reference Range Interpretation Comments Gluc POC Lifscn (test code = Gluc POC 331 70-99 H Lifscn) [facility]VdtpjsjGPAHFEIXF4361-00-24 07:19:00 Test Item Value Reference Range Interpretation Comments AGAP (test code = AGAP) 13.0 10.0-20.0 N [facility] HospitalLjnhgycPLBIALLMN4772-48-05 07:19:00 Test Item Value Reference Range Interpretation Comments B/C Ratio (test code = B/C Ratio) 17 6-25 N [facility] HospitalYilbvxzRYRHTCSNR8924-85-88 07:19:00 Test Item Value Reference Range Interpretation Comments Globulin (test code = Globulin) 4.5 2.0-4.0 H [facility] HospitalYbemqstXEYOBASYZ0497-71-35 07:19:00 Test Item Value Reference Range Interpretation Comments A/G Ratio (test code = A/G Ratio) 0.6 0.7-1.6 L [facility] HospitalDrlkidtUMQAMOZBK6599-30-93 07:19:00 Test Item Value Reference Range Interpretation Comments eGFR (test code = eGFR) 79 [facility] HospitalPehhhtgXKHDLEODU1021-06-83 07:19:00 Test Item Value Reference Range Interpretation Comments Albumin Lvl (test code = Albumin Lvl) 2.8 3.5-5.0 L [facility] HospitalNsccizeLYUJYBZQX5925-71-80 07:19:00 Test Item Value Reference Range Interpretation Comments ALT (test code = ALT) 71 See_Comment H [Auto mated message] The system which ge nerated this result transmit antonia reference range : <=65. The reference range was not used to interpr et this result as alonso l/abnormal. [facility] HospitalScxxqemVNVCQWMJP9262-46-49 07:19:00 Test Item Value Reference Range Interpretation Comments Glucose Lvl (test code = Glucose Lvl) 197 70-99 H [facility] HospitalMihmuygUWNSCKFDY8663-50-62 07:19:00 Test Item Value Reference Range Interpretation Comments Alk Phos (test code = Alk Phos) 111 39-136 N [facility] HospitalSvjjpxcUKTQGDHLF5830-61-08 07:19:00 Test Item Value Reference Range Interpretation Comments Sodium Lvl (test code = Sodium Lvl) 142 135-145 N [facility] HospitalYjfwrjuLSDGZNCVP4087-95-84 07:19:00 Test Item Value Reference Range Interpretation Comments BUN (test code = BUN) 15 7-22 N [facility] HospitalPjiaaxyQDSCPBSZS7743-82-93 07:19:00 Test Item Value Reference Range Interpretation Comments Creatinine Lvl (test code = Creatinine 0.9 0.5-1.4 N Lvl) [facility] HospitalJeshldhZGRXGUCYQ6355-48-71 07:19:00 Test Item Value Reference Range Interpretation Comments Potassium Lvl (test code = Potassium 4.0 3.5-5.1 N Lvl) [facility] HospitalHjbvlmjGRORRXBTX9929-95-71 07:19:00 Test Item Value Reference Range Interpretation Comments Chloride Lvl (test code = Chloride Lvl) 106 95-109 N [facility] HospitalIssrwgfTXXQIBCBW0266-33-65 07:19:00 Test Item Value Reference Range Interpretation Comments Calcium Lvl (test code = Calcium Lvl) 8.5 8.5-10.5 N [facility] HospitalGywlyuvVDTODQBRZ1315-62-79 07:19:00 Test Item Value Reference Range Interpretation Comments Bili Total (test code = Bili Total) 0.4 0.2-1.3 N [facility] HospitalFepuhevBKSPKGWEL6512-83-06 07:19:00 Test Item Value Reference Range Interpretation Comments CO2 (test code = CO2) 27 24-32 N [facility] HospitalUuaknppLDPESEZYX7047-15-87 07:19:00 Test Item Value Reference Range Interpretation Comments AST (test code = AST) 54 See_Comment H [Auto mated message] The system which ge nerated this result transmit antonia reference range : <=37. The reference range was not used to interpr et this result as alonso l/abnormal. [facility] JjafhufQRJFTQOYG3448-00-00 07:19:00 Test Item Value Reference Range Interpretation Comments Total Protein (test code = Total 7.3 6.4-8.4 N Protein) [facility] TexasOzvrzxpPXYELQVSO8495-05-28 07:19:00 Test Item Value Reference Range Interpretation Comments Hgb A1C (test code = Hgb A1C) 10.5 [facility] TexasCcfkgpsNCNJVZBQU6388-98-59 07:19:00 Test Item Value Reference Range Interpretation Comments LDL (test code = LDL) 95 See_Comment N [Auto mated message] The system which ge nerated this result transmit antonia reference range : <=129. The reference range was not used to interpr et this result as alonso l/abnormal. [facility] TexasLzmnwldLKZIYRJCY9482-02-73 07:19:00 Test Item Value Reference Range Interpretation Comments Chol (test code = Chol) 180 120-200 N [facility] IckfcbeQEICEDCSU5297-68-99 07:19:00 Test Item Value Reference Range Interpretation Comments Trig (test code = 128 See_Comment N [Automate d message] The Trig) system which ge nerated this result transmit antonia reference range : <=200. The reference range was not used to interpr et this result as alonso l/abnormal. [facility] WpeliixYKBKUQRHT3919-01-44 07:19:00 Test Item Value Reference Range Interpretation Comments HDL (test code = HDL) 59 N [facility] QbrqpnfAFZCYRZJX2603-51-57 07:19:00 Test Item Value Reference Range Interpretation Comments CHD Risk (test code = CHD Risk) 3.05 3.90-5.80 L [facility] EbvqvqzHFSDSXXVN3931-61-50 07:19:00 Test Item Value Reference Range Interpretation Comments Bili Direct (test code 0.1 See_Comment N [Aut omated message] The = Bili Direct) system which generated this result tra nsmitted reference range : <=0.3. The reference r chelsie was not used to int erpret this result as alonso l/abnormal. [facility] TexasDkxfmihXUTVBLJHMZ4916-07-67 07:19:00 Test Item Value Reference Range Interpretation Comments WBC (test code = WBC) 7.6 3.7-10.4 N [facility] HendersonZhuqzxsGZQXJFRVAD5247-01-37 07:19:00 Test Item Value Reference Range Interpretation Comments MCH (test code = MCH) 31.2 pg 27.0-31.0 H [facility] HendersonCtnisrnBPQGDSKVLF5205-03-00 07:19:00 Test Item Value Reference Range Interpretation Comments MCV (test code = MCV) 93.2 81.0-99.0 N [facility] HendersonYmthpxjHOIJWLSDQJ9325-01-43 07:19:00 Test Item Value Reference Range Interpretation Comments RBC (test code = RBC) 3.97 4.20-5.40 L [facility] HendersonLfqdfsgOLKYGKDCDZ7560-67-58 07:19:00 Test Item Value Reference Range Interpretation Comments RDW (test code = RDW) 13.7 11.5-14.5 N [facility] HendersonVcguiqfNEHRXBTTPN5782-75-68 07:19:00 Test Item Value Reference Range Interpretation Comments MPV (test code = MPV) 8.2 7.4-10.4 N [facility] HendersonTljoocmRJGRHSNJFS4943-19-36 07:19:00 Test Item Value Reference Range Interpretation Comments Hct (test code = Hct) 37.0 36.0-48.0 N [facility] HendersonRtfcbfkAETMEWJJAN7781-10-66 07:19:00 Test Item Value Reference Range Interpretation Comments Hgb (test code = Hgb) 12.4 12.0-16.0 N [facility] HendersonHfgbxcqGCUFTFKMVX0428-41-81 07:19:00 Test Item Value Reference Range Interpretation Comments Platelet (test code = Platelet) 203 133-450 N [facility] HendersonQwgjrveLHXMWWWXUD3736-04-04 07:19:00 Test Item Value Reference Range Interpretation Comments MCHC (test code = MCHC) 33.4 32.0-36.0 N [facility] HendersonLcvndswIAYLKNQLJB9173-84-55 07:19:00 Test Item Value Reference Range Interpretation Comments Basophils (test code = 0.6 See_Comment N [Aut omated message] The Basophils) system which ge nerated this result tra nsmitted reference range : <=1.0. The reference r chelsie was not used to int erpret this result as normal/abnormal . [facility] HendersonVivvqxlUBDJUPUSYG8024-84-47 07:19:00 Test Item Value Reference Range Interpretation Comments Monocytes # (test code 0.6 See_Comment N [Aut omated message] The = Monocytes #) system which generated this result tra nsmitted reference range : <=0.8. The reference r chelsie was not used to int erpret this result as normal/abnormal . [facility] HendersonLzazmugZRBQKCIMBN7142-50-23 07:19:00 Test Item Value Reference Range Interpretation Comments Lymphocytes # (test code = Lymphocytes 2.9 1.0-5.5 N #) [facility] HendersonIqmdbaaJNBLNFRWUM4093-44-41 07:19:00 Test Item Value Reference Range Interpretation Comments Eosinophils # (test code 0.2 See_Comment N [A utomated message] The = Eosinophils #) system whic h generated this result tra nsmitted reference range : <=0.5. The reference r chelsie was not used to int erpret this result as normal/abnormal . [facility] HendersonBlmsrimEBPVDQHEJU2236-52-77 07:19:00 Test Item Value Reference Range Interpretation Comments Segs-Bands # (test code = Segs-Bands #) 3.9 1.5-8.1 N [facility] HendersonBwaraffRHXONZRHCW8332-86-63 07:19:00 Test Item Value Reference Range Interpretation Comments Lymphocytes (test code = Lymphocytes) 37.7 20.0-40.0 N [facility] HendersonCgwqlckBYCMOFHHVS7688-84-29 07:19:00 Test Item Value Reference Range Interpretation Comments Segs (test code = Segs) 51.1 45.0-75.0 N [facility] HendersonThfrowdLXZEKJFGQG2029-22-81 07:19:00 Test Item Value Reference Range Interpretation Comments Eosinophils (test code = 2.8 See_Comment N [A utomated message] The Eosinophils) system which ge nerated this result tra nsmitted reference range : <=4.0. The reference r chelsie was not used to int erpret this result as normal/abnormal . [facility] HendersonDqwwynhXQGIAVYPLP1748-80-52 07:19:00 Test Item Value Reference Range Interpretation Comments Monocytes (test code = Monocytes) 7.8 2.0-12.0 N [facility] HendersonTnszojaKEWSULEFEN1679-72-05 07:19:00 Test Item Value Reference Range Interpretation Comments PTT (test code = PTT) 30.1 s 22.9-35.8 N [facility] HendersonMqshmciQEMJQEKBZN7225-36-87 07:19:00 Test Item Value Reference Range Interpretation Comments PT (test code = PT) 13.4 s 12.0-14.7 N [facility]HiamgnqFDZUJWUOEZ8256-27-07 07:19:00 Test Item Value Reference Range Interpretation Comments INR (test code = INR) 1.00 0.85-1.17 N [facility] HospitalHbaalfpJQSYVKNNV3590-97-63 21:14:00 Test Item Value Reference Range Interpretation Comments UDS Note (test code = See Note UDS Note) 7*NA*(07/11/2012 15:14:00) [facility] HospitalYhulabvCKNHXQQFM4638-63-47 21:14:00 Test Item Value Reference Range Interpretation Comments U Benzodia Scr (test Negative code = U Benzodia Scr) *NA*(07/11/2012 15:14:00) [facility] HospitalYqqtcujBLMKWYGDZ8935-34-35 21:14:00 Test Item Value Reference Range Interpretation Comments U Cannab Scr (test Negative code = U Cannab Scr) *NA*(07/11/2012 15:14:00) [facility] HospitalFxblbukXMRQVMEOJ3710-96-41 21:14:00 Test Item Value Reference Range Interpretation Comments U Cocaine Scr (test Negative code = U Cocaine Scr) *NA*(07/11/2012 15:14:00) [id number] 21:14:00 Test Item Value Reference Range Interpretation Comments U Phencyc Scr (test Negative code = U Phencyc Scr) *NA*(07/11/2012 15:14:00) [id number] 21:14:00 Test Item Value Reference Range Interpretation Comments U Opiate Scr (test Negative code = U Opiate Scr) *NA*(07/11/2012 15:14:00) [id number] 21:14:00 Test Item Value Reference Range Interpretation Comments U Mary Scr (test code Negative *NA*(07/11/2012 = U Mary Scr) 15:14:00) [facility] H[id number] 21:14:00 Test Item Value Reference Range Interpretation Comments U Amph Scr (test code Negative *NA*(07/11/2012 = U Amph Scr) 15:14:00) [facility]imrpkcKKLOMJFPRD0275-56-94 21:14:00 Test Item Value Reference Range Interpretation Comments UA Protein (test code = 30 mg/dL A UA Protein) *ABN*(07/11/2012 15:14:00) [id number] 21:14:00 Test Item Value Reference Range Interpretation Comments UA Glucose (test code Negative mg/dL = UA Glucose) *NA*(07/11/2012 15:14:00) [id number] 21:14:00 Test Item Value Reference Range Interpretation Comments UA Ketones (test code Negative mg/dL = UA Ketones) *NA*(07/11/2012 15:14:00) [facility] Hospit[id number] 21:14:00 Test Item Value Reference Range Interpretation Comments UA Bili (test code = Negative *NA*(07/11/2012 UA Bili) 15:14:00) [facility] Hospit[id number] 21:14:00 Test Item Value Reference Range Interpretation Comments UA pH (test code = UA pH) 7.5 5.0-8.0 N [facility] HospitalJtmsbkmVSBBTMSNYY4138-93-29 21:14:00 Test Item Value Reference Range Interpretation Comments UA Spec Grav (test code = UA Spec Grav) 1.040 H [facility] HospitalMjblahxQSIMUACGRT3882-48-11 21:14:00 Test Item Value Reference Range Interpretation Comments UA Color (test code = Yellow *NA*(07/11/2012 UA Color) 15:14:00) [facility] Hospit[id number] 21:14:00 Test Item Value Reference Range Interpretation Comments UA Turbidity (test code = Clear (07/11/2012 N UA Turbidity) 15:14:00) [facility] Hos[id number] 21:14:00 Test Item Value Reference Range Interpretation Comments UA WBC (test code = 1 See_Comment N [Automa antonia message] The UA WBC) system which ge nerated this result transmit antonia reference range : <=5. The reference range was not used to interpr et this result as alonso l/abnormal. [facility] Hospit[id number] 21:14:00 Test Item Value Reference Range Interpretation Comments UA RBC (test code = 4 See_Comment H [Automa antonia message] The UA RBC) system which ge nerated this result transmit antonia reference range : <=2. The reference range was not used to interpr et this result as alonso l/abnormal. [facility] CenterSqmisyrIFHLOHEZUF0616-17-29 21:14:00 Test Item Value Reference Range Interpretation Comments UA Mucus (test code = Few /LPF UA Mucus) *NA*(07/11/2012 15:14:00) [id number] 21:14:00 Test Item Value Reference Range Interpretation Comments UA Leuk Est (test Negative (07/11/2012 N code = UA Leuk Est) 15:14:00) [facility] Cent[id number] 21:14:00 Test Item Value Reference Range Interpretation Comments UA Sq Epi (test code Moderate /LPF A = UA Sq Epi) *ABN*(07/11/2012 15:14:00) [facility] CenterZslxcrqXRFQIPFRSD5288-66-89 21:14:00 Test Item Value Reference Range Interpretation Comments UA Blood (test code = Small *ABN*(07/11/2012 A UA Blood) 15:14:00) [facility] CenterSheufemLSOKQYPVJO3024-01-41 21:14:00 Test Item Value Reference Range Interpretation Comments UA Nitrite (test code Negative (07/11/2012 N = UA Nitrite) 15:14:00) [facility] CenterDyzwjghGMTTKRFMFQ7807-97-90 21:14:00 Test Item Value Reference Range Interpretation Comments UA Urobilinogen (test code *NA*(07/11/2012 0.1-1.0 = UA Urobilinogen) 15:14:00) [facility] Venous Uni LtdExtremit [employer] Ltd
--- NOTE | 2022-11-01 18:38 | RAD REPORT ---
EXAM DESCRIPTION: CT - Ct Stroke Brain Wo Cont - 11/01/2022 6:30 pm CLINICAL HISTORY: STROKE ALERT COMPARISON: Head Brain Wo Cont dated 06/27/2020; Ct Stroke Brain Wo Cont dated 11/12/2018 TECHNIQUE: Noncontrast head CT images ad were obtained without IV contrast. Multiplanar reformats we re generated and reviewed. All CT scans are performed using dose optimization technique as appropriate and may include automated exposure control or mA/KV adjustment according to patient size. FINDINGS: No intracranial hemorrhage, mass, or edema. Incidentally noted empty sella. Midline struct ures are otherwise unremarkable. Normal ventricular caliber for age. Thompson-white matter differentiation is preserved, without evidence of acute infarct. No abnormal extra- axial fluid collections. Mastoid air cells and visualized portions of the paranasal sinuses are clear. 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 Sequelae of bilateral ocular lens replacements. No acute bony findings. IMPRESSION: No evidence of an acute intracranial process. Empty sella again noted. The findings were communicated to Cheng Page on 11/01/2022 at 18:33 hours.
[2022-11-01 18:57] LABS: Hematocrit 40.2 % (36.0-45.0); Lymphocytes % 46.8 % (15.3-44.8); MCV 91.5 fL (80-100); MPV 8.2 fL (7.6-11.3)
--- NOTE | 2022-11-01 19:02 | EDPHYS ---
[facility]: Chiquis Hickman Age: 71 yrs Sex: Female : 1950 Arrival Date: 11/01/2022 Time: 18:15 Bed 15 Private MD: ED Physician Henok Duran HPI: 11/01 18:44 This 71 yrs old Black Female presents to ER via Unassigned with complaints of S/S of glory Possible Stroke, General Weakness - left side. Historical: - Allergies: 18:31 steroids; hb - PMHx: 18:31 CVA; Diabetes - IDDM; Hypertension; LEFT SIDED WEAKNESS; Hyperlipidemia; TIA; hb - Immunization history:: Client reports receiving the 2nd dose of the Covid vaccine. - Social history:: Smoking status: Patient denies any tobacco usage or history of. - Family history:: not pertinent. ROS: 18:47 Constitutional: Negative for fever, chills, and weight loss, Eyes: Negative for injury, glory pain, redness, and discharge, ENT: Negative for injury, pain, and discharge, Neck: Negative for injury, pain, and swelling, Cardiovascular: Negative for chest pain, palpitations, and edema, Respiratory: Negative for shortness of breath, cough, wheezing, and pleuritic chest pain, Abdomen/GI: Negative for abdominal pain, nausea, vomiting, diarrhea, and constipation, Back: Negative for injury and pain, : Negative for injury, bleeding, discharge, and swelling, MS/Extremity: Negative for injury and deformity, Skin: Negative for injury, rash, and discoloration, Psych: Negative for depression, anxiety, suicide ideation, homicidal ideation, and hallucinations, Allergy/Immunology: Negative for hives, rash, and allergies, Endocrine: Negative for neck swelling, polydipsia, polyuria, polyphagia, and marked weight changes, Hematologic/Lymphatic: Negative for swollen nodes, abnormal bleeding, and unusual bruising. 18:47 Neuro: Positive for gait disturbance, weakness, of the face, left arm and left leg. Exam: 18:47 Radiologist reports: negative glory 18:47 Constitutional: This is a well developed, well nourished patient who is awake, alert, and in no acute distress. Head/Face: Normocephalic, atraumatic. Eyes: Pupils equal round and reactive to light, extra-ocular motions intact. Lids and lashes normal. Conjunctiva and sclera are non-icteric and not injected. Cornea within normal limits. Periorbital areas with no swelling, redness, or edema. ENT: Nares patent. No nasal discharge, no septal abnormalities noted. Tympanic membranes are normal and external auditory canals are clear. Oropharynx with no redness, swelling, or masses, exudates, or evidence of obstruction, uvula midline. Mucous membranes moist. Neck: Trachea midline, no thyromegaly or masses palpated, and no cervical lymphadenopathy. Supple, full range of motion without nuchal rigidity, or vertebral point tenderness. No Meningismus. Chest/axilla: Normal chest wall appearance and motion. Nontender with no deformity. No lesions are appreciated. Cardiovascular: Regular rate and rhythm with a normal S1 and S2. No gallops, murmurs, or rubs. Normal PMI, no JVD. No pulse deficits. Respiratory: Lungs have equal breath sounds bilaterally, clear to auscultation and percussion. No rales, rhonchi or wheezes noted. No increased work of breathing, no retractions or nasal flaring. Abdomen/GI: Soft, non-tender, with normal bowel sounds. No distension or tympany. No guarding or rebound. No evidence of tenderness throughout. Back: No spinal tenderness. No costovertebral tenderness. Full range of motion. Female : Normal external genitalia. Skin: Warm, dry with normal turgor. Normal color with no rashes, no lesions, and no evidence of cellulitis. MS/ Extremity: Pulses equal, no cyanosis. Neurovascular intact. Full, normal range of motion. Psych: Awake, alert, with orientation to person, place and time. Behavior, mood, and affect are within normal limits. 18:47 Neuro: Orientation: is normal, appropriate for stated age, no acute changes, Mentation: is normal, appropriate for stated age, no acute changes, Memory: immediate memory is impaired, remote memory is intact. recent memory is intact, Cranial nerves: facial droop noted on left, with forehead spared. Cerebellar function: dysmetria is noted on the left, the patient is unable to track left heel to right silva, unable to perform alternating rapid hand movements with left hand, Motor: Strength is 2/5 in the left arm and left leg, Sensation: tingling, that is mild, of the face, left arm and left leg, Gait: not tested. 19:01 ECG was reviewed by the Attending Physician. [facility] Vital Signs: 18:25 BP 192 / 96; Pulse 71; Resp 16; Pulse Ox 100% on R/A; db 18:25 BP 192 / 96; Pulse 73; Resp 14; Pulse Ox 98% on R/A; Weight 81.65 kg; Height 5 ft. 4 nj1 in. ; 20:00 Temp 98.4(O); rv 22:05 BP 177 / 76; Pulse 68; Resp 16 S; Pulse Ox 100% on R/A; rv 18:25 Body Mass Index 30.90 (81.65 kg, 162.56 cm) nj1 NIH Stroke Scale Scores: 18:45 NIHSS Score: 11 db 18:47 NIHSS Score: 8 glory 11/02 00:00 NIHSS Score: 11 rv Renny Coma Score: 11/01 18:47 Eye Response: spontaneous(4). Motor Response: obeys commands(6). Verbal Response: glory oriented(5). Total: 15. MDM: 18:25 Patient medically screened. glory 18:53 Differential diagnosis: CVA, TIA, metabolic disorder. Data reviewed: vital signs, [facility] nurses notes, EMS record, lab test result(s), EKG, radiologic studies, CT scan, plain films. Consideration of Admission/Observation Escalation of care including admission/observation considered. I considered the following discharge prescriptions or medication management in the emergency department Medications were administered in the Emergency Department. See MAR. Discussion of test interpretation with radiology: I had a discussion with radiology regarding a test interpretation. ct stroke negative. Test considered but Not performed: MRI: no brain mri. Historians other than the Patient: Family Member: daughters, informed. Care significantly affected by the following chronic conditions: Diabetes, Hypertension, Obesity. ED course: onset 1pm , tingling left face , left arm and leg, family noted this 538pm, last known was 830am this motning, not a TNK candidate. 19:21 ED course: Patient care assumed from Dr. Giles. sp4 21:28 ED course: Patient was accepted by [facility] hospitalist and neurologist after sp4 CT angio was found to be unremarkable. ED course: Patient has refused her Plavix p.o. will administer p.o. atorvastatin at the advice of accepting hospitalist.. 11/01 18:26 Order name: Basic Metabolic Panel; Complete Time: 21: [facility] 11/01 18:26 Order name: CBC with Diff; Complete Time: 19:08 [facility] 11/01 18:26 Order name: LFT's; Complete Time: 21:07 [facility] 11/01 18:26 Order name: Magnesium; Complete Time: 21: [facility] 11/01 18:26 Order name: NT PRO-BNP; Complete Time: 21: [facility] 11/01 18:26 Order name: PT-INR; Complete Time: 21: [facility] 11/01 18:26 Order name: Troponin HS; Complete Time: 21: [facility] 11/01 18:42 Order name: Glucose, Ancillary Testing; Complete Time: 19:08 EDAK 11/01 18:26 Order name: XRAY Chest (1 view); Complete Time: 21: [facility] 11/01 18:26 Order name: CT Stroke Brain w/o Contrast; Complete Time: 19: [facility] 11/01 18:26 Order name: CT Head Angio; Complete Time: 21: [facility] 11/01 18:26 Order name: CT Neck Angio; Complete Time: 21: [facility] 11/01 18:26 Order name: EKG; Complete Time: 18: [facility] 11/01 18:26 Order name: Cardiac monitoring; Complete Time: 18:45 [facility] 11/01 18:26 Order name: EKG - Nurse/Tech; Complete Time: 18:45 [facility] 11/01 18:26 Order name: IV Saline Lock; Complete Time: 18:45 [facility] 11/01 18:26 Order name: Labs collected and sent; Complete Time: 21: [facility] 11/01 18:26 Order name: O2 Per Protocol; Complete Time: 21: [facility] 11/01 18:26 Order name: O2 Sat Monitoring; Complete Time: 21: [facility] 11/01 19:01 Order name: Labs - recollect needed: recollect blue and green top hemolyzed; Complete eb Time: 19:09 EC: Rate is 69 beats/min. Rhythm is regular. QRS Guttenberg is Normal. HI interval is normal. QRS glory interval is normal. QT interval is normal. No Q waves. T waves are Normal. No ST changes noted. Clinical impression: NSR w/ Non-specific ST/T Changes and No evidence of ischemia. Interpreted by me. Reviewed by me. Administered Medications: 19:08 Drug: Aspirin PO Chewable Tablet 324 mg Route: PO; db 19:09 Drug: NS 0.9% IV 1000 ml Route: IV; Rate: 1 bolus; Site: right antecubital; db 21:08 Follow up: IV Status: Completed infusion; IV Intake: 1000ml rv 19:09 Not Given (medication unavailablee): foLIC Acid IVPB 1 mg IVPB once db 19:25 Not Given (Patient Refused): Clopidogrel PO 75 mg PO once jb4 21:37 Not Given (Patient Refused): Atorvastatin PO 40 mg PO once sp4 Disposition Summary: 11/01/22 19:01 Transfer Ordered Transfer Location: [facility] glory Reason: Higher level of care glory Condition: Serious glory Problem: new glory Symptoms: are unchanged glory Accepting Physician: to [facility], KRISTA , DR SEQUEIRA(11/02/22 00:49) rv Diagnosis - Cerebral infarction, unspecified - WITH LEFT SIDE WEAKNESS, 6 HOUR ONSET, NOT TNK glory CANDIDATE - Type 1 diabetes mellitus with hyperglycemia glory - Essential (primary) hypertension glory - Obesity, unspecified glory Forms: - Medication Reconciliation Form glory - SBAR form glory NIH Stroke Scale - NIH Stroke Score Date: 11/01/2022 Time: 18:45 Total Score = 11 10. Dysarthria (speech clarity - read or repeat words) - 0(Normal) 11. Extinction and Inattention (visual/tactile/auditory/spatial/personal) - 1(Present) 1a. Level of Consciousness (LOC) - 0(Alert) 1b. Level of Consciousness (LOC) (Month \T\ Age) - 0(Both) 1c. LOC Commands (Open \T\ Closes Eyes/Polisher And Sander) - 1(One) 2. Best Gaze (Lateral Gaze Paresis) - 0(Normal) 3. Visual Field Loss - 0(No visual loss) 4. Facial Palsy - 1(Minor Paralysis) 5a. Left Arm: Motor (10-second hold) - 3(No effort against gravity) 5b. Right Arm: Motor (10-second hold) - 0(No drift) 6a. Left Leg: Motor (5-second hold - always test supine) - 3(No effort against gravity) 6b. Right Leg: Motor (5-second hold - always test supine) - 0(No drift) 7. Limb Ataxia (finger/nose \T\ heel/silva - test with eyes open) - 1(Present in one limb) 8. Sensory Loss (pinprick arms/legs/face) - 1(Mild to moderate loss) 9. Best Language: Aphasia (description/naming/reading) - 0(No aphasia) Initials: NIH Stroke Scale - NIH Stroke Score Date: 11/01/2022 Time: 18:47 Total Score = 8 10. Dysarthria (speech clarity - read or repeat words) - 0(Normal) 11. Extinction and Inattention (visual/tactile/auditory/spatial/personal) - 0(No abnormality) 1a. Level of Consciousness (LOC) - 0(Alert) 1b. Level of Consciousness (LOC) (Month \T\ Age) - 0(Both) 1c. LOC Commands (Open \T\ Closes Eyes/Polisher And Sander) - 0(Both) 2. Best Gaze (Lateral Gaze Paresis) - 0(Normal) 3. Visual Field Loss - 0(No visual loss) 4. Facial Palsy - 1(Minor Paralysis) 5a. Left Arm: Motor (10-second hold) - 2(Drift, some effort against gravity) 5b. Right Arm: Motor (10-second hold) - 0(No drift) 6a. Left Leg: Motor (5-second hold - always test supine) - 2(Drift, some effort against gravity) 6b. Right Leg: Motor (5-second hold - always test supine) - 0(No drift) 7. Limb Ataxia (finger/nose \T\ heel/silva - test with eyes open) - 2(Present in two limbs) 8. Sensory Loss (pinprick arms/legs/face) - 1(Mild to moderate loss) 9. Best Language: Aphasia (description/naming/reading) - 0(No aphasia) Initials: [facility] NIH Stroke Scale - NIH Stroke Score Date: 11/02/2022 Time: 00:00 Total Score = 11 10. Dysarthria (speech clarity - read or repeat words) - 0(Normal) 11. Extinction and Inattention (visual/tactile/auditory/spatial/personal) - 1(Present) 1a. Level of Consciousness (LOC) - 0(Alert) 1b. Level of Consciousness (LOC) (Month \T\ Age) - 0(Both) 1c. LOC Commands (Open \T\ Closes Eyes/Polisher And Sander) - 0(Both) 2. Best Gaze (Lateral Gaze Paresis) - 0(Normal) 3. Visual Field Loss - 0(No visual loss) 4. Facial Palsy - 1(Minor Paralysis) 5a. Left Arm: Motor (10-second hold) - 4(No movement) 5b. Right Arm: Motor (10-second hold) - 0(No drift) 6a. Left Leg: Motor (5-second hold - always test supine) - 4(No movement) 6b. Right Leg: Motor (5-second hold - always test supine) - 0(No drift) 7. Limb Ataxia (finger/nose \T\ heel/silva - test with eyes open) - 0(Absent) 8. Sensory Loss (pinprick arms/legs/face) - 1(Mild to moderate loss) 9. Best Language: Aphasia (description/naming/reading) - 0(No aphasia) Initials: rv Signatures: Dispatcher [employer] EDMS Cheng Giles MD MD cha Attema, Lee, LOCAL AREA NETWORK ADMINISTRATOR-C LOCAL AREA NETWORK ADMINISTRATOR-Cla1 Doreen Mojica, RN RN Edith Trejo Ronaldo RN RN rv Susana Klein RN Henok Ren MD MD sp4 Flori Pearson RN RN nj1 Eron Rankin RN jb4 Corrections: (The following items were deleted from the chart) 19:50 19:49 Immunization history: Client reports receiving the 2nd dose of the Covid nj1 vaccine, nj1 19:50 19:49 Social history: Smoking status: Patient denies any tobacco usage or nj1 history of. nj1 11/02 00:49 11/01 19:01 to [facility], KRISTA , DR HUA holder rv
--- NOTE | 2022-11-01 19:02 | ER ---
Nurse's Notes [facility] Name: Chiquis Hickman Age: 71 yrs Sex: Female : 1950 Arrival Date: 11/01/2022 Time: 18:15 Bed 15 Private MD: Diagnosis: Cerebral infarction, unspecified-WITH LEFT SIDE WEAKNESS, 6 HOUR ONSET, NOT TNK CANDIDATE;Type 1 diabetes mellitus with hyperglycemia;Essential (primary) hypertension;Obesity, unspecified Presentation: 11/01 18:14 Chief complaint: Patient's son or daughter states: Patient called stating she was not nj1 feeling good today, upon arrival, family noted that she was dragging her left leg and her left arm was weak. LKW was at 0830 when family last saw her normal. 18:14 Coronavirus screen: Vaccine status: Patient reports receiving the 2nd dose of the covid nj1 vaccine. Ebola Screen: Patient denies travel to an Ebola-affected area in the 21 days before illness onset. An acute neurological deficit is present. The charge nurse has been notified. The patient has been moved to a treatment area. Initial Sepsis Screen: Does the patient meet any 2 criteria? No. Patient's initial sepsis screen is negative. Does the patient have a suspected source of infection? No. Patient's initial sepsis screen is negative. Risk Assessment: Do you want to hurt yourself or someone else? Patient reports no desire to harm self or others. Onset of symptoms was November 01, 2022. 18:14 Method Of Arrival: Ambulatory [facility] 18:14 Acuity: ROSALBA 2 nj1 Triage Assessment: 11/02 00:48 The onset of the patients symptoms was more than six hours ago. The onset of the rv patients symptoms was November 01, 2022 at 06:00. General: Appears in no apparent distress. General: Behavior is calm, cooperative. 00:49 Neuro: Reports. rv Historical: - Allergies: 11/01 18:31 steroids; hb - PMHx: 18:31 CVA; Diabetes - IDDM; Hypertension; LEFT SIDED WEAKNESS; Hyperlipidemia; TIA; hb - Immunization history:: Client reports receiving the 2nd dose of the Covid vaccine. - Social history:: Smoking status: Patient denies any tobacco usage or history of. - Family history:: not pertinent. Screenin:31 [facility] ED Fall Risk Assessment (Adult) Score/Fall Risk Level 3 or more points = High hb Risk Oriented to surroundings, Maintained a safe environment. Abuse screen: Denies threats or abuse. Denies injuries from another. Nutritional screening: No deficits noted. Tuberculosis screening: No symptoms or risk factors identified. Assessment: 18:19 Reassessment: CODE STROKE CALLED, PT TO CT VIA WHEELCHAIR. hb 18:25 Reassessment: patient returned to room from CT. db 18:30 Reassessment: BGL 105. hb 18:45 VAN Scoring: Arm Drift: Severe drift TNKase (Tenecteplase) Screening: db Contraindications: Patient reports onset of signs and symptoms of stroke greater than 6 hours ago: Yes. Reassessment: patient and family report symptoms started about 1300 but is unsure of the exact time. General: Appears in no apparent distress. comfortable, Behavior is calm. Pain: Denies pain. Neuro: Level of Consciousness is awake, alert, obeys some commands. Oriented to person. 19:00 Alda Swallow Protocol Brief Cognitive Screen What is your name? Normal, Where are you db right now? Normal, What year is it? Normal. Oral Mechanism Examination Facial Symmetry: Normal, Motion: Normal, Lip Closure: Normal, 3 oz Water Swallow Challenge: Pt able to drink all water without stopping, coughing, choking or throat clearing: Yes Result: PASS. Vital Signs: 18:25 BP 192 / 96; Pulse 71; Resp 16; Pulse Ox 100% on R/A; db 18:25 BP 192 / 96; Pulse 73; Resp 14; Pulse Ox 98% on R/A; Weight 81.65 kg; Height 5 ft. 4 nj1 in. ; 20:00 Temp 98.4(O); rv 22:05 BP 177 / 76; Pulse 68; Resp 16 S; Pulse Ox 100% on R/A; rv 18:25 Body Mass Index 30.90 (81.65 kg, 162.56 cm) nj1 [place] Coma Score: 18:47 Eye Response: spontaneous(4). Motor Response: obeys commands(6). Verbal Response: glory oriented(5). Total: 15. NIH Stroke Scale Scores: 18:45 NIHSS Score: 11 db 18:47 NIHSS Score: 8 glory 11/02 00:00 NIHSS Score: 11 rv ED Course: 11/01 18:14 Arm band placed on. nj1 18:16 Patient arrived in ED. am2 18:25 Cheng Giles MD is Attending Physician. glory 18:30 Inserted saline lock: 20 gauge in right antecubital area, using aseptic technique. db Blood collected. 18:32 CT Stroke Brain w/o Contrast In Process Unspecified. EDMS 18:32 Inserted saline lock: 22 gauge in left antecubital area, using aseptic technique. db 18:44 Susana Klein, RN is Primary Nurse. db 18:[address] Giles with Castro Hernandez from the [facility] Transfer [facility].eb 18:49 Placed in gown. Bed in low position. Call light in reach. Side rails up X2. Client db placed on continuous cardiac and pulse oximetry monitoring. NIBP monitoring applied. 18:51 Inserted saline lock: 22 gauge in left antecubital area, using aseptic technique. bc6 19:05 XRAY Chest (1 view) In Process Unspecified. EDMS 19:20 Attending Physician role handed off by Cheng Giles MD sp4 19:20 Henok Duran MD is Attending Physician. sp4 19:49 Triage completed. nj1 19:55 CT Head Angio In Process Unspecified. EDMS 19:56 CT Neck Angio In Process Unspecified. EDMS 11/02 00:48 No provider procedures requiring assistance completed. Patient transferred, IV remains rv in place. Administered Medications: 11/01 19:08 Drug: Aspirin PO Chewable Tablet 324 mg Route: PO; db 19:09 Drug: NS 0.9% IV 1000 ml Route: IV; Rate: 1 bolus; Site: right antecubital; db 21:08 Follow up: IV Status: Completed infusion; IV Intake: 1000ml rv 19:09 Not Given (medication unavailablee): foLIC Acid IVPB 1 mg IVPB once db 19:25 Not Given (Patient Refused): Clopidogrel PO 75 mg PO once jb4 21:37 Not Given (Patient Refused): Atorvastatin PO 40 mg PO once sp4 Medication: 11/02 00:49 VIS not applicable for this client. rv Intake: 11/01 21:08 IV: 1000ml; Total: 1000ml. rv Outcome: 19:01 ER care complete, transfer ordered by . [facility] 11/02 00:48 Transferred by ground EMS to [facility]. rv Condition: good 00:49 Patient left the ED. rv NIH Stroke Scale - NIH Stroke Score Date: 11/01/2022 Time: 18:45 Total Score = 11 10. Dysarthria (speech clarity - read or repeat words) - 0(Normal) 11. Extinction and Inattention (visual/tactile/auditory/spatial/personal) - 1(Present) 1a. Level of Consciousness (LOC) - 0(Alert) 1b. Level of Consciousness (LOC) (Month \T\ Age) - 0(Both) 1c. LOC Commands (Open \T\ Closes Eyes/[employer] Salvage Worker) - 1(One) 2. Best Gaze (Lateral Gaze Paresis) - 0(Normal) 3. Visual Field Loss - 0(No visual loss) 4. Facial Palsy - 1(Minor Paralysis) 5a. Left Arm: Motor (10-second hold) - 3(No effort against gravity) 5b. Right Arm: Motor (10-second hold) - 0(No drift) 6a. Left Leg: Motor (5-second hold - always test supine) - 3(No effort against gravity) 6b. Right Leg: Motor (5-second hold - always test supine) - 0(No drift) 7. Limb Ataxia (finger/nose \T\ heel/silva - test with eyes open) - 1(Present in one limb) 8. Sensory Loss (pinprick arms/legs/face) - 1(Mild to moderate loss) 9. Best Language: Aphasia (description/naming/reading) - 0(No aphasia) Initials: db NIH Stroke Scale - NIH Stroke Score Date: 11/01/2022 Time: 18:47 Total Score = 8 10. Dysarthria (speech clarity - read or repeat words) - 0(Normal) 11. Extinction and Inattention (visual/tactile/auditory/spatial/personal) - 0(No abnormality) 1a. Level of Consciousness (LOC) - 0(Alert) 1b. Level of Consciousness (LOC) (Month \T\ Age) - 0(Both) 1c. LOC Commands (Open \T\ Closes Eyes/Auto Salvage Worker) - 0(Both) 2. Best Gaze (Lateral Gaze Paresis) - 0(Normal) 3. Visual Field Loss - 0(No visual loss) 4. Facial Palsy - 1(Minor Paralysis) 5a. Left Arm: Motor (10-second hold) - 2(Drift, some effort against gravity) 5b. Right Arm: Motor (10-second hold) - 0(No drift) 6a. Left Leg: Motor (5-second hold - always test supine) - 2(Drift, some effort against gravity) 6b. Right Leg: Motor (5-second hold - always test supine) - 0(No drift) 7. Limb Ataxia (finger/nose \T\ heel/silva - test with eyes open) - 2(Present in two limbs) 8. Sensory Loss (pinprick arms/legs/face) - 1(Mild to moderate loss) 9. Best Language: Aphasia (description/naming/reading) - 0(No aphasia) Initials: glory NIH Stroke Scale - NIH Stroke Score Date: 11/02/2022 Time: 00:00 Total Score = 11 10. Dysarthria (speech clarity - read or repeat words) - 0(Normal) 11. Extinction and Inattention (visual/tactile/auditory/spatial/personal) - 1(Present) 1a. Level of Consciousness (LOC) - 0(Alert) 1b. Level of Consciousness (LOC) (Month \T\ Age) - 0(Both) 1c. LOC Commands (Open \T\ Closes Eyes/Auto Salvage Worker) - 0(Both) 2. Best Gaze (Lateral Gaze Paresis) - 0(Normal) 3. Visual Field Loss - 0(No visual loss) 4. Facial Palsy - 1(Minor Paralysis) 5a. Left Arm: Motor (10-second hold) - 4(No movement) 5b. Right Arm: Motor (10-second hold) - 0(No drift) 6a. Left Leg: Motor (5-second hold - always test supine) - 4(No movement) 6b. Right Leg: Motor (5-second hold - always test supine) - 0(No drift) 7. Limb Ataxia (finger/nose \T\ heel/silva - test with eyes open) - 0(Absent) 8. Sensory Loss (pinprick arms/legs/face) - 1(Mild to moderate loss) 9. Best Language: Aphasia (description/naming/reading) - 0(No aphasia) Initials: rv Signatures: Dispatcher [employer] Cheng Perez MD MD cha Baxter, Heather, RN RN hb Moreno, Amanda am2 Edith Trejo Ronaldo, RN RN rv Benton, Susana, RN RN db Criss Glass 6 Henok Duran MD MD sp4 Flori Pearson RN RN nj1 Eron Rankin RN jb4 Corrections: (The following items were deleted from the chart) 11/01 19:50 19:49 Immunization history: Client reports receiving the 2nd dose of the Covid nj1 vaccine, nj1 19:50 19:49 Social history: Smoking status: Patient denies any tobacco usage or nj1 history of. nj1 19:50 19:49 Arm band placed on nj1 nj1
[2022-11-01] MEDS ORDERED: ASPIRIN 81 MG CHEWABLE TABLET ONE (19:03)
[2022-11-01] MEDS ORDERED: NA CHLORIDE 0.9% 1,000 ML ONE (19:05)
[2022-11-01] MEDS ORDERED: CLOPIDOGREL 75 MG TABLET ONE (19:21)
[2022-11-01 19:37] LABS: Bilirubin Direct 0.2 mg/dL (0-0.2); Bilirubin Indirect, Calculated 0.2 mg/dL (0.2-0.8); Bilirubin Total 0.4 mg/dL (0.2-1.0); Magnesium 1.7 mg/dL (1.6-2.4); Potassium 3.7 mEq/L (3.5-5.1); Protein, Total 8.5 g/dL (6.4-8.2); Troponin High Sensitivity 5.4 pg/mL (<58.9)
--- NOTE | 2022-11-01 20:32 | RAD REPORT ---
[facility] CLINICAL HISTORY: COUGH COMPARISON: Chest Pa And Lat (2 Views) dated 07/11/2020; Chest Pa And Lat (2 Views) dated 03/24/2019; Chest Single View dated 11/12/2018; Chest Single View dated 04/02/2018 TECHNIQUE: Portable AP view of the chest. FINDINGS: The lungs are clear. No pneumothorax or effusion. The cardiomediastinal contours are unre markable. Stable deformity along the posterolateral right sixth rib, related to remote healed fractu re. IMPRESSION: No acute cardiopulmonary process.
--- NOTE | 2022-11-01 20:41 | RAD REPORT ---
EXAM DESCRIPTION: CT - Head angio - 11/01/2022 7:53 pm CLINICAL HISTORY: STROKE ALERT COMPARISON: Ct Stroke Brain Wo Cont dated 11/01/2022; Head Brain Wo Cont dated 06/27/2020; Neck Angio dated 11/01/2022; Chest Single View dated 11/01/2022 TECHNIQUE: Axial CT angiography images of the head was performed with multiplanar and maximum intens ity projection reconstructions. Images performed following intravenous administration of 90mL Isovue 370. All CT scans are performed using dose optimization technique as appropriate and may include automated exposure control or mA/KV adjustment according to patient size. FINDINGS: No evidence of large vessel occlusion. No evidence of aneurysm or dissection flap is detec antonia. No flow-limiting stenosis or vascular malformation identified. Antegrade flow is seen in the vertebral arteries. The vertebral arteries are codominant. The visualized dural venous sinuses are grossly patent. IMPRESSION: No evidence of large vessel occlusion or flow-limiting stenosis.
--- NOTE | 2022-11-01 20:53 | RAD REPORT ---
EXAM DESCRIPTION: CT - Neck Angio - 11/01/2022 7:53 pm CLINICAL HISTORY: cva COMPARISON: No comparisons TECHNIQUE: Axial CT angiography images of the head was performed with multiplanar and maximum intens ity projection reconstructions. Images performed following intravenous administration of 90mL Isovue 370. All CT scans are performed using dose optimization technique as appropriate and may include automated exposure control or mA/KV adjustment according to patient size. Quantification of carotid stenosis, if any, is performed according to NASCET criteria. FINDINGS: A left aortic arch is identified with normal three vessel configuration of the great vesse ls. No significant flow abnormality is seen of the common carotid bilaterally. No significant stenosis is identified involving the cervical segments of both internal carotid arteri es. Normal flow is seen within both vertebral arteries. Extensive carious changes, with numerous periapical collection/abscesses along the remaining maxillar y teeth. IMPRESSION: No significant flow abnormality of the neck vessels is identified. Extensive carious changes, with numerous periapical collection/abscesses along the remaining maxillar y teeth.
[2022-11-01] MEDS ORDERED: ATORVASTATIN 40 MG TAB ONE (21:45)
[2022-11-02 01:27] VITALS: TEMP 98.4
[2022-11-02 01:28] VITALS: BP 177/76; O2SAT 100
--- NOTE | 2022-11-05 07:16 | EKG ---
Test Date: 2022-11-01 Test Time: 18:43:29 Petroleum Geologist: JESSICA MEASUREMENT RESULTS: Intervals: Rate: 69 UT: 174 QRSD: 90 QT: 396 QTc: 424 [place]: P: 67 UT: 174 QRS: 5 T: 24 INTERPRETIVE STATEMENTS: Normal sinus rhythm Nonspecific ST and T wave abnormality Abnormal ECG Compared to ECG 12/15/2021 09:51:00 ST (T wave) deviation now present Left ventricular hypertrophy no longer present Early repolarization no longer present Electronically Signed On 11-05-22 07:07:55 CDT by Rebel Smyth
== END 2022-11-02 00:49 | disposition short-term general hospital (02) ==
LOC: ER 18:15
DX: I63.9 Cerebral infarction, unspecified (principal); I10 Essential (primary) hypertension; R29.711 NIHSS score 11; E10.65 Type 1 diabetes mellitus with hyperglycemia; E66.9 Obesity, unspecified; Z88.8 Allergy status to other drugs, medicaments and biological substances
CPT/HCPCS: 96361; 93005; 85025; 80048; 36415; 83735; 85610; 82947; 80076; 84484; 83880; 70496; 70498; 70450; 71045; 96360; 99285; Q9967; J7030

== ENCOUNTER → 2023-06-18 | Emergency (ER) | payer OTHER ==
[~2023-06-18] MED LIST changes: -FENTANYL CITR 100 MCG/2 ML ONE; -LIDOCAINE 2% MPF 5 ML VIAL ONE; -MIDAZOLAM HCL 2 MG/2 ML INJ ONE; +NA CHLORIDE 0.9% 1,000 ML ONE; +ONDANSETRON 4 MG/2 ML VIAL ONE; -propofoL 200 MG/20 ML VIAL IV ONE
[2023-06-18 06:20] LABS: Absolute Lymphocytes (CBC) 0.6 K/uL (0.7-4.9); Hematocrit 45.1 % (36.0-45.0); Lymphocytes % 7.6 % (15.3-44.8); MCV 93.6 fL (80-100); Platelets 199 thou/uL (152-406); RBC Red Blood Cell Count 4.82 M/uL (3.86-4.86)
[2023-06-18 06:47] LABS: Albumin 3.7 g/dL (3.4-5.0); Bilirubin Total 0.6 mg/dL (0.2-1.0); Potassium 3.9 mEq/L (3.5-5.1); Protein, Total 9.9 g/dL (6.4-8.2)
[2023-06-18 08:31] LABS: Specific Gravity 1.026 (1.005-1.030); Urine Bacteria None Seen /HPF (<20); Urine Bilirubin NEGATIVE (Negative); Urine Blood Negative (Negative); Urine Clarity Clear (Clear); Urine Color Light-Yellow (Yellow); Urine Glucose 4+ (Over) (Negative); Urine Protein NEGATIVE (Negative); Urine RBC <5 /HPF (None Seen); Urine Urobilinogen Normal (Normal)
--- NOTE | 2023-06-18 08:36 | EDPHYS ---
Physician Documentation [facility] Name: Chiquis Hickman Age: 72 yrs Sex: Female : 1950 Arrival Date: 06/18/2023 Time: 05:36 Bed 5 Private MD: ED Physician Jb Ramos HPI: 06/18 06:51 This 72 yrs old Black Female presents to ER via Wheelchair with complaints of gb1 Nausea/Vomiting/Diarrhea. 06:51 72-year-old -[place] Citizen female presents with sudden onset nausea vomiting and gb1 diarrhea that began at 1 AM this morning. Patient has a history of diabetes and her sugars are between 70s in the 130s. She denies any other past medical history however it is charted in her medical record that she has history of hyperlipidemia, hypertension. She is currently feeling better than she did prior to arrival to the ER. She denies any fevers or any recent travel.. Historical: - Allergies: 05:54 steroids; jb4 - PMHx: 05:54 Diabetes - IDDM; Hyperlipidemia; Hyperlipidemia; Hypertension; LEFT SIDED WEAKNESS; jb4 TIA; CVA; - PSHx: 05:54 Cholecystectomy; jb4 - Immunization history:: Adult Immunizations up to date. - Social history:: Smoking status: Patient denies any tobacco usage or history of. ROS: 06:51 Constitutional: Negative for fever, chills, and weight loss, Eyes: Negative for injury, gb1 pain, redness, and discharge, ENT: Negative for injury, pain, and discharge, Neck: Negative for injury, pain, and swelling, Cardiovascular: Negative for chest pain, palpitations, and edema, Respiratory: Negative for shortness of breath, cough, wheezing, and pleuritic chest pain, MS/Extremity: Negative for injury and deformity, 06:51 Abdomen/GI: Positive for nausea, vomiting, and diarrhea, Exam: 06:51 Constitutional: This is a well developed, well nourished patient who is awake, alert, gb1 and in no acute distress. Head/Face: Normocephalic, atraumatic. Eyes: Pupils equal round and reactive to light, extra-ocular motions intact. Lids and lashes normal. Conjunctiva and sclera are non-icteric and not injected. Cornea within normal limits. Periorbital areas with no swelling, redness, or edema. ENT: Nares patent. No nasal discharge, no septal abnormalities noted. Tympanic membranes are normal and external auditory canals are clear. Oropharynx with no redness, swelling, or masses, exudates, or evidence of obstruction, uvula midline. Mucous membranes moist. Neck: Trachea midline, no thyromegaly or masses palpated, and no cervical lymphadenopathy. Supple, full range of motion without nuchal rigidity, or vertebral point tenderness. No Meningismus. Chest/axilla: Normal chest wall appearance and motion. Nontender with no deformity. No lesions are appreciated. Cardiovascular: Regular rate and rhythm with a normal S1 and S2. No gallops, murmurs, or rubs. Normal PMI, no JVD. No pulse deficits. Respiratory: Lungs have equal breath sounds bilaterally, clear to auscultation and percussion. No rales, rhonchi or wheezes noted. No increased work of breathing, no retractions or nasal flaring. Abdomen/GI: Soft, non-tender, with normal bowel sounds. No distension or tympany. No guarding or rebound. No evidence of tenderness throughout. Back: No spinal tenderness. No costovertebral tenderness. Full range of motion. Skin: Warm, dry with normal turgor. Normal color with no rashes, no lesions, and no evidence of cellulitis. MS/ Extremity: Pulses equal, no cyanosis. Neurovascular intact. Full, normal range of motion. Neuro: Awake and alert, GCS 15, oriented to person, place, time, and situation. Cranial nerves II-XII grossly intact. Motor strength 5/5 in all extremities. Sensory grossly intact. Cerebellar exam normal. Normal gait. Psych: Awake, alert, with orientation to person, place and time. Behavior, mood, and affect are within normal limits. Vital Signs: 05:53 BP 132 / 92; Pulse 93; Resp 16; Temp 98.6(TE); Pulse Ox 100% on R/A; Weight 88.45 kg; jb4 Height 5 ft. 3 in. ; 06:36 BP 135 / 76; Pulse 87; Resp 18 S; Pulse Ox 96% on R/A; jw7 05:53 Body Mass Index 34.54 (88.45 kg, 160.02 cm) jb4 MDM: 06:30 Patient medically screened. gb1 06:51 Differential diagnosis: Nonspecific abd pain, gastritis, cholecystitis, pancreatitis, gb1 appendicitis, diverticulitis, viral gastroenteritis, gastroenteritis. Data reviewed: vital signs, nurses notes, lab test result(s), CBC, electrolytes, hepatic panel, urinalysis, radiologic studies, CT scan. 06:51 ED course: 72-year-old female with sudden onset abdominal cramping with nausea vomiting gb1 diarrhea looks to have a mild pancreatitis. Her abdominal exam is unremarkable as she has no peritoneal signs at this time I doubt acute appendicitis, small bowel obstruction or acute diverticulitis with abscess. The patient still was at the bedside and the only lab test were pending is a urinalysis. If that is negative the patient can go home with supportive care as long as she is p.o. tolerant. Her blood sugars are also elevated but at this time there is no anion gap and I doubt diabetic ketoacidosis. The patient is being rehydrated right now with some IV fluids and will need clinical reassessment with evaluation of the urinalysis that is still pending. I will turn acute patient's care over to Dr. Ramos at 0700.. 07:20 ED course: Signed out to me by Dr. Borja, plan was to discharge home after urinalysis rn evaluation. She did not feel the patient required CT abdomen pelvis due to lack of abdominal tenderness. I reevaluated patient, denies any abdominal pain, feels much better, went over results and plan to discharge home as per original plan. Stable vital signs.. 08:35 Counseling: I had a detailed discussion with the patient and/or guardian regarding the rn historical points, exam findings, and any diagnostic results supporting the discharge/admit diagnosis, lab results, the need for outpatient follow up, to return to the emergency department if symptoms worsen or persist or if there are any questions or concerns that arise at home. Special discussion: I discussed with the patient/guardian in detail that at this point there is no indication for admission to the hospital. It is understood, however, that if the symptoms persist or worsen the patient needs to return immediately for re-evaluation. 06/18 05:56 Order name: CBC with Diff as6 06/18 05:56 Order name: CMP; Complete Time: 06:51 as06/18 05:56 Order name: Lipase; Complete Time: 06:51 06/18 05:56 Order name: Urinalysis w/ reflexes; Complete Time: 08:34 06/18 05:56 Order name: IV Saline Lock; Complete Time: 06:16 06/18 05:56 Order name: Labs collected and sent; Complete Time: 06:16 Administered Medications: 06:26 Drug: NS 0.9% IV 1000 ml IV at 1 bolus Per protocol; 1000 mL bolus Route: IV; Rate: 1 jw7 bolus; Site: right antecubital; 06:26 Drug: Ondansetron IVP 4 mg IVP once; over 2 minutes Route: IVP; Site: right antecubital;jw7 Disposition: 07:05 Co-signature as Attending Physician, Marli Borja MD. gb1 Disposition Summary: 06/18/23 08:36 Discharge Ordered Notes: Location: Home rn Problem: new rn Symptoms: have improved rn Condition: Stable rn Diagnosis - Vomiting, unspecified rn - Diarrhea, unspecified rn - Dehydration rn Followup: rn - With: Private Physician - When: As needed - Reason: Recheck today's complaints, Re-evaluation by your physician Discharge Instructions: - Discharge Summary Sheet rn - Dehydration, Adult rn - Diarrhea, Adult rn - Vomiting, Adult rn Forms: - Medication Reconciliation Form rn - Thank You Letter rn - Antibiotic summer internship - Prescription Opioid Use rn - Patient Portal Instructions rn - Leadership Thank You Letter rn Prescriptions: - ondansetron 4 mg Oral Tablet,disintegrating - take 1 tablet ORAL route every 8 hours for 24 hours; 10 tablet; Refills: 0, rn Product Selection Permitted Signatures: Dispatcher [employer] Jb Johnson MD MD rn Bryson, James, RN RN jb4 Daron Cuevas, RN RN as6 Megan Shaw, RN RN jw7 Marli Borja MD MD gb1
--- NOTE | 2023-06-18 08:36 | ER ---
Nurse's Notes [facility] Name: Chiquis Hickman Age: 72 yrs Sex: Female : 1950 Arrival Date: 06/18/2023 Time: 05:36 Bed 5 Private MD: Diagnosis: Vomiting, unspecified;Diarrhea, unspecified;Dehydration Presentation: 06/18 05:53 Chief complaint: Patient states: I have had N/V/D since 1am. I have had about 4 jb4 episodes of each. Coronavirus screen: At this time, the client does not indicate any symptoms associated with coronavirus-19. Ebola Screen: No symptoms or risks identified at this time. Initial Sepsis Screen: Does the patient meet any 2 criteria? No. Patient's initial sepsis screen is negative. Does the patient have a suspected source of infection? No. Patient's initial sepsis screen is negative. Risk Assessment: Do you want to hurt yourself or someone else? Patient reports no desire to harm self or others. Onset of symptoms was June 18, 2023. 05:53 Method Of Arrival: Wheelchair jb4 05:53 Acuity: ROSALBA 3 jb4 Historical: - Allergies: 05:54 steroids; jb4 - PMHx: 05:54 Diabetes - IDDM; Hyperlipidemia; Hyperlipidemia; Hypertension; LEFT SIDED WEAKNESS; jb4 TIA; CVA; - PSHx: 05:54 Cholecystectomy; jb4 - Immunization history:: Adult Immunizations up to date. - Social history:: Smoking status: Patient denies any tobacco usage or history of. Screenin:16 [facility] ED Fall Risk Assessment (Adult) History of falling in the last 3 months, jw7 including since admission Yes- single mechanical fall (1 pt) Confusion or Disorientation No (0 pts) Intoxicated or Sedated No (0 pts) Impaired Gait Yes (1 pt) Mobility Assist Device Used No (0 pt) Altered Elimination Yes (1 pt) Score/Fall Risk Level 3 or more points = High Risk Oriented to surroundings, Maintained a safe environment, Educated pt \T\ family on fall prevention, incl call for assistance when getting out of bed, Assessed \T\ reinforced patient's understanding of fall precautions, Provided non-skid footwear. Abuse screen: Denies threats or abuse. Denies injuries from another. Nutritional screening: No deficits noted. Tuberculosis screening: No symptoms or risk factors identified. Assessment: 06:17 General: Appears in no apparent distress. uncomfortable, ill, Behavior is calm, jw7 cooperative. Pain: Complains of pain in abdomen Pain does not radiate. Pain currently is 5 out of 10 on a pain scale. Quality of pain is described as crampy, pressure, Pain began suddenly, Is continuous. Neuro: Level of Consciousness is awake, alert, obeys commands, Oriented to person, place, time, situation. Cardiovascular: Capillary refill < 3 seconds Clubbing of nail beds is absent JVD is absent Patient's skin is warm and dry. Respiratory: Airway is patent Trachea midline Respiratory effort is even, unlabored, Respiratory pattern is regular, symmetrical. GI: Abdomen is round non-distended. : No deficits noted. No signs and/or symptoms were reported regarding the genitourinary system. EENT: No deficits noted. No signs and/or symptoms were reported regarding the EENT system. Derm: Skin is intact, is healthy with good turgor, Skin is dry, Skin is normal, Skin temperature is warm. Musculoskeletal: Circulation, motion, and sensation intact. Range of motion: intact in all extremities. Vital Signs: 05:53 BP 132 / 92; Pulse 93; Resp 16; Temp 98.6(TE); Pulse Ox 100% on R/A; Weight 88.45 kg; jb4 Height 5 ft. 3 in. ; 06:36 BP 135 / 76; Pulse 87; Resp 18 S; Pulse Ox 96% on R/A; jw7 05:53 Body Mass Index 34.54 (88.45 kg, 160.02 cm) [facility] ED Course: 05:44 Patient arrived in ED. gm2 05:54 Triage completed. jb4 05:54 Arm band placed on right wrist. jb4 06:11 Initial lab(s) drawn, by nm, sent to lab. Inserted saline lock: 20 gauge in right [facility] antecubital area, using aseptic technique. Blood collected. 06:16 Patient has correct armband on for positive identification. Bed in low position. Call [facility] light in reach. Side rails up X2. 06:16 CBC with Diff Sent. jw7 06:16 CMP Sent. 7 06:16 Lipase Sent. [facility] 06:30 Marli Borja MD is Attending Physician. gb1 07:07 Attending Physician role handed off by Marli Borja MD rn 07:07 Jb Ramos MD is Attending Physician. rn 07:11 Sonia Rivas, RN is Primary Nurse. ko1 08:53 No provider procedures requiring assistance completed. IV discontinued, intact, ld1 bleeding controlled, No redness/swelling at site. Administered Medications: 06:26 Drug: NS 0.9% IV 1000 ml IV at 1 bolus Per protocol; 1000 mL bolus Route: IV; Rate: 1 jw7 bolus; Site: right antecubital; 06:26 Drug: Ondansetron IVP 4 mg IVP once; over 2 minutes Route: IVP; Site: right antecubital;jw7 Medication: 08:53 VIS not applicable for this client. ld1 Outcome: 08:36 Discharge ordered by MD. rn 08:53 Discharged to home ambulatory, ld1 08:53 Condition: stable 08:53 Discharge instructions given to patient, family, Instructed on discharge instructions, follow up and referral plans. medication usage, Demonstrated understanding of instructions, follow-up care, medications, Prescriptions given X 2, 08:53 Patient left the ED. ld1 Signatures: Jb Ramos MD MD rn Bryson, James, RN RN jb4 Meagan Patel RN RN ld1 Megan Shaw RN RN jw7 Sonia Rivas, CARIE RN ko1 Marli Borja MD MD gb1 Antonietta Lim gm2 Corrections: (The following items were deleted from the chart) 05:59 05:53 88.45 kg; Height 5 ft. 3 in.; BMI: 34.5; jb4 jb4 06:19 06:17 Pain: Complains of pain in abdomen Pain does not radiate. Pain currently is 6 out jw7 of 10 on a pain scale. Quality of pain is described as crampy, pressure, Pain began suddenly, Is continuous, jw7
[2023-06-18 09:26] LABS: Blood Morphology Comment NOT SEEN (NOT SEEN); Platelet Estimate ADEQ; White Blood Cell Scan OK (OK)
[2023-06-18 12:58] VITALS: TEMP 98.6
[2023-06-18 13:09] VITALS: BP 135/76; O2SAT 96
== END ==
LOC: ER 05:36
DX: R11.10 Vomiting, unspecified (principal); E86.0 Dehydration; R19.7 Diarrhea, unspecified; E11.9 Type 2 diabetes mellitus without complications; I10 Essential (primary) hypertension; Z88.8 Allergy status to other drugs, medicaments and biological substances
CPT/HCPCS: 85025; 81001; 36415; 83690; 80053; 96374; 99284; J2405; J7030